=== PATIENT | male | born 1960 | race Caucasian/White ===

== ENCOUNTER 2018-02-11 21:50 | Emergency (ER) | payer MEDICARE ==
[2018-02-11] MEDS ORDERED: XYLOCAINE 2% Uro-Jet ONE (22:03)
--- NOTE | 2018-02-11 22:08 | ERPHSYRPT ---
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 This is given him lower abdominal pain. He has a history of urinary strictures with urinary retention. This condition will cause urinary retention from time to time. His past medical history is significant for urinary strictures. Timing/Duration: today, hour(s) (9), gradual onset, worse Quality: fullness, pressure, sharpness Abdominal Pain Onset Location: suprapubic Pain Radiation: no radiation Severity of Pain-Max: moderate Severity of Pain-Current: moderate Modifying Factors: Improves With: nothing Associated Symptoms: denies symptoms Previous symptoms: same symptoms as today Allergies/Adverse Reactions: No Known Drug Allergies Allergy (Verified 02/11/18 22:20) Home Medications: Finasteride 5 mg [Proscar 5 MG] 5 mg PO DAILY 11/30/15 [History] Ketoconazole Cream [Nizoral CREAM] 0 gm TOP DAILY 11/30/15 [History] Baclofen [Lioresal Intrathecal] 2,000 mcg IT UD 12/01/15 [History] Hx Influenza Vaccination/Date Given: Yes - Review of Systems Constitutional: No Fever, No Chills Eyes: No Symptoms Ears, Nose, & Throat: No Symptoms Respiratory: No Cough, No Dyspnea Cardiac: No Chest Pain, No Edema, No Syncope Abdominal/Gastrointestinal: Abdominal Pain Genitourinary Symptoms: Urinary Retention Musculoskeletal: No Back Pain, No Neck Pain Skin: No Rash Neurological: No Dizziness, No Focal Weakness, No Sensory Changes Psychological: No Symptoms Endocrine: No Symptoms Hematologic/Lymphatic: No Symptoms Immunological/Allergic: No Symptoms All Other Systems: Reviewed and Negative - Past Medical History Pertinent Past Medical History: Yes Neurological History: Other ENT History: No Pertinent History Cardiac History: Hypertension Respiratory History: No Pertinent History Endocrine Medical History: No Pertinent History Musculoskeletal History: No Pertinent History GI Medical History: No Pertinent History History: No Pertinent History Psycho-Social History: No Pertinent History Male Reproductive Disorders: Prostate Problems Other Medical History: Unable to obtain accurate med hx through pt or caregiver. CP with related spasticity is most significant med hx. - Past Surgical History Past Surgical History: Yes Neuro Surgical History: No Pertinent History Cardiac: No Pertinent History Respiratory: No Pertinent History Gastrointestinal: No Pertinent History Genitourinary: No Pertinent History Musculoskeletal: Orthopedic Surgery Male Surgical History: No Pertinent History Other Surgical History: Back, Neck, and ankle surgery - Social History Smoking Status: Never smoker Exposure to second hand smoke: No Drug Use: none - Nursing Vital Signs Nursing Vital Signs: Initial Vital Signs Temperature 97.8 F 02/11/18 22:10 Pulse Rate 61 02/11/18 22:10 Respiratory Rate 18 02/11/18 22:10 Blood Pressure 138/84 02/11/18 22:10 O2 Sat by Pulse Oximetry 96 02/11/18 22:10 Pain Scale Pain Intensity 4 - Physical Exam General Appearance: mild distress Eye Exam: PERRL/EOMI, eyes nml inspection Ears, Nose, Throat Exam: normal ENT inspection, pharynx normal, moist mucous membranes Neck Exam: normal inspection, non-tender, supple, full range of motion Respiratory Exam: normal breath sounds, lungs clear, No respiratory distress Cardiovascular Exam: regular rate/rhythm, normal heart sounds Gastrointestinal/Abdomen Exam: tenderness (suprapubic) Rectal Exam: not done Back Exam: normal inspection, normal range of motion, No CVA tenderness, No vertebral tenderness Extremity Exam: normal inspection, normal range of motion, pelvis stable Neurologic Exam: alert, oriented x 3, cooperative, normal mood/affect, nml cerebellar function, sensation nml, No motor deficits Skin Exam: normal color, warm, dry SpO2 Interpretation: normal Oxygen Delivery: Room Air Ordered Tests: Active Orders 24 hr Category Date Time Status Catheter-[place] Bustos STAT Care 02/11/18 22:08 Active UA W/RFX UR CULTURE Stat Lab 02/11/18 22:20 Completed Medication Summary Discontinued Medications Generic Name Dose Route Start Last Admin Trade Name Freq PRN Reason Stop Dose Admin Lidocaine HCl Confirm 02/11/18 22:03 Xylocaine 2% Uro-Jet Administered 02/11/18 22:04 Dose 200 mg .ROUTE .STK-MED ONE Lab/Rad Data: Laboratory Results 02/11/18 Range/Units 22:20 Ur Collection Type CLEAN CATCH Urine Color LT.YELLOW (YELLOW) Urine Appearance CLEAR (CLEAR) Urine pH 6.5 (5-6) Ur Specific [place] 1.005 (1.005-1.025) Urine Protein NEGATIVE (Negative) Urine Ketones NEGATIVE (NEGATIVE) Urine Blood NEGATIVE (0-5) [place]/ul Urine Nitrite NEGATIVE (NEGATIVE) Urine Bilirubin NEGATIVE (NEGATIVE) Urine Urobilinogen NORMAL (0-1) mg/dL Ur Leukocyte Esterase NEGATIVE (NEGATIVE) Urine Culture Reflexed NO (NO) Urine Glucose NEGATIVE (NEGATIVE) mg/dL Specimen Received 02/11/18 2200 - Progress Progress: improved Counseled pt/family regarding: diagnosis, need for follow-up - Departure Time of Disposition: 23:28 Departure Disposition: Home Clinical Impression: Urinary retention Condition: Stable Critical Care Time: No Referrals: DEXTER DOSS MD [Primary Care Provider] - Additional Instructions: You have urinary retention. We placed a Bustos catheter for you to keep in place until seeing either your primary care doctor or your urologist in the next 2-4 days.
[2018-02-11 23:16] LABS: Appearance CLEAR (CLEAR)
[2018-02-11 23:17] LABS: Bilirubin NEGATIVE (NEGATIVE); Blood NEGATIVE Ery/ul (0-5); Glucose NEGATIVE (NEGATIVE); Ketones NEGATIVE (NEGATIVE); Leukocyte Esterase NEGATIVE (NEGATIVE); Nitrite NEGATIVE (NEGATIVE); Ph 6.5 (5-6); Protein,Urine Dip NEGATIVE (Negative); Specific Gravity 1.005 (1.005-1.025); Urobilinogen NORMAL mg/dL (0-1)
[2018-02-12 00:22] VITALS: BP 123/77; PULSE 62; O2SAT 97
== END 2018-02-11 23:54 | disposition home or self-care (01) ==
LOC: ED 21:50
DX: R33.9 Retention of urine, unspecified (principal); Z79.899 Other long term (current) drug therapy; G80.9 Cerebral palsy, unspecified
CPT/HCPCS: 51702; 81002; 99284

== ENCOUNTER 2018-02-16 09:00 | Emergency (ER) | payer MEDICARE ==
--- NOTE | 2018-02-16 09:53 | ERPHSYRPT ---
- History of Present Illness Time Seen by Provider: 02/16/18 09:15 Source: patient Exam Limitations: clinical condition Patient Subjective Stated Complaint: Pt neice/caregiver states "He pulled his melendrez catheter partly out and he is having bloody urine comeing out around the cath." Triage Nursing Assessment: Pt alert and oriented X 3, skin pwd Pt ambulates with pain. Pt speech is slow, pt caregiver is historian. Physician History: PATIENT WITH HISTORY OF HYPERTENSION, EVALUATED FOR URINARY RETENTION IN EMERGENCY OF[facility] 02/11/2018, HAD MELENDREZ CATHETER INSERTION. PARTIALLY PULLED OUT MELENDREZ CATHETER LAST NIGHT. DENIES ABDOMINAL OR URETHRAL PAIN, HEMATURIA. Timing/Duration: yesterday Activites at Onset: none Pain Radiation: none Severity of Pain-Max: none Severity of Pain-Current: none Associated Symptoms: denies symptoms Prior abdominal problems: none Allergies/Adverse Reactions: No Known Drug Allergies Allergy (Verified 02/11/18 22:20) Home Medications: Finasteride 5 mg [Proscar 5 MG] 5 mg PO DAILY 11/30/15 [History] Ketoconazole Cream [Nizoral CREAM] 0 gm TOP DAILY 11/30/15 [History] Baclofen [Lioresal Intrathecal] 2,000 mcg IT UD 12/01/15 [History] Hx Tetanus, Diphtheria Vaccination/Date Given: Yes Hx Influenza Vaccination/Date Given: Yes Hx Pneumococcal Vaccination/Date Given: Yes Immunizations Up to Date: Yes - Past Medical History Pertinent Past Medical History: Yes Neurological History: Other ENT History: No Pertinent History Cardiac History: Hypertension Respiratory History: No Pertinent History Endocrine Medical History: No Pertinent History Musculoskeletal History: No Pertinent History GI Medical History: No Pertinent History History: No Pertinent History Psycho-Social History: No Pertinent History Male Reproductive Disorders: Prostate Problems Other Medical History: Unable to obtain accurate med hx through pt or caregiver. CP with related spasticity is most significant med hx. - Past Surgical History Past Surgical History: Yes Neuro Surgical History: No Pertinent History Cardiac: No Pertinent History Respiratory: No Pertinent History Gastrointestinal: No Pertinent History Genitourinary: No Pertinent History Musculoskeletal: Orthopedic Surgery Male Surgical History: No Pertinent History Other Surgical History: Back, Neck, and ankle surgery - Social History Smoking Status: Never smoker Exposure to second hand smoke: Yes Drug Use: none Patient Lives Alone: No - Review of Systems Constitutional: No Fever, No Chills Eyes: No Symptoms Ears, Nose, & Throat: No Symptoms Respiratory: No Symptoms, No Cough, No Dyspnea Cardiac: No Chest Pain, No Edema, No Syncope Abdominal/Gastrointestinal: No Symptoms, No Abdominal Pain, No Nausea, No Vomiting, No Diarrhea Genitourinary Symptoms: No Symptoms, No Dysuria Musculoskeletal: No Symptoms, No Back Pain, No Neck Pain Skin: No Rash Neurological: No Dizziness, No Focal Weakness, No Sensory Changes Psychological: No Symptoms Endocrine: No Symptoms All Other Systems: Reviewed and Negative - Nursing Vital Signs Nursing Vital Signs: Initial Vital Signs Temperature 97.4 F 02/16/18 09:01 Pulse Rate 68 02/16/18 09:01 Respiratory Rate 18 02/16/18 09:01 Blood Pressure 119/71 02/16/18 09:01 O2 Sat by Pulse Oximetry 96 02/16/18 09:01 Pain Scale Pain Intensity 0 - Physical Exam General Appearance: no apparent distress, alert Eye Exam: PERRL/EOMI Ears, Nose, Throat Exam: pharynx normal, moist mucous membranes Neck Exam: normal inspection, supple Respiratory Exam: normal breath sounds, lungs clear Cardiovascular Exam: regular rate/rhythm, No edema Gastrointestinal/Abdomen Exam: soft, normal bowel sounds, other (NONTENDER, ), No tenderness Male Genital Exam: epididymal tenderness (MELENDREZ PARTIALLY PULLED OUT, URINE DRAINING THROUGH MELENDREZ CATHETER) Back Exam: normal inspection, No CVA tenderness Extremity Exam: normal inspection, normal range of motion, No pedal edema Neurologic Exam: alert, oriented x 3, cooperative, sensation nml, No motor deficits Skin Exam: normal color, warm, dry, No rash SpO2 Interpretation: normal SpO2: 96 Oxygen Delivery: Room Air Ordered Tests: Active Orders 24 hr Category Date Time Status UA W/RFX UR CULTURE Stat Lab 02/16/18 09:35 Ordered - Progress Progress Note: 02/16/18 09:55 DEFLATED MELENDREZ CATHETER BULB, INSERTION OF MELENDREZ, INFLATED BULB, WITH GOOD URINE OUT PUT Counseled pt/family regarding: lab results, diagnosis, need for follow-up - Departure Time of Disposition: 10:20 Departure Disposition: Home Clinical Impression: MELENDREZ CATHETER REPOSITION, URINARY TRACT INFECTION Condition: Stable Critical Care Time: No Referrals: DEXTER DOSS MD [Primary Care Provider] - Additional Instructions: CONTINUE ALL CURRENT MEDICATIONS, RETURN TO EMERGENCY NEEDED. ANTIBIOTIC BACTRIM DS TWICE DAILY FOR 10 DAYS. CONSULT YOUR PRIMARY CARE PROVIDER FOR FOLLOWUP. CONTINUE ANTIBIOTIC BACTRIM DS TWICE DAILY DIRECTED.
[2018-02-16 10:09] LABS: Appearance HAZY (CLEAR); Bilirubin NEGATIVE (NEGATIVE); Blood 250 Ery/ul (0-5); Glucose NEGATIVE (NEGATIVE); Ketones NEGATIVE (NEGATIVE); Leukocyte Esterase 1+ (NEGATIVE); Nitrite NEGATIVE (NEGATIVE); Protein,Urine Dip TRACE (Negative); Specific Gravity 1.015 (1.005-1.025); Urobilinogen NORMAL mg/dL (0-1)
[2018-02-16 10:16] LABS: Bacteria MODERATE /HPF (NEGATIVE); Epithelial Cells FEW /HPF (FEW); Mucus SLIGHT /HPF (NEGATIVE); RBC >100 /HPF (0-2); WBC 25-50 /HPF (0-5)
[2018-02-16 10:48] VITALS: BP 122/78; PULSE 60; O2SAT 95
== END 2018-02-16 10:56 | disposition home or self-care (01) ==
LOC: ED 09:00
DX: T83.028A Displacement of other urinary catheter, initial encounter (principal); N39.0 Urinary tract infection, site not specified; Z79.899 Other long term (current) drug therapy; G80.9 Cerebral palsy, unspecified
CPT/HCPCS: 81000; 87077; 87086; 87186; 99284

== ENCOUNTER 2018-05-27 12:20 | Emergency (ER) | payer MEDICARE ==
--- NOTE | 2018-05-27 13:13 | ERPHSYRPT ---
- History of Present Illness Time Seen by Provider: 05/27/18 13:06 Source: patient, other Exam Limitations: other (CP) Patient Subjective Stated Complaint: Pt caregiver states "He has fallen 3 times today, usually when he gets up. I took his blood pressure and it was low." Triage Nursing Assessment: Pt alert and oriented X 3, skin pwd. Pt smiling and looking around. Pt able to speak in clear full sentences, for his normal, pt in no apparent respiratory distress. Physician History: The patient is a 57-year-old male with a history of cerebral palsy living in a detention arrives with his caregiver who states that he has fallen several times while trying to stand today. He states he is dizzy and has a headache. He denies shortness of breath or chest pain. He denies cough or fever. His past medical history is significant for cerebral palsy, hypertension, and enlarged prostate. Timing/Duration: today Severity: moderate Associated Symptoms: headaches Allergies/Adverse Reactions: No Known Drug Allergies Allergy (Verified 02/11/18 22:20) Home Medications: Finasteride 5 mg [Proscar 5 MG] 5 mg PO DAILY 11/30/15 [History] Baclofen [Lioresal Intrathecal] 2,000 mcg IT UD 12/01/15 [History] Metoprolol Succinate [Toprol Xl] 25 mg PO DAILY 05/27/18 [History] Hx Tetanus, Diphtheria Vaccination/Date Given: Yes Hx Influenza Vaccination/Date Given: No Hx Pneumococcal Vaccination/Date Given: No Immunizations Up to Date: Yes - Review of Systems Constitutional: No Fever, No Chills Eyes: No Symptoms Ears, Nose, & Throat: No Symptoms Respiratory: No Cough, No Dyspnea Cardiac: No Chest Pain, No Edema, No Syncope Abdominal/Gastrointestinal: No Abdominal Pain, No Nausea, No Vomiting, No Diarrhea Genitourinary Symptoms: No Dysuria Musculoskeletal: Fall Skin: No Rash Neurological: Headache Psychological: No Symptoms Endocrine: No Symptoms Hematologic/Lymphatic: No Symptoms Immunological/Allergic: No Symptoms All Other Systems: Reviewed and Negative - Past Medical History Pertinent Past Medical History: Yes Neurological History: Other ENT History: No Pertinent History Cardiac History: Hypertension Respiratory History: Asthma Endocrine Medical History: Other Musculoskeletal History: Other GI Medical History: No Pertinent History History: No Pertinent History Psycho-Social History: No Pertinent History Male Reproductive Disorders: Prostate Problems Other Medical History: getting botox now and wearing resting hand splint at night. - Past Surgical History Past Surgical History: Yes Neuro Surgical History: No Pertinent History Cardiac: No Pertinent History Respiratory: No Pertinent History Gastrointestinal: No Pertinent History Genitourinary: No Pertinent History Musculoskeletal: Orthopedic Surgery Male Surgical History: No Pertinent History Other Surgical History: Back, Neck, and ankle surgery - Social History Smoking Status: Never smoker Exposure to second hand smoke: No Drug Use: none Patient Lives Alone: No - Nursing Vital Signs Nursing Vital Signs: Initial Vital Signs Temperature 97.8 F 05/27/18 12:24 Pulse Rate 56 L 05/27/18 12:24 Respiratory Rate 18 05/27/18 12:24 Blood Pressure 128/87 05/27/18 12:24 O2 Sat by Pulse Oximetry 97 05/27/18 12:24 Pain Scale Pain Intensity 0 - Physical Exam General Appearance: no apparent distress, alert Eye Exam: PERRL/EOMI, eyes nml inspection Ears, Nose, Throat Exam: TMs normal, pharynx normal, moist mucous membranes, other (cerumen impaction in left ear.) Neck Exam: normal inspection, non-tender, supple, full range of motion Respiratory Exam: normal breath sounds, lungs clear, No respiratory distress Cardiovascular Exam: regular rate/rhythm, normal heart sounds, normal peripheral pulses Gastrointestinal/Abdomen Exam: soft, normal bowel sounds, No tenderness, No mass Rectal Exam: not done Back Exam: normal inspection, normal range of motion, No CVA tenderness, No vertebral tenderness Extremity Exam: normal inspection, normal range of motion, pelvis stable Neurologic Exam: alert, oriented x 3, cooperative, normal mood/affect, nml cerebellar function, nml station & gait, sensation nml, No motor deficits Skin Exam: normal color, warm, dry, No rash Lymphatic Exam: No adenopathy SpO2 Interpretation: normal SpO2: 97 Oxygen Delivery: Room Air - Radiology Exams Chest X-ray Interpretation: Reviewed by me, Teleradiologist Report (per Dr Perales), Negative - CT Exams Head CT Interpretation: Tele-radiologist Report (per Dr Perales), No/Intracranial Hemorrhag, Old Stroke Ordered Tests: Active Orders 24 hr Category Date Time Status Wine Sales Representative STAT Care 05/27/18 13:21 Active Clean Catch Urine Specimen STAT Care 05/27/18 13:20 Active IV Insertion STAT Care 05/27/18 13:20 Active Orthostatic Vital Signs STAT Care 05/27/18 14:00 Active Pulse Oximetry (ED) STAT Care 05/27/18 13:20 Active CHEST 1 VIEW (PORTABLE) Stat Exams 05/27/18 13:21 Completed HEAD WITHOUT CONTRAST [CT] Stat Exams 05/27/18 13:20 Completed CBC W DIFF Stat Lab 05/27/18 13:47 Completed CMP Stat Lab 05/27/18 13:47 Completed Lactic Acid Urgent Lab 05/27/18 13:50 Completed TROPONIN Q3H Lab 05/27/18 13:47 Completed TROPONIN Q3H Lab 05/27/18 16:30 Ordered TROPONIN Q3H Lab 05/27/18 19:30 Ordered TROPONIN Q3H Lab 05/27/18 22:30 Ordered TROPONIN Q3H Lab 05/28/18 01:30 Ordered UA W/RFX UR CULTURE Stat Lab 05/27/18 15:10 Completed Medication Summary Discontinued Medications Generic Name Dose Route Start Last Admin Trade Name Freq PRN Reason Stop Dose Admin Sodium Chloride 1,000 mls @ 999 mls/hr 05/27/18 13:20 05/27/18 14:05 Sodium Chloride 0.9% 1000 Ml IV 05/27/18 14:20 999 mls/hr .Q1H1M STA Administration Sodium Chloride Confirm 05/27/18 14:05 Sodium Chloride 0.9% 1000 Ml Administered 05/27/18 14:06 Dose 1,000 mls @ ud .ROUTE .STK-MED ONE Lab/Rad Data: Laboratory Result Diagrams 05/27/18 13:47 05/27/18 13:47 Laboratory Results 05/27/18 05/27/18 05/27/18 Range/Units 15:10 13:50 13:47 WBC (4.0-10.5) K/mm3 RBC (4.1-5.6) M/mm3 Hgb (12.5-18.0) gm/dl Hct (42-50) % MCV (78-100) fl MCH (26-32) pg MCHC (32-36) g/dl RDW (11.5-14.0) % Plt Count (150-450) K/mm3 MPV (6-9.5) fl Gran % (36.0-66.0) % Eos # (Auto) (0-0.5) Absolute Lymphs (auto) (1.0-4.6) Absolute Monos (auto) (0.0-1.3) Lymphocytes % (24.0-44.0) % Monocytes % (0.0-12.0) % Eosinophils % (0.00-5.0) % Basophils % (0.0-0.4) % Absolute Granulocytes (1.4-6.9) Basophils # (0-0.4) Sodium (137-145) mmol/L Potassium (3.5-5.1) mmol/L Chloride (98-107) mmol/L Carbon Dioxide (22-30) mmol/L Anion Gap (5-15) MEQ/L BUN (9-20) mg/dL Creatinine (0.66-1.25) mg/dL Estimated GFR ML/MIN Glucose (74-106) mg/dL Lactic Acid 0.8 (0.4-2.0) Calcium (8.4-10.2) mg/dL Total Bilirubin (0.2-1.3) mg/dL AST (17-59) U/L ALT (0-50) U/L Alkaline Phosphatase (38-126) U/L Troponin I < 0.012 (0.000-0.034) ng/mL Serum Total Protein (6.3-8.2) g/dL Albumin (3.5-5.0) g/dL Ur Collection Type CLEAN CATCH Urine Color YELLOW (YELLOW) Urine Appearance CLEAR (CLEAR) Urine pH 8.0 (5-6) Ur Specific [place] 1.005 (1.005-1.025) Urine Protein NEGATIVE (Negative) Urine Ketones NEGATIVE (NEGATIVE) Urine Blood NEGATIVE (0-5) [place]/ul Urine Nitrite NEGATIVE (NEGATIVE) Urine Bilirubin NEGATIVE (NEGATIVE) Urine Urobilinogen NORMAL (0-1) mg/dL Ur Leukocyte Esterase NEGATIVE (NEGATIVE) Urine Culture Reflexed NO (NO) Urine Glucose NEGATIVE (NEGATIVE) mg/dL Specimen Received 05/27/18 1510 05/27/18 05/27/18 Range/Units 13:47 13:47 WBC 6.4 (4.0-10.5) K/mm3 RBC 5.46 (4.1-5.6) M/mm3 Hgb 16.4 (12.5-18.0) gm/dl Hct 49.7 (42-50) % MCV 91.0 (78-100) fl MCH 30.0 (26-32) pg MCHC 33.0 (32-36) g/dl RDW 13.2 (11.5-14.0) % Plt Count 181 (150-450) K/mm3 MPV 10.8 H (6-9.5) fl Gran % 68.7 H (36.0-66.0) % Eos # (Auto) 0.11 (0-0.5) Absolute Lymphs (auto) 1.37 (1.0-4.6) Absolute Monos (auto) 0.50 (0.0-1.3) Lymphocytes % 21.5 L (24.0-44.0) % Monocytes % 7.8 (0.0-12.0) % Eosinophils % 1.7 (0.00-5.0) % Basophils % 0.3 (0.0-0.4) % Absolute Granulocytes 4.38 (1.4-6.9) Basophils # 0.02 (0-0.4) Sodium 141 (137-145) mmol/L Potassium 4.7 (3.5-5.1) mmol/L Chloride 102 (98-107) mmol/L Carbon Dioxide 30 (22-30) mmol/L Anion Gap 13.7 (5-15) MEQ/L BUN 15 (9-20) mg/dL Creatinine 0.81 (0.66-1.25) mg/dL Estimated GFR > 60.0 ML/MIN Glucose 98 (74-106) mg/dL Lactic Acid (0.4-2.0) Calcium 9.0 (8.4-10.2) mg/dL Total Bilirubin 0.60 (0.2-1.3) mg/dL AST 32 (17-59) U/L ALT 48 (0-50) U/L Alkaline Phosphatase 84 (38-126) U/L Troponin I (0.000-0.034) ng/mL Serum Total Protein 7.8 (6.3-8.2) g/dL Albumin 4.1 (3.5-5.0) g/dL Ur Collection Type Urine Color (YELLOW) Urine Appearance (CLEAR) Urine pH (5-6) Ur Specific [place] (1.005-1.025) Urine Protein (Negative) Urine Ketones (NEGATIVE) Urine Blood (0-5) [place]/ul Urine Nitrite (NEGATIVE) Urine Bilirubin (NEGATIVE) Urine Urobilinogen (0-1) mg/dL Ur Leukocyte Esterase (NEGATIVE) Urine Culture Reflexed (NO) Urine Glucose (NEGATIVE) mg/dL Specimen Received - Progress Progress: unchanged Counseled pt/family regarding: lab results, diagnosis, rad results - Departure Time of Disposition: 16:05 Departure Disposition: Home Clinical Impression: Dizziness, Impacted cerumen of left ear Condition: Stable Critical Care Time: No Referrals: DEXTER DOSS MD [NON-STAFF PHY W/O PRIVILEGES] -
[2018-05-27] MEDS ORDERED: Sodium Chloride 0.9% 1000 ML 1,000 ML IV STA (13:20)
--- NOTE | 2018-05-27 13:56 | XRAY ---
Indication: Dizziness. Falls. Comparison: November 14, 2012. Portable chest less inflated today. Heart is not enlarged for AP portable technique and now obscures the left lung base. Stable hilar calcified nodes. Remaining lungs clear. Bony thorax intact again with mild degenerative changes, old left 6th rib fracture, and levorotoscoliosis. Impression: Nonacute underinflated chest with chronic features.
[2018-05-27] MEDS ORDERED: Sodium Chloride 0.9% 1000 ML 1,000 ML ONE (14:05)
[2018-05-27 14:06] LABS: BASOPHIL % 0.3 % (0.0-0.4); Basophil (Absolute #) 0.02 (0-0.4); Eosinophil % 1.7 % (0.00-5.0); Eosinophil (Absolute #) 0.11 (0-0.5); Granulocyte Absolute (ANC) 4.38 (1.4-6.9); Granulocytes % 68.7 % (36.0-66.0); Hematocrit 49.7 % (42-50); Hemoglobin 16.4 gm/dl (12.5-18.0); Lymphocyte (Absolute #) 1.37 (1.0-4.6); Lymphocytes % 21.5 % (24.0-44.0); Mean Platelet Volume 10.8 fl (6-9.5); Monocytes % 7.8 % (0.0-12.0); Platelet Count 181 K/mm3 (150-450); Red Blood Count 5.46 M/mm3 (4.1-5.6); Red Cell Distribution Width 13.2 % (11.5-14.0); White Blood Count 6.4 K/mm3 (4.0-10.5)
[2018-05-27 14:26] LABS: ALBUMIN 4.1 g/dL (3.5-5.0); ALKALINE PHOSPHATASE 84 U/L (38-126); ANION GAP 13.7 MEQ/L (5-15); BLOOD UREA NITROGEN 15 mg/dL (9-20); CHLORIDE 102 mmol/L (98-107); Carbon Dioxide 30 mmol/L (22-30); Creatinine 1 0.81 mg/dL (0.66-1.25); Glucose 98 mg/dL (74-106); Potassium 4.7 mmol/L (3.5-5.1); SGOT/AST 32 U/L (17-59); SGPT/ALT 48 U/L (0-50); SODIUM 141 mmol/L (137-145); Total Protein 7.8 g/dL (6.3-8.2)
--- NOTE | 2018-05-27 15:01 | XRAY ---
Indication: Dizziness. History of cerebral palsy. Multiple contiguous axial images obtained through the head without contrast. Comparison: January 22, 2015. Stable small right insula remote infarct. Again no acute intracranial hemorrhage, abnormal extra-axial fluid collection, or mass effect. Fourth ventricle is midline without hydrocephalus. Roberts-white matter differentiation preserved. Osseous structures intact. There is continued complete opacification of the right frontal sinus and mild mucoperiosteal thickening of both maxillary sinuses. Mastoid air cells are clear. 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 No new/acute intracranial abnormalities. Again paranasal sinus disease. CT DI 60.93
[2018-05-27 15:31] LABS: Appearance CLEAR (CLEAR)
[2018-05-27 15:32] LABS: Bilirubin NEGATIVE (NEGATIVE); Blood NEGATIVE Ery/ul (0-5); Glucose NEGATIVE (NEGATIVE); Ketones NEGATIVE (NEGATIVE); Leukocyte Esterase NEGATIVE (NEGATIVE); Nitrite NEGATIVE (NEGATIVE); Protein,Urine Dip NEGATIVE (Negative); Specific Gravity 1.005 (1.005-1.025); Urobilinogen NORMAL mg/dL (0-1)
[2018-05-27 16:06] VITALS: BP 123/79; PULSE 56; O2SAT 97
== END 2018-05-27 16:30 | disposition home or self-care (01) ==
LOC: ED 12:20
DX: R42 Dizziness and giddiness (principal); R51 Headache; H61.22 Impacted cerumen, left ear; G80.9 Cerebral palsy, unspecified; Z79.899 Other long term (current) drug therapy
CPT/HCPCS: 36000; 36415; 69210; 70450; 71045; 80053; 81002; 83605; 84484; 85025; 93041; 96360; 99284

== ENCOUNTER 2018-07-18 07:22 | Emergency (ER) | payer MEDICARE ==
--- NOTE | 2018-07-18 07:38 | ERPHSYRPT ---
- History of Present Illness Time Seen by Provider: 07/18/18 07:30 Source: patient, other (child day care provider phone report) Exam Limitations: other (cerebral palsy) Physician History: The patient is a 57-year-old male with a history of cerebral palsy and lives in a skilled nursing is brought in by ambulance from the skilled nursing where it was stated that he had blue lips this morning and a low blood pressure. They say he also complained of a headache and dizziness. This is been going on for a few days. He gets better by afternoon. He was sent to [facility] yesterday and had an extensive workup and nothing was found. He was then sent home. When I interview the patient, he states that he feels fine. His past medical history is significant for cerebral palsy, hypertension, urinary strictures, and he wears a CPAP at night. Timing/Duration: day(s) (several days), gradual onset Severity: mild Modifying Factors: Improves With: nothing Associated Symptoms: headaches, No nausea, No vomiting, No abdominal pain, No shortness of breath, No diaphoresis, No cough, No chest pain, No syncope Allergies/Adverse Reactions: No Known Drug Allergies Allergy (Verified 07/18/18 07:37) Home Medications: Finasteride 5 mg [Proscar 5 MG] 5 mg PO DAILY 11/30/15 [History] Baclofen [Lioresal Intrathecal] 2,000 mcg IT UD 12/01/15 [History] Metoprolol Succinate [Toprol Xl] 25 mg PO DAILY 05/27/18 [History] Bethanechol Chloride 5 mg TID 07/18/18 [History] Escitalopram Oxalate 10 mg [Lexapro 10 MG] 10 mg DAILY 07/18/18 [History] Polyethylene Glycol 3350 [Miralax] 17 gm DAILY 07/18/18 [History] Talc/Calamine [Anti Monkey Butt Powder] 170 gm DAILY 07/18/18 [History] Triamcinolone Acetonide [Kenalog in Orabase] 5 gm BID 07/18/18 [History] Hx Tetanus, Diphtheria Vaccination/Date Given: Yes Hx Influenza Vaccination/Date Given: No Hx Pneumococcal Vaccination/Date Given: No - Review of Systems Constitutional: No Fever, No Chills Eyes: No Symptoms Ears, Nose, & Throat: No Symptoms Respiratory: No Cough, No Dyspnea Cardiac: No Chest Pain, No Edema, No Syncope Abdominal/Gastrointestinal: No Abdominal Pain, No Nausea, No Vomiting, No Diarrhea Genitourinary Symptoms: No Dysuria Musculoskeletal: No Back Pain, No Neck Pain Skin: No Rash Neurological: Dizziness, Headache Psychological: No Symptoms Endocrine: No Symptoms Hematologic/Lymphatic: No Symptoms Immunological/Allergic: No Symptoms All Other Systems: Reviewed and Negative - Past Medical History Pertinent Past Medical History: Yes Neurological History: Other ENT History: No Pertinent History Cardiac History: Hypertension Respiratory History: Asthma Endocrine Medical History: Other Musculoskeletal History: Other GI Medical History: No Pertinent History History: No Pertinent History Psycho-Social History: No Pertinent History Male Reproductive Disorders: Prostate Problems Other Medical History: getting botox now and wearing resting hand splint at night. - Past Surgical History Past Surgical History: Yes Neuro Surgical History: No Pertinent History Cardiac: No Pertinent History Respiratory: No Pertinent History Gastrointestinal: No Pertinent History Genitourinary: No Pertinent History Musculoskeletal: Orthopedic Surgery Male Surgical History: No Pertinent History Other Surgical History: Back, Neck, and ankle surgery - Social History Smoking Status: Never smoker Exposure to second hand smoke: No Drug Use: none Patient Lives Alone: No - Nursing Vital Signs Nursing Vital Signs: Initial Vital Signs Temperature 98.3 F 07/18/18 07:24 Pulse Rate 68 07/18/18 07:24 Respiratory Rate 18 07/18/18 07:24 Blood Pressure 120/79 07/18/18 07:24 O2 Sat by Pulse Oximetry 94 L 07/18/18 07:24 Pain Scale Pain Intensity 0 - Physical Exam General Appearance: no apparent distress, alert Eye Exam: PERRL/EOMI, eyes nml inspection Ears, Nose, Throat Exam: normal ENT inspection, TMs normal, pharynx normal, moist mucous membranes Neck Exam: normal inspection, non-tender, supple, full range of motion Respiratory Exam: normal breath sounds, lungs clear, No respiratory distress Cardiovascular Exam: regular rate/rhythm, normal heart sounds, normal peripheral pulses Gastrointestinal/Abdomen Exam: soft, normal bowel sounds, other (baclofen pump under skin on left abd.), No tenderness Rectal Exam: not done Back Exam: normal inspection, normal range of motion, No CVA tenderness, No vertebral tenderness Extremity Exam: normal inspection, normal range of motion, pelvis stable Neurologic Exam: alert, oriented x 3, cooperative, normal mood/affect, nml cerebellar function, nml station & gait, sensation nml, No motor deficits Skin Exam: normal color, warm, dry, No rash Lymphatic Exam: No adenopathy SpO2 Interpretation: normal SpO2: 94 Oxygen Delivery: Room Air - Radiology Exams Chest X-ray Interpretation: Reviewed by me, Teleradiologist Report (per Dr Perales), Negative - CT Exams Chest CT Interpretation: Negative, Tele-radiologist Report (per Dr Perales), Pneumonia, Other (subtle patchy left lung groundglass airspace disease without consolidation) Ordered Tests: Active Orders 24 hr Category Date Time Status Clean Catch Urine Specimen STAT Care 07/18/18 07:43 Active IV Insertion STAT Care 07/18/18 08:41 Active CHEST 1 VIEW (PORTABLE) Stat Exams 07/18/18 08:41 Completed CHEST WITH CONTRAST [CT] Stat Exams 07/18/18 10:27 Completed CBC W DIFF Stat Lab 07/18/18 07:55 Completed CMP Stat Lab 07/18/18 07:55 Completed D-DIMER QUANTITATION Stat Lab 07/18/18 07:55 Completed Lactic Acid Stat Lab 07/18/18 07:43 Completed NT PRO BNP Stat Lab 07/18/18 07:50 Completed TROPONIN Q3H Lab 07/18/18 07:55 Completed UA W/RFX UR CULTURE Stat Lab 07/18/18 09:06 Completed Pulse Oximetry .overnight RT 07/18/18 08:46 Completed Lab/Rad Data: Laboratory Result Diagrams 07/18/18 07:55 07/18/18 07:55 Laboratory Results 07/18/18 07/18/18 07/18/18 Range/Units 09:06 07:55 07:55 WBC (4.0-10.5) K/mm3 RBC (4.1-5.6) M/mm3 Hgb (12.5-18.0) gm/dl Hct (42-50) % MCV (78-100) fl MCH (26-32) pg MCHC (32-36) g/dl RDW (11.5-14.0) % Plt Count (150-450) K/mm3 MPV (6-9.5) fl Gran % (36.0-66.0) % Eos # (Auto) (0-0.5) Absolute Lymphs (auto) (1.0-4.6) Absolute Monos (auto) (0.0-1.3) Lymphocytes % (24.0-44.0) % Monocytes % (0.0-12.0) % Eosinophils % (0.00-5.0) % Basophils % (0.0-0.4) % Absolute Granulocytes (1.4-6.9) Basophils # (0-0.4) D-Dimer 783 H* (215-500) ng/mL Sodium (137-145) mmol/L Potassium (3.5-5.1) mmol/L Chloride (98-107) mmol/L Carbon Dioxide (22-30) mmol/L Anion Gap (5-15) MEQ/L BUN (9-20) mg/dL Creatinine (0.66-1.25) mg/dL Estimated GFR ML/MIN Glucose (74-106) mg/dL Lactic Acid (0.4-2.0) Calcium (8.4-10.2) mg/dL Total Bilirubin (0.2-1.3) mg/dL AST (17-59) U/L ALT (0-50) U/L Alkaline Phosphatase (38-126) U/L Troponin I < 0.012 (0.000-0.034) ng/mL NT-Pro-B Natriuret Pep (0-900) pg/mL Serum Total Protein (6.3-8.2) g/dL Albumin (3.5-5.0) g/dL Urine Color YELLOW (YELLOW) Urine Appearance CLEAR (CLEAR) Urine pH 6.0 (5-6) Ur Specific Randolph 1.012 (1.005-1.025) Urine Protein NEGATIVE (Negative) Urine Ketones NEGATIVE (NEGATIVE) Urine Blood NEGATIVE (0-5) Milan/ul Urine Nitrite NEGATIVE (NEGATIVE) Urine Bilirubin NEGATIVE (NEGATIVE) Urine Urobilinogen NEGATIVE (0-1) mg/dL Ur Leukocyte Esterase NEGATIVE (NEGATIVE) Urine WBC (Auto) 0-2 (0-5) /HPF Urine RBC (Auto) NONE (0-2) /HPF U Epithel Cells (Auto) RARE (FEW) /HPF Urine Mucus (Auto) SLIGHT (NEGATIVE) /HPF Urine Culture Reflexed NO (NO) Urine Glucose NEGATIVE (NEGATIVE) mg/dL 07/18/18 07/18/18 07/18/18 Range/Units 07:55 07:55 07:50 WBC 6.9 (4.0-10.5) K/mm3 RBC 5.12 (4.1-5.6) M/mm3 Hgb 15.2 (12.5-18.0) gm/dl Hct 47.0 (42-50) % MCV 91.8 (78-100) fl MCH 29.7 (26-32) pg MCHC 32.3 (32-36) g/dl RDW 13.4 (11.5-14.0) % Plt Count 173 (150-450) K/mm3 MPV 10.9 H (6-9.5) fl Gran % 60.9 (36.0-66.0) % Eos # (Auto) 0.24 (0-0.5) Absolute Lymphs (auto) 1.62 (1.0-4.6) Absolute Monos (auto) 0.80 (0.0-1.3) Lymphocytes % 23.6 L (24.0-44.0) % Monocytes % 11.7 (0.0-12.0) % Eosinophils % 3.5 (0.00-5.0) % Basophils % 0.3 (0.0-0.4) % Absolute Granulocytes 4.18 (1.4-6.9) Basophils # 0.02 (0-0.4) D-Dimer (215-500) ng/mL Sodium 140 (137-145) mmol/L Potassium 4.1 (3.5-5.1) mmol/L Chloride 103 (98-107) mmol/L Carbon Dioxide 29 (22-30) mmol/L Anion Gap 11.6 (5-15) MEQ/L BUN 15 (9-20) mg/dL Creatinine 0.80 (0.66-1.25) mg/dL Estimated GFR > 60.0 ML/MIN Glucose 96 (74-106) mg/dL Lactic Acid (0.4-2.0) Calcium 9.1 (8.4-10.2) mg/dL Total Bilirubin 0.50 (0.2-1.3) mg/dL AST 29 (17-59) U/L ALT 27 (0-50) U/L Alkaline Phosphatase 83 (38-126) U/L Troponin I (0.000-0.034) ng/mL NT-Pro-B Natriuret Pep 67.1 (0-900) pg/mL Serum Total Protein 7.7 (6.3-8.2) g/dL Albumin 3.9 (3.5-5.0) g/dL Urine Color (YELLOW) Urine Appearance (CLEAR) Urine pH (5-6) Ur Specific Randolph (1.005-1.025) Urine Protein (Negative) Urine Ketones (NEGATIVE) Urine Blood (0-5) Milan/ul Urine Nitrite (NEGATIVE) Urine Bilirubin (NEGATIVE) Urine Urobilinogen (0-1) mg/dL Ur Leukocyte Esterase (NEGATIVE) Urine WBC (Auto) (0-5) /HPF Urine RBC (Auto) (0-2) /HPF U Epithel Cells (Auto) (FEW) /HPF Urine Mucus (Auto) (NEGATIVE) /HPF Urine Culture Reflexed (NO) Urine Glucose (NEGATIVE) mg/dL 07/18/18 Range/Units 07:43 WBC (4.0-10.5) K/mm3 RBC (4.1-5.6) M/mm3 Hgb (12.5-18.0) gm/dl Hct (42-50) % MCV (78-100) fl MCH (26-32) pg MCHC (32-36) g/dl RDW (11.5-14.0) % Plt Count (150-450) K/mm3 MPV (6-9.5) fl Gran % (36.0-66.0) % Eos # (Auto) (0-0.5) Absolute Lymphs (auto) (1.0-4.6) Absolute Monos (auto) (0.0-1.3) Lymphocytes % (24.0-44.0) % Monocytes % (0.0-12.0) % Eosinophils % (0.00-5.0) % Basophils % (0.0-0.4) % Absolute Granulocytes (1.4-6.9) Basophils # (0-0.4) D-Dimer (215-500) ng/mL Sodium (137-145) mmol/L Potassium (3.5-5.1) mmol/L Chloride (98-107) mmol/L Carbon Dioxide (22-30) mmol/L Anion Gap (5-15) MEQ/L BUN (9-20) mg/dL Creatinine (0.66-1.25) mg/dL Estimated GFR ML/MIN Glucose (74-106) mg/dL Lactic Acid 0.7 (0.4-2.0) Calcium (8.4-10.2) mg/dL Total Bilirubin (0.2-1.3) mg/dL AST (17-59) U/L ALT (0-50) U/L Alkaline Phosphatase (38-126) U/L Troponin I (0.000-0.034) ng/mL NT-Pro-B Natriuret Pep (0-900) pg/mL Serum Total Protein (6.3-8.2) g/dL Albumin (3.5-5.0) g/dL Urine Color (YELLOW) Urine Appearance (CLEAR) Urine pH (5-6) Ur Specific Randolph (1.005-1.025) Urine Protein (Negative) Urine Ketones (NEGATIVE) Urine Blood (0-5) Milan/ul Urine Nitrite (NEGATIVE) Urine Bilirubin (NEGATIVE) Urine Urobilinogen (0-1) mg/dL Ur Leukocyte Esterase (NEGATIVE) Urine WBC (Auto) (0-5) /HPF Urine RBC (Auto) (0-2) /HPF U Epithel Cells (Auto) (FEW) /HPF Urine Mucus (Auto) (NEGATIVE) /HPF Urine Culture Reflexed (NO) Urine Glucose (NEGATIVE) mg/dL - Progress Progress Note: 07/18/18 08:38 I reviewed the doctors note and the laboratory and CT findings that were obtained from [facility] yesterday. The WBC is normal at 6.8. Electrolytes were all normal. Head CT showed no acute intracranial pathology however there was moderate chronic sinusitis. A UA was not done because the ER physician assess the patient's abdomen and found no pain is present. Discussed with : James Counseled pt/family regarding: lab results, diagnosis, need for follow-up (to see pt on Sunday) - Departure Time of Disposition: 11:43 Departure Disposition: Home Clinical Impression: Chronic sinusitis Condition: Stable Critical Care Time: No Referrals: ROSE RAMIREZ [Primary Care Provider] - Additional Instructions: You had some brief moments where your oxygen saturation dipped slightly low. You will have a pulse oximetry study overnight. Tomorrow return to the hospital to respiratory therapy for the results. Your laboratory results were unremarkable, except for an elevated d-dimer. We did a chest CT and did not find any blood clot. Your urinalysis was normal. The head CT that was done at [facility] yesterday showed chronic sinusitis. Take Augmentin 875 one tablet twice a day for 10 days. I spoke with Dr. Ramirez. Follow-up with Dr. Ramirez on Sunday at 9:45. Prescriptions: Amoxicillin/Potassium Clav [Augmentin 875-125 Tablet] 875 mg PO BID #20 tablet
[2018-07-18 07:57] LABS: BASOPHIL % 0.3 % (0.0-0.4); Basophil (Absolute #) 0.02 (0-0.4); Eosinophil % 3.5 % (0.00-5.0); Eosinophil (Absolute #) 0.24 (0-0.5); Granulocyte Absolute (ANC) 4.18 (1.4-6.9); Granulocytes % 60.9 % (36.0-66.0); Hemoglobin 15.2 gm/dl (12.5-18.0); Lymphocyte (Absolute #) 1.62 (1.0-4.6); Lymphocytes % 23.6 % (24.0-44.0); Mean Cell Volume 91.8 fl (78-100); Mean Corpuscular Hemoglobin 29.7 pg (26-32); Mean Corpuscular Hgb Concent. 32.3 g/dl (32-36); Mean Platelet Volume 10.9 fl (6-9.5); Monocytes % 11.7 % (0.0-12.0); Platelet Count 173 K/mm3 (150-450); Red Blood Count 5.12 M/mm3 (4.1-5.6); Red Cell Distribution Width 13.4 % (11.5-14.0); White Blood Count 6.9 K/mm3 (4.0-10.5)
[2018-07-18 08:25] LABS: ALBUMIN 3.9 g/dL (3.5-5.0); ALKALINE PHOSPHATASE 83 U/L (38-126); ANION GAP 11.6 MEQ/L (5-15); BLOOD UREA NITROGEN 15 mg/dL (9-20); CHLORIDE 103 mmol/L (98-107); Calcium 9.1 mg/dL (8.4-10.2); Carbon Dioxide 29 mmol/L (22-30); Glucose 96 mg/dL (74-106); Potassium 4.1 mmol/L (3.5-5.1); SGOT/AST 29 U/L (17-59); SGPT/ALT 27 U/L (0-50); SODIUM 140 mmol/L (137-145); Total Protein 7.7 g/dL (6.3-8.2)
--- NOTE | 2018-07-18 09:05 | XRAY ---
Indication: Weakness, nausea, dizziness, and low oxygenation. Comparison: May 27, 2018. Portable chest is clear with stable calcified granulomas. Heart is not enlarged. Bony thorax intact again with mild degenerative changes and mild levoscoliosis. Impression: Nonacute chest with chronic features.
[2018-07-18 09:34] LABS: Appearance CLEAR (CLEAR); Bilirubin NEGATIVE (NEGATIVE); Blood NEGATIVE Ery/ul (0-5); Glucose NEGATIVE (NEGATIVE); Ketones NEGATIVE (NEGATIVE); Leukocyte Esterase NEGATIVE (NEGATIVE); Nitrite NEGATIVE (NEGATIVE); Protein,Urine Dip NEGATIVE (Negative); Specific Gravity 1.012 (1.005-1.025); Urobilinogen NEGATIVE mg/dL (0-1)
--- NOTE | 2018-07-18 11:38 | XRAY ---
Indication: Dizziness, low blood pressure, and elevated d-dimer. Multiple contiguous axial images obtained through the chest using 100 cc Isovue 370 contrast and PE protocol. Comparison: None There is satisfactory opacification of the pulmonary arteries to include the lobar and segmental branches. No filling defect or pulmonary embolus. Heart is not enlarged. Aorta is normal in course and caliber. Left perihilar calcified nodes. No pathologic mediastinal/hilar lymphadenopathy. Small hiatal hernia. Lungs demonstrate mild bilateral dependent atelectasis and left lower lobe calcified granuloma. Left mid to lower lung demonstrates subtle patchy groundglass airspace opacities. No consolidation or effusion. Bony thorax intact with minimal degenerative changes throughout the spine. Concave deformity seen of the superior endplate of T5 either Schmorl node versus remote fracture. Limited upper abdomen is unremarkable. Impression: 1. Negative pulmonary embolus. 2. Subtle patchy left lung groundglass airspace disease without consolidation or effusion. 3. Small hiatal hernia and evidence for old granulomatous disease. 4. T5 endplate concave deformity either Schmorl node versus remote fracture. CT DI 28.14
[2018-07-18 12:04] VITALS: BP 125/85; PULSE 66; O2SAT 97
== END 2018-07-18 12:03 | disposition home or self-care (01) ==
LOC: ED 07:22
DX: J32.9 Chronic sinusitis, unspecified (principal); Z79.899 Other long term (current) drug therapy
CPT/HCPCS: 36000; 36415; 71045; 71260; 80053; 81001; 83605; 83880; 84484; 85025; 85379; 94760; 94762; 99284; P9612

== ENCOUNTER 2018-07-20 00:41 | Emergency (ER) | payer MEDICARE ==
--- NOTE | 2018-07-20 01:41 | ERPHSYRPT ---
- History of Present Illness Time Seen by Provider: 07/20/18 01:10 Source: patient, other (health care provider) Exam Limitations: no limitations Patient Subjective Stated Complaint: pt is alert and oriented. pt comes in via ambulance. pt mentally handicapped and is here with his emergency care attendant. pt emergency care attendant states that pt has been dizzy and complaining of a headache for the past couple of mornings, pt development writer states that his blood pressure does drop during the night. tonight he has not had any complaints of dizziness. pt comes in tonight because his O2 sat had dropped to 90% while he was using his CPAP ( CPAP not in line with o2). pt breathing easily at this time. does not appear to be in any distress. Triage Nursing Assessment: see above Physician History: 57 y/o mentally challenged white male on cpap( not in line with o2). he was brought into ED by EMS because room air O2 sat dropped to 90%. additionally, pt has had occasionally dizziness at home and has woken up with headaches the last 2 mornings. there are no new medications or management. Timing/Duration: today Severity: mild Modifying Factors: Improves With: rest (improves) Associated Symptoms: other (dizziness, headache) Allergies/Adverse Reactions: No Known Drug Allergies Allergy (Verified 07/18/18 07:37) Home Medications: Finasteride 5 mg [Proscar 5 MG] 5 mg PO DAILY 11/30/15 [History] Baclofen [Lioresal Intrathecal] 2,000 mcg IT UD 12/01/15 [History] Metoprolol Succinate [Toprol Xl] 25 mg PO DAILY 05/27/18 [History] Bethanechol Chloride 5 mg TID 07/18/18 [History] Escitalopram Oxalate 10 mg [Lexapro 10 MG] 10 mg DAILY 07/18/18 [History] Polyethylene Glycol 3350 [Miralax] 17 gm DAILY 07/18/18 [History] Talc/Calamine [Anti Monkey Butt Powder] 170 gm DAILY 07/18/18 [History] Triamcinolone Acetonide [Kenalog in Orabase] 5 gm TOP BID 07/18/18 [History] Hx Tetanus, Diphtheria Vaccination/Date Given: Yes Hx Influenza Vaccination/Date Given: No Hx Pneumococcal Vaccination/Date Given: No Immunizations Up to Date: Yes - Review of Systems Constitutional: No Symptoms Eyes: No Symptoms Ears, Nose, & Throat: No Symptoms Respiratory: No Symptoms, No Cough, No Dyspnea, No Stridor, No Wheezing Cardiac: No Symptoms, No Chest Pain, No Palpitations, No Syncope Abdominal/Gastrointestinal: No Symptoms, No Abdominal Pain, No Nausea, No Vomiting Genitourinary Symptoms: No Symptoms, No Dysuria, No Frequency, No Hematuria Musculoskeletal: No Symptoms Skin: No Symptoms Neurological: Dizziness, Headache Psychological: No Symptoms Endocrine: No Symptoms Hematologic/Lymphatic: No Symptoms Immunological/Allergic: No Symptoms All Other Systems: Reviewed and Negative - Past Medical History Pertinent Past Medical History: Yes Neurological History: Other ENT History: No Pertinent History Cardiac History: Hypertension Respiratory History: Asthma Endocrine Medical History: Other Musculoskeletal History: Other GI Medical History: No Pertinent History History: No Pertinent History Psycho-Social History: No Pertinent History Male Reproductive Disorders: Prostate Problems Other Medical History: wearing resting hand splint at night. - Past Surgical History Past Surgical History: Yes Neuro Surgical History: No Pertinent History Cardiac: No Pertinent History Respiratory: No Pertinent History Gastrointestinal: No Pertinent History Genitourinary: No Pertinent History Musculoskeletal: Orthopedic Surgery Male Surgical History: No Pertinent History Other Surgical History: Back, Neck, and ankle surgery - Social History Smoking Status: Never smoker Exposure to second hand smoke: No Drug Use: none Patient Lives Alone: No - Nursing Vital Signs Nursing Vital Signs: Initial Vital Signs Temperature 98.3 F 07/20/18 00:41 Pulse Rate 72 07/20/18 00:41 Respiratory Rate 20 07/20/18 00:41 Blood Pressure 133/89 07/20/18 00:41 O2 Sat by Pulse Oximetry 94 L 07/20/18 00:41 Pain Scale Pain Intensity 0 - Physical Exam General Appearance: no apparent distress, alert, anxiety Eye Exam: PERRL/EOMI, eyes nml inspection Ears, Nose, Throat Exam: normal ENT inspection, moist mucous membranes Neck Exam: normal inspection, non-tender, supple, full range of motion Respiratory Exam: normal breath sounds, lungs clear, airway intact, No chest tenderness, No respiratory distress, No accessory muscle use, No rhonchi, No wheezing, No stridor Cardiovascular Exam: regular rate/rhythm, normal heart sounds, normal peripheral pulses Gastrointestinal/Abdomen Exam: soft, normal bowel sounds, No tenderness, No distention, No mass, No guarding, No rebound Rectal Exam: not done Back Exam: normal inspection, normal range of motion, No CVA tenderness, No vertebral tenderness Extremity Exam: normal inspection, normal range of motion, pelvis stable Neurologic Exam: alert, oriented x 3, cooperative, embedded processor II-XII nml as tested Skin Exam: normal color, warm, dry Lymphatic Exam: No adenopathy SpO2 Interpretation: borderline oxygenation SpO2: 94 Oxygen Delivery: Room Air - Course Nursing assessment & vital signs reviewed: Yes EKG Interpreted by Me: RATE (76), Sinus Rhythm, NORMAL AXIS, NORMAL QRS, Right Bundle Branch Block (no change from ekg dated 12/11/11; no acute ischemia) Ordered Tests: Active Orders 24 hr Category Date Time Status EKG-ER Only STAT Care 07/20/18 01:42 Active IV Insertion STAT Care 07/20/18 01:42 Active Pulse Oximetry (ED) STAT Care 07/20/18 01:42 Active CHEST 1 VIEW (PORTABLE) Stat Exams 07/20/18 01:43 Taken ABG [ARTERIAL BLOOD GASES] Stat Lab 07/20/18 02:16 Completed CBC W DIFF Stat Lab 07/20/18 01:55 Completed CMP Stat Lab 07/20/18 01:55 Completed NT PRO BNP Stat Lab 07/20/18 01:55 Completed TROPONIN Q3H Lab 07/20/18 01:55 Completed TROPONIN Q3H Lab 07/20/18 04:45 Ordered TROPONIN Q3H Lab 07/20/18 07:45 Ordered TROPONIN Q3H Lab 07/20/18 10:45 Ordered TROPONIN Q3H Lab 07/20/18 13:45 Ordered Lab/Rad Data: Laboratory Result Diagrams 07/20/18 01:55 07/20/18 01:55 Laboratory Results 07/20/18 07/20/18 07/20/18 Range/Units 02:16 01:55 01:55 WBC (4.0-10.5) K/mm3 RBC (4.1-5.6) M/mm3 Hgb (12.5-18.0) gm/dl Hct (42-50) % MCV (78-100) fl MCH (26-32) pg MCHC (32-36) g/dl RDW (11.5-14.0) % Plt Count (150-450) K/mm3 MPV (6-9.5) fl Gran % (36.0-66.0) % Eos # (Auto) (0-0.5) Absolute Lymphs (auto) (1.0-4.6) Absolute Monos (auto) (0.0-1.3) Lymphocytes % (24.0-44.0) % Monocytes % (0.0-12.0) % Eosinophils % (0.00-5.0) % Basophils % (0.0-0.4) % Absolute Granulocytes (1.4-6.9) Basophils # (0-0.4) Puncture Site RIGHT BRACHIAL pCO2 42 (35-45) mmHg pO2 58 L (75-100) mmHg Base Excess 2.3 H (-2.0-2.0) O2 Saturation 91.3 L (94-100) g/dF ABG pH 7.42 (7.35-7.45) ABG HCO3 27.2 (22-28) ABG O2 Sat (Measured) 94.8 L (95-100) % Randall Test NOT APPLICABLE A-a Gradient 39 a/A Ratio 0.60 Hemoglobin 15.7 Carboxyhemoglobin 3.1 (0.0-6.9) % THgb Methemoglobin 0.6 L (1.4-1.5) % Temperature 37.0 C POC O2 Flow Rate 21 % Sodium 139 (137-145) mmol/L Potassium 3.6 3.8 (3.5-5.1) mmol/L Chloride 102 (98-107) mmol/L Carbon Dioxide 27 (22-30) mmol/L Anion Gap 14.4 (5-15) MEQ/L BUN 15 (9-20) mg/dL Creatinine 0.72 (0.66-1.25) mg/dL Estimated GFR > 60.0 ML/MIN Glucose 98 (74-106) mg/dL Calcium 9.4 (8.4-10.2) mg/dL Total Bilirubin 0.40 (0.2-1.3) mg/dL AST 24 (17-59) U/L ALT 26 (0-50) U/L Alkaline Phosphatase 84 (38-126) U/L Troponin I < 0.012 (0.000-0.034) ng/mL NT-Pro-B Natriuret Pep 47.6 (0-900) pg/mL Serum Total Protein 8.0 (6.3-8.2) g/dL Albumin 4.2 (3.5-5.0) g/dL 07/20/18 Range/Units 01:55 WBC 6.8 (4.0-10.5) K/mm3 RBC 5.45 (4.1-5.6) M/mm3 Hgb 16.2 (12.5-18.0) gm/dl Hct 49.3 (42-50) % MCV 90.5 (78-100) fl MCH 29.7 (26-32) pg MCHC 32.9 (32-36) g/dl RDW 13.4 (11.5-14.0) % Plt Count 198 (150-450) K/mm3 MPV 10.9 H (6-9.5) fl Gran % 52.3 (36.0-66.0) % Eos # (Auto) 0.39 (0-0.5) Absolute Lymphs (auto) 2.11 (1.0-4.6) Absolute Monos (auto) 0.73 (0.0-1.3) Lymphocytes % 30.9 (24.0-44.0) % Monocytes % 10.7 (0.0-12.0) % Eosinophils % 5.7 H (0.00-5.0) % Basophils % 0.4 (0.0-0.4) % Absolute Granulocytes 3.57 (1.4-6.9) Basophils # 0.03 (0-0.4) Puncture Site pCO2 (35-45) mmHg pO2 (75-100) mmHg Base Excess (-2.0-2.0) O2 Saturation (94-100) g/dF ABG pH (7.35-7.45) ABG HCO3 (22-28) ABG O2 Sat (Measured) (95-100) % Randall Test A-a Gradient a/A Ratio Hemoglobin Carboxyhemoglobin (0.0-6.9) % THgb Methemoglobin (1.4-1.5) % Temperature C POC O2 Flow Rate % Sodium (137-145) mmol/L Potassium (3.5-5.1) mmol/L Chloride (98-107) mmol/L Carbon Dioxide (22-30) mmol/L Anion Gap (5-15) MEQ/L BUN (9-20) mg/dL Creatinine (0.66-1.25) mg/dL Estimated GFR ML/MIN Glucose (74-106) mg/dL Calcium (8.4-10.2) mg/dL Total Bilirubin (0.2-1.3) mg/dL AST (17-59) U/L ALT (0-50) U/L Alkaline Phosphatase (38-126) U/L Troponin I (0.000-0.034) ng/mL NT-Pro-B Natriuret Pep (0-900) pg/mL Serum Total Protein (6.3-8.2) g/dL Albumin (3.5-5.0) g/dL - Progress Progress: improved, re-examined Progress Note: 07/20/18 02:00 RT evaluated patient. pts cpap was interrogated. pt has had cpap for 2 months. his AHI was 11.7(should be <5). this is high. his pressure needs to be increased. pts health care provider will take cpap machine into [facility] today to have pressure adjusted. pt has another sleep apnea study scheduled for next week. Counseled pt/family regarding: lab results, diagnosis, need for follow-up, rad results - Departure Time of Disposition: 02:55 Departure Disposition: Home Clinical Impression: Dizziness, Hypoxia, Sleep apnea in adult Condition: Stable Critical Care Time: No Referrals: ROSE GOLD [Primary Care Provider] - Additional Instructions: take cpap machine to [facility] today to have pressure adjusted per instructions of pan helper. follow up with pan helper for further management.
[2018-07-20 02:04] VITALS: O2SAT 94
[2018-07-20 02:04] LABS: BASOPHIL % 0.4 % (0.0-0.4); Basophil (Absolute #) 0.03 (0-0.4); Eosinophil % 5.7 % (0.00-5.0); Eosinophil (Absolute #) 0.39 (0-0.5); Granulocyte Absolute (ANC) 3.57 (1.4-6.9); Granulocytes % 52.3 % (36.0-66.0); Hematocrit 49.3 % (42-50); Hemoglobin 16.2 gm/dl (12.5-18.0); Lymphocyte (Absolute #) 2.11 (1.0-4.6); Lymphocytes % 30.9 % (24.0-44.0); Mean Cell Volume 90.5 fl (78-100); Mean Corpuscular Hemoglobin 29.7 pg (26-32); Mean Corpuscular Hgb Concent. 32.9 g/dl (32-36); Mean Platelet Volume 10.9 fl (6-9.5); Monocyte (Absolute #) 0.73 (0.0-1.3); Monocytes % 10.7 % (0.0-12.0); Platelet Count 198 K/mm3 (150-450); Red Blood Count 5.45 M/mm3 (4.1-5.6); Red Cell Distribution Width 13.4 % (11.5-14.0); White Blood Count 6.8 K/mm3 (4.0-10.5)
[2018-07-20 02:25] LABS: ALBUMIN 4.2 g/dL (3.5-5.0); ALKALINE PHOSPHATASE 84 U/L (38-126); ANION GAP 14.4 MEQ/L (5-15); BLOOD UREA NITROGEN 15 mg/dL (9-20); CHLORIDE 102 mmol/L (98-107); Calcium 9.4 mg/dL (8.4-10.2); Carbon Dioxide 27 mmol/L (22-30); Creatinine 1 0.72 mg/dL (0.66-1.25); Glucose 98 mg/dL (74-106); NT PRO BNP 47.6 pg/mL (0-900); Potassium 3.8 mmol/L (3.5-5.1); SGOT/AST 24 U/L (17-59); SGPT/ALT 26 U/L (0-50); SODIUM 139 mmol/L (137-145)
[2018-07-20 02:31] LABS: A-aADO2 39; ABG HEMOGLOBIN 15.7; ABG POTASSIUM 3.6 (3.5-5.1); ABG SITE RIGHT BRACHIAL; ARTERIAL BLD GAS O2 SATURATION 94.8 % (95-100); ARTERIAL BLOOD GAS BASE EXCESS 2.3 (-2.0-2.0); ARTERIAL BLOOD GAS FIO2 21 %; ARTERIAL BLOOD GAS PCO2 42 mmHg (35-45); ARTERIAL BLOOD GAS PO2 58 mmHg (75-100); ARTERIAL BLOOD GAS pH 7.42 (7.35-7.45); CARBOXYHEMOGLOBIN 3.1 % THgb (0.0-6.9); HCO3- 27.2 (22-28); HGB O2 SAT 91.3 g/dF (94-100); Methhemoglobin 0.6 % (1.4-1.5)
[2018-07-20 03:05] VITALS: BP 108/71; PULSE 76
--- NOTE | 2018-07-20 08:42 | XRAY ---
Indication: Decreased oxygenation. Comparison: July 18, 2018. Portable chest less inflated again with left base calcified granuloma. No focal infiltrate, consolidation, or large effusion. Heart is not enlarged for AP portable technique. No new/acute findings. Impression: Stable nonacute underinflated chest.
== END 2018-07-20 03:52 | disposition home or self-care (01) ==
LOC: ED 00:41
DX: R42 Dizziness and giddiness (principal); R09.02 Hypoxemia; R51 Headache; G47.30 Sleep apnea, unspecified; Z79.899 Other long term (current) drug therapy
CPT/HCPCS: 36000; 36415; 36600; 71045; 80053; 82375; 82803; 83880; 84484; 85025; 93005; 99284

== ENCOUNTER 2018-09-04 08:09 | Emergency (ER) | payer MEDICARE ==
--- NOTE | 2018-09-04 08:30 | ERPHSYRPT ---
- History of Present Illness Time Seen by Provider: 09/04/18 08:20 Source: patient Exam Limitations: other (patient mentally challenged) Patient Subjective Stated Complaint: pt here for pain to right knee since this morning, unable to bear weight on leg, no injury,rates pain Triage Nursing Assessment: pt alert, skin w/d/p. 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 He is unable to walk with a walker. Past medical history mentally challenged, high blood pressure, asthma, prostate problems Past surgical history includes back surgery neck surgery ankle surgery Method of Injury: unknown Occurred: this morning Quality: constant Severity of Pain-Max: moderate Severity of Pain-Current: mild Lower Extremities Pain: knee: right Modifying Factors: Improves With: nothing Associated Symptoms: unable to bear weight Allergies/Adverse Reactions: No Known Drug Allergies Allergy (Verified 09/04/18 08:22) Home Medications: Finasteride 5 mg [Proscar 5 MG] 5 mg PO DAILY 11/30/15 [History] Baclofen [Lioresal Intrathecal] 2,000 mcg IT UD 12/01/15 [History] Metoprolol Succinate [Toprol Xl] 25 mg PO DAILY 05/27/18 [History] Bethanechol Chloride 5 mg TID 07/18/18 [History] Escitalopram Oxalate 10 mg [Lexapro 10 MG] 10 mg DAILY 07/18/18 [History] Polyethylene Glycol 3350 [Miralax] 17 gm DAILY 07/18/18 [History] Talc/Calamine [Anti Monkey Butt Powder] 170 gm DAILY 07/18/18 [History] Triamcinolone Acetonide [Kenalog in Orabase] 5 gm TOP BID 07/18/18 [History] Hx Tetanus, Diphtheria Vaccination/Date Given: Yes Hx Influenza Vaccination/Date Given: Yes Hx Pneumococcal Vaccination/Date Given: Yes Immunizations Up to Date: Yes - Review of Systems Constitutional: No Fever, No Chills Eyes: No Symptoms Ears, Nose, & Throat: No Symptoms Respiratory: No Cough, No Dyspnea Cardiac: No Chest Pain, No Edema, No Syncope Abdominal/Gastrointestinal: No Abdominal Pain, No Nausea, No Vomiting, No Diarrhea Genitourinary Symptoms: No Dysuria Musculoskeletal: Joint Pain (right knee pain) Skin: No Rash Neurological: No Dizziness, No Focal Weakness, No Sensory Changes Psychological: No Symptoms Endocrine: No Symptoms All Other Systems: Reviewed and Negative - Past Medical History Pertinent Past Medical History: Yes Neurological History: Other ENT History: No Pertinent History Cardiac History: Hypertension Respiratory History: Asthma Endocrine Medical History: Other Musculoskeletal History: Other GI Medical History: No Pertinent History History: No Pertinent History Psycho-Social History: No Pertinent History Male Reproductive Disorders: Prostate Problems Other Medical History: wearing resting hand splint at night. - Past Surgical History Past Surgical History: Yes Neuro Surgical History: No Pertinent History Cardiac: No Pertinent History Respiratory: No Pertinent History Gastrointestinal: No Pertinent History Genitourinary: No Pertinent History Musculoskeletal: Orthopedic Surgery Male Surgical History: No Pertinent History Other Surgical History: Back, Neck, and ankle surgery - Social History Smoking Status: Never smoker Exposure to second hand smoke: No Drug Use: none Patient Lives Alone: No (has 24 hour care) - Nursing Vital Signs Nursing Vital Signs: Initial Vital Signs Temperature 97 F 09/04/18 08:13 Pulse Rate 66 09/04/18 08:13 Respiratory Rate 16 09/04/18 08:13 Blood Pressure 115/77 09/04/18 08:13 O2 Sat by Pulse Oximetry 96 09/04/18 08:13 Pain Scale Pain Intensity 7 - Physical Exam General Appearance: mild distress, alert Eyes, Ears, Nose, Throat Exam: moist mucous membranes Neck Exam: non-tender, supple Cardiovascular/Respiratory Exam: chest non-tender, normal breath sounds, regular rate/rhythm, no respiratory distress Gastrointestinal/Abdominal Exam: non-tender Back Exam: normal inspection, No vertebral tenderness Hips Exam: bilateral: non-tender, normal inspection, normal range of motion Legs Exam: bilateral leg: non-tender, normal inspection, normal range of motion , no evidence of injury Knees Exam: right knee: other (right knee valgus deformty, no tenderness with palpation or movement right knee), left knee: non-tender, normal range of motion , bilateral knee: no evidence of injury, deformity (valgus deformity bilateral knees) Ankle Exam: bilateral ankle: non-tender, normal inspection, normal range of motion, no evidence of injury Foot Exam: bilateral foot: non-tender, normal inspection, normal range of motion , no evidence of injury DTR - Lower Extremities Exam: ankle (R): 2+, ankle (L): 2+ Neuro/Tendon Exam: normal sensation, normal motor functions Mental Status Exam: alert, oriented x 3, cooperative Skin Exam: normal color, warm, dry SpO2 Interpretation: normal (96%) SpO2: 96 Oxygen Delivery: Room Air - Course Nursing assessment & vital signs reviewed: Yes - Radiology Exams Right Knee X-ray Interpretation: Discussed w/ radiologist (mild/moderate tricompartmental degenerative changes. greatest patelofemoral compartment. posterior heterotropic ossifications. No other bony, articular, or soft tissue abnormalities.) Ordered Tests: Active Orders 24 hr Category Date Time Status Immobilizer STAT Care 09/04/18 09:08 Active KNEE (3 VIEWS) Stat Exams 09/04/18 08:23 Completed Medication Summary Discontinued Medications Generic Name Dose Route Start Last Admin Trade Name Freq PRN Reason Stop Dose Admin Ketorolac Tromethamine 60 mg 09/04/18 08:39 09/04/18 08:48 Toradol 30 Mg Injection IM 09/04/18 08:40 60 mg STAT ONE Administration Ketorolac Tromethamine Confirm 09/04/18 08:46 Toradol 30 Mg Injection Administered 09/04/18 08:47 Dose 60 mg .ROUTE .[employer]mer [employer] ONE - Progress Progress: improved Progress Note: 09/04/18 08:29 58-year-old white male mentally challenged brought by medics with complaint of unable to ambulate secondary to pain in his right knee since this morning patient unable to walk with a walker secondary to pain in his right knee. Patient denies injury to his knee patient does have valgus deformity bilateral knees I cannot elicit pain with palpation or movement of the right knee. Patient has no pain in his hips . Will go ahead and obtain x-ray of the right knee 09/04/18 08:44 I talked with the person from the patient's care home. He apparently has been having pain in the right knee since August 30. Patient apparently could not walk this morning because of the pain in his right knee. I have ordered Toradol 60 mg IM and an x-ray of the right knee. I do not see any fluid or signs of inflammation in the right knee. Patient does have valgus deformity of both knees. 09/04/18 09:11 x-ray right knee: Degenerative tricompartmental disease worse in the patellofemoral compartment. We'll place knee immobilizer right knee. Patient to take Advil every 6 hoursor Tylenol every 4 hours as needed for pain, use his walker, follow-up with Dr. Ramirez his family physician. - Departure Time of Disposition: 09:13 Departure Disposition: Home Clinical Impression: Right knee pain Qualifiers: Chronicity: acute Qualified Code(s): M25.561 - Pain in right knee Degenerative arthritis of right knee Qualifiers: Osteoarthritis type: unspecified Qualified Code(s): M17.11 - Unilateral primary osteoarthritis, right knee Condition: Fair Critical Care Time: No Referrals: ROSE RAMIREZ [Primary Care Provider] - Instructions: Knee Pain (DC) Additional Instructions: Return home. Use your walker. Cool packs elevate right knee 24-48 hours. Use right knee immobilizer 48-72 hours longer if pain persists. Follow-up with Dr. Ramirez call and schedule a follow-up appointment. Tylenol every 4 hours or Advil every 6 hours as needed for pain. Return for acute distress or for severe symptoms.
[2018-09-04] MEDS ORDERED: TORAdol 30 mg Injection ONE (08:46)
[2018-09-04] MEDS: TORAdol 30 mg Injection IM ONE (08:48)
--- NOTE | 2018-09-04 09:08 | XRAY ---
Indication: Pain. Comparison: None 3 views of the right knee demonstrates mild/moderate tricompartmental degenerative changes, greatest patellofemoral compartment. Posterior heterotopic ossifications. No other bony, articular, or soft tissue abnormalities.
[2018-09-04 10:26] VITALS: BP 124/76; PULSE 82; O2SAT 98
== END 2018-09-04 10:26 | disposition home or self-care (01) ==
LOC: ED 08:09
DX: M25.561 Pain in right knee (principal); M17.11 Unilateral primary osteoarthritis, right knee; Z79.899 Other long term (current) drug therapy
CPT/HCPCS: 73562; 96372; 99284; J1885; L1830

== ENCOUNTER 2019-07-29 06:07 | Day surgery (SDC) | payer MEDICARE ==
[~2019-07-29 06:07] MED LIST: Lactated Ringers 1,000 ML IV SCH
[2019-07-29] MEDS ORDERED: DIPRIVAN 200 MG/20 ML IV ONE ×2 (07:23→07:43)
[2019-07-29 08:54] VITALS: O2SAT 97
[2019-07-29 09:01] VITALS: BP 132/80; PULSE 68
--- NOTE | 2019-07-29 09:50 | OP ---
SURGERY DATE/TIME: 07/29/2019 0730 PREOPERATIVE DIAGNOSES: 1) Abdominal pain. 2) Gastroesophageal reflux. POSTOPERATIVE DIAGNOSES: 1) Mild gastritis. 2) Bañuelos's esophagus. 3) Small polyp in the transverse colon. 4) Mild sigmoid diverticulosis. PROCEDURES: 1) Esophagogastroduodenoscopy with cold forceps biopsy. 2) Colonoscopy with cold forceps biopsy. SURGEON: Dr. Ramirez. ANESTHESIA: Medications were given by the anesthesia department. BRIEF HISTORY: The patient is a 58 year old white male with history of cerebral palsy. He has been having problems with abdominal pain. He has been on two different proton pump inhibitor medications but still continues to complain of pain. He also has chronic constipation. The patient felt the need to have endoscopic evaluation. The guardian was appraised of the risks of the procedure including the risk of perforation, phlebitis, untoward reaction to medication, bleeding and missed lesions. Verbal consent was given and written consent as well. DESCRIPTION OF PROCEDURE: The patient was taken back to the endoscopy suite where he was given anesthesia by the anesthesia department. He had continuous pulse oximetry, ECG monitoring, intermittent blood pressure monitoring and tidal CO2 monitoring during the examination. He was placed in the left lateral decubitus position. A bite block was placed and the flexible Olympus gastroscope was used to intubate the oropharynx. A view of the larynx was obtained and was normal. The scope was easily introduced in the esophagus where there appeared to be an area of Bañuelos's esophagus upon entry into the lower third of the esophagus. The stomach was entered where normal gastric rugal folds were seen and these distended nicely with insufflation of air. The scope was passed along the greater curvature of the stomach to the antrum. The pylorus is encountered and intubated. Duodenum inspected and found to be essentially normal. The scope is withdrawn towards the stomach. A retroflex view was obtained of the lesser curvature, fundus and cardia regions of the stomach and these appeared to be essentially normal. The scope was then redirected towards the gastric antrum and biopsies were obtained to rule out the presence of Helicobacter pylori-type organisms. Biopsies were obtained in the lower end of the esophagus to rule out any dysplasia. The scope was then removed from the patient. Next, a digital rectal examination was performed and revealed normal anal sphincter tone, no masses and normal prostate. The flexible Olympus pediatric colonoscope was used to intubate the rectum. A view of the colon was developed sequentially to the cecum. Upon insertion and withdrawal, there was noted mild sigmoid diverticulosis. There was also noted a small polyp measuring approximately 0.75 cm in size this is biopsied using cold biopsy forceps to rule out any adenomatous change. The scope is removed from the patient who tolerated the procedure well and was sent back to OP recovery in good condition. The prep was noted to be fair.
== END 2019-07-29 09:00 | disposition home or self-care (01) ==
LOC: SDC 06:07
PROVIDERS: ATTEND Family Medicine
DX: K29.50 Unspecified chronic gastritis without bleeding (principal); K21.0 Gastro-esophageal reflux disease with esophagitis; K22.70 Barrett's esophagus without dysplasia; D12.3 Benign neoplasm of transverse colon; K57.30 Diverticulosis of large intestine without perforation or abscess without bleeding; K59.09 Other constipation; G80.9 Cerebral palsy, unspecified
CPT/HCPCS: 88305; J2704

== ENCOUNTER 2020-01-31 20:51 | Emergency (ER) | payer MEDICARE ==
[2020-01-31 20:54] VITALS: O2SAT 95
--- NOTE | 2020-01-31 21:00 | ERPHSYRPT ---
- History of Present Illness Source: patient Exam Limitations: no limitations Physician History: Patient is here for right knee pain for 1 week. No falls or known trauma. Patient lives in a group home. He has cerebral palsy. He typically walks with a walker. However, he has been less mobile secondary to his weeklong knee pain. Location: right knee/right leg Quality: sharp Radiation: down right leg Severity: moderate Duration: 1 week Timing: gradual, no known injuries Modifying factors/associated signs and symptoms: not on blood thinners, unknown pre-hospital medications Allergies/Adverse Reactions: No Known Drug Allergies Allergy (Verified 01/31/20 21:02) Home Medications: Escitalopram Oxalate 10 mg [Lexapro 10 MG] 10 mg PO DAILY 07/18/18 [History] Polyethylene Glycol 3350 [Miralax] 17 gm PO DAILY 07/18/18 [History] Lansoprazole [Prevacid] 30 mg PO DAILY 07/24/19 [History] Sennosides/Docusate Sodium [Senna Laxative Tablet] 2 each PO DAILY 07/24/19 [ History] Hx Tetanus, Diphtheria Vaccination/Date Given: Yes Hx Influenza Vaccination/Date Given: Yes Hx Pneumococcal Vaccination/Date Given: Yes - Review of Systems Constitutional: No Fever, No Chills Eyes: No Symptoms Ears, Nose, & Throat: No Symptoms Respiratory: No Cough, No Dyspnea Cardiac: No Chest Pain, No Edema, No Syncope Abdominal/Gastrointestinal: No Abdominal Pain, No Nausea, No Vomiting, No Diarrhea Genitourinary Symptoms: No Dysuria Musculoskeletal: Joint Pain, Other (right knee and leg pain), No Back Pain, No Neck Pain Skin: No Rash Neurological: No Dizziness, No Focal Weakness, No Sensory Changes Psychological: No Symptoms Endocrine: No Symptoms All Other Systems: Reviewed and Negative - Past Medical History Pertinent Past Medical History: Yes Neurological History: Other ENT History: No Pertinent History Cardiac History: No Pertinent History Respiratory History: Asthma, Sleep Apnea Endocrine Medical History: Other Musculoskeletal History: Other GI Medical History: GERD, Ulcer History: No Pertinent History Psycho-Social History: No Pertinent History Male Reproductive Disorders: No Pertinent History Other Medical History: wearing resting hand splint at night. Dx Cerebral Palsy several years - Past Surgical History Past Surgical History: Yes Neuro Surgical History: No Pertinent History Cardiac: No Pertinent History Respiratory: No Pertinent History Gastrointestinal: No Pertinent History Genitourinary: No Pertinent History Musculoskeletal: Orthopedic Surgery Male Surgical History: No Pertinent History Other Surgical History: Back, Neck, and ankle surgery. Colonoscopy - Social History Smoking Status: Never smoker Exposure to second hand smoke: No Drug Use: none Patient Lives Alone: No (has 24 hour care) - Nursing Vital Signs Nursing Vital Signs: Initial Vital Signs Temperature 97.9 F 01/31/20 20:53 Pulse Rate 92 H 01/31/20 20:53 Respiratory Rate 16 01/31/20 20:53 Blood Pressure 108/76 01/31/20 20:53 O2 Sat by Pulse Oximetry 95 01/31/20 20:53 Pain Scale Pain Intensity 9 - Physical Exam General Appearance: no apparent distress, alert Eye Exam: PERRL/EOMI, eyes nml inspection Ears, Nose, Throat Exam: normal ENT inspection, TMs normal, pharynx normal, moist mucous membranes Neck Exam: normal inspection, non-tender, supple, full range of motion Respiratory Exam: normal breath sounds, lungs clear, No respiratory distress Cardiovascular Exam: regular rate/rhythm, normal heart sounds, normal peripheral pulses Gastrointestinal/Abdomen Exam: soft, normal bowel sounds, No tenderness, No mass Back Exam: normal inspection, normal range of motion, No CVA tenderness, No vertebral tenderness Extremity Exam: normal inspection, normal range of motion, pelvis stable, other Neurologic Exam: alert, oriented x 3, cooperative, normal mood/affect, nml cerebellar function, nml station & gait, sensation nml, No motor deficits Skin Exam: normal color, warm, dry, No rash Lymphatic Exam: No adenopathy SpO2 Interpretation: normal SpO2: 95 Comments: 01/31/20 21:00 Patient has right knee pain, generalized right leg tenderness. It appears more swollen than his left leg. No obvious discoloration. Neurovascular intact. Sensation intact. - Course Nursing assessment & vital signs reviewed: Yes - Radiology Exams Lower Leg X-ray Interpretation: Interpreted by me, Negative, No Fracture Ordered Tests: Active Orders 24 hr Category Date Time Status IV Insertion STAT Care 01/31/20 21:00 Active Isolation, Initiate & Maintain Q4H Care 01/31/20 21:01 Active FEMUR Stat Exams 01/31/20 Ordered KNEE (3 VIEWS) Stat Exams 01/31/20 Ordered LOWER LEG Stat Exams 01/31/20 Ordered Ultrasound Unilateral Extremities [VENOUS UNILAT/ Exams 01/31/20 21:44 Taken LIMITED EXTREMIT] [US] Stat CBC W DIFF Stat Lab 01/31/20 21:12 Completed CMP Stat Lab 01/31/20 21:12 Completed D-DIMER QUANTITATIVE Stat Lab 01/31/20 21:12 Completed Lab/Rad Data: Laboratory Result Diagrams 01/31/20 21:12 01/31/20 21:12 Laboratory Results 01/31/20 01/31/20 01/31/20 Range/Units 21:12 21:12 21:12 WBC 12.6 H (4.0-10.5) K/mm3 RBC 5.15 (4.1-5.6) M/mm3 Hgb 15.6 (12.5-18.0) gm/dl Hct 47.4 (42-50) % MCV 92.0 (78-100) fl MCH 30.3 (26-32) pg MCHC 32.9 (32-36) g/dl RDW 13.5 (11.5-14.0) % Plt Count 197 (150-450) K/mm3 MPV 10.4 (7.5-11.0) fl Gran % 83.0 H (36.0-66.0) % Eos # (Auto) 0.02 (0-0.5) Absolute Lymphs (auto) 1.19 (1.0-4.6) Absolute Monos (auto) 0.91 (0.0-1.3) Lymphocytes % 9.4 L (24.0-44.0) % Monocytes % 7.2 (0.0-12.0) % Eosinophils % 0.2 (0.00-5.0) % Basophils % 0.2 (0.0-0.4) % Absolute Granulocytes 10.46 H (1.4-6.9) Basophils # 0.02 (0-0.4) D-Dimer 622 H* (215-500) ng/mL Sodium 129 L (137-145) mmol/L Potassium 4.2 (3.5-5.1) mmol/L Chloride 92 L (98-107) mmol/L Carbon Dioxide 23 (22-30) mmol/L Anion Gap 18.1 H (5-15) MEQ/L BUN 19 (9-20) mg/dL Creatinine 1.08 (0.66-1.25) mg/dL Estimated GFR > 60.0 ML/MIN Glucose 108 H (74-106) mg/dL Calcium 8.8 (8.4-10.2) mg/dL Total Bilirubin 0.90 (0.2-1.3) mg/dL AST 23 (17-59) U/L ALT 19 (0-50) U/L Alkaline Phosphatase 78 (38-126) U/L Serum Total Protein 8.0 (6.3-8.2) g/dL Albumin 3.9 (3.5-5.0) g/dL - Progress Progress: improved Progress Note: 01/31/20 21:03 Differential diagnosis includes DVT, fracture, infection. -We will obtain a ultrasound, basic labs, dimer, x-ray of the right knee. 01/31/20 22:03 DVT was read as negative by the java tech. The x-ray of the right femur right knee right tib-fib are all negative. No obvious fractures. Patient also had chronic right knee pain in August 2018. X-rays appear similar to that point time. Unclear cause for patient's symptoms tonight. He will need close follow-up with his PCP. Return here for new or changing symptoms. Counseled pt/family regarding: lab results, diagnosis, need for follow-up, rad results - Departure Departure Disposition: Home Clinical Impression: Right leg swelling Condition: Stable Critical Care Time: No Referrals: ROSE GOLD [Primary Care Provider] - Instructions: Knee Sprain (DC) Additional Instructions: See PCP in 24 to 48 hours for follow-up.
[2020-01-31 21:17] LABS: Absolute Neutrophil Ct (ANC) 10.46 (1.4-6.9); BASOPHIL % 0.2 % (0.0-0.4); Basophil (Absolute #) 0.02 (0-0.4); Eosinophil % 0.2 % (0.00-5.0); Eosinophil (Absolute #) 0.02 (0-0.5); Hematocrit 47.4 % (42-50); Hemoglobin 15.6 gm/dl (12.5-18.0); Lymphocyte (Absolute #) 1.19 (1.0-4.6); Lymphocytes % 9.4 % (24.0-44.0); Mean Corpuscular Hemoglobin 30.3 pg (26-32); Mean Corpuscular Hgb Concent. 32.9 g/dl (32-36); Mean Platelet Volume 10.4 fl (7.5-11.0); Monocyte (Absolute #) 0.91 (0.0-1.3); Monocytes % 7.2 % (0.0-12.0); Platelet Count 197 K/mm3 (150-450); Red Blood Count 5.15 M/mm3 (4.1-5.6); Red Cell Distribution Width 13.5 % (11.5-14.0); White Blood Count 12.6 K/mm3 (4.0-10.5)
[2020-01-31 21:28] LABS: ALBUMIN 3.9 g/dL (3.5-5.0); ALKALINE PHOSPHATASE 78 U/L (38-126); ANION GAP 18.1 MEQ/L (5-15); BLOOD UREA NITROGEN 19 mg/dL (9-20); CHLORIDE 92 mmol/L (98-107); Calcium 8.8 mg/dL (8.4-10.2); Carbon Dioxide 23 mmol/L (22-30); Creatinine 1 1.08 mg/dL (0.66-1.25); Glucose 108 mg/dL (74-106); Potassium 4.2 mmol/L (3.5-5.1); SGOT/AST 23 U/L (17-59); SGPT/ALT 19 U/L (0-50); SODIUM 129 mmol/L (137-145)
[2020-01-31 22:22] VITALS: BP 117/81; PULSE 79
--- NOTE | 2020-02-01 08:28 | XRAY ---
Indication: Pain. Comparison: None 2 view right femur demonstrates knee degenerative changes reported separately. No other bony, articular, or soft tissue abnormalities.
--- NOTE | 2020-02-01 08:28 | XRAY ---
Indication: Pain. Comparison: September 04, 2018. 3 view right knee again demonstrates moderate tricompartmental degenerative changes. No new/acute bony, articular, or soft tissue abnormalities.
--- NOTE | 2020-02-01 08:30 | XRAY ---
Indication: Right leg pain. Two-dimensional sonogram and color Doppler imaging of the major venous vessels of the right leg was performed. Comparison: None No thrombus seen in the examined deep venous vessels of the right leg including greater saphenous vein. Veins demonstrate normal compressibility. Venous waveforms are normal with and without augmentation. Impression: Right leg negative for DVT. Comment: Preliminary report was given.
--- NOTE | 2020-02-01 08:33 | XRAY ---
Indication: Pain. Comparison: None 2 view right lower leg demonstrates developmental bowing deformity with medial convexity. Moderate knee and ankle degenerative arthropathy. No other bony, articular, or soft tissue abnormalities.
== END 2020-01-31 22:32 | disposition home or self-care (01) ==
LOC: ED 20:51
DX: M79.89 Other specified soft tissue disorders (principal); G80.9 Cerebral palsy, unspecified; Z79.899 Other long term (current) drug therapy; G47.30 Sleep apnea, unspecified; J45.909 Unspecified asthma, uncomplicated
CPT/HCPCS: 36415; 73552; 73562; 73590; 80053; 85025; 85379; 93971; 99284

== ENCOUNTER 2020-02-18 11:25 | Inpatient (IN) | payer MEDICARE ==
[2020-02-18 12:11] LABS: Hematocrit 47.4 % (42-50); Hemoglobin 15.5 gm/dl (12.5-18.0); Mean Cell Volume 92.2 fl (78-100); Mean Corpuscular Hemoglobin 30.2 pg (26-32); Mean Corpuscular Hgb Concent. 32.7 g/dl (32-36); Mean Platelet Volume 10.4 fl (7.5-11.0); Platelet Count 215 K/mm3 (150-450); Red Blood Count 5.14 M/mm3 (4.1-5.6); Red Cell Distribution Width 13.2 % (11.5-14.0); White Blood Count 6.4 K/mm3 (4.0-10.5)
[2020-02-18] MEDS: Zosyn 3.375 GM Vial 3.375 GM in Sodium Chloride 100ML MINI-BAG PLUS 100 ML IV SCH ×3 (12:30→23:39)
[2020-02-18 13:18] LABS: BLOOD UREA NITROGEN 17 mg/dL (9-20); CHLORIDE 100 mmol/L (98-107); Carbon Dioxide 24 mmol/L (22-30); Creatinine 1 0.98 mg/dL (0.66-1.25); Glucose 76 mg/dL (74-106); Potassium 4.1 mmol/L (3.5-5.1); SODIUM 136 mmol/L (137-145)
[2020-02-18] MEDS ORDERED: TYLENOL EXTRA STRENGTH 500 MG PO PRN (13:35)
[2020-02-18] MEDS ORDERED: IMODIUM 2 MG PO PRN (13:35)
[2020-02-18] MEDS ORDERED: [UNRECOGNIZED DRUG - REMARK] PO PRN (13:35)
[2020-02-18] MEDS ORDERED: DEXTROMETHORPHAN HBR PO PRN (13:35)
[2020-02-18] MEDS ORDERED: BENTYL 20 MG PO PRN (13:35)
[2020-02-18] MEDS ORDERED: Robitussin 100 MG/5 ML PO PRN (13:41)
[2020-02-18] MEDS ORDERED: BENADRYL 25 MG CAPSULE PO PRN (13:43)
[2020-02-18] MEDS: Sodium Chloride 0.9% 1000 ML 1,000 ML IV SCH ×2 (13:56→23:39)
[2020-02-18] MEDS ORDERED: Bactroban OINTMENT TOP SCH (15:00)
[2020-02-18] MEDS: Protonix 40MG Tablet PO SCH (16:57)
[2020-02-18] MEDS ORDERED: Senokot-S Tablet ONE (19:54)
[2020-02-18] MEDS: Senokot-S Tablet PO SCH (20:23)
[2020-02-18] MEDS: Lexapro 10 MG PO SCH (20:23)
[2020-02-19 05:23] LABS: Hematocrit 42.7 % (42-50); Hemoglobin 13.6 gm/dl (12.5-18.0); Mean Cell Volume 93.2 fl (78-100); Mean Corpuscular Hemoglobin 29.7 pg (26-32); Mean Corpuscular Hgb Concent. 31.9 g/dl (32-36); Mean Platelet Volume 10.1 fl (7.5-11.0); Platelet Count 207 K/mm3 (150-450); Red Blood Count 4.58 M/mm3 (4.1-5.6); Red Cell Distribution Width 13.4 % (11.5-14.0); White Blood Count 5.6 K/mm3 (4.0-10.5)
[2020-02-19 05:54] LABS: ANION GAP 8.9 MEQ/L (5-15); BLOOD UREA NITROGEN 16 mg/dL (9-20); CHLORIDE 106 mmol/L (98-107); Calcium 8.3 mg/dL (8.4-10.2); Carbon Dioxide 26 mmol/L (22-30); Glucose 101 mg/dL (74-106); Potassium 4.1 mmol/L (3.5-5.1); SODIUM 137 mmol/L (137-145)
[2020-02-19] MEDS: Zosyn 3.375 GM Vial 3.375 GM in Sodium Chloride 100ML MINI-BAG PLUS 100 ML IV SCH ×4 (05:58→23:53)
[2020-02-19] MEDS: Miralax Powder 17GM PACKET PO SCH (09:14)
[2020-02-19] MEDS: Protonix 40MG Tablet PO SCH (09:15)
[2020-02-19] MEDS ORDERED: NON-FORMULARY ITEM (Lansoprazole [Prevacid] 30 MG) PO SCH (10:00)
[2020-02-19] MEDS: Sodium Chloride 0.9% 1000 ML 1,000 ML IV SCH (11:11)
[2020-02-19] MEDS ORDERED: Lexapro 10 MG PO SCH (20:00)
[2020-02-19] MEDS: Lexapro 10 MG PO SCH (20:37)
[2020-02-19] MEDS: Senokot-S Tablet PO SCH (20:38)
[2020-02-20] MEDS: Sodium Chloride 0.9% 1000 ML 1,000 ML IV SCH ×2 (04:02→16:40)
[2020-02-20] MEDS: Zosyn 3.375 GM Vial 3.375 GM in Sodium Chloride 100ML MINI-BAG PLUS 100 ML IV SCH ×4 (06:35→23:04)
--- NOTE | 2020-02-20 08:46 | PCM.NOTE ---
Date and Time: 02/20/20 0843 Subjective Assessment: patient denies any pain in the leg, no chest pain, no cough or shortness of breath. states he feels ok Objective Exam General Appearance: no apparent distress, other (slurred speech) Neurologic Exam: alert, cooperative Skin Exam: other (superficial ulceration to right medial lower leg, appears clean, surrounding erythema present and slight warmth. no streaking) Wound Assessment: Skin/Wound Assessment Wound/Incision Assessment Start: 02/18/20 12: 34 Text: Status: Active Freq: Q6H Protocol: Document 02/20/20 02:00 ROBIN (Rec: 02/20/20 05:02 ROBIN [id number]) Wound/Incision Assessment Right Lower Other Wound Assessment Shift Assessment Wound Type ULCER/CELLULITIS Wound Stage Non Pressure Wound Drainage Amount Moderate Drainage Description Sanguineous Drainage Odor None/Absent Surrounding Tissue [place] Primary Dressing MEPILEX DRESSING Comment DRESSING FROM PHYSICAL THERAPY IN PLACE Wound Photo Photo Taken Yes Respiratory Exam: normal breath sounds, lungs clear, No respiratory distress Cardiovascular Exam: regular rate/rhythm, normal heart sounds Gastrointestinal/Abdomen Exam: soft, No tenderness, No mass OBJECTIVE DATA Vital Signs: Vital Signs - 24 hr Temp Pulse Resp BP Pulse Ox 02/20/20 07:56 98.5 F 53 L 16 93/50 93 L 02/20/20 04:00 97.9 F 61 18 105/63 93 L 02/20/20 00:00 97.5 F 66 18 133/94 96 02/19/20 20:00 97.8 F 64 20 164/93 95 02/19/20 15:32 97.7 F 69 18 126/60 97 02/19/20 11:56 97.8 F 76 16 136/82 94 L Pain Assessment - Last Documented Pain Intensity 0 Pain Scale Used 0-10 Pain Scale Intake and Output: Intake & Output 02/17/20 02/18/20 02/19/20 02/20/20 11:59 11:59 11:59 11:59 Intake Total 500 4201 Output Total 4250 2500 Balance -3750 1701 Weight 98.9 kg 100.4 kg 101 kg Multi-Disciplinary Progress Notes: Multi-Disciplinary Progress Notes 02/19/20 15:50 Physical Therapy Note by Nan Rutherford MEPILEX DRESSING INTACT W/ MINIMAL DRAINAGE. WILL CHANGE TOMORROW TO ALLOW FOR MINIMAL DISRUPTION OF MOIST WOUND HEALING ENVIRONMENT. PT. CAN CONT. W/ OP PT FOR W/C UPON D/C. NAN RUTHERFORD, PT Initialized on 02/19/20 15:50 - END OF NOTE 02/19/20 11:57 Case Management Note by Vinita Rojas PATIENT HAS HELP AT HOME. THEY WILL NEED CONTACTED AT TIME OF DC. THEIR PHONE NUMBER IS [phone]. THEY WILL NEED NOTIFIED AT TIME OF DC. THEIR PHONE NUMBER IS [phone]. THEY WILL NEED FAXED THE DC MED LIST, INSTRUCTIONS AND DC SUMMARY(IF AVAILABLE) TO [phone] Initialized on 02/19/20 11:57 - END OF NOTE Assessment/Plan (1) Cellulitis of lower extremity Current Visit: Yes Status: Acute Assessment & Plan: on zosyn, afebrile and labs are stable currently (2) Wound of lower extremity Current Visit: Yes Status: Acute Assessment & Plan: wound care Code(s): S81.809A - UNSPECIFIED OPEN WOUND, UNSPECIFIED LOWER LEG, INIT ENCNTR (3) Cerebral palsy Current Visit: Yes Status: Acute Code(s): G80.9 - CEREBRAL PALSY, UNSPECIFIED
[2020-02-20] MEDS: Protonix 40MG Tablet PO SCH (09:16)
[2020-02-20] MEDS: Miralax Powder 17GM PACKET PO SCH (09:20)
--- NOTE | 2020-02-20 10:30 | HP ---
HISTORY OF PRESENT ILLNESS: This is a 59 year old patient who was made direct admission from the clinic by Dr. Lund. Dr. Lund reported that he had a wound on his right lower leg that had been treated as an outpatient with Bactrim and was not improving. There was also some swelling of his leg so he desired to make him a direct admission for IV antibiotics and closer monitoring. Today, the patient denies any problems. He finished his tray, denies any pain. The patient's history is limited due to his cerebral palsy and difficulty communicating and taken from his chart. PAST MEDICAL HISTORY: Cerebral palsy. Obstructive sleep apnea. Urinary incontinence. Hypertension. PAST SURGICAL HISTORY: Colonoscopy in 2016. SOCIAL HISTORY: He does not smoke. FAMILY HISTORY: Unknown. REVIEW OF SYSTEMS: As in the history of present illness otherwise unobtainable due to the patient's limited communication. PHYSICAL EXAMINATION: VITAL SIGNS: Temperature current 97.7F, heart rate 69, respiratory rate 18, blood pressure 126/60. Oxygen saturation 97% on room air. GENERAL: The patient is a pleasant man sitting up in his chair in no acute distress. He smiles, asks how I am doing. CVS: He has a regular rate and rhythm. No murmurs, gallops or rubs. CHEST: Clear to auscultation bilaterally. No crackles or wheezes. EXTREMITIES: His right lower leg has a wound that is dressed. There are pictures in the chart showing open ulcer approximately 4 x 3 cm with some black eschar and a smaller wound on his left ankle 1 x 1 cm. ASSESSMENT AND PLAN: CELLULITIS OF HIS RIGHT LEG: He has been started on Zosyn. We have asked PT to consult for help with wound care. We will try to have the patient keep his leg up to decrease swelling, will continue to monitor closely as he failed outpatient therapy.
[2020-02-20] MEDS: Lexapro 10 MG PO SCH (20:07)
[2020-02-20] MEDS: Senokot-S Tablet PO SCH (21:22)
[2020-02-21] MEDS: Sodium Chloride 0.9% 1000 ML 1,000 ML IV SCH ×2 (03:11→15:12)
[2020-02-21] MEDS: Zosyn 3.375 GM Vial 3.375 GM in Sodium Chloride 100ML MINI-BAG PLUS 100 ML IV SCH ×4 (05:24→23:08)
[2020-02-21 06:40] LABS: Absolute Neutrophil Ct (ANC) 4.67 (1.4-6.9); BASOPHIL % 0.4 % (0.0-0.4); Basophil (Absolute #) 0.03 (0-0.4); Eosinophil % 2.7 % (0.00-5.0); Hematocrit 44.8 % (42-50); Hemoglobin 14.4 gm/dl (12.5-18.0); Lymphocyte (Absolute #) 1.88 (1.0-4.6); Lymphocytes % 25.3 % (24.0-44.0); Mean Cell Volume 93.7 fl (78-100); Mean Corpuscular Hemoglobin 30.1 pg (26-32); Mean Corpuscular Hgb Concent. 32.1 g/dl (32-36); Mean Platelet Volume 10.1 fl (7.5-11.0); Monocyte (Absolute #) 0.64 (0.0-1.3); Monocytes % 8.6 % (0.0-12.0); Platelet Count 188 K/mm3 (150-450); Red Blood Count 4.78 M/mm3 (4.1-5.6); Red Cell Distribution Width 13.1 % (11.5-14.0); White Blood Count 7.4 K/mm3 (4.0-10.5)
[2020-02-21 06:53] LABS: ANION GAP 10.6 MEQ/L (5-15); BLOOD UREA NITROGEN 14 mg/dL (9-20); CHLORIDE 105 mmol/L (98-107); Calcium 8.4 mg/dL (8.4-10.2); Carbon Dioxide 25 mmol/L (22-30); Creatinine 1 0.77 mg/dL (0.66-1.25); Glucose 96 mg/dL (74-106); Potassium 3.8 mmol/L (3.5-5.1); SODIUM 137 mmol/L (137-145)
[2020-02-21] MEDS: Protonix 40MG Tablet PO SCH (10:49)
[2020-02-21] MEDS: Miralax Powder 17GM PACKET PO SCH (10:50)
--- NOTE | 2020-02-21 12:50 | PCM.NOTE ---
Date and Time: 02/21/20 1246 Subjective Assessment: Patient reports he has had some loose stools; no other concerns. - Review of Systems Constitutional: No Symptoms Respiratory: No Symptoms Cardiac: No Symptoms Abdominal/Gastrointestinal: Diarrhea Genitourinary Symptoms: No Symptoms Objective Exam General Appearance: no apparent distress Neurologic Exam: alert, cooperative Skin Exam: normal color, warm, other (bandage over right leg wounds (PT note said to stay intact over weekend)) Wound Assessment: Skin/Wound Assessment Wound/Incision Assessment Start: 02/18/20 12: 34 Text: Status: Active Freq: Q6H Protocol: Document 02/21/20 08:00 RDNE (Rec: 02/21/20 08:59 RDNE [id number]) Wound/Incision Assessment Right Lower Other Wound Assessment Shift Assessment Wound Type ULCER/CELLULITIS Wound Stage Non Pressure Wound Drainage Odor None/Absent Surrounding Tissue [place] Primary Dressing MEPILEX DRESSING Comment mepilex in place Wound Photo Photo Taken Yes Respiratory Exam: normal breath sounds, lungs clear, No crackles/rales, No rhonchi, No wheezing Cardiovascular Exam: regular rate/rhythm, normal heart sounds, No murmur, No friction rub, No gallop Gastrointestinal/Abdomen Exam: soft, normal bowel sounds OBJECTIVE DATA Vital Signs: Vital Signs - 24 hr Temp Pulse Resp BP Pulse Ox 02/21/20 12:00 97.7 F 73 16 141/82 97 02/21/20 07:00 97.6 F 65 17 115/58 93 L 02/21/20 04:00 97.6 F 76 20 144/79 96 02/20/20 23:26 97.9 F 54 L 16 113/66 93 L 02/20/20 19:58 98.1 F 71 16 162/87 97 02/20/20 16:00 98 F 58 L 18 117/56 94 L Pain Assessment - Last Documented Pain Intensity 0 Pain Scale Used 0-10 Pain Scale Intake and Output: Intake & Output 02/19/20 02/20/20 02/21/20 02/22/20 06:59 06:59 06:59 06:59 Intake Total 500 4201 4240 Output Total 4250 2500 3950 Balance -3750 1701 290 Weight 100.4 kg 101 kg 100.7 kg Lab Results: Lab Results-Last 24 Hours 02/21/20 02/21/20 Range/Units 05:10 05:10 WBC 7.4 (4.0-10.5) K/mm3 RBC 4.78 (4.1-5.6) M/mm3 Hgb 14.4 (12.5-18.0) gm/dl Hct 44.8 (42-50) % MCV 93.7 (78-100) fl MCH 30.1 (26-32) pg MCHC 32.1 (32-36) g/dl RDW 13.1 (11.5-14.0) % Plt Count 188 (150-450) K/mm3 MPV 10.1 (7.5-11.0) fl Gran % 63.0 (36.0-66.0) % Eos # (Auto) 0.20 (0-0.5) Absolute Lymphs (auto) 1.88 (1.0-4.6) Absolute Monos (auto) 0.64 (0.0-1.3) Lymphocytes % 25.3 (24.0-44.0) % Monocytes % 8.6 (0.0-12.0) % Eosinophils % 2.7 (0.00-5.0) % Basophils % 0.4 (0.0-0.4) % Absolute Granulocytes 4.67 (1.4-6.9) Basophils # 0.03 (0-0.4) Sodium 137 (137-145) mmol/L Potassium 3.8 (3.5-5.1) mmol/L Chloride 105 (98-107) mmol/L Carbon Dioxide 25 (22-30) mmol/L Anion Gap 10.6 (5-15) MEQ/L BUN 14 (9-20) mg/dL Creatinine 0.77 (0.66-1.25) mg/dL Estimated GFR > 60.0 ML/MIN Glucose 96 (74-106) mg/dL Calcium 8.4 (8.4-10.2) mg/dL Multi-Disciplinary Progress Notes: Multi-Disciplinary Progress Notes 02/20/20 16:20 Physical Therapy Note by Nan Rutherford PT. UP IN GERICHAIR UPON PT ARRIVAL TO ROOM. NO ERYTHEMA OR EDEMA NOTED R LL. PT. REPORT NO C/O PN. REMOVED MEPILEX DRSG; NOTED MODERATE SANGUINEOUS DRAINAGE. NO ESCHAR NOTED IN WOUND BED. GRANULATION TISSUE PRESENT. CLEANSED WOUND W/ HIBICLENS/STERILE WATER MIXTURE. DRESSED W/ BARRIER CREAM IN WOUND BED , ALGINATE, AND MEPILEX BORDER 4X4. DRSG SHOULD REMAIN INTACT OVER THE WEEKEND. PT. HAS APPOINTMENT FOR OP PT FOR W/C NEXT WEEK UPON D/C. SEE PIC IN HARD CHART. WILL CONT. TO MONITOR WOUND STATUS DURING STAY. NAN RUTHERFORD, PT Initialized on 02/20/20 16:20 - END OF NOTE Assessment/Plan (1) Cellulitis of lower extremity Current Visit: Yes Status: Acute Assessment & Plan: Continue current treatment. Continue antibiotic as it has improved with this even though wound culture is not growing a particular organism. (2) Cerebral palsy Current Visit: Yes Status: Acute Code(s): G80.9 - CEREBRAL PALSY, UNSPECIFIED (3) Diarrhea Current Visit: Yes Status: Acute Assessment & Plan: Miralax stopped; has loperamide ordered prn. May also be due to antibiotic. Code(s): R19.7 - DIARRHEA, UNSPECIFIED
[2020-02-21] MEDS: Lexapro 10 MG PO SCH (20:11)
[2020-02-21] MEDS: Senokot-S Tablet PO SCH (21:12)
[2020-02-22] MEDS: Sodium Chloride 0.9% 1000 ML 1,000 ML IV SCH (02:40)
[2020-02-22] MEDS: Zosyn 3.375 GM Vial 3.375 GM in Sodium Chloride 100ML MINI-BAG PLUS 100 ML IV SCH (05:03)
[2020-02-22] MEDS: Protonix 40MG Tablet PO SCH (08:54)
[2020-02-22 11:32] VITALS: BP 139/85; PULSE 68; O2SAT 94
--- NOTE | 2020-02-22 11:56 | PCM.DCORD ---
- Discharge Discharge Date: 02/22/20 Disposition: HOME HEALTH SERVICE Condition: Fair Prescriptions: New Cephalexin Mh 500 mg [Keflex 500 mg] 500 mg PO QID #12 capsule Continue Polyethylene Glycol 3350 [Miralax] 17 gm PO DAILY Escitalopram Oxalate 10 mg [Lexapro 10 MG] 10 mg PO DAILY Lansoprazole [Prevacid] 30 mg PO DAILY Sennosides/Docusate Sodium [Senna Laxative Tablet] 2 each PO HS Dextromethorphan HBr [Tussin Cough] 10 mg PO Q4HPRN PRN PRN Reason: Cough Acetaminophen [Tylenol Extra Strength] 500 mg PO Q4HPRN PRN PRN Reason: Pain Diphenhydramine HCl [Allergy Relief] 25 mg PO BIDPRN PRN PRN Reason: Allergies Loperamide HCl 2 mg [Imodium 2 mg] 2 mg PO UD PRN PRN Reason: Diarrhea Dicyclomine HCl 20 mg [Bentyl 20 mg] 20 mg PO QIDPRN PRN PRN Reason: IBS Discontinued Mupirocin [Bactroban OINTMENT] 1 gm TOP TID Additional Instructions: Keep dressing in place on your right leg wound and keep your scheduled appointment this week with physical therapy at [facility]. Follow up with: ROSE GOLD [Primary Care Provider] - 1 Week
--- NOTE | 2020-02-24 17:15 | DS ---
DISCHARGE DIAGNOSIS: 1. RIGHT LEG CELLULITIS. 2. RIGHT LEG WOUND. 3. CEREBRAL PALSY. 4. DIARRHEA. DISCHARGE PHYSICAL EXAM: VITALS: Temperature current 98.0, temperature maximum 98.4, heart rate 68, respiratory rate 18, O2 saturation 94% on room air, BP 139/85. GENERAL: The patient is a pleasant man sitting up in no acute distress. CVS: His heart has a regular rate and rhythm. No murmurs, gallops, or rubs. CHEST: Clear to auscultation bilaterally. No crackles or wheezes. EXTREMITIES: The nurses have his right leg undressed for dressing change. It has a clean base, approximately 3 X 4 cm. No exudate. Very mild surrounding erythema of the wound. HOSPITAL COURSE: 1. Right leg cellulitis. He was on Zosyn during his hospitalization, received 4 days of this. A wound culture just grew light skin pete. I am planning on discharging him home on 3 more days of Keflex to take PO. 2. Right leg wound. The dressing is being placed today. It is to be kept in place until he sees PT that is already scheduled as an outpatient this week at [facility]. 3. Cerebral palsy. Will continue with his current medications and treatment. 4. Diarrhea. The patient complained of this yesterday, it since resolved he reports. DISCHARGE MEDICATIONS: Please see the discharge order. DISPOSITION: The patient is being discharged with home health care. Follow-up as an outpatient with PT at [facility] as well as his primary care doctor, Dr. Ramirez.
== END 2020-02-22 14:23 | disposition home health service (06) | DRG 603 ==
LOC: OBSVTOIN 11:27 → MED SURG 11:27
PROVIDERS: ADMIT Internal Medicine; ATTEND Internal Medicine
DX: L03.115 Cellulitis of right lower limb (principal); L97.919 Non-pressure chronic ulcer of unspecified part of right lower leg with unspecified severity; G80.9 Cerebral palsy, unspecified; I10 Essential (primary) hypertension; R19.7 Diarrhea, unspecified; Z79.899 Other long term (current) drug therapy
CPT/HCPCS: 36415; 80048; 85025; 85027; 87070; A9270-GY

== ENCOUNTER 2020-04-12 23:09 | Emergency (ER) | payer MEDICARE ==
--- NOTE | 2020-04-12 23:23 | ERPHSYRPT ---
- History of Present Illness Time Seen by Provider: 04/12/20 23:23 Source: patient, family Exam Limitations: no limitations Physician History: This is a 59-year-old white male resident of a [facility] who lost his balance and fell and hit his head. Patient has no complaints. He has no obvious injury. It is the [facility] protocol to have the patient evaluated including a CAT scan of his head. Patient denies dizziness he denies nausea or vomiting. He denies chest pain he denies shortness of breath. He did not lose consciousness. He has no extremity injury or extremity pain. He has no visual changes Occurred: just prior to arrival Reason for Fall: lost balance Injuries/Pain Location: head Loss of Consciousness: no loss of consciousness Severity of Pain-Max: none Severity of Pain-Current: none Modifying Factors: Improves With: nothing Associated Symptoms (Fall): denies symptoms Allergies/Adverse Reactions: No Known Drug Allergies Allergy (Verified 04/12/20 23:25) Home Medications: Escitalopram Oxalate 10 mg [Lexapro 10 MG] 10 mg PO DAILY 07/18/18 [History] Polyethylene Glycol 3350 [Miralax] 17 gm PO DAILY 07/18/18 [History] Lansoprazole [Prevacid] 30 mg PO DAILY 07/24/19 [History] Sennosides/Docusate Sodium [Senna Laxative Tablet] 2 each PO HS 07/24/19 [History] Acetaminophen [Tylenol Extra Strength] 500 mg PO Q4HPRN PRN 02/18/20 [History] Dextromethorphan HBr [Tussin Cough] 10 mg PO Q4HPRN PRN 02/18/20 [History] Dicyclomine HCl 20 mg [Bentyl 20 mg] 20 mg PO QIDPRN PRN 02/18/20 [History] Diphenhydramine HCl [Allergy Relief] 25 mg PO BIDPRN PRN 02/18/20 [History] Loperamide HCl 2 mg [Imodium 2 mg] 2 mg PO UD PRN 02/18/20 [History] Hx Tetanus, Diphtheria Vaccination/Date Given: Yes Hx Influenza Vaccination/Date Given: Yes Hx Pneumococcal Vaccination/Date Given: Yes Travel Risk - International Travel Have you traveled outside of the country in past 3 weeks: No - Coronavirus Screening Are you exhibiting any of the following symptoms?: No Close contact with a COVID-19 positive Pt in past 14-21 Days: No - Review of Systems Constitutional: No Symptoms Eyes: No Symptoms Ears, Nose, & Throat: No Symptoms Respiratory: No Symptoms Cardiac: No Symptoms Abdominal/Gastrointestinal: No Symptoms Genitourinary Symptoms: No Symptoms Musculoskeletal: No Symptoms Skin: No Symptoms Neurological: No Symptoms Psychological: No Symptoms Endocrine: No Symptoms Hematologic/Lymphatic: No Symptoms Immunological/Allergic: No Symptoms All Other Systems: Reviewed and Negative - Past Medical History Pertinent Past Medical History: Yes Neurological History: Other ENT History: No Pertinent History Cardiac History: Hypertension Respiratory History: Sleep Apnea Endocrine Medical History: No Pertinent History Musculoskeletal History: Fractures GI Medical History: GERD, Ulcer History: No Pertinent History Psycho-Social History: No Pertinent History Male Reproductive Disorders: No Pertinent History Other Medical History: 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 HX FX RIGHT LOWER LEG PER PATIENT REPORT WITH OBSERVATION OF OLD SCAR ANTERIOR RIGHT LOWER LEG - Past Surgical History Past Surgical History: Yes Neuro Surgical History: No Pertinent History Cardiac: No Pertinent History Respiratory: No Pertinent History Gastrointestinal: No Pertinent History Genitourinary: No Pertinent History Musculoskeletal: Orthopedic Surgery Male Surgical History: No Pertinent History Other Surgical History: Back, Neck, and ankle surgery. Colonoscopy - Social History Smoking Status: Never smoker Exposure to second hand smoke: Yes Drug Use: none Patient Lives Alone: No (has 24 hour care) - Nursing Vital Signs Nursing Vital Signs: Initial Vital Signs Temperature 97.7 F 04/12/20 23:16 Pulse Rate 54 L 04/12/20 23:16 Respiratory Rate 18 04/12/20 23:16 Blood Pressure 145/83 04/12/20 23:16 O2 Sat by Pulse Oximetry 95 04/12/20 23:16 Pain Scale Pain Intensity 0 - [place] Com[place] Score Best Eye Response (Carlito): (4) open spontaneously Best Verbal Response ([place]): (5) oriented Best Motor Response ([place]): (6) obeys commands [place] Total: 15 - Physical Exam General Appearance: no apparent distress, alert Head Injury: no evidence of injury Eye Exam: PERRL/EOMI, eyes nml inspection ENT Exam: airway nml, nml ext.inspection, No evidence of ENT injury Neck Exam: supple, trachea midline, full range of motion, normal alignment, normal inspection Respiratory/Chest Exam: No chest tenderness Gastrointestinal Exam: No tenderness Rectal Exam: not done Back Exam: normal inspection, normal range of motion, No CVA tenderness, No vertebral tenderness Extremity Exam: normal inspection, normal range of motion, capillary refill <3 sec Neurologic Exam: alert, oriented x 3, 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, 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, normal mood/affect, nml cerebellar function, nml station & gait, sensation nml Skin Exam: normal color, warm, dry SpO2 Interpretation: normal O2 Delivery: Room Air Ordered Tests: Active Orders 24 hr Category Date Time Status HEAD WITHOUT CONTRAST [CT] Stat Exams 04/12/20 23:22 Taken - Progress Progress: unchanged Progress Note: 04/13/20 00:29 CAT scan of the head reveals no acute intracranial abnormality Counseled pt/family regarding: diagnosis, need for follow-up, rad results - Departure Departure Disposition: Home Clinical Impression: Injury of head Condition: Stable Critical Care Time: No Referrals: ROBERTO STRICKLAND [Primary Care Provider] - Additional Instructions: May use Tylenol ibuprofen for pain control. Follow-up with primary care physician as needed. Continue your medication as prescribed.
[2020-04-13 00:31] VITALS: BP 117/79; PULSE 55; O2SAT 93
--- NOTE | 2020-04-13 09:00 | XRAY ---
Indication: Posterior head injury following fall. Multiple contiguous axial images obtained through the head without contrast. Comparison: May 27, 2018. 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 No acute intracranial hemorrhage, abnormal extra-axial fluid collection, or mass effect. Fourth ventricle is midline without hydrocephalus. Roberts-white matter differentiation preserved. Bony calvarium intact. Continued mild mucosal thickening of the left maxillary and lesser degree right sinuses. Mastoid air cells are clear. Left external auditory canal again demonstrates soft tissue opacity narrowing the canal, possible otitis externa. Impression: 1. 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 No new/acute intracranial abnormalities. 2. Soft tissue opacity narrows the left external auditory canal. Rule out otitis externa. Comment: Preliminary interpretation was made by [facility]. No critical discrepancy.
== END 2020-04-13 00:38 | disposition home or self-care (01) ==
LOC: ED 23:09
DX: S09.90XA Unspecified injury of head, initial encounter (principal); W01.10XA Fall on same level from slipping, tripping and stumbling with subsequent striking against unspecified object, initial encounter; Y93.9 Activity, unspecified; Y92.129 Unspecified place in nursing home as the place of occurrence of the external cause; Y99.8 Other external cause status
CPT/HCPCS: 70450; 99283

== ENCOUNTER 2021-09-10 07:26 | Emergency (ER) | payer MEDICARE ==
[2021-09-10 07:36] VITALS: BP 125/75; PULSE 79; O2SAT 96
[2021-09-10] MEDS ORDERED: Adacel Vial IM ONE ×2 (07:48→08:15)
[2021-09-10] MEDS ORDERED: XYLOCAINE 1% HCL 20 ML MDV ONE (08:47)
[2021-09-10] MEDS ORDERED: XYLOCAINE 1%/Epi 1:100000 MDV 20 ML ONE (09:08)
[2021-09-10] MEDS ORDERED: BACIGUENT PACKET TP ONE (09:17)
--- NOTE | 2021-09-10 09:18 | ERPHSYRPT ---
- History of Present Illness Time Seen by Provider: 09/10/21 07:27 Source: patient, EMS Exam Limitations: clinical condition Patient Subjective Stated Complaint: Head injury Triage Nursing Assessment: Patient brought into ED via EMS and transferred to bed per 3. Patient A+O X3. Patient's skin pink, warm and dry. Patient stated he was ambulating to bathroom without his walker and fell backwards hitting the back of head on a closet corner. Patietn denies pain or discomfort. Patient denies losing consciousness. Laceration noted to back of head Physician History: 61-year-old male with baseline issue difficulty ambulation is brought in the ER by EMS after he was coming back from bathroom, slipped and fell backward hitting his head against the wall and then floor without loss of consciousness. Patient is able to recall the whole sequence of events. Denies any neck pain. C-collar in place. No numbness tingling or focal weakness. There was bleeding initially but stopped with applying dressing. No chest pain palpitations or shortness of breath. No injury anywhere else. Occurred: just prior to arrival Severity: moderate Head Injury Location: occipital, parietal Method of Injury: fell Loss of Consciousness: no loss of consciousness Associated Symptoms: headaches, No weakness Allergies/Adverse Reactions: No Known Drug Allergies Allergy (Verified 04/12/20 23:25) Home Medications: Escitalopram Oxalate 10 mg [Lexapro 10 MG] 10 mg PO DAILY 07/18/18 [History] Polyethylene Glycol 3350 [Miralax] 17 gm PO DAILY 07/18/18 [History] Lansoprazole [Prevacid] 30 mg PO DAILY 07/24/19 [History] Sennosides/Docusate Sodium [Senna Laxative Tablet] 2 each PO HS 07/24/19 [History] Acetaminophen [Tylenol Extra Strength] 500 mg PO Q4HPRN PRN 02/18/20 [History] Dextromethorphan HBr [Tussin Cough] 10 mg PO Q4HPRN PRN 02/18/20 [History] Dicyclomine HCl 20 mg [Bentyl 20 mg] 20 mg PO QIDPRN PRN 02/18/20 [History] Loperamide HCl 2 mg [Imodium 2 mg] 2 mg PO UD PRN 02/18/20 [History] diphenhydrAMINE HCL [Allergy Relief] 25 mg PO BIDPRN PRN 02/18/20 [History] Hx Tetanus, Diphtheria Vaccination/Date Given: Yes Hx Influenza Vaccination/Date Given: Yes Hx Pneumococcal Vaccination/Date Given: Yes Immunizations Up to Date: Yes Travel Risk - International Travel Have you traveled outside of the country in past 3 weeks: No - Coronavirus Screening Are you exhibiting any of the following symptoms?: No Close contact with a COVID-19 positive Pt in past 14-21 Days: No - Vaccine Status Have you recieved a Covid-19 vaccination: No Clinical Documentation Developer: Unknown - Vaccination Dates Dates if Unknown: unknown - Review of Systems Constitutional: No Symptoms Eyes: No Symptoms Ears, Nose, & Throat: No Symptoms Respiratory: No Symptoms Cardiac: No Symptoms Abdominal/Gastrointestinal: No Symptoms Genitourinary Symptoms: No Symptoms Musculoskeletal: No Symptoms Neurological: Headache Endocrine: No Symptoms Hematologic/Lymphatic: No Symptoms Immunological/Allergic: No Symptoms - Past Medical History Pertinent Past Medical History: Yes Neurological History: Other ENT History: No Pertinent History Cardiac History: Hypertension Respiratory History: Sleep Apnea Endocrine Medical History: No Pertinent History Musculoskeletal History: Fractures GI Medical History: GERD, Ulcer History: No Pertinent History Psycho-Social History: No Pertinent History Male Reproductive Disorders: No Pertinent History Other Medical History: 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 HX FX RIGHT LOWER LEG PER PATIENT REPORT WITH OBSERVATION OF OLD SCAR ANTERIOR RIGHT LOWER LEG - Past Surgical History Past Surgical History: Yes Neuro Surgical History: No Pertinent History Cardiac: No Pertinent History Respiratory: No Pertinent History Gastrointestinal: No Pertinent History Genitourinary: No Pertinent History Musculoskeletal: Orthopedic Surgery Male Surgical History: No Pertinent History Other Surgical History: Back, Neck, and ankle surgery. Colonoscopy - Social History Smoking Status: Never smoker Exposure to second hand smoke: Yes Drug Use: none Patient Lives Alone: No (has 24 hour care) - Nursing Vital Signs Nursing Vital Signs: Initial Vital Signs Temperature 98.0 F 09/10/21 07:28 Pulse Rate 79 09/10/21 07:28 Respiratory Rate 18 09/10/21 07:28 Blood Pressure 125/75 09/10/21 07:28 O2 Sat by Pulse Oximetry 96 09/10/21 07:28 Pain Scale Pain Intensity 0 - [place] Coma Score Best Eye Response (Carlito): (4) open spontaneously Best Verbal Response ([place]): (5) oriented Best Motor Response (Carlito): (6) obeys commands [place] Total: 15 - Physical Exam General Appearance: no apparent distress, alert Head Injury: lacerations (Left occipitoparietal area 5.5 cm linear with minimal oozing. 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 Exam: normal hearing, normal speech, PERRL Coordination/Gait Exam: normal finger to nose Motor/Sensory Exam: no motor deficit, no sensory deficit, no pronator drift, negative Babinski's sign Skin Exam: normal color SpO2 Interpretation: normal SpO2: 96 O2 Delivery: Room Air Procedures - Laceration/Wound Repair Left Parietal Time of Procedure: 09:00 Wound Location: head Wound Length (cm): 5.5 Wound's Depth, Shape: into muscle, linear Wound Explored: clean Irrigated: Yes Hibiclens Prep: Yes Anesthesia: 1% lidocaine w/ Epi Volume Anesthetic (ccs): 7 Wound Repaired With: Valorie Number of Sutures: 9 Ordered Tests: Active Orders 24 hr Category Date Time Status CERVICAL SPINE WO CONTRAST [CT] Stat Exams 09/10/21 07:48 Completed HEAD WITHOUT CONTRAST [CT] Stat Exams 09/10/21 07:48 Completed Medication Summary Discontinued Medications Generic Name Dose Route Start Last Admin Trade Name Freq PRN Reason Stop Dose Admin Bacitracin Zinc 0.9 gm 09/10/21 09:17 09/10/21 09:26 Bacitracin Packet 0.9 Gm Pckt TP 09/10/21 09:18 0.9 gm STAT ONE Administration Diphtheria/Tetanus/Acell Pertussis 0.5 ml 09/10/21 07:48 09/10/21 08:21 Tdap --Diph,Pertuss(Acell),Tet Vac/Pf 0.5 Ml Vial IM 09/10/21 07:49 0.5 ml .ONCE ONE Administration Diphtheria/Tetanus/Acell Pertussis Confirm 09/10/21 08:15 Tdap --Diph,Pertuss(Acell),Tet Vac/Pf 0.5 Ml Vial Administered 09/10/21 08:16 Dose 0.5 ml IM .STK-MED ONE Lidocaine HCl Confirm 09/10/21 08:47 Lidocaine Hcl 1% 20 Ml Mdv 20 Ml Ml Administered 09/10/21 08:48 Dose 1 ml .ROUTE .STK-MED ONE Lidocaine/Epinephrine Confirm 09/10/21 09:08 Lidocaine Hcl/Epinephrine 1% 20 Ml Administered 09/10/21 09:09 Dose 1 ml .ROUTE .STK-MED ONE Lidocaine/Epinephrine 5 ml 09/10/21 09:23 09/10/21 09:25 Lidocaine Hcl/Epinephrine 1% 20 Ml IJ 09/10/21 09:24 5 ml STAT ONE Administration - Progress Progress: improved Progress Note: 09/10/21 09:16 CT head and cervical spine are negative. Tetanus is updated. C-collar is removed and patient is able to move his neck in all direction. Wound is thoroughly cleaned and stapled. Outpatient follow-up. No injury anywhere else, do not think needs any other work-up and is stable for discharge as it was a clear mechanical fall. As per caregiver patient is at his baseline. Counseled pt/family regarding: diagnosis, need for follow-up, rad results - Departure Departure Disposition: Home Clinical Impression: Scalp laceration, Fall Condition: Stable Critical Care Time: No Referrals: ROBERTO STRICKLAND MD [Primary Care Provider] - Follow Up with PCP/3 days Instructions: Concussion, Adult (DC), Closed Head Injury (DC) Additional Instructions: Use Tylenol as needed. Close observation for 24 to 48 hours with frequent neuro checks. Use walkers for ambulation all the time. Follow head injury instructions and return to ER for worsening level of consciousness, intractable vomiting, not acting at his baseline etc. Valorie removal in 10 to 12 days.
[2021-09-10] MEDS ORDERED: XYLOCAINE 1%/Epi 1:100000 MDV 20 ML IJ ONE (09:23)
--- NOTE | 2021-09-10 10:24 | XRAY ---
Indication: Posterior head injury following fall. Multiple contiguous axial images obtained through the cervical spine. Sagittal and coronal reformatted images obtained. Comparison: March. Axial images negative for acute fracture, suspicious bony lesions, or spinal canal stenosis. Again C3/C4 laminectomy and mild C3-C4 degenerative endplate spurring with bilateral cold spurring. Stable mild atlantoaxial degenerative changes and mild multilevel bilateral degenerative facet arthropathy. Sagittal and coronal reformatted images again demonstrates lordotic straightening with C3-C4 disc space loss. No acute compression fracture, subluxation, or jumped facet. Normal appearing craniocervical junction. Visualized noncontrasted soft tissues again demonstrates benign tonsil calcifications. Lung apices are clear. Impression: 1. Again lordotic straightening, multilevel degenerative changes, and C3/C4 laminectomy. 2. Negative acute fracture/subluxation. Comment: Preliminary interpretation made by [facility]. No critical discrepancy.
--- NOTE | 2021-09-10 10:24 | XRAY ---
Indication: Posterior head injury following fall. Multiple contiguous axial images obtained through the head without contrast. Comparison: April 12, 2020. New small focus left occipital scalp swelling/laceration. 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 No acute intracranial hemorrhage, abnormal extra-axial fluid collection, or mass effect. Fourth ventricle is midline without hydrocephalus. Roberts-white matter differentiation preserved. Bony calvarium intact. Again mild mucosal thickening of both maxillary sinuses with bilateral antrectomy. Mastoid air cells are clear. Impression: 1. Left occipital scalp swelling/laceration. No underlying fracture or acute intracranial abnormalities. 2. 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 Comment: Preliminary interpretation made by [facility]. No critical discrepancy.
== END 2021-09-10 09:42 | disposition home or self-care (01) ==
LOC: ED 07:26
DX: S01.01XA Laceration without foreign body of scalp, initial encounter (principal); W01.198A Fall on same level from slipping, tripping and stumbling with subsequent striking against other object, initial encounter; Z91.81 History of falling; Y92.002 Bathroom of unspecified non-institutional (private) residence as the place of occurrence of the external cause; I10 Essential (primary) hypertension; G80.0 Spastic quadriplegic cerebral palsy
CPT/HCPCS: 12002; 70450; 72125; 90471; 90715; 96372; 99284; A9270-GY

== ENCOUNTER 2022-03-06 05:53 | Emergency (ER) | payer MEDICARE ==
[2022-03-06] MEDS ORDERED: Sodium Chloride 0.9% 1000 ML 1,000 ML IV STA (06:23)
[2022-03-06] MEDS ORDERED: MORPHINE SULFATE 4 MG INJ ONE (06:25)
[2022-03-06] MEDS ORDERED: Sodium Chloride 0.9% 1000 ML 1,000 ML ONE (06:25)
[2022-03-06] MEDS ORDERED: Zofran 4 MG/2 ML VIAL ONE ×2 (06:25→07:21)
[2022-03-06] MEDS ORDERED: Zofran 4 MG/2 ML VIAL IV ONE ×2 (06:33→07:19)
[2022-03-06 06:34] LABS: Hematocrit 48.5 % (42-50); Hemoglobin 15.5 g/dL (12.5-18.0); Mean Cell Volume 92.6 fL (78-100); Mean Corpuscular Hemoglobin 29.6 pg (26-32); Mean Platelet Volume 10.4 fL (7.5-11.0); Platelet Count 268 x10^3/uL (150-450); Red Blood Count 5.24 x10^6/uL (4.1-5.6); Red Cell Distribution Width 13.1 % (11.5-14.0); White Blood Count 9.2 x10^3/uL (4.0-10.5)
[2022-03-06 06:37] LABS: Appearance CLEAR (CLEAR); Bilirubin SMALL (NEGATIVE); Dipstick done @ ? MAIN LAB; Glucose NEGATIVE (NEGATIVE); Ketones TRACE (NEGATIVE); Nitrite NEGATIVE (NEGATIVE); Ph 5.5 (5-6); Protein,Urine Dip 30 (Negative); RBC NEGATIVE Ery/ul (0-5); Specific Gravity >=1.030 (1.005-1.025); Urobilinogen 1 mg/dL (0-1)
[2022-03-06 06:39] LABS: Bacteria FEW /HPF (NEGATIVE); Mucus MANY /HPF (NEGATIVE)
[2022-03-06 06:41] LABS: Urine Cultured Indicated? NO
[2022-03-06 06:48] LABS: ALBUMIN 3.9 g/dL (3.5-5.0); ALKALINE PHOSPHATASE 92 U/L (38-126); ANION GAP 15.3 MEQ/L (5-15); BLOOD UREA NITROGEN 24 mg/dL (9-20); CHLORIDE 104 mmol/L (98-107); Calcium 9.3 mg/dL (8.4-10.2); Carbon Dioxide 27 mmol/L (22-30); Creatinine 1 0.93 mg/dL (0.66-1.25); EST GLOMERULAR FILTRATION RATE > 60.0 ML/MIN; Glucose 142 mg/dL (74-106); LIPASE 38 U/L (23-300); Potassium 3.9 mmol/L (3.5-5.1); SGOT/AST 31 U/L (17-59); SGPT/ALT 30 U/L (0-50); SODIUM 143 mmol/L (137-145); Total Protein 8.4 g/dL (6.3-8.2)
--- NOTE | 2022-03-06 06:56 | ERPHSYRPT ---
- History of Present Illness Historian: patient, family Exam Limitations: clinical condition Patient Subjective Stated Complaint: C/O right sided flank pain. States that he had gallbladder surgery last week at [facility]. Unsure of surgeon's name. Urine is dark and patient states he is having some dysuria. Triage Nursing Assessment: Patient brought into ED by ambulance. He is alert but speech is unclear at times and it can take some time for patient to answer with current medical condition. Patient has a sunburn to face and torso/abdomen. Right side of abdomen protrudes. A few small healing incisions noted to abdomen as well and patient indicates these are from his surgery last week. Timing/Duration: week(s) (8), gradual onset, worse Activities at Onset: rest Quality: sharpness Abdominal Pain Onset Location: RUQ, flank Pain Radiation: back Severity of Pain-Max: moderate Severity of Pain-Current: moderate Modifying Factors: Improves With: nothing Associated Symptoms: denies symptoms Previous symptoms: no prior history Hx Tetanus, Diphtheria Vaccination/Date Given: Yes Hx Influenza Vaccination/Date Given: Yes Hx Pneumococcal Vaccination/Date Given: Yes Immunizations Up to Date: Yes <FRANCES BARR - Last Filed: 03/06/22 06:51> <NICOL CATALAN - Last Filed: 03/06/22 08:08> - History of Present Illness Time Seen by Provider: 03/06/22 06:40 Physician History: 61-year-old male with history of cerebral palsy, laparoscopic cholecystectomy 02/22/2022 at [facility] presented in the ER with right flank/right upper quadrant pain moderate to severe with radiation to the back and is getting worse since yesterday. He also reports decreased urine output and some dysuria. No nausea or vomiting reported. Patient has sunburn as he was sitting outside for a little while yesterday on his chest abdomen. No fever or chills reported. Not a good historian and history is limited. (FRANCES BARR) Allergies/Adverse Reactions: triamcinolone Allergy (Unknown, Verified 03/06/22 05:58) Home Medications: Escitalopram Oxalate [Lexapro 10 MG] 10 mg PO DAILY 10/28/21 [History] Polyethylene Glycol 3350 [Miralax] 1.5 scoop PO DAILY 10/28/21 [History] Acetaminophen [Tylenol Extra Strength] 500 mg PO PRN 03/06/22 [History] Baclofen 231.8 mcg DAILY 03/06/22 [History] Guaifen/Dextromethorphan/PE [Tussin Cf Cough-Cold Liquid] 10 ml PO PRN 03/06/22 [History] Hydrocortisone 1% Cream [Cortisone 1% Cream] PRN 03/06/22 [History] Ketoconazole Cream [Nizoral CREAM] BID PRN 03/06/22 [History] Loperamide HCl 2 mg [Imodium 2 mg] 4 mg PO PRN 03/06/22 [History] Povidone-Iodine [First Aid Antiseptic] PRN 03/06/22 [History] Tamsulosin HCl 0.4 mg [Flomax 0.4 MG] 0.4 mg PO DAILY 03/06/22 [History] Triamcinolone Acetonide 5 gm TOP BID 03/06/22 [History] Zinc Oxide/Cod Liver Oil [Desitin 40% Paste] 03/06/22 [History] diphenhydrAMINE HCL [Allergy Relief] 25 mg PO BID PRN 03/06/22 [History] Travel Risk - International Travel Have you traveled outside of the country in past 3 weeks: No - Coronavirus Screening Are you exhibiting any of the following symptoms?: No Close contact with a COVID-19 positive Pt in past 14-21 Days: No - Vaccine Status Have you recieved a Covid-19 vaccination: Yes 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 - Vaccination Dates Dates if Unknown: unknown <FRANCES BARR - Last Filed: 03/06/22 06:51> - Review of Systems All Other Systems: Unable due to condition <FRANCES BARR - Last Filed: 03/06/22 06:51> - Past Medical History Pertinent Past Medical History: Yes Neurological History: Other ENT History: No Pertinent History Cardiac History: Hypertension Respiratory History: Sleep Apnea Endocrine Medical History: No Pertinent History Musculoskeletal History: Fractures GI Medical History: GERD, Gallbladder Disease, Ulcer History: No Pertinent History Psycho-Social History: No Pertinent History Male Reproductive Disorders: No Pertinent History Other Medical History: 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 HX FX RIGHT LOWER LEG PER PATIENT REPORT WITH OBSERVATION OF OLD SCAR ANTERIOR RIGHT LOWER LEG, - Past Surgical History Past Surgical History: Yes Neuro Surgical History: No Pertinent History Cardiac: No Pertinent History Respiratory: No Pertinent History Gastrointestinal: Cholecystectomy Genitourinary: No Pertinent History Musculoskeletal: Orthopedic Surgery Male Surgical History: No Pertinent History Other Surgical History: Back, Neck, and ankle surgery. Colonoscopy, Baclofen pump in left abdomen area per sub acute care nurse at bedside. 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) <FRANCES BARR - Last Filed: 03/06/22 06:51> - Physical Exam General Appearance: no apparent distress, alert Eye Exam: eyes nml inspection Ears, Nose, Throat Exam: normal ENT inspection Neck Exam: normal inspection, non-tender, supple, full range of motion Respiratory Exam: normal breath sounds, lungs clear Cardiovascular Exam: regular rate/rhythm, normal heart sounds Gastrointestinal/Abdomen Exam: soft, normal bowel sounds, tenderness Back Exam: normal inspection, normal range of motion Extremity Exam: normal inspection, normal range of motion Neurologic Exam: alert, cooperative Skin Exam: normal color SpO2 Interpretation: normal SpO2: 94 O2 Delivery: Room Air <FRANCES BARR - Last Filed: 03/06/22 06:51> - Nursing Vital Signs Nursing Vital Signs: Initial Vital Signs Temperature 98.3 F 03/06/22 06:00 Pulse Rate 82 03/06/22 06:00 Respiratory Rate 17 03/06/22 06:00 Blood Pressure 128/87 03/06/22 06:00 O2 Sat by Pulse Oximetry 94 L 03/06/22 06:00 Pain Scale Pain Intensity 4 Ordered Tests: Active Orders 24 hr Category Date Time Status ABDOMEN AND PELVIS W/0 CONTRAS [CT] Stat Exams 03/06/22 06:23 Taken CBC Stat Lab 03/06/22 06:09 Completed CMP Stat Lab 03/06/22 06:09 Completed LIPASE Stat Lab 03/06/22 06:09 Completed Lactic Acid Stat Lab 03/06/22 06:35 Completed UA W/RFX CULTURE Stat Lab 03/06/22 06:26 Completed Medication Summary Generic Name Dose Route Start Last Admin Trade Name Freq PRN Reason Stop Dose Admin Sodium Chloride 500 mls @ 500 mls/hr 03/06/22 07:54 06/20/22 07:58 Sodium Chloride 0.9% 500 Ml IV 03/06/22 08:53 500 mls/hr .Q1H ONE Administration Discontinued Medications Generic Name Dose Route Start Last Admin Trade Name Vince PRN Reason Stop Dose Admin Sodium Chloride Confirm 03/06/22 06:25 Sodium Chloride 0.9% 1000 Ml Administered 03/06/22 06:26 Dose 1,000 mls @ ud .ROUTE .STK-MED ONE Sodium Chloride 1,000 mls @ 999 mls/hr 03/06/22 06:23 03/06/22 08:01 Sodium Chloride 0.9% 1000 Ml IV 03/06/22 07:23 Infused .Q1H1M STA Infusion Sodium Chloride Confirm 03/06/22 07:57 Sodium Chloride 0.9% 500 Ml Administered 03/06/22 07:58 Dose 500 mls @ ud IV .STK-MED ONE Metronidazole 500 mg 03/06/22 07:52 03/06/22 07:58 Metronidazole 500 Mg Tablet PO 03/06/22 07:53 500 mg STAT ONE Administration Metronidazole Confirm 03/06/22 07:57 Metronidazole 500 Mg Tablet Administered 03/06/22 07:58 Dose 500 mg .ROUTE .STK-MED ONE Morphine Sulfate Confirm 03/06/22 06:25 Morphine Sulfate 4 Mg/Ml Injection Administered 03/06/22 06:26 Dose 4 mg .ROUTE .STK-MED ONE Morphine Sulfate 4 mg 03/06/22 06:58 03/06/22 06:59 Morphine Sulfate 4 Mg/Ml Injection IV 03/06/22 06:59 4 mg STAT ONE Administration Morphine Sulfate 2 mg 03/06/22 07:19 03/06/22 07:22 Morphine Sulfate 2 Mg/Ml Inj IV 03/06/22 07:20 2 mg STAT ONE Administration Morphine Sulfate Confirm 03/06/22 07:21 Morphine Sulfate 2 Mg/Ml Inj Administered 03/06/22 07:22 Dose 2 mg .ROUTE .STK-MED ONE Ondansetron HCl Confirm 03/06/22 06:25 Ondansetron Hcl 4 Mg/2 Ml Vial Administered 03/06/22 06:26 Dose 4 mg .ROUTE .STK-MED ONE Ondansetron HCl 4 mg 03/06/22 06:33 03/06/22 06:34 Ondansetron Hcl 4 Mg/2 Ml Vial IV 03/06/22 06:34 4 mg STAT ONE Administration Ondansetron HCl 4 mg 03/06/22 07:19 03/06/22 07:21 Ondansetron Hcl 4 Mg/2 Ml Vial IV 03/06/22 07:20 4 mg STAT ONE Administration Ondansetron HCl Confirm 03/06/22 07:21 Ondansetron Hcl 4 Mg/2 Ml Vial Administered 03/06/22 07:22 Dose 4 mg .ROUTE .[facility]-MED ONE Lab/Rad Data: Laboratory Result Diagrams 03/06/22 06:09 03/06/22 06:09 Laboratory Results 03/06/22 03/06/22 03/06/22 Range/Units 06:35 06:26 06:09 WBC (4.0-10.5) x10^3/uL RBC (4.1-5.6) x10^6/uL Hgb (12.5-18.0) g/dL Hct (42-50) % MCV (78-100) fL MCH (26-32) pg MCHC (32-36) g/dL RDW (11.5-14.0) % Plt Count (150-450) x10^3/uL MPV (7.5-11.0) fL Sodium 143 (137-145) mmol/L Potassium 3.9 (3.5-5.1) mmol/L Chloride 104 (98-107) mmol/L Carbon Dioxide 27 (22-30) mmol/L Anion Gap 15.3 H (5-15) MEQ/L BUN 24 H (9-20) mg/dL Creatinine 0.93 (0.66-1.25) mg/dL Estimated GFR > 60.0 ML/MIN Glucose 142 H (74-106) mg/dL Lactic Acid 1.5 (0.4-2.0) Calcium 9.3 (8.4-10.2) mg/dL Total Bilirubin 0.50 (0.2-1.3) mg/dL AST 31 (17-59) U/L ALT 30 (0-50) U/L Alkaline Phosphatase 92 (38-126) U/L Serum Total Protein 8.4 H (6.3-8.2) g/dL Albumin 3.9 (3.5-5.0) g/dL Lipase 38 (23-300) U/L Urinalys Dipstick Clnc MAIN LAB Urine Color DARK YELLOW (YELLOW) Urine Appearance CLEAR (CLEAR) Urine pH 5.5 (5-6) Ur Specific [place] >=1.030 (1.005-1.025) POC Urine Protein Conf 30 (Negative) Urine Ketones TRACE (NEGATIVE) Urine Nitrite NEGATIVE (NEGATIVE) Urine Bilirubin SMALL (NEGATIVE) Urine Urobilinogen 1 (0-1) mg/dL Urine Leukocytes NEGATIVE (NEGATIVE) Urine WBC (Auto) 3-5 (0-5) /HPF Urine RBC (Auto) 3-5 (0-2) /HPF U Epithel Cells (Auto) NONE (FEW) /HPF Urine Bacteria (Auto) FEW (NEGATIVE) /HPF Urine RBC NEGATIVE (0-5) [place]/ul Urine Mucus (Auto) MANY (NEGATIVE) /HPF Ur Culture Indicated? NO Urine Glucose NEGATIVE (NEGATIVE) mg/dL 03/06/22 Range/Units 06:09 WBC 9.2 (4.0-10.5) x10^3/uL RBC 5.24 (4.1-5.6) x10^6/uL Hgb 15.5 (12.5-18.0) g/dL Hct 48.5 (42-50) % MCV 92.6 (78-100) fL MCH 29.6 (26-32) pg MCHC 32.0 (32-36) g/dL RDW 13.1 (11.5-14.0) % Plt Count 268 (150-450) x10^3/uL MPV 10.4 (7.5-11.0) fL Sodium (137-145) mmol/L Potassium (3.5-5.1) mmol/L Chloride (98-107) mmol/L Carbon Dioxide (22-30) mmol/L Anion Gap (5-15) MEQ/L BUN (9-20) mg/dL Creatinine (0.66-1.25) mg/dL Estimated GFR ML/MIN Glucose (74-106) mg/dL Lactic Acid (0.4-2.0) Calcium (8.4-10.2) mg/dL Total Bilirubin (0.2-1.3) mg/dL AST (17-59) U/L ALT (0-50) U/L Alkaline Phosphatase (38-126) U/L Serum Total Protein (6.3-8.2) g/dL Albumin (3.5-5.0) g/dL Lipase (23-300) U/L Urinalys Dipstick Clnc Urine Color (YELLOW) Urine Appearance (CLEAR) Urine pH (5-6) Ur Specific [place] (1.005-1.025) POC Urine Protein Conf (Negative) Urine Ketones (NEGATIVE) Urine Nitrite (NEGATIVE) Urine Bilirubin (NEGATIVE) Urine Urobilinogen (0-1) mg/dL Urine Leukocytes (NEGATIVE) Urine WBC (Auto) (0-5) /HPF Urine RBC (Auto) (0-2) /HPF U Epithel Cells (Auto) (FEW) /HPF Urine Bacteria (Auto) (NEGATIVE) /HPF Urine RBC (0-5) [place]/ul Urine Mucus (Auto) (NEGATIVE) /HPF Ur Culture Indicated? Urine Glucose (NEGATIVE) mg/dL - Progress Progress: improved, pain not gone completely, re-examined Counseled pt/family regarding: lab results, diagnosis <FRANCES BARR - Last Filed: 03/06/22 06:51> <NICOL CATALAN - Last Filed: 03/06/22 08:08> - Progress Progress Note: 03/06/22 06:58 Work-up is pending, care is transferred to Dr. Catalan at shift change for final disposition. (FRANCES BARR) 03/06/22 07:51 CAT scan of the abdomen and pelvis shows no obvious bowel obstruction. There is evidence of enteritis. The appendix is normal. No evidence of any post operative cholecystectomy site issues. (NICOL CATALAN) <FRANCES BARR - Last Filed: 03/06/22 06:51> - Departure Critical Care Time: No <NICOL CATALAN - Last Filed: 03/06/22 08:08> - Departure Clinical Impression: Enteritis, Mild dehydration Condition: Stable Referrals: ROBERTO STRICKLAND MD [Primary Care Provider] - Follow up/PCP as directed Additional Instructions: Drink plenty of clear liquids. Avoid exposure to heat and sun for the next several days. Take your antibiotics as prescribed. Keep all appointments with surgeon and primary care physician. Prescriptions: Ondansetron ODT 4 MG [Zofran Odt 4 mg] 4 mg PO Q6H PRN PRN #10 tablet PRN Reason: Vomiting Metronidazole 500 mg [Flagyl 500 MG] 500 mg PO TID #21 tablet
[2022-03-06] MEDS ORDERED: MORPHINE SULFATE 4 MG INJ IV ONE (06:58)
[2022-03-06] MEDS ORDERED: MORPHINE SULFATE 2 MG INJ IV ONE (07:19)
[2022-03-06] MEDS ORDERED: MORPHINE SULFATE 2 MG INJ ONE (07:21)
[2022-03-06] MEDS ORDERED: Flagyl 500 MG PO ONE (07:52)
[2022-03-06] MEDS ORDERED: Sodium Chloride 0.9% 500 ML 500 ML IV ONE ×2 (07:54→07:57)
[2022-03-06] MEDS ORDERED: Flagyl 500 MG ONE (07:57)
[2022-03-06 08:27] VITALS: BP 110/59; PULSE 78; O2SAT 94
--- NOTE | 2022-03-06 08:46 | XRAY ---
Indication: Right flank pain. Cerebral palsy. Multiple contiguous axial images obtained through the abdomen and pelvis without contrast. Comparison: None Study is mildly degraded by respiration artifact throughout. Left abdomen pain pump again produces beam artifact. Lung bases demonstrate mild dependent atelectasis. No focal infiltrate or effusion. Heart remains borderline enlarged. Again small hiatal hernia now fluid distended presumed from gastroesophageal reflux. Stomach is moderately distended with food/fluid. Noncontrasted stomach and bowel loops nonobstructed. Small bowel loops are now mildly fluid distended up to 3.5 cm with fluid leveling, ileus versus enteritis. Appendix not visualized. Stable minimal sigmoid diverticulosis without diverticulitis. Grossly stable large right renal cysts. There has been interval cholecystectomy. No free fluid/air. Remaining liver, pancreas, spleen, adrenal glands, left kidney, ureters, bladder, and aorta are unremarkable for noncontrast exam. Osseous structures intact again with mild osteopenia, minimal scoliosis, mild multilevel degenerative spondylosis, bilateral L5 spondylolysis with grade 1 listhesis, and degenerative changes both hips. Impression: 1. Respiration and beam artifact. 2. Mild fluid distended small bowel loops with fluid leveling, ileus versus enteritis. 3. Again small hiatal hernia now fluid distended favoring GERD. 4. Grossly stable sigmoid diverticulosis, right renal cysts, borderline cardiomegaly, and chronic bony findings. The Comment: Preliminary interpretation made by [facility]. No critical discrepancy.
== END 2022-03-06 08:38 | disposition home or self-care (01) ==
LOC: ED 05:53
DX: K52.9 Noninfective gastroenteritis and colitis, unspecified (principal); E86.0 Dehydration; R10.11 Right upper quadrant pain; R30.0 Dysuria; L55.9 Sunburn, unspecified; I10 Essential (primary) hypertension; G80.0 Spastic quadriplegic cerebral palsy; Z79.899 Other long term (current) drug therapy
CPT/HCPCS: 36415; 74176; 80053; 81015; 83605; 83690; 85027; 96360; 96374; 96375; 96376; 99284; J2270; J2405; A9270-GY

== ENCOUNTER 2023-03-11 08:24 | Emergency (ER) | payer MEDICARE ==
[2023-03-11] MEDS ORDERED: XYLOCAINE 1% HCL 20 ML MDV IJ ONE (08:25)
--- NOTE | 2023-03-11 08:31 | ERPHSYRPT ---
- History of Present Illness Time Seen by Provider: 03/11/23 08:30 Source: patient, EMS, old records, other (Care provider) Exam Limitations: clinical condition Physician History: This is a 62-year-old white male patient lives in respite care and is a patient of Dr. Strickland and presents with decreased urine output and foul-smelling urine as well as change in behavior. He is more weak than typical. Symptoms started yesterday. When this occurs in this patient, typically he has a urinary tract infection. 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 Patient also has a history of hypertension, peptic ulcer disease, gastroesophageal reflux disease and sleep apnea. He denies shortness of breath and he denies chest pain. He has no significant abdominal pain. Timing/Duration: yesterday Activites at Onset: none Onset Location: other (No complaints of pain) Pain Radiation: none Severity of Pain-Max: none Severity of Pain-Current: none Associated Symptoms: other (Change in behavior) Prior abdominal problems: none Sexual intercourse history: non-contributory Allergies/Adverse Reactions: triamcinolone Allergy (Unknown, Verified 03/06/22 05:58) Home Medications: Escitalopram Oxalate [Lexapro 10 MG] 10 mg PO DAILY 10/28/21 [History] Polyethylene Glycol 3350 [Miralax] 1.5 scoop PO DAILY 10/28/21 [History] Acetaminophen [Tylenol Extra Strength] 500 mg PO PRN 03/06/22 [History] Baclofen 231.8 mcg PO DAILY 03/06/22 [History] Guaifen/Dextromethorphan/PE [Tussin Cf Cough-Cold Liquid] 10 ml PO DAILY 03/06/22 [History] Hydrocortisone 1% Cream [Cortisone 1% Cream] PRN 03/06/22 [History] Ketoconazole Cream [Nizoral CREAM] BID PRN 03/06/22 [History] Loperamide HCl 2 mg [Imodium 2 mg] 4 mg PO DAILY 03/06/22 [History] Povidone-Iodine [First Aid Antiseptic] PRN 03/06/22 [History] Tamsulosin HCl 0.4 mg [Flomax 0.4 MG] 0.4 mg PO DAILY 03/06/22 [History] Zinc Oxide/Cod Liver Oil [Desitin 40% Paste] 03/06/22 [History] diphenhydrAMINE HCL [Allergy Relief] 25 mg PO BID PRN 03/06/22 [History] Hx Tetanus, Diphtheria Vaccination/Date Given: Yes Hx Influenza Vaccination/Date Given: Yes Hx Pneumococcal Vaccination/Date Given: Yes Travel Risk - International Travel Have you traveled outside of the country in past 3 weeks: No - Coronavirus Screening Are you exhibiting any of the following symptoms?: No Close contact with a COVID-19 positive Pt in past 14-21 Days: No - Vaccine Status Have you recieved a Covid-19 vaccination: Yes Hunter: Unknown - Vaccination Dates Dates if Unknown: unknown - Past Medical History Pertinent Past Medical History: Yes Neurological History: Other ENT History: No Pertinent History Cardiac History: Hypertension Respiratory History: Sleep Apnea Endocrine Medical History: No Pertinent History Musculoskeletal History: Fractures GI Medical History: GERD, Gallbladder Disease, Ulcer History: No Pertinent History Psycho-Social History: No Pertinent History Male Reproductive Disorders: No Pertinent History Other Medical History: PATIENT DX'D WITH SPASTIC QUADRIPLEGIA AT , SPEECH DYSARTHIRA, HX FX RIGHT LOWER LEG, GERD, CHOLECYSTECTOMY, NACK AND NEXK SURGERY (? D/T STENOSIS - PATIENT UNSURE). HAS BACLOFEN PUMP LEFT LOWER ABDOMINAL REGION. - Past Surgical History Past Surgical History: Yes Neuro Surgical History: No Pertinent History Cardiac: No Pertinent History Respiratory: No Pertinent History Gastrointestinal: Cholecystectomy Genitourinary: No Pertinent History Musculoskeletal: Orthopedic Surgery Male Surgical History: No Pertinent History Other Surgical History: Back, Neck, and ankle surgery. Colonoscopy, Baclofen pump in left abdomen area per care administrative tech at bedside. 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) - Review of Systems Constitutional: Weakness, Other (Change in behavior) Eyes: No Symptoms Ears, Nose, & Throat: No Symptoms Respiratory: No Symptoms Cardiac: No Symptoms Abdominal/Gastrointestinal: No Symptoms Genitourinary Symptoms: Other (Decreased urine output) Musculoskeletal: No Symptoms Skin: No Symptoms Neurological: No Symptoms Psychological: No Symptoms Endocrine: No Symptoms Hematologic/Lymphatic: No Symptoms Immunological/Allergic: No Symptoms All Other Systems: Reviewed and Negative - Nursing Vital Signs Nursing Vital Signs: Initial Vital Signs Temperature 98.2 F 03/11/23 08:25 Pulse Rate 89 03/11/23 08:25 Respiratory Rate 20 03/11/23 08:25 Blood Pressure 122/78 03/11/23 08:25 O2 Sat by Pulse Oximetry 94 L 03/11/23 08:25 Pain Scale Pain Intensity 0 - Physical Exam General Appearance: no apparent distress, alert Eye Exam: PERRL/EOMI, eyes nml inspection Ears, Nose, Throat Exam: normal ENT inspection, moist mucous membranes Neck Exam: normal inspection, non-tender, supple, full range of motion Respiratory Exam: normal breath sounds, lungs clear, airway intact, No chest t enderness, No respiratory distress Cardiovascular Exam: regular rate/rhythm, normal heart sounds, normal peripheral pulses Gastrointestinal/Abdomen Exam: soft, normal bowel sounds, No tenderness Rectal Exam: not done Back Exam: normal inspection, normal range of motion, No CVA tenderness, No vertebral tenderness Extremity Exam: pelvis stable, other (Patient has spastic quadriplegia. It is chronic.) Neurologic Exam: other (Patient has cerebral palsy with chronic dysarthria) Skin Exam: normal color, warm, dry Lymphatic Exam: No adenopathy SpO2 Interpretation: normal, borderline oxygenation O2 Delivery: Room Air - Course Nursing assessment & vital signs reviewed: Yes Ordered Tests: Active Orders 24 hr Category Date Time Status IV Insertion STAT Care 03/11/23 08:37 Active BLOOD CULTURE Stat Lab 03/11/23 08:50 Received CBC W DIFF Stat Lab 03/11/23 08:30 Completed CMP Stat Lab 03/11/23 08:30 Completed CULTURE,URINE Stat Lab 03/11/23 10:58 Received HIV PANEL - SOURCE PATIENT Stat Lab 03/11/23 09:35 Completed Lactic Acid Stat Lab 03/11/23 08:40 Completed UA W/RFX UR CULTURE Stat Lab 03/11/23 10:58 Completed Medication Summary Discontinued Medications Generic Name Dose Route Start Last Admin Trade Name Freq PRN Reason Stop Dose Admin Ceftriaxone Sodium 1,000 mg 03/11/23 12:24 03/11/23 12:33 Ceftriaxone Sodium 1000 Mg Inj Vial IM 03/11/23 12:25 1,000 mg STAT ONE Administration Ceftriaxone Sodium Confirm 03/11/23 12:32 Ceftriaxone Sodium 1000 Mg Inj Vial Administered 03/11/23 12:33 Dose 1,000 mg .ROUTE .STK-MED ONE Sodium Chloride 1,000 mls @ 999 mls/hr 03/11/23 08:37 03/11/23 09:59 Sodium Chloride 0.9% 1000 Ml IV 03/11/23 09:37 Infused .Q1H1M STA Infusion Sodium Chloride Confirm 03/11/23 08:55 Sodium Chloride 0.9% 1000 Ml Administered 03/11/23 08:56 Dose 1,000 mls @ ud .ROUTE .STK-MED ONE Trimethoprim/Sulfamethoxazole 1 tab 03/11/23 12:24 03/11/23 12:33 Smz/Tmp Ds Tablet 1 Tablet PO 03/11/23 12:25 1 tab STAT ONE Administration Trimethoprim/Sulfamethoxazole Confirm 03/11/23 12:31 Smz/Tmp Ds Tablet 1 Tablet Administered 03/11/23 12:32 Dose 1 tab PO .STK-MED ONE Lab/Rad Data: Laboratory Result Diagrams 03/11/23 08:30 03/11/23 08:30 Laboratory Results 03/11/23 03/11/23 03/11/23 Range/Units 10:58 08:40 08:30 WBC (4.0-10.5) x10^3/uL RBC (4.1-5.6) x10^6/uL Hgb (12.5-18.0) g/dL Hct (42-50) % MCV (78-100) fL MCH (26-32) pg MCHC (32-36) g/dL RDW (11.5-14.0) % Plt Count (150-450) x10^3/uL MPV (7.5-11.0) fL Gran % (36.0-66.0) % Immature Gran % (Auto) (0.00-0.4) % Nucleat RBC Rel Count (0.00-0.1) % Eos # (Auto) (0-0.5) x10^3/uL Immature Gran # (Auto) (0.00-0.03) x10^3u/L Absolute Lymphs (auto) (1.0-4.6) x10^3/uL Absolute Monos (auto) (0.0-1.3) x10^3/uL Absolute Nucleated RBC (0.00-0.01) x10^3u/L Lymphocytes % (24.0-44.0) % Monocytes % (0.0-12.0) % Eosinophils % (0.00-5.0) % Basophils % (0.0-0.4) % Absolute Granulocytes (1.4-6.9) x10^3/uL Basophils # (0-0.4) x10^3/uL Sodium 139 (137-145) mmol/L Potassium 4.1 (3.5-5.1) mmol/L Chloride 101 (98-107) mmol/L Carbon Dioxide 29 (22-30) mmol/L Anion Gap 12.9 (5-15) MEQ/L BUN 15 (9-20) mg/dL Creatinine 0.99 (0.66-1.25) mg/dL Estimated GFR > 60.0 ML/MIN Glucose 121 H (74-106) mg/dL Lactic Acid 0.9 (0.4-2.0) Calcium 8.7 (8.4-10.2) mg/dL Total Bilirubin 1.00 (0.2-1.3) mg/dL AST 23 (17-59) U/L ALT 23 (0-50) U/L Alkaline Phosphatase 92 (38-126) U/L Serum Total Protein 8.8 H (6.3-8.2) g/dL Albumin 4.0 (3.5-5.0) g/dL Urine Color Yellow (Yellow) Urine Appearance Cloudy A (Clear) Urine pH 5.5 (4.6-8.0) Ur Specific [place] 1.020 (1.005-1.030) Urine Protein 300 A (Negative) Urine Glucose (UA) Negative (Negative) mg/dL Urine Ketones Negative (Negative) Urine Blood Large A (Negative) Urine Nitrite Positive A (Negative) Urine Bilirubin Negative (Negative) Urine Urobilinogen 1.0 A (0.2) mg/dL Ur Leukocyte Esterase Moderate A (Negative) U Hyaline Cast (Auto) NONE SEEN (0-2) /LPF Urine Microscopic RBC 6-10 A (0-5) /HPF Urine Microscopic WBC >100 A (0-5) /HPF Ur Epithelial Cells None Seen (None Seen) /HPF Urine Bacteria Many A (None Seen) /HPF Urine Culture Reflexed YES (NO) 03/11/23 Range/Units 08:30 WBC 15.5 H (4.0-10.5) x10^3/uL RBC 5.08 (4.1-5.6) x10^6/uL Hgb 15.0 (12.5-18.0) g/dL Hct 47.0 (42-50) % MCV 92.5 (78-100) fL MCH 29.5 (26-32) pg MCHC 31.9 L (32-36) g/dL RDW 13.1 (11.5-14.0) % Plt Count 196 (150-450) x10^3/uL MPV 10.2 (7.5-11.0) fL Gran % 82.7 H (36.0-66.0) % Immature Gran % (Auto) 0.3 (0.00-0.4) % Nucleat RBC Rel Count 0.0 (0.00-0.1) % Eos # (Auto) 0.02 (0-0.5) x10^3/uL Immature Gran # (Auto) 0.05 H (0.00-0.03) x10^3u/L Absolute Lymphs (auto) 1.34 (1.0-4.6) x10^3/uL Absolute Monos (auto) 1.22 (0.0-1.3) x10^3/uL Absolute Nucleated RBC 0.00 (0.00-0.01) x10^3u/L Lymphocytes % 8.7 L (24.0-44.0) % Monocytes % 7.9 (0.0-12.0) % Eosinophils % 0.1 (0.00-5.0) % Basophils % 0.3 (0.0-0.4) % Absolute Granulocytes 12.77 H (1.4-6.9) x10^3/uL Basophils # 0.05 (0-0.4) x10^3/uL Sodium (137-145) mmol/L Potassium (3.5-5.1) mmol/L Chloride (98-107) mmol/L Carbon Dioxide (22-30) mmol/L Anion Gap (5-15) MEQ/L BUN (9-20) mg/dL Creatinine (0.66-1.25) mg/dL Estimated GFR ML/MIN Glucose (74-106) mg/dL Lactic Acid (0.4-2.0) Calcium (8.4-10.2) mg/dL Total Bilirubin (0.2-1.3) mg/dL AST (17-59) U/L ALT (0-50) U/L Alkaline Phosphatase (38-126) U/L Serum Total Protein (6.3-8.2) g/dL Albumin (3.5-5.0) g/dL Urine Color (Yellow) Urine Appearance (Clear) Urine pH (4.6-8.0) Ur Specific [place] (1.005-1.030) Urine Protein (Negative) Urine Glucose (UA) (Negative) mg/dL Urine Ketones (Negative) Urine Blood (Negative) Urine Nitrite (Negative) Urine Bilirubin (Negative) Urine Urobilinogen (0.2) mg/dL Ur Leukocyte Esterase (Negative) U Hyaline Cast (Auto) (0-2) /LPF Urine Microscopic RBC (0-5) /HPF Urine Microscopic WBC (0-5) /HPF Ur Epithelial Cells (None Seen) /HPF Urine Bacteria (None Seen) /HPF Urine Culture Reflexed (NO) - Progress Progress: improved, re-examined Progress Note: 03/11/23 12:40 This patient's medical issue is 1 of moderate complexity. Level of complexity in the work-up performed is based on review of the patient's past medical history, review of the patient's medication list, review of the patient's drug allergy list, history of present illness and physical findings on examination. This patient's work-up includes placement of intravenous line, infusion of normal saline solution, obtaining a CBC, CMP, urinalysis study. Results of the work-up were reviewed by me. The patient has a significant urinary tract infection. We we will give him Rocephin 1 g intravenously as well as Bactrim DS oral antibiotic which will be remotely sent to his pharmacy. Patient is to follow-up with his primary care provider for further evaluation management. 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 Take the antibiotics and your other medication as prescribed. Follow-up with your primary care provider tomorrow, 03/12/2023, for further evaluation management. Prescriptions: Smz/Tmp Ds Tablet [Bactrim Ds Tablet] 1 udtab PO BID #14 tablet
[2023-03-11] MEDS ORDERED: Sodium Chloride 0.9% 1000 ML 1,000 ML IV STA (08:37)
[2023-03-11] MEDS ORDERED: Sodium Chloride 0.9% 1000 ML 1,000 ML ONE (08:55)
[2023-03-11 09:10] LABS: Absolute Neutrophil Ct (ANC) 12.77 x10^3/uL (1.4-6.9); BASOPHIL % 0.3 % (0.0-0.4); Basophil (Absolute #) 0.05 x10^3/uL (0-0.4); Eosinophil % 0.1 % (0.00-5.0); Eosinophil (Absolute #) 0.02 x10^3/uL (0-0.5); IMMATURE GRAN # 0.05 x10^3u/L (0.00-0.03); IMMATURE GRAN % 0.3 % (0.00-0.4); Lymphocyte (Absolute #) 1.34 x10^3/uL (1.0-4.6); Lymphocytes % 8.7 % (24.0-44.0); Mean Cell Volume 92.5 fL (78-100); Mean Corpuscular Hemoglobin 29.5 pg (26-32); Mean Corpuscular Hgb Concent. 31.9 g/dL (32-36); Mean Platelet Volume 10.2 fL (7.5-11.0); Monocyte (Absolute #) 1.22 x10^3/uL (0.0-1.3); Monocytes % 7.9 % (0.0-12.0); Neutrophil % 82.7 % (36.0-66.0); Platelet Count 196 x10^3/uL (150-450); Red Blood Count 5.08 x10^6/uL (4.1-5.6); Red Cell Distribution Width 13.1 % (11.5-14.0); White Blood Count 15.5 x10^3/uL (4.0-10.5)
[2023-03-11 09:23] LABS: ALKALINE PHOSPHATASE 92 U/L (38-126); ANION GAP 12.9 MEQ/L (5-15); BLOOD UREA NITROGEN 15 mg/dL (9-20); CHLORIDE 101 mmol/L (98-107); Calcium 8.7 mg/dL (8.4-10.2); Carbon Dioxide 29 mmol/L (22-30); Creatinine 1 0.99 mg/dL (0.66-1.25); EST GLOMERULAR FILTRATION RATE > 60.0 ML/MIN; Glucose 121 mg/dL (74-106); Potassium 4.1 mmol/L (3.5-5.1); SGOT/AST 23 U/L (17-59); SGPT/ALT 23 U/L (0-50); SODIUM 139 mmol/L (137-145); Total Protein 8.8 g/dL (6.3-8.2)
[2023-03-11 11:08] LABS: Appearance Cloudy (Clear); Bacteria Many /HPF (None Seen); Bilirubin Negative (Negative); Blood Large (Negative); Epithelial Cells None Seen /HPF (None Seen); Glucose, Urine Negative (Negative); Hyaline Casts NONE SEEN /LPF (0-2); Ketones Negative (Negative); Leukocyte Esterase Moderate (Negative); Nitrite Positive (Negative); Ph 5.5 (4.6-8.0); Protein,Urine Dip 300 (Negative); WBC >100 /HPF (0-5)
[2023-03-11 11:49] LABS: ADD URINE CULTURE? YES (NO)
[2023-03-11] MEDS ORDERED: BACTRIM DS TABLET PO ONE ×2 (12:24→12:31)
[2023-03-11] MEDS ORDERED: Rocephin 1000 MG INJ IM ONE (12:24)
[2023-03-11] MEDS ORDERED: Rocephin 1000 MG INJ ONE (12:32)
[2023-03-11 12:56] VITALS: O2SAT 97
[2023-03-11 13:14] VITALS: BP 155/81; PULSE 75
== END 2023-03-11 13:14 | disposition home or self-care (01) ==
LOC: ED 08:24
DX: N39.0 Urinary tract infection, site not specified (principal); R53.1 Weakness; R39.89 Other symptoms and signs involving the genitourinary system; G80.0 Spastic quadriplegic cerebral palsy; R47.1 Dysarthria and anarthria; I10 Essential (primary) hypertension; Z79.899 Other long term (current) drug therapy; Z11.4 Encounter for screening for human immunodeficiency virus [HIV]; Z11.59 Encounter for screening for other viral diseases
CPT/HCPCS: 36415; 80053; 81001; 83605; 85025; 86689; 86803; 87040; 87077; 87086; 87186; 87340; 87389; 96360; 96372; 99284; J0696; A9270-GY; G0472

== ENCOUNTER 2023-08-15 12:37 | Emergency (ER) | payer MEDICARE ==
--- NOTE | 2023-08-15 12:43 | ERPHSYRPT ---
- History of Present Illness Time Seen by Provider: 08/15/23 12:42 Source: patient, EMS, old records Exam Limitations: clinical condition Physician History: This is a 63-year-old white male patient who presents to the emergency department by ambulance because of new onset of confusion/mild altered mental status. Patient's blood sugar was approximately 163. Patient's systolic blood pressure upon arrival to the emergency department is 100. Patient lives in her spite care and was brought to the emergency department because of this new onset confusion. Typically, patient has a significant urinary tract infection when this occurs. Patient had similar symptoms in February 2023. Patient has a history of cerebral palsy, spastic quadriplegia since , and chronic dysarthria. Patient has a history of hypertension, peptic ulcer disease, gastroesophageal reflux disease and sleep apnea. Patient denies chest pain. Patient denies headache. Patient denies abdominal pain. Patient is awake and alert. Patient denies shortness of breath. However his room air oxygenation saturation levels was 88 to 90% on room air and patient was placed on 2 L oxygen nasal cannula and his oxygen saturation level went up to 96 to 97%. He appears in no distress. Timing/Duration: today Severity: mild Character of Deficits: none Deficits: no difficulties Baseline/Normal Cognition: alert oriented x 3 Current Cognition: alert oriented x 3 Baseline Gait: unable to walk (Patient has spastic quadriplegia since ) Associated Symptoms: confusion Allergies/Adverse Reactions: triamcinolone Allergy (Unknown, Verified 08/15/23 12:58) Home Medications: Escitalopram Oxalate [Lexapro 10 MG] 10 mg PO DAILY 10/28/21 [History] Baclofen 231.8 mcg PO DAILY 03/06/22 [History] Tamsulosin HCl 0.4 mg [Flomax 0.4 MG] 0.4 mg PO DAILY 03/06/22 [History] Dicyclomine HCl 10 mg PO QID 08/15/23 [History] Famotidine 40 mg PO DAILY 08/15/23 [History] Lansoprazole 30 mg PO DAILY 08/15/23 [History] Loratadine 10 mg [Claritin 10 mg] 10 mg PO DAILY 08/15/23 [History] Hx Tetanus, Diphtheria Vaccination/Date Given: Yes Hx Influenza Vaccination/Date Given: Yes Hx Pneumococcal Vaccination/Date Given: Yes Travel Risk - International Travel Have you traveled outside of the country in past 3 weeks: No - Coronavirus Screening Are you exhibiting any of the following symptoms?: No Close contact with a COVID-19 positive Pt in past 14-21 Days: No - Vaccine Status Have you recieved a Covid-19 vaccination: Yes [employer] 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: Unknown - Vaccination Dates Dates if Unknown: unknown - Review of Systems Constitutional: No Symptoms Eyes: No Symptoms Ears, Nose, & Throat: No Symptoms Respiratory: No Symptoms Cardiac: No Symptoms Abdominal/Gastrointestinal: No Symptoms Genitourinary Symptoms: No Symptoms Musculoskeletal: No Symptoms Skin: No Symptoms Neurological: Other (Infusion) Psychological: No Symptoms Endocrine: No Symptoms Hematologic/Lymphatic: No Symptoms Immunological/Allergic: No Symptoms All Other Systems: Reviewed and Negative - Past Medical History Pertinent Past Medical History: Yes Neurological History: Other ENT History: No Pertinent History Cardiac History: Hypertension Respiratory History: Sleep Apnea Endocrine Medical History: No Pertinent History Musculoskeletal History: Fractures GI Medical History: GERD, Gallbladder Disease, Ulcer History: No Pertinent History Psycho-Social History: No Pertinent History Male Reproductive Disorders: No Pertinent History Other Medical History: PATIENT DX'D WITH SPASTIC QUADRIPLEGIA AT , SPEECH DYSARTHIRA, HX FX RIGHT LOWER LEG, GERD, CHOLECYSTECTOMY, NACK AND NEXK SURGERY (? D/T STENOSIS - PATIENT UNSURE). HAS BACLOFEN PUMP LEFT LOWER ABDOMINAL REGION. - Past Surgical History Past Surgical History: Yes Neuro Surgical History: No Pertinent History Cardiac: No Pertinent History Respiratory: No Pertinent History Gastrointestinal: Cholecystectomy Genitourinary: No Pertinent History Musculoskeletal: Orthopedic Surgery Male Surgical History: No Pertinent History Other Surgical History: Back, Neck, and ankle surgery. Colonoscopy, Baclofen pump in left abdomen area per child care attendant at bedside. 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) - Nursing Vital Signs Nursing Vital Signs: Initial Vital Signs Temperature 97.7 F 08/15/23 12:39 Pulse Rate 96 H 08/15/23 12:39 Blood Pressure 100/71 08/15/23 12:39 O2 Sat by Pulse Oximetry 89 L 08/15/23 12:39 Pain Scale Pain Intensity 0 - Carlito Coma Scale Best Eye Response (Carlito): (4) open spontaneously Best Verbal Response (Carlito): (5) oriented Best Motor Response ([place]): (6) obeys commands Carlito Total: 15 - Physical Exam General Appearance: no apparent distress, alert, obese Eye Exam: bilateral eye: normal inspection, PERRL, EOMI, abnormal EOM Ears, Nose, Throat Exam: normal ENT inspection, moist mucous membranes Neck Exam: normal inspection, non-tender, supple, full range of motion Respiratory: normal breath sounds, lungs clear, airway intact, No chest tenderness, No respiratory distress Cardiovascular: regular rate/rhythm, normal heart sounds, normal peripheral pulses Gastrointestinal: soft, normal bowel sounds, No tenderness Rectal Exam: not done Back Exam: normal inspection, normal range of motion, No CVA tenderness, No vertebral tenderness Extremity Exam: pelvis stable Mental Status: alert, oriented x 3, 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 Exam: normal hearing, PERRL, tongue midline Skin Exam: normal color, warm, dry SpO2 Interpretation: normal O2 Delivery: Room Air - Course Nursing assessment & vital signs reviewed: Yes EKG Interpreted by Me: RATE (90), Sinus Rhythm, Left Dixon Deviation, NORMAL INTERVALS, NORMAL ST-T, Other (No acute ischemic changes on today's twelve-lead EKG.) Ordered Tests: Active Orders 24 hr Category Date Time Status Emts STAT Care 08/15/23 12:51 Active Catheter-Dubberly Bustos STAT Care 08/15/23 12:50 Active EKG-ER Only STAT Care 08/15/23 12:50 Active IV Insertion STAT Care 08/15/23 12:50 Active Pulse Oximetry (ED) STAT Care 08/15/23 12:50 Active HEAD WITHOUT CONTRAST [CT] Stat Exams 08/15/23 12:50 Completed BLOOD CULTURE Stat Lab 08/15/23 13:20 Received CBC W DIFF Stat Lab 08/15/23 12:45 Completed CMP Stat Lab 08/15/23 12:45 Completed CULTURE,URINE Stat Lab 08/15/23 12:54 Ordered MONO SCREEN Stat Lab 08/15/23 13:15 Completed UA W/RFX UR CULTURE Stat Lab 08/15/23 12:56 Completed Medication Summary Discontinued Medications Generic Name Dose Route Start Last Admin Trade Name Freq PRN Reason Stop Dose Admin Sodium Chloride 1,000 mls @ 999 mls/hr 08/15/23 12:50 08/15/23 14:01 Sodium Chloride 0.9% 1000 Ml IV 08/15/23 13:50 Infused .Q1H1M STA Infusion Sodium Chloride Confirm 08/15/23 12:58 Sodium Chloride 0.9% 1000 Ml Administered 08/15/23 12:59 Dose 1,000 mls @ .[facility] Lab/Rad Data: Laboratory Result Diagrams 08/15/23 12:45 08/15/23 12:45 Laboratory Results 08/15/23 08/15/23 08/15/23 Range/Units 13:15 13:15 13:15 WBC (4.0-10.5) x10^3/uL RBC (4.1-5.6) x10^6/uL Hgb (12.5-18.0) g/dL Hct (42-50) % MCV (78-100) fL MCH (26-32) pg MCHC (32-36) g/dL RDW (11.5-14.0) % Plt Count (150-450) x10^3/uL MPV (7.5-11.0) fL Gran % (36.0-66.0) % Immature Gran % (Auto) (0.00-0.4) % Nucleat RBC Rel Count (0.00-0.1) % Eos # (Auto) (0-0.5) x10^3/uL Immature Gran # (Auto) (0.00-0.03) x10^3u/L Absolute Lymphs (auto) (1.0-4.6) x10^3/uL Absolute Monos (auto) (0.0-1.3) x10^3/uL Absolute Nucleated RBC (0.00-0.01) x10^3u/L Lymphocytes % (24.0-44.0) % Monocytes % (0.0-12.0) % Eosinophils % (0.00-5.0) % Basophils % (0.0-0.4) % Absolute Granulocytes (1.4-6.9) x10^3/uL Basophils # (0-0.4) x10^3/uL Sodium (137-145) mmol/L Potassium (3.5-5.1) mmol/L Chloride (98-107) mmol/L Carbon Dioxide (22-30) mmol/L Anion Gap (5-15) MEQ/L BUN (9-20) mg/dL Creatinine (0.66-1.25) mg/dL Estimated GFR ML/MIN Glucose (74-106) mg/dL Calcium (8.4-10.2) mg/dL Total Bilirubin (0.2-1.3) mg/dL AST (17-59) U/L ALT (0-50) U/L Alkaline Phosphatase (38-126) U/L Ammonia < 9 L (9-30) umol/L Serum Total Protein (6.3-8.2) g/dL Albumin (3.5-5.0) g/dL Urine Color (Yellow) Urine Appearance (Clear) Urine pH (4.6-8.0) Ur Specific Wallace (1.005-1.030) Urine Protein (Negative) Urine Glucose (UA) (Negative) mg/dL Urine Ketones (Negative) Urine Blood (Negative) Urine Nitrite (Negative) Urine Bilirubin (Negative) Urine Urobilinogen (0.2) mg/dL Ur Leukocyte Esterase (Negative) U Hyaline Cast (Auto) (0-2) /LPF Urine Microscopic RBC (0-5) /HPF Urine Microscopic WBC (0-5) /HPF Ur Epithelial Cells (None Seen) /HPF Urine Bacteria (None Seen) /HPF Urine Culture Reflexed (NO) Monoscreen NEGATIVE (NEGATIVE) Influenza Type A Ag NEGATIVE (NEGATIVE) Influenza Type B Ag NEGATIVE (NEGATIVE) RSV (PCR) NEGATIVE (NEGATIVE) SARS-CoV-2 (PCR) POSITIVE A (NEGATIVE) 08/15/23 08/15/23 08/15/23 Range/Units 12:56 12:45 12:45 WBC 8.4 (4.0-10.5) x10^3/uL RBC 5.13 (4.1-5.6) x10^6/uL Hgb 14.9 (12.5-18.0) g/dL Hct 47.7 (42-50) % MCV 93.0 (78-100) fL MCH 29.0 (26-32) pg MCHC 31.2 L (32-36) g/dL RDW 13.2 (11.5-14.0) % Plt Count 170 (150-450) x10^3/uL MPV 10.8 (7.5-11.0) fL Gran % 78.0 H (36.0-66.0) % Immature Gran % (Auto) 0.2 (0.00-0.4) % Nucleat RBC Rel Count 0.0 (0.00-0.1) % Eos # (Auto) 0.06 (0-0.5) x10^3/uL Immature Gran # (Auto) 0.02 (0.00-0.03) x10^3u/L Absolute Lymphs (auto) 0.84 L (1.0-4.6) x10^3/uL Absolute Monos (auto) 0.88 (0.0-1.3) x10^3/uL Absolute Nucleated RBC 0.00 (0.00-0.01) x10^3u/L Lymphocytes % 10.0 L (24.0-44.0) % Monocytes % 10.5 (0.0-12.0) % Eosinophils % 0.7 (0.00-5.0) % Basophils % 0.6 (0.0-0.4) % Absolute Granulocytes 6.54 (1.4-6.9) x10^3/uL Basophils # 0.05 (0-0.4) x10^3/uL Sodium 136 L (137-145) mmol/L Potassium 3.9 (3.5-5.1) mmol/L Chloride 103 (98-107) mmol/L Carbon Dioxide 23 (22-30) mmol/L Anion Gap 14.2 (5-15) MEQ/L BUN 14 (9-20) mg/dL Creatinine 0.89 (0.66-1.25) mg/dL Estimated GFR 96.3 ML/MIN Glucose 114 H (74-106) mg/dL Calcium 8.8 (8.4-10.2) mg/dL Total Bilirubin 0.60 (0.2-1.3) mg/dL AST 22 (17-59) U/L ALT 21 (0-50) U/L Alkaline Phosphatase 86 (38-126) U/L Ammonia (9-30) umol/L Serum Total Protein 7.6 (6.3-8.2) g/dL Albumin 3.6 (3.5-5.0) g/dL Urine Color Yellow (Yellow) Urine Appearance Clear (Clear) Urine pH 6.0 (4.6-8.0) Ur Specific Wallace 1.020 (1.005-1.030) Urine Protein Negative (Negative) Urine Glucose (UA) Negative (Negative) mg/dL Urine Ketones Negative (Negative) Urine Blood NHT (Negative) Urine Nitrite Negative (Negative) Urine Bilirubin Negative (Negative) Urine Urobilinogen 1.0 A (0.2) mg/dL Ur Leukocyte Esterase Negative (Negative) U Hyaline Cast (Auto) 3-5 A (0-2) /LPF Urine Microscopic RBC 3-5 (0-5) /HPF Urine Microscopic WBC 0-2 (0-5) /HPF Ur Epithelial Cells None Seen (None Seen) /HPF Urine Bacteria None Seen (None Seen) /HPF Urine Culture Reflexed ORDERED SEPARATELY (NO) Monoscreen (NEGATIVE) Influenza Type A Ag (NEGATIVE) Influenza Type B Ag (NEGATIVE) RSV (PCR) (NEGATIVE) SARS-CoV-2 (PCR) (NEGATIVE) - Progress Progress Note: 08/15/23 12:58 This patient's medical issue is of at least moderate complexity. Level complex in the workup performed is based on review of the patient's past medical history, review the patient's medication list, review the patient's drug allergy list, history present illness and physical findings on examination. The workup in this patient includes placement of intravenous line, twelve-lead EKG, placement of Bustos catheter and sending urine specimen for urinalysis, CBC, CMP, CT scan of the head, ammonia level 08/15/23 15:08 I reviewed and interpreted the patient's laboratory data. Patient is COVID- positive. The remainder of the laboratory results show no acute or emergent findings. The CT scan of the head without contrast was interpreted by the radiologist and I reviewed the impression. There is no acute intracranial abnormality. There are no recent or acute infarcts. There is a lacunar infarct of the right temporal lobe. 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 Continue the same outpatient treatment.
[2023-08-15] MEDS ORDERED: Sodium Chloride 0.9% 1000 ML 1,000 ML IV STA (12:50)
[2023-08-15 12:54] VITALS: TEMP 97.7
[2023-08-15] MEDS ORDERED: Sodium Chloride 0.9% 1000 ML 1,000 ML ONE (12:58)
[2023-08-15 13:32] LABS: Absolute Neutrophil Ct (ANC) 6.54 x10^3/uL (1.4-6.9); BASOPHIL % 0.6 % (0.0-0.4); Basophil (Absolute #) 0.05 x10^3/uL (0-0.4); Eosinophil % 0.7 % (0.00-5.0); Eosinophil (Absolute #) 0.06 x10^3/uL (0-0.5); Hematocrit 47.7 % (42-50); Hemoglobin 14.9 g/dL (12.5-18.0); IMMATURE GRAN # 0.02 x10^3u/L (0.00-0.03); IMMATURE GRAN % 0.2 % (0.00-0.4); Lymphocyte (Absolute #) 0.84 x10^3/uL (1.0-4.6); Mean Corpuscular Hgb Concent. 31.2 g/dL (32-36); Mean Platelet Volume 10.8 fL (7.5-11.0); Monocyte (Absolute #) 0.88 x10^3/uL (0.0-1.3); Monocytes % 10.5 % (0.0-12.0); Platelet Count 170 x10^3/uL (150-450); Red Blood Count 5.13 x10^6/uL (4.1-5.6); Red Cell Distribution Width 13.2 % (11.5-14.0); White Blood Count 8.4 x10^3/uL (4.0-10.5)
[2023-08-15 13:44] LABS: Appearance Clear (Clear); Bacteria None Seen /HPF (None Seen); Bilirubin Negative (Negative); Blood NHT (Negative); Epithelial Cells None Seen /HPF (None Seen); Glucose, Urine Negative (Negative); Ketones Negative (Negative); Leukocyte Esterase Negative (Negative); Nitrite Negative (Negative); Protein,Urine Dip Negative (Negative); WBC 0-2 /HPF (0-5)
[2023-08-15 13:49] LABS: ADD URINE CULTURE? ORDERED SEPARATELY (NO)
[2023-08-15 13:52] LABS: ALBUMIN 3.6 g/dL (3.5-5.0); ANION GAP 14.2 MEQ/L (5-15); BILIRUBIN,TOTAL 0.6 mg/dL (0.2-1.3); Calcium 8.8 mg/dL (8.4-10.2); Creatinine 1 0.89 mg/dL (0.66-1.25); EST GLOMERULAR FILTRATION RATE 96.3 ML/MIN; Potassium 3.9 mmol/L (3.5-5.1); Total Protein 7.6 g/dL (6.3-8.2)
[2023-08-15 14:14] LABS: INFLUENZA A NEGATIVE (NEGATIVE); INFLUENZA B NEGATIVE (NEGATIVE); RESPIRATORY SYNCTIAL VIRUS NEGATIVE (NEGATIVE)
[2023-08-15 14:42] LABS: SARS-CoV-2 Xpert Express POSITIVE (NEGATIVE)
--- NOTE | 2023-08-15 15:01 | XRAY ---
CLINICAL HISTORY:Altered mental status COMPARISON:None. TECHNIQUE:Axial non-contrast CT scan of the brain was performed from the skull base to the high parietal region. Coronal and sagittal reconstructions were also obtained. FINDINGS: There is unilateral right cerebral atrophic changes as evidenced by volume loss, prominent cisternal and sulcal spaces and widening of the insular cortex. Lacunar infarct seen in the right temporal lobe. No recent/acute infarct. Roberts-white matter differentiation is maintained. No midline shifts or deformity. No intracerebral or extra axial hematoma. Normal size and configuration of the cerebral ventricles. Normal CT appearance of the posterior fossa structures namely the cerebellar hemispheres, brainstem, and cerebellar peduncles. The IACs are unremarkable. The cerebello-pontine angles are clear. The pituitary gland, the pineal gland, and the optic chiasm are unremarkable. The osseous structures in the skull base are unremarkable. No definite calvarium fractures. Scanned paranasal sinuses show mucosal thickening in bilateral maxillary, ethmoidal and right frontal and sphenoidal sinuses. Nasal septum is deviated to the right side. Defect in the medial wall of both maxillary sinuses due to prior surgical intervention. Prior right turbinectomy noted posteriorly. Findings are consistent with chronic sinusitis. IMPRESSION: 1. No acute intracranial abnormality. 2. Lacunar infarct seen in the right temporal lobe. 3. Unilateral right cerebral atrophic changes as evidenced by volume loss, prominent cisternal and sulcal spaces and widening of the insular cortex. Electronically Signed by: Ronaldo Loving MD. (08/15/2023 14:57:26 EST)
[2023-08-15 15:28] VITALS: BP 109/60; PULSE 80; RESP 16; O2SAT 96
== END 2023-08-15 15:41 | disposition home or self-care (01) ==
LOC: ED 12:37
DX: U07.1 COVID-19 (principal); R41.0 Disorientation, unspecified; G80.0 Spastic quadriplegic cerebral palsy; I10 Essential (primary) hypertension; Z79.899 Other long term (current) drug therapy; Z20.828 Contact with and (suspected) exposure to other viral communicable diseases
CPT/HCPCS: 0241U; 36000; 36415; 51702; 70450; 80053; 81001; 82140; 85025; 86308; 87040; 87086; 93005; 93041; 94760; 96360; 99284

== ENCOUNTER 2023-09-24 16:33 | Emergency (ER) | payer MEDICARE ==
[2023-09-24 16:47] VITALS: BP 116/86; PULSE 73; RESP 20; TEMP 98.2; O2SAT 94
--- NOTE | 2023-09-24 16:53 | ERPHSYRPT ---
- History of Present Illness Time Seen by Provider: 09/24/23 16:50 Source: other (Caregiver) Exam Limitations: clinical condition Patient Subjective Stated Complaint: Pt acute care registered nurse states "He has what I would call a yeast infection in his groin, under his arms and in his skin folds. He is on diflucan, has been for 3 days and when I called the nurse about it today she is worried he has gangrene." Triage Nursing Assessment: PT presented alert and oriented X 3, skin pwd. Pt is wheelchair bound. PT speaking in clear full sentences. Physician History: Patient is a 63-year-old special-needs gentleman who has a skin rash in his left axilla but no his left breast and in his groin area. Caregiver has been using Diflucan for 3 days without benefit that was prescribed by Dr. Ramirez. Timing/Duration: day(s) (3) Quality: burning, itchy, painful Severity: moderate Location: torso, extremities, genitalia Possible Causes: no cause identified Allergies/Adverse Reactions: triamcinolone Allergy (Unknown, Verified 08/15/23 12:58) Home Medications: Escitalopram Oxalate [Lexapro 10 MG] 10 mg PO DAILY 10/28/21 [History] Baclofen 231.8 mcg PO DAILY 03/06/22 [History] Tamsulosin HCl 0.4 mg [Flomax 0.4 MG] 0.4 mg PO DAILY 03/06/22 [History] Dicyclomine HCl 10 mg PO QID 08/15/23 [History] Famotidine 40 mg PO DAILY 08/15/23 [History] Lansoprazole 30 mg PO DAILY 08/15/23 [History] Loratadine 10 mg [Claritin 10 mg] 10 mg PO DAILY 08/15/23 [History] Hx Tetanus, Diphtheria Vaccination/Date Given: Yes Hx Influenza Vaccination/Date Given: Yes Hx Pneumococcal Vaccination/Date Given: Yes Immunizations Up to Date: Yes Travel Risk - International Travel Have you traveled outside of the country in past 3 weeks: No - Coronavirus Screening Are you exhibiting any of the following symptoms?: No Close contact with a COVID-19 positive Pt in past 14-21 Days: No - Vaccine Status Have you recieved a Covid-19 vaccination: Yes 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 - Vaccination Dates Dates if Unknown: unknown - Review of Systems Constitutional: No Fever, No Chills Eyes: No Symptoms Ears, Nose, & Throat: No Symptoms Respiratory: No Cough, No Dyspnea Cardiac: No Chest Pain, No Edema, No Syncope Abdominal/Gastrointestinal: No Abdominal Pain, No Nausea, No Vomiting, No Diarrhea Genitourinary Symptoms: No Dysuria Musculoskeletal: No Back Pain, No Neck Pain Skin: Other (Monilial rash intertrigo), No Rash Neurological: No Dizziness, No Focal Weakness, No Sensory Changes Psychological: No Symptoms Endocrine: No Symptoms Hematologic/Lymphatic: No Symptoms Immunological/Allergic: No Symptoms All Other Systems: Reviewed and Negative - Past Medical History Pertinent Past Medical History: Yes Neurological History: Other ENT History: No Pertinent History Cardiac History: Hypertension Respiratory History: Sleep Apnea Endocrine Medical History: No Pertinent History Musculoskeletal History: Fractures GI Medical History: GERD, Gallbladder Disease, Ulcer History: No Pertinent History Psycho-Social History: No Pertinent History Male Reproductive Disorders: No Pertinent History Other Medical History: PATIENT DX'D WITH SPASTIC QUADRIPLEGIA AT , SPEECH DYSARTHIRA, HX FX RIGHT LOWER LEG, GERD, CHOLECYSTECTOMY, NACK AND NEXK SURGERY (? D/T STENOSIS - PATIENT UNSURE). HAS BACLOFEN PUMP LEFT LOWER ABDOMINAL REGION. - Past Surgical History Past Surgical History: Yes Neuro Surgical History: No Pertinent History Cardiac: No Pertinent History Respiratory: No Pertinent History Gastrointestinal: Cholecystectomy Genitourinary: No Pertinent History Musculoskeletal: Orthopedic Surgery Male Surgical History: No Pertinent History Other Surgical History: Back, Neck, and ankle surgery. Colonoscopy, Baclofen pump in left abdomen area per post acute care registered nurse at bedside. 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) - Nursing Vital Signs Nursing Vital Signs: Initial Vital Signs Temperature 98.2 F 09/24/23 16:41 Pulse Rate 73 09/24/23 16:41 Respiratory Rate 20 09/24/23 16:41 Blood Pressure 116/86 09/24/23 16:41 O2 Sat by Pulse Oximetry 94 L 09/24/23 16:41 Pain Scale Pain Intensity 5 - Physical Exam General Appearance: no apparent distress, alert Eye Exam: PERRL/EOMI, eyes nml inspection Ears, Nose, Throat Exam: normal ENT inspection, pharynx normal, moist mucous membranes Neck Exam: normal inspection, non-tender, supple, full range of motion Respiratory Exam: normal breath sounds, lungs clear, No respiratory distress Cardiovascular Exam: regular rate/rhythm, normal heart sounds Gastrointestinal/Abdomen Exam: soft, mass, No tenderness Back Exam: normal inspection, normal range of motion, No CVA tenderness, No vertebral tenderness Extremity Exam: normal inspection, normal range of motion Neurologic Exam: alert, oriented x 3, cooperative, normal mood/affect, sensation nml, No motor deficits Skin Exam: normal color, warm, dry, rash (Rashes present the left axilla beneath the left breast in the inguinal area) SpO2: 94 - Course Nursing assessment & vital signs reviewed: Yes - Progress Progress: unchanged Medical Desision Making - Risk of complications Minimal Risk: Minimal risk of morbidity - Departure Departure Disposition: Home Clinical Impression: Yeast dermatitis Condition: Stable Critical Care Time: No Referrals: ROSE RAMIREZ [Primary Care Provider] - Follow up/PCP as directed Instructions: Intertrigo (DC) Prescriptions: Terbinafine HCl [Antifungal] 30 gm TP BID 30 Days #1 tu terbinafine HCL [Terbinafine HCl] 250 mg PO DAILY 30 Days #30 tablet
== END 2023-09-24 17:02 | disposition home or self-care (01) ==
LOC: ED 16:33
DX: B37.2 Candidiasis of skin and nail (principal); I10 Essential (primary) hypertension; Z79.899 Other long term (current) drug therapy
CPT/HCPCS: 99281

== ENCOUNTER 2023-10-11 22:15 | Emergency (ER) | payer MEDICARE ==
[2023-10-11 22:26] VITALS: TEMP 97.9
[2023-10-11 23:12] LABS: Appearance Cloudy (Clear); Bacteria None Seen /HPF (None Seen); Bilirubin Negative (Negative); Blood Negative (Negative); Epithelial Cells None Seen /HPF (None Seen); Glucose, Urine Negative (Negative); Hyaline Casts NONE SEEN /LPF (0-2); Ketones Negative (Negative); Leukocyte Esterase Negative (Negative); Nitrite Negative (Negative); Ph 7.5 (4.6-8.0); Protein,Urine Dip Negative (Negative); RBC 0-2 /HPF (0-5); Urobilinogen 0.2 mg/dL (0.2); WBC 0-2 /HPF (0-5)
--- NOTE | 2023-10-11 23:12 | ERPHSYRPT ---
- History of Present Illness Source: patient, other (Caregiver) Patient Subjective Stated Complaint: fall on Sunday, slipped out of chair onto floor tonight, c/o back pain Triage Nursing Assessment: Pt brought in by EMS. Pt lives in an assisted living home. Pt had a fall on Sunday and has had some back discomfort/back pain since then. Pt slid out of the chair tonight onto the floor and began c/o back discomfort again. Pt c/o pain being in his mid back area, tender on palpation, and has intermittent sharp pains to that area. No obvious deformities noted, no scrapes noted, pt did not lose consciousness. Pt was born with spastic quadriplegia. A staff from [facility] is in the room with pt. Pt is alert and oriented x2, to his normal. Physician History: 63 years old male with past medical history of cerebral palsy, Spastic paraplegia, assisted living resident. The patient is brought by EMS to the emergency room because he is complaining of back pain. It seemed that last Sunday he had an un witnessed fall and injured his back. Since then he has been having back pain. Today he slid out of his chair and injured his back again. The patient has an un comprehensible speech, his caregiver is giving most of the information. No head trauma or loss of conscious. The patient is denying any neck pain. He is denying any chest pain or shortness of breath. He is denying any pain to his upper or lower extremities. Per caregiver he ambulates with a walker. Allergies/Adverse Reactions: triamcinolone Allergy (Unknown, Verified 10/11/23 22:45) Home Medications: Escitalopram Oxalate [Lexapro 10 MG] 10 mg PO HS 10/28/21 [History] Baclofen 231.8 mcg PO DAILY 03/06/22 [History] Tamsulosin HCl 0.4 mg [Flomax 0.4 MG] 0.4 mg PO DAILY 03/06/22 [History] Dicyclomine HCl 10 mg PO QID 08/15/23 [History] Famotidine 40 mg PO DAILY 08/15/23 [History] Lansoprazole 30 mg PO DAILY 08/15/23 [History] Loratadine 10 mg [Claritin 10 mg] 10 mg PO HS 11/29/23 [History] Tramadol HCl 50 mg [Ultram 50 mg] 1 tab PO TID PRN PRN 10/11/23 [History] Hx Tetanus, Diphtheria Vaccination/Date Given: Yes Hx Influenza Vaccination/Date Given: (unknown) Hx Pneumococcal Vaccination/Date Given: (unknown) Immunizations Up to Date: (unknown) Travel Risk - International Travel Have you traveled outside of the country in past 3 weeks: No - Coronavirus Screening Are you exhibiting any of the following symptoms?: No Close contact with a COVID-19 positive Pt in past 14-21 Days: No - Vaccine Status Have you recieved a Covid-19 vaccination: No (unknown) Recruitment Officer: Unknown - Vaccination Dates Dates if Unknown: unknown - Review of Systems Constitutional: No Fever, No Chills Eyes: No Symptoms Ears, Nose, & Throat: No Symptoms Respiratory: No Cough, No Dyspnea Cardiac: No Chest Pain, No Edema, No Syncope Abdominal/Gastrointestinal: No Abdominal Pain, No Nausea, No Vomiting, No Diarrhea Genitourinary Symptoms: No Dysuria Musculoskeletal: Back Pain, No Neck Pain Skin: No Rash Neurological: Focal Weakness, Gait Changes, Paralysis, Other (The patient has history of cerebral palsy, spastic paraplegia he is usually bedridden, ambulates with a walker), No Dizziness, No Sensory Changes Psychological: No Symptoms Endocrine: No Symptoms All Other Systems: Reviewed and Negative - Past Medical History Pertinent Past Medical History: Yes Neurological History: Other ENT History: No Pertinent History Cardiac History: Hypertension Respiratory History: Sleep Apnea Endocrine Medical History: No Pertinent History Musculoskeletal History: Fractures GI Medical History: GERD, Gallbladder Disease, Ulcer History: No Pertinent History Psycho-Social History: No Pertinent History Male Reproductive Disorders: No Pertinent History Other Medical History: PATIENT DX'D WITH SPASTIC QUADRIPLEGIA AT , SPEECH DYSARTHIRA, HX FX RIGHT LOWER LEG, GERD, CHOLECYSTECTOMY, BACK AND NECK SURGERY (? D/T STENOSIS - PATIENT UNSURE). HAS BACLOFEN PUMP LEFT LOWER ABDOMINAL REGION. - Past Surgical History Past Surgical History: Yes Neuro Surgical History: No Pertinent History Cardiac: No Pertinent History Respiratory: No Pertinent History Gastrointestinal: Cholecystectomy Genitourinary: No Pertinent History Musculoskeletal: Orthopedic Surgery Male Surgical History: No Pertinent History Other Surgical History: Back, Neck, and ankle surgery. Colonoscopy, Baclofen pump in left abdomen area per health care consultant at bedside. - Social History Smoking Status: Never smoker Exposure to second hand smoke: No Drug Use: none Patient Lives Alone: No - Nursing Vital Signs Nursing Vital Signs: Initial Vital Signs Temperature 97.9 F 10/11/23 22:24 Pulse Rate 88 10/11/23 22:24 Respiratory Rate 20 10/11/23 22:24 Blood Pressure 149/106 10/11/23 22:24 O2 Sat by Pulse Oximetry 95 10/11/23 22:24 Pain Scale Pain Intensity 5 - Physical Exam General Appearance: no apparent distress Eye Exam: PERRL/EOMI, eyes nml inspection Neck Exam: normal inspection, non-tender, supple, full range of motion, No meningismus, No midline tenderness Respiratory Exam: normal breath sounds, lungs clear, No respiratory distress Cardiovascular Exam: regular rate/rhythm, normal heart sounds Gastrointestinal Exam: soft, No tenderness, No mass Back Exam: normal inspection, vertebral tenderness, muscle spasm Extremity Exam: pelvis stable, paralysis, limited range of motion, other (Bilateral feet drop, Spasticity, rigidity to both upper lower extremities.), No calf tenderness, No pedal edema Neurologic Exam: alert, oriented x 3, cooperative, nascar racer II-XII nml as tested, normal mood/affect, nml station & gait, sensation nml, No motor deficits Skin Exam: normal color, warm, dry, No rash SpO2: 95 - Course Nursing assessment & vital signs reviewed: Yes Ordered Tests: Active Orders 24 hr Category Date Time Status LUMBAR SPINE W/O [CT] Stat Exams 10/11/23 23:44 Completed THORACIC SPINE W/O CONTRAST [CT] Stat Exams 10/11/23 23:44 Completed UA W/RFX UR CULTURE Stat Lab 10/11/23 22:58 Completed Medication Summary Discontinued Medications Generic Name Dose Route Start Last Admin Trade Name Freq PRN Reason Stop Dose Admin Hydrocodone Bitart/Acetaminophen 1 tab 10/12/23 00:57 10/12/23 01:06 Hydrocodone /Apap 7.5/325 Mg 1 Each Tablet PO 10/12/23 00:58 1 tab STAT ONE Administration Lab/Rad Data: Laboratory Results 10/11/23 Range/Units 22:58 Urine Color Yellow (Yellow) Urine Appearance Cloudy A (Clear) Urine pH 7.5 (4.6-8.0) Ur Specific [place] 1.020 (1.005-1.030) Urine Protein Negative (Negative) Urine Glucose (UA) Negative (Negative) mg/dL Urine Ketones Negative (Negative) Urine Blood Negative (Negative) Urine Nitrite Negative (Negative) Urine Bilirubin Negative (Negative) Urine Urobilinogen 0.2 (0.2) mg/dL Ur Leukocyte Esterase Negative (Negative) U Hyaline Cast (Auto) NONE SEEN (0-2) /LPF Urine Microscopic RBC 0-2 (0-5) /HPF Urine Microscopic WBC 0-2 (0-5) /HPF Ur Epithelial Cells None Seen (None Seen) /HPF Urine Bacteria None Seen (None Seen) /HPF Urine Culture Reflexed NO (NO) - Progress Progress: unchanged, improved Progress Note: 10/11/23 23:11 63 years old male with past medical history of cerebral palsy, Spastic paraplegia, assisted living resident. The patient is brought by EMS to the emergency room because he is complaining of back pain. It seemed that last Sunday he had an un witnessed fall and injured his back. Since then he has been having back pain. Today he slid out of his chair and injured his back again. The patient has an un comprehensible speech, his caregiver is giving most of the information. No head trauma or loss of conscious. The patient is denying any neck pain. He is denying any chest pain or shortness of breath. He is denying any pain to his upper or lower extremities. Per caregiver he ambulates with a walker. Emergency room course and medical decision making: The patient had some upper lumbar paralumbar tenderness. Will order a CT scan of the thoracic and lumbar spine. When he urinated his urine was cloudy, we will check a urine analysis. 10/12/23 01:[address] scan of the lumbar/thoracic spine revealed multiple findings of indeterminate age. L1 anterolisthesis over S1. Fracture of L5-S1 pars interarticularis of undetermined age. Anterior bridging of T11 and L1 vertebrae and superior endplates. Age-indeterminate superior endplate collapse of T5, T6, T8, T11 and L1 vertebral body. Anterior wedging of nearly 40% reduction in height of T5 vertebral body. With mild reduction in height at other levels. The patient's brother at bedside, he did tell me that his brother has multiple falls specially when he ambulates with his walker. At present the patient is riding his pain at 5 out of 10. He will be given Bryan 7.5 mg oral dose and will evaluate from there. The patient's brother need to discuss the above findings with the patient's primary care, he probably needs to follow-up with a spine orthopedic, and be prescribed some stronger pain medications for his back pain. 10/12/23 01:55 The patient is feeling better stating that his pain is almost completely resolved after the Bryan tablets. He will be discharged back to the assisted living. The patient needs to be referred to follow-up with the spine orthopedic and/or pain specialist. He will be prescribed Bryan's 5 mg 325 mg Tylenol 1 to 2 tablets every 6 hours as needed for severe pain. Fall precautions specially with the fact that he has multiple vertebral fractures of undetermined age. Continue present medications. Constipation precautions with the fact that he is on narcotics - Departure Departure Disposition: Extended Care Facility Clinical Impression: Back pain due to injury, Fall, Vertebral fracture, closed Condition: Stable Critical Care Time: No Referrals: ROSE GOLD [Primary Care Provider] - Follow up/PCP as directed Additional Instructions: Bryan 5 mg / 325 mg. 1 to 2 tablets every 6 hours as needed for severe pain. Colace 100 mg twice a day as needed for constipation. Follow-up with primary care physician, the patient needs a referral to follow-up with the spine orthopedic and/or pain specialist. Prescriptions: Hydrocodone/APAP 5/325 [Bryan 5/325 mg] 1 each PO Q6H PRN PRN #12 tablet MDD 6 PRN Reason: Pain
[2023-10-11 23:15] LABS: ADD URINE CULTURE? NO (NO)
--- NOTE | 2023-10-12 00:32 | XRAY ---
CLINICAL HISTORY: Fall, Back Pain TECHNIQUE: Multiple axial images of CT thoracic spine without IV contrast were performed. Coronal and sagittal reformats were also obtained and submitted for interpretation, COMPARISON: None. FINDINGS: Age-indeterminate superior endplate collapse of T5, T6, T8, T11 and L1 vertebral body is noted with Schmorl's node at few levels. Anterior wedging with nearly 40% reduction in height of T5 vertebral body noted with mild reduction in height at other levels. These appear to be osteoporotic compression collapse, however possibility of superimposed trauma cannot be excluded. Levo- scoliosis of the thoracic spine with exaggeration of kyphotic curvature noted. Multilevel anterior osteophytes, Schmorl's node, both thoracic disc bulges and facetal arthropathy were noted. Intact intervertebral disc spaces. No paravertebral soft tissue swelling is seen. Visualized part of the chest shows calcified left hilar nodes with mild atelectatic changes and basal regions. Post cholecystectomy status. IMPRESSION: 1. Age-indeterminate superior endplate collapse of T5, T6, T8, T11 and L1 vertebral body is noted with Schmorl's node at few levels. Anterior wedging with nearly 40% reduction in height of T5 vertebral body noted with mild reduction in height at other levels. These appear to be osteoporotic compression collapse, however possibility of superimposed trauma cannot be excluded. MR is recommended for better evaluation if clinically warranted 2. Levo- scoliosis of the thoracic spine with exaggeration of kyphotic curvature 3. 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 Electronically Signed by: Ronaldo Loving MD. (10/12/2023 00:27:50 EST)
--- NOTE | 2023-10-12 00:40 | XRAY ---
CLINICAL HISTORY: Fall, Back Pain TECHNIQUE: Contiguous axial CT images of lumbar spines were acquired without administration of intravenous contrast. Coronal and sagittal reconstructions were also obtained and submitted for interpretation. COMPARISON: None. FINDINGS: Grade 1 anterolisthesis of L5 over S1. Fracture L5-S1 pars interarticularis. Narrowing of L5-S1 disc space with vacuum phenomena. A spinal cord stimulator is seen. Anterior wedging of T11 and L1 vertebrae with superior end plates schmorel's nodes. Lumbar spondylosis with marginal osteophytes and osteoarthritis of facet joints. Posterior disc osteophyte complex at multiple levels with spinal canal and neural foraminal stenosis. IMPRESSION: 1. Grade 1 anterolisthesis of L5 over S1 and fracture of L5-S1 pars interarticularis of indeterminate age, please correlate clinically. 2. Anterior wedging of T11 and L1 vertebrae with superior end plates schmorel's nodes. 3. Lumbar spondylosis and posterior disc osteophyte complex at multiple levels with spinal canal and neural foraminal stenosis, would recommend MRI lumbar spines for further evaluation. [facility] was called at [phone] at 11:25 PM [employer]INE [employer], 10/11/2023 and Fabian Robbins was informed about important medical findings. Electronically Signed by: Ronaldo Loving MD. (10/12/2023 00:35:59 EST)
[2023-10-12] MEDS ORDERED: NORCO 7.5/325 MG TAB PO ONE (00:57)
[2023-10-12 01:13] VITALS: O2SAT 95
[2023-10-12 02:35] VITALS: BP 139/83; PULSE 75; RESP 18
== END 2023-10-12 02:35 | disposition home or self-care (01) ==
LOC: ED 22:15
DX: M54.9 Dorsalgia, unspecified (principal); S32.009A Unspecified fracture of unspecified lumbar vertebra, initial encounter for closed fracture; W19.XXXA Unspecified fall, initial encounter; Z91.81 History of falling; Y92.099 Unspecified place in other non-institutional residence as the place of occurrence of the external cause; G80.0 Spastic quadriplegic cerebral palsy; I10 Essential (primary) hypertension; Z79.891 Long term (current) use of opiate analgesic; Z79.899 Other long term (current) drug therapy
CPT/HCPCS: 72128; 72131; 81001; 99283; A9270-GY

== ENCOUNTER 2023-10-13 08:37 | Emergency (ER) | payer MEDICARE ==
[2023-10-13 08:48] VITALS: TEMP 97.2
[2023-10-13] MEDS ORDERED: Sodium Chloride 0.9% 1000 ML 1,000 ML IV STA ×2 (08:59→10:53)
--- NOTE | 2023-10-13 09:03 | ERPHSYRPT ---
- History of Present Illness Time Seen by Provider: 10/13/23 09:00 Historian: patient, EMS Exam Limitations: no limitations Patient Subjective Stated Complaint: PT states "I have been throwing up.". EMS states "He has been vomiting for the past two days. He has a back fracture which is new and he is now in [place] as well." Triage Nursing Assessment: Pt presented alert and oriented X 3, skin pwd. Pt able to speak in his normal articulation. PT abdomen distended and extremely tender where his abdominal pump is. Physician History: Patient is 63-year-old male with significant past medical history of spastic quadriplegia for which patient has been on baclofen pump. Patient started having abdominal pain and distention 2 days ago which got worse today and he started having a severe vomiting he could not keep anything down so patient was brought into the emergency room. Patient denies any fever chills shortness of breath any blood in the urine or stool. Timing/Duration: day(s) (Two days) Activities at Onset: none Quality: fullness Abdominal Pain Onset Location: generalized abdomen Pain Radiation: no radiation Severity of Pain-Max: moderate Severity of Pain-Current: moderate Modifying Factors: Improves With: nothing Associated Symptoms: loss of appetite, nausea, vomiting, No fever/chills, No testicular pain Previous symptoms: same symptoms as today Allergies/Adverse Reactions: triamcinolone Allergy (Unknown, Verified 10/11/23 22:45) Home Medications: Escitalopram Oxalate [Lexapro 10 MG] 10 mg PO HS 10/28/21 [History] Baclofen 231.8 mcg PO DAILY 03/06/22 [History] Tamsulosin HCl 0.4 mg [Flomax 0.4 MG] 0.4 mg PO DAILY 03/06/22 [History] Dicyclomine HCl 10 mg PO QID 08/15/23 [History] Famotidine 40 mg PO DAILY 08/15/23 [History] Lansoprazole 30 mg PO DAILY 08/15/23 [History] Loratadine 10 mg [Claritin 10 mg] 10 mg PO HS 08/15/23 [History] Tramadol HCl 50 mg [Ultram 50 mg] 1 tab PO TID PRN PRN 10/11/23 [History] Hx Tetanus, Diphtheria Vaccination/Date Given: Yes Hx Influenza Vaccination/Date Given: (unknown) Hx Pneumococcal Vaccination/Date Given: (unknown) Travel Risk - International Travel Have you traveled outside of the country in past 3 weeks: No - Coronavirus Screening Are you exhibiting any of the following symptoms?: No Close contact with a COVID-19 positive Pt in past 14-21 Days: No - Vaccine Status Have you recieved a Covid-19 vaccination: No (unknown) Bottled Beverage Inspector: Unknown - Vaccination Dates Dates if Unknown: unknown - Review of Systems Constitutional: No Fever, No Chills Eyes: No Symptoms Ears, Nose, & Throat: No Symptoms Respiratory: No Cough, No Dyspnea Cardiac: No Chest Pain, No Edema, No Syncope Abdominal/Gastrointestinal: Abdominal Pain, Nausea, Vomiting, No Diarrhea Genitourinary Symptoms: No Dysuria Musculoskeletal: No Back Pain, No Neck Pain Skin: No Rash Neurological: No Dizziness, No Focal Weakness, No Sensory Changes Psychological: No Symptoms Endocrine: No Symptoms All Other Systems: Reviewed and Negative - Past Medical History Pertinent Past Medical History: Yes Neurological History: Other ENT History: No Pertinent History Cardiac History: Hypertension Respiratory History: Sleep Apnea Endocrine Medical History: No Pertinent History Musculoskeletal History: Fractures GI Medical History: GERD, Gallbladder Disease, Ulcer History: No Pertinent History Psycho-Social History: No Pertinent History Male Reproductive Disorders: No Pertinent History Other Medical History: PATIENT DX'D WITH SPASTIC QUADRIPLEGIA AT , SPEECH DYSARTHIRA, HX FX RIGHT LOWER LEG, GERD, CHOLECYSTECTOMY, BACK AND NECK SURGERY (? D/T STENOSIS - PATIENT UNSURE). HAS BACLOFEN PUMP LEFT LOWER ABDOMINAL REGION. - Past Surgical History Past Surgical History: Yes Neuro Surgical History: No Pertinent History Cardiac: No Pertinent History Respiratory: No Pertinent History Gastrointestinal: Cholecystectomy Genitourinary: No Pertinent History Musculoskeletal: Orthopedic Surgery Male Surgical History: No Pertinent History Other Surgical History: Back, Neck, and ankle surgery. Colonoscopy, Baclofen pump in left abdomen area per healthcare translator at bedside. - Social History Smoking Status: Never smoker Exposure to second hand smoke: No Drug Use: none Patient Lives Alone: No - Nursing Vital Signs Nursing Vital Signs: Initial Vital Signs Temperature 97.2 F 10/13/23 08:41 Pulse Rate 89 10/13/23 08:41 Respiratory Rate 20 10/13/23 08:41 Blood Pressure 156/94 10/13/23 08:41 O2 Sat by Pulse Oximetry 94 L 10/13/23 08:41 Pain Scale Pain Intensity 5 - Physical Exam General Appearance: no apparent distress, alert Eye Exam: PERRL/EOMI, eyes nml inspection Ears, Nose, Throat Exam: normal ENT inspection, pharynx normal, moist mucous membranes Neck Exam: normal inspection, non-tender, supple, full range of motion Respiratory Exam: normal breath sounds, lungs clear, No respiratory distress Cardiovascular Exam: regular rate/rhythm, normal heart sounds Gastrointestinal/Abdomen Exam: tenderness, distention, guarding, other (hypoactive bowel sounds), No mass Back Exam: normal inspection, normal range of motion, No CVA tenderness, No vertebral tenderness Extremity Exam: normal inspection, normal range of motion, pelvis stable Neurologic Exam: alert, oriented x 3, cooperative, normal mood/affect, nml cerebellar function, sensation nml, No motor deficits Skin Exam: normal color, warm, dry SpO2: 94 Procedures - Additional Procedures Additional Procedures: gastric tube replacement Ordered Tests: Active Orders 24 hr Category Date Time Status Nursing Agency Manager STAT Care 10/13/23 09:18 Active Gastric Tube Insertion STAT Care 10/13/23 10:52 Active IV Insertion STAT Care 10/13/23 09:18 Active ABDOMEN AND PELVIS W/0 CONTRAS [CT] Stat Exams 10/13/23 08:59 Completed AMYLASE Stat Lab 10/13/23 09:20 Completed CBC W DIFF Stat Lab 10/13/23 09:20 Completed CBC W DIFF Stat Lab 10/13/23 11:00 Completed CMP Stat Lab 10/13/23 09:20 Completed LIPASE Stat Lab 10/13/23 09:20 Completed TROPONIN Stat Lab 10/13/23 09:20 Completed UA W/RFX UR CULTURE Stat Lab 10/13/23 08:59 Ordered Medication Summary Generic Name Dose Route Start Last Admin Trade Name Freq PRN Reason Stop Dose Admin Sodium Chloride 1,000 mls @ 999 mls/hr 10/13/23 10:53 10/13/23 11:16 Sodium Chloride 0.9% 1000 Ml IV 10/13/23 11:53 999 mls/hr .Q1H1M STA Administration Discontinued Medications Generic Name Dose Route Start Last Admin Trade Name Freq PRN Reason Stop Dose Admin Sodium Chloride 1,000 mls @ 999 mls/hr 10/13/23 08:59 10/13/23 10:22 Sodium Chloride 0.9% 1000 Ml IV 10/13/23 09:59 Infused .Q1H1M STA Infusion Sodium Chloride Confirm 10/13/23 09:07 Sodium Chloride 0.9% 1000 Ml Administered 10/13/23 09:08 Dose 1,000 mls @ ud .ROUTE .[facility] Sodium Chloride Confirm 10/13/23 11:15 Sodium Chloride 0.9% 1000 Ml Administered 10/13/23 11:16 Dose 1,000 mls @ ud .ROUTE .[facility] Lab/Rad Data: Laboratory Result Diagrams 10/13/23 11:00 10/13/23 09:20 Laboratory Results 10/13/23 10/13/23 10/13/23 Range/Units 11:00 09:20 09:20 WBC 11.5 H 10.3 (4.0-10.5) x10^3/uL RBC 5.38 5.40 (4.1-5.6) x10^6/uL Hgb 15.6 15.7 (12.5-18.0) g/dL Hct 49.2 49.0 (42-50) % MCV 91.4 90.7 (78-100) fL MCH 29.0 29.1 (26-32) pg MCHC 31.7 L 32.0 (32-36) g/dL RDW 12.9 13.0 (11.5-14.0) % Plt Count 177 186 (150-450) x10^3/uL MPV 10.1 10.4 (7.5-11.0) fL Gran % 83.7 H 79.5 H (36.0-66.0) % Immature Gran % (Auto) 0.3 0.4 (0.00-0.4) % Nucleat RBC Rel Count 0.0 0.0 (0.00-0.1) % Eos # (Auto) 0.04 0.12 (0-0.5) x10^3/uL Immature Gran # (Auto) 0.03 0.04 H (0.00-0.03) x10^3u/L Absolute Lymphs (auto) 1.09 1.16 (1.0-4.6) x10^3/uL Absolute Monos (auto) 0.69 0.75 (0.0-1.3) x10^3/uL Absolute Nucleated RBC 0.00 0.00 (0.00-0.01) x10^3u/L Lymphocytes % 9.4 L 11.3 L (24.0-44.0) % Monocytes % 6.0 7.3 (0.0-12.0) % Eosinophils % 0.3 1.2 (0.00-5.0) % Basophils % 0.3 0.3 (0.0-0.4) % Absolute Granulocytes 9.66 H 8.17 H (1.4-6.9) x10^3/uL Basophils # 0.03 0.03 (0-0.4) x10^3/uL Sodium 139 (137-145) mmol/L Potassium 3.9 (3.5-5.1) mmol/L Chloride 102 (98-107) mmol/L Carbon Dioxide 29 (22-30) mmol/L Anion Gap 11.6 (5-15) MEQ/L BUN 21 H (9-20) mg/dL Creatinine 0.74 (0.66-1.25) mg/dL Estimated GFR 101.8 ML/MIN Glucose 119 H (74-106) mg/dL Calcium 9.1 (8.4-10.2) mg/dL Total Bilirubin 0.60 (0.2-1.3) mg/dL AST 36 (17-59) U/L ALT 44 (0-50) U/L Alkaline Phosphatase 103 (38-126) U/L Troponin I < 0.012 (0.000-0.034) ng/mL Serum Total Protein 8.7 H (6.3-8.2) g/dL Albumin 4.2 (3.5-5.0) g/dL Amylase 77 (30-110) U/L Lipase 34 (23-300) U/L 0003 CT/ABDOMEN AND PELVIS W/0 CONTRAS CLINICAL HISTORY: abdominal distension TECHNIQUE: An axial CT scan of the abdomen and pelvis was performed without IV contrast. Coronal and sagittal reconstructive images were also obtained. COMPARISON: None. FINDINGS: Small bowel loops are dilated with a maximum diameter measuring up to 3.7 cm showing air-fluid levels. No definite transition point was identified. There is a large 9.9 x 8.6 x 11.0cm exophytic fluid attenuated cyst with thin septae and focal wall calcification seen in the upper and mid pole of the right kidney. Anterosuperiorly it is closely abutting the liver with intact fat planes. Bilateral perinephric fat stranding seen as likely nonspecific. No calculi or hydronephrosis. Colonic diverticulosis without definite diverticulitis. The liver is normal in size. No focal or diffuse parenchymal abnormality. The portal vein, intrahepatic biliary radicals and the bile ducts are normal. The spleen, pancreas and adrenal glands are unremarkable. Status post cholecystectomy. There is no evidence of significant enlargement of the mesenteric or retroperitoneal lymph nodes. Hiatal hernia seen Small fat-containing umbilical hernia seen. Left inguinal hernia seen. The urinary bladder is unremarkable. A few prominent bilateral inguinal lymph nodes are seen. A tube is seen extending into the spinal canal with the attached machine in the anterior abdominal wall is seen. Grade 1 anterolisthesis of L5 over S1 with fractured L5-S1 pars interarticularis. Narrowing of L5-S1 disc space with vacuum phenomena. Anterior wedging of T11 and L1 vertebrae with superior end plates schmorl's nodes. Lumbar spondylosis with marginal osteophytes and osteoarthritis of facet joints. IMPRESSION: 1. Small bowel loops are dilated with maximum diameter measuring up to 3.7 cm showing air-fluid levels. No definite transition point identified with limitations of non-contrast examination. Possibility of ileus also needs consideration. 2. Large 9.9 x 8.6 x 11.0cm exophytic right renal fluid attenuated cyst with thin septae and wall calcification seen. Contrast study is advised For its further characterization. - Progress Progress: unchanged Progress Note: 10/13/23 10:49 . Patient has 2 large bouts of vomiting which was dark in color with some blood-tinged. Patient also has a renal mass. There is no urology service available in [facility]. We are trying to get patients at [facility]. Information is given at transfer center 10/13/23 11:36 Patient is transferred to [facility] ER Counseled pt/family regarding: lab results, diagnosis, need for follow-up, rad results Medical Desision Making - Discussion of managment Care discussed with:: specialist (Dr Alexandra (urologist)) Reviewed:: Test results, Need for additional workup Will see patient: in ED - Departure Departure Disposition: Transfer ([facility]) Clinical Impression: Renal mass, right, Paralytic ileus of small intestine, Complete small bowel obstruction Cerebral palsy Qualifiers: Cerebral palsy type: spastic diplegic Qualified Code(s): G80.1 - Spastic diplegic cerebral palsy Condition: Fair Critical Care Time: Yes Critical Care Time(excluding separately billable procedures): Critical 30-74 mins Referrals: ROSE GOLD [Primary Care Provider] - Follow up/PCP as directed
[2023-10-13] MEDS ORDERED: Sodium Chloride 0.9% 1000 ML 1,000 ML ONE ×3 (09:07→12:09)
[2023-10-13 09:35] LABS: Absolute Neutrophil Ct (ANC) 8.17 x10^3/uL (1.4-6.9); BASOPHIL % 0.3 % (0.0-0.4); Basophil (Absolute #) 0.03 x10^3/uL (0-0.4); Eosinophil % 1.2 % (0.00-5.0); Eosinophil (Absolute #) 0.12 x10^3/uL (0-0.5); Hemoglobin 15.7 g/dL (12.5-18.0); IMMATURE GRAN # 0.04 x10^3u/L (0.00-0.03); IMMATURE GRAN % 0.4 % (0.00-0.4); Lymphocyte (Absolute #) 1.16 x10^3/uL (1.0-4.6); Lymphocytes % 11.3 % (24.0-44.0); Mean Cell Volume 90.7 fL (78-100); Mean Corpuscular Hemoglobin 29.1 pg (26-32); Mean Platelet Volume 10.4 fL (7.5-11.0); Monocyte (Absolute #) 0.75 x10^3/uL (0.0-1.3); Monocytes % 7.3 % (0.0-12.0); Neutrophil % 79.5 % (36.0-66.0); Platelet Count 186 x10^3/uL (150-450); White Blood Count 10.3 x10^3/uL (4.0-10.5)
[2023-10-13 09:55] LABS: ALBUMIN 4.2 g/dL (3.5-5.0); ALKALINE PHOSPHATASE 103 U/L (38-126); AMYLASE 77 U/L (30-110); ANION GAP 11.6 MEQ/L (5-15); BLOOD UREA NITROGEN 21 mg/dL (9-20); CHLORIDE 102 mmol/L (98-107); Calcium 9.1 mg/dL (8.4-10.2); Carbon Dioxide 29 mmol/L (22-30); Creatinine 1 0.74 mg/dL (0.66-1.25); EST GLOMERULAR FILTRATION RATE 101.8 ML/MIN; Glucose 119 mg/dL (74-106); LIPASE 34 U/L (23-300); Potassium 3.9 mmol/L (3.5-5.1); SGOT/AST 36 U/L (17-59); SGPT/ALT 44 U/L (0-50); SODIUM 139 mmol/L (137-145); TROPONIN < 0.012 ng/mL (0.000-0.034); Total Protein 8.7 g/dL (6.3-8.2)
--- NOTE | 2023-10-13 10:20 | XRAY ---
CLINICAL HISTORY: abdominal distension TECHNIQUE: An axial CT scan of the abdomen and pelvis was performed without IV contrast. Coronal and sagittal reconstructive images were also obtained. COMPARISON: None. FINDINGS: Small bowel loops are dilated with a maximum diameter measuring up to 3.7 cm showing air-fluid levels. No definite transition point was identified. There is a large 9.9 x 8.6 x 11.0cm exophytic fluid attenuated cyst with thin septae and focal wall calcification seen in the upper and mid pole of the right kidney. Anterosuperiorly it is closely abutting the liver with intact fat planes. Bilateral perinephric fat stranding seen as likely nonspecific. No calculi or hydronephrosis. Colonic diverticulosis without definite diverticulitis. The liver is normal in size. No focal or diffuse parenchymal abnormality. The portal vein, intrahepatic biliary radicals and the bile ducts are normal. The spleen, pancreas and adrenal glands are unremarkable. Status post cholecystectomy. There is no evidence of significant enlargement of the mesenteric or retroperitoneal lymph nodes. Hiatal hernia seen Small fat-containing umbilical hernia seen. Left inguinal hernia seen. The urinary bladder is unremarkable. A few prominent bilateral inguinal lymph nodes are seen. A tube is seen extending into the spinal canal with the attached machine in the anterior abdominal wall is seen. Grade 1 anterolisthesis of L5 over S1 with fractured L5-S1 pars interarticularis. Narrowing of L5-S1 disc space with vacuum phenomena. Anterior wedging of T11 and L1 vertebrae with superior end plates schmorl's nodes. Lumbar spondylosis with marginal osteophytes and osteoarthritis of facet joints. IMPRESSION: 1. Small bowel loops are dilated with maximum diameter measuring up to 3.7 cm showing air-fluid levels. No definite transition point identified with limitations of non-contrast examination. Possibility of ileus also needs consideration. 2. Large 9.9 x 8.6 x 11.0cm exophytic right renal fluid attenuated cyst with thin septae and wall calcification seen. Contrast study is advised For its further characterization. Electronically Signed by: Ronaldo Loving MD. (10/13/2023 10:16:21 EST)
[2023-10-13 11:07] LABS: Absolute Neutrophil Ct (ANC) 9.66 x10^3/uL (1.4-6.9); BASOPHIL % 0.3 % (0.0-0.4); Basophil (Absolute #) 0.03 x10^3/uL (0-0.4); Eosinophil % 0.3 % (0.00-5.0); Eosinophil (Absolute #) 0.04 x10^3/uL (0-0.5); Hematocrit 49.2 % (42-50); Hemoglobin 15.6 g/dL (12.5-18.0); IMMATURE GRAN # 0.03 x10^3u/L (0.00-0.03); IMMATURE GRAN % 0.3 % (0.00-0.4); Lymphocyte (Absolute #) 1.09 x10^3/uL (1.0-4.6); Lymphocytes % 9.4 % (24.0-44.0); Mean Cell Volume 91.4 fL (78-100); Mean Corpuscular Hgb Concent. 31.7 g/dL (32-36); Mean Platelet Volume 10.1 fL (7.5-11.0); Monocyte (Absolute #) 0.69 x10^3/uL (0.0-1.3); Neutrophil % 83.7 % (36.0-66.0); Platelet Count 177 x10^3/uL (150-450); Red Blood Count 5.38 x10^6/uL (4.1-5.6); Red Cell Distribution Width 12.9 % (11.5-14.0); White Blood Count 11.5 x10^3/uL (4.0-10.5)
[2023-10-13 12:10] VITALS: BP 146/87; PULSE 88; RESP 22; O2SAT 95
[2023-10-13 12:12] LABS: ABO TYPING O; Antibody Screen NEGATIVE (NEGATIVE); RH TYPING POSITIVE
[2023-10-13] MEDS ORDERED: Sodium Chloride 0.9% 1000 ML 1,000 ML IV SCH (12:15)
[2023-10-13 12:36] LABS: CROSS MATCH (PRBC) COMPATIBLE (COMPATIBLE)
== END 2023-10-13 12:16 | disposition short-term general hospital (02) ==
LOC: ED 08:37
DX: K56.601 Complete intestinal obstruction, unspecified as to cause (principal); K56.0 Paralytic ileus; N28.89 Other specified disorders of kidney and ureter; G80.1 Spastic diplegic cerebral palsy; R11.2 Nausea with vomiting, unspecified; R10.9 Unspecified abdominal pain; I10 Essential (primary) hypertension; Z79.891 Long term (current) use of opiate analgesic; Z79.899 Other long term (current) drug therapy
CPT/HCPCS: 36000; 36415; 74176; 80053; 82150; 83690; 84484; 85025; 86850; 86900; 86901; 86922; 93041; 96360; 99285; 99291

== ENCOUNTER 2023-10-18 11:44 | Emergency (ER) | payer MEDICARE ==
--- NOTE | 2023-10-18 11:48 | ERPHSYRPT ---
- History of Present Illness Time Seen by Provider: 10/18/23 11:48 Historian: patient Exam Limitations: no limitations Physician History: This is a 63-year-old white male patient of Dr. Ramirez who has had constipation for 3 days. Patient was seen here on 10/13/2023 and was transferred to [facility] emergency room secondary to a right renal mass and a diagnosis of paralytic ileus. Patient was discharged to home few days ago and was supposed to pickling drum operator what it appears to be a prescription for Colace to help with his ileus/constipation. However the medications, per patient's primary caregiver, was never called in. Patient has a history of sleep apnea, gastroesophageal reflux disease, ulcer disease and spastic quadriplegia. Patient is in no distress. He has not been vomiting and he has no abdominal pain. Timing/Duration: day(s) (3) Activities at Onset: none Quality: other (No complaints of abdominal pain) Severity of Pain-Max: none Severity of Pain-Current: none Modifying Factors: Improves With: nothing Associated Symptoms: other (The patient) Previous symptoms: recently seen, recent hospitalization Allergies/Adverse Reactions: triamcinolone Allergy (Unknown, Verified 10/18/23 12:05) Home Medications: Tamsulosin HCl 0.4 mg [Flomax 0.4 MG] 0.4 mg PO DAILY 03/06/22 [History] Loratadine 10 mg [Claritin 10 mg] 10 mg PO HS 08/15/23 [History] Hx Tetanus, Diphtheria Vaccination/Date Given: Yes Hx Influenza Vaccination/Date Given: (unknown) Hx Pneumococcal Vaccination/Date Given: (unknown) Travel Risk - International Travel Have you traveled outside of the country in past 3 weeks: No - Coronavirus Screening Are you exhibiting any of the following symptoms?: No Close contact with a COVID-19 positive Pt in past 14-21 Days: No - Vaccine Status Have you recieved a Covid-19 vaccination: No (unknown) Travel Assistant: Unknown - Vaccination Dates Dates if Unknown: unknown - Review of Systems Constitutional: No Symptoms Eyes: No Symptoms Ears, Nose, & Throat: No Symptoms Respiratory: No Symptoms Cardiac: No Symptoms Abdominal/Gastrointestinal: Constipation, No Abdominal Pain, No Nausea, No Vomiting, No Diarrhea Genitourinary Symptoms: No Symptoms Musculoskeletal: No Symptoms Skin: No Symptoms Neurological: No Symptoms Psychological: No Symptoms Endocrine: No Symptoms Hematologic/Lymphatic: No Symptoms Immunological/Allergic: No Symptoms All Other Systems: Reviewed and Negative - Past Medical History Pertinent Past Medical History: Yes Neurological History: Other ENT History: No Pertinent History Cardiac History: Hypertension Respiratory History: Sleep Apnea Endocrine Medical History: No Pertinent History Musculoskeletal History: Fractures GI Medical History: GERD, Gallbladder Disease, Ulcer History: No Pertinent History Psycho-Social History: No Pertinent History Male Reproductive Disorders: No Pertinent History Other Medical History: PATIENT DX'D WITH SPASTIC QUADRIPLEGIA AT , SPEECH DYSARTHIRA, HX FX RIGHT LOWER LEG, GERD, CHOLECYSTECTOMY, BACK AND NECK SURGERY (? D/T STENOSIS - PATIENT UNSURE). HAS BACLOFEN PUMP LEFT LOWER ABDOMINAL REGION. - Past Surgical History Past Surgical History: Yes Neuro Surgical History: No Pertinent History Cardiac: No Pertinent History Respiratory: No Pertinent History Gastrointestinal: Cholecystectomy Genitourinary: No Pertinent History Musculoskeletal: Orthopedic Surgery Male Surgical History: No Pertinent History Other Surgical History: Back, Neck, and ankle surgery. Colonoscopy, Baclofen pump in left abdomen area per patient care representative at bedside. - Social History Smoking Status: Never smoker Exposure to second hand smoke: No Drug Use: none Patient Lives Alone: No - Nursing Vital Signs Nursing Vital Signs: Initial Vital Signs Temperature 96.6 F 10/18/23 12:05 Pulse Rate 77 10/18/23 12:05 Respiratory Rate 22 10/18/23 12:05 Blood Pressure 135/87 10/18/23 12:05 O2 Sat by Pulse Oximetry 92 L 10/18/23 12:05 Pain Scale Pain Intensity 0 - Physical Exam General Appearance: no apparent distress, alert Eye Exam: PERRL/EOMI, eyes nml inspection Ears, Nose, Throat Exam: normal ENT inspection, moist mucous membranes Neck Exam: normal inspection, non-tender, supple, full range of motion Respiratory Exam: normal breath sounds, lungs clear, airway intact, No chest tenderness Cardiovascular Exam: regular rate/rhythm, normal heart sounds, normal peripheral pulses Gastrointestinal/Abdomen Exam: soft, normal bowel sounds, No tenderness, No guarding Rectal Exam: not done Back Exam: normal inspection, normal range of motion, No CVA tenderness, No vertebral tenderness Extremity Exam: normal inspection, normal range of motion, pelvis stable Neurologic Exam: alert, oriented x 3, cooperative, arc cutter plasma arc II-XII nml as tested, normal mood/affect Skin Exam: normal color, warm, dry Lymphatic Exam: No adenopathy SpO2 Interpretation: normal O2 Delivery: Room Air - Course Nursing assessment & vital signs reviewed: Yes Ordered Tests: Active Orders 24 hr Category Date Time Status Enema STAT Care 10/18/23 12:56 Ordered KUB Stat Exams 10/18/23 12:24 Taken - Progress Progress Note: 10/18/23 12:39 Patient's medical issue is 1 of low complexity. The level of complexity and the workup performed is based on review of the patient's past medical history, review of the patient's medication list, review of patient drug allergy list, history present illness and physical findings on examination. The workup in this patient includes KUB. Will be evaluating this for the presence of excessive stool, air-fluid levels, free air under the diaphragm. Patient is in no distress. He is smiling. His abdomen has normal bowel sounds and does not appear to be distended. If there is stool present then we will provide the patient a take-home fleets enema and send a prescription to his pharmacy for MiraLAX. 10/18/23 12:57 I interpreted the KUB results. There is stool and air in the rectum. There is a moderate amount of stool diffusely. There are no obvious air-fluid levels or free air on this study. Counseled pt/family regarding: diagnosis, need for follow-up, rad results Medical Desision Making - Independent Historian Additional History obtained from: Test Development Engineer - Diagnostic Testing Diagnostic test were ordered, analyzed, and reviewed by me: Yes Radiological Interpretation: Interpreted by me - Risk of complications The pt has a mod risk of morbidity or mortality based on: Need for prescription drug management - Departure Departure Disposition: Home Clinical Impression: Constipation Condition: Stable Critical Care Time: No Referrals: ROSE RAMIREZ [Primary Care Provider] - Follow up/PCP as directed Additional Instructions: Drink plenty of clear liquids. Take your medication as prescribed. Call your primary care provider today, 10/18/2023, to make arrangements for further evaluation management including bowel hygiene arrangements Prescriptions: Docusate Sodium [Colace] 100 mg PO BID #20 cap Polyethylene Glycol 3350 17 gm [Miralax Powder 17GM PACKET] 17 gm PO DAILY #5 packet
[2023-10-18 12:13] VITALS: PULSE 77; RESP 22; TEMP 96.6; O2SAT 92
--- NOTE | 2023-10-18 13:02 | XRAY ---
Indication: Constipation. Comparison: CT abdomen/pelvis October 13, 2023. KUB nonacute and nonobstructed with little fecal debris predominantly in transverse colon. Again cholecystomy clips. Solid organs unremarkable. Osseous structures intact again with osteopenia and lower lumbar degenerative changes.
[2023-10-18 13:07] VITALS: BP 132/82
== END 2023-10-18 13:34 | disposition home or self-care (01) ==
LOC: ED 11:44
DX: K59.00 Constipation, unspecified (principal); I10 Essential (primary) hypertension; G80.0 Spastic quadriplegic cerebral palsy; Z79.899 Other long term (current) drug therapy
CPT/HCPCS: 74018; 99283

== ENCOUNTER 2023-12-01 18:29 | Emergency (ER) | payer MEDICARE ==
[2023-12-01 18:40] VITALS: RESP 16; TEMP 97.2
[2023-12-01 18:54] LABS: Appearance Clear (Clear); Bacteria None Seen /HPF (None Seen); Bilirubin Negative (Negative); Blood Negative (Negative); Epithelial Cells None Seen /HPF (None Seen); Glucose, Urine Negative (Negative); Hyaline Casts NONE SEEN /LPF (0-2); Ketones Negative (Negative); Leukocyte Esterase Negative (Negative); Nitrite Negative (Negative); Protein,Urine Dip Negative (Negative); RBC 0-2 /HPF (0-5); Urobilinogen 0.2 mg/dL (0.2)
[2023-12-01 18:58] LABS: ADD URINE CULTURE? ORDERED SEPARATELY (NO)
--- NOTE | 2023-12-01 18:58 | ERPHSYRPT ---
- History of Present Illness Time Seen by Provider: 12/01/23 18:45 Source: other (Caregiver) Exam Limitations: clinical condition, other (Mental handicap) Patient Subjective Stated Complaint: pt here for urinary retention today. aid states he has void less than 300 today, no fever, has been drinking water, no cos. has hx of UTI Triage Nursing Assessment: pt alert, arrived per wc, hard to understand at times, resp easy, skin w/d/p. abd soft, nontender Timing/Duration: today Activites at Onset: rest Onset Location: unknown Pain Radiation: none Severity of Pain-Max: none Severity of Pain-Current: none Modifying Factors: Improves With: nothing Associated Symptoms: denies symptoms Prior abdominal problems: none Allergies/Adverse Reactions: triamcinolone Allergy (Unknown, Verified 12/01/23 18:34) Home Medications: Tamsulosin HCl 0.4 mg [Flomax 0.4 MG] 0.4 mg PO DAILY 03/06/22 [History] Loratadine 10 mg [Claritin 10 mg] 10 mg PO HS 08/15/23 [History] Hx Tetanus, Diphtheria Vaccination/Date Given: Yes Hx Influenza Vaccination/Date Given: (unknown) Hx Pneumococcal Vaccination/Date Given: (unknown) Immunizations Up to Date: Yes Travel Risk - International Travel Have you traveled outside of the country in past 3 weeks: No - Coronavirus Screening Are you exhibiting any of the following symptoms?: No Close contact with a COVID-19 positive Pt in past 14-21 Days: No - Vaccine Status Have you recieved a Covid-19 vaccination: No (unknown) Vp Client Services: Unknown - Vaccination Dates Dates if Unknown: unknown - Past Medical History Pertinent Past Medical History: Yes Neurological History: Other (Mental handicap) ENT History: No Pertinent History Cardiac History: Hypertension Respiratory History: Sleep Apnea Endocrine Medical History: No Pertinent History Musculoskeletal History: Fractures GI Medical History: GERD, Gallbladder Disease, Ulcer History: No Pertinent History Psycho-Social History: No Pertinent History Male Reproductive Disorders: No Pertinent History Other Medical History: PATIENT DX'D WITH SPASTIC QUADRIPLEGIA AT , SPEECH DYSARTHIRA, HX FX RIGHT LOWER LEG, GERD, CHOLECYSTECTOMY, BACK AND NECK SURGERY (? D/T STENOSIS - PATIENT UNSURE). HAS BACLOFEN PUMP LEFT LOWER ABDOMINAL REGION. - Past Surgical History Past Surgical History: Yes Neuro Surgical History: No Pertinent History Cardiac: No Pertinent History Respiratory: No Pertinent History Gastrointestinal: Cholecystectomy Genitourinary: No Pertinent History Musculoskeletal: Orthopedic Surgery Male Surgical History: No Pertinent History Other Surgical History: Back, Neck, and ankle surgery. Colonoscopy, Baclofen pump in left abdomen area per rn patient care at bedside. - Social History Smoking Status: Never smoker Exposure to second hand smoke: No Drug Use: none Patient Lives Alone: No - Review of Systems Eyes: No Symptoms Ears, Nose, & Throat: No Symptoms Respiratory: No Symptoms Cardiac: No Symptoms Abdominal/Gastrointestinal: No Symptoms Genitourinary Symptoms: No Symptoms Musculoskeletal: No Symptoms Skin: No Symptoms Neurological: No Symptoms Psychological: No Symptoms Endocrine: No Symptoms Hematologic/Lymphatic: No Symptoms - Nursing Vital Signs Nursing Vital Signs: Initial Vital Signs Temperature 97.2 F 12/01/23 18:39 Pulse Rate 74 12/01/23 18:39 Respiratory Rate 16 12/01/23 18:39 Blood Pressure 133/87 12/01/23 18:39 O2 Sat by Pulse Oximetry 97 12/01/23 18:39 Pain Scale Pain Intensity 0 - Physical Exam General Appearance: no apparent distress Eye Exam: PERRL/EOMI Ears, Nose, Throat Exam: moist mucous membranes Respiratory Exam: normal breath sounds Cardiovascular Exam: regular rate/rhythm Gastrointestinal/Abdomen Exam: soft, other (There is a baclofen pump on the left upper quadrant) SpO2: 97 Ordered Tests: Active Orders 24 hr Category Date Time Status CULTURE,URINE Stat Lab 12/01/23 18:42 Received UA W/RFX UR CULTURE Stat Lab 12/01/23 18:42 Completed Lab/Rad Data: Laboratory Results 12/01/23 Range/Units 18:42 Urine Color Yellow (Yellow) Urine Appearance Clear (Clear) Urine pH 7.0 (4.6-8.0) Ur Specific [place] 1.020 (1.005-1.030) Urine Protein Negative (Negative) Urine Glucose (UA) Negative (Negative) mg/dL Urine Ketones Negative (Negative) Urine Blood Negative (Negative) Urine Nitrite Negative (Negative) Urine Bilirubin Negative (Negative) Urine Urobilinogen 0.2 (0.2) mg/dL Ur Leukocyte Esterase Negative (Negative) U Hyaline Cast (Auto) NONE SEEN (0-2) /LPF Urine Microscopic RBC 0-2 (0-5) /HPF Urine Microscopic WBC 3-5 (0-5) /HPF Ur Epithelial Cells None Seen (None Seen) /HPF Urine Bacteria None Seen (None Seen) /HPF Urine Culture Reflexed ORDERED SEPARATELY (NO) - Progress Progress Note: Patient was monitored here in the department and has produced another 100 cc in his Bustos catheter he has no symptoms at this time. His caregivers feel comfortable taking him home and will return if his symptoms were to get worse. They will continue to monitor his oral intake and urine output 12/01/23 19:16 Medical Desision Making - Discussion of managment Reviewed:: Need for additional workup Agreed on:: need for follow-up - Departure Clinical Impression: Dehydration, Urinary retention Condition: Stable Critical Care Time: No Referrals: ROSE GOLD [Primary Care Provider] - Follow up/PCP as directed
[2023-12-01 19:17] VITALS: BP 137/82; PULSE 60
[2023-12-01 19:19] VITALS: O2SAT 97
== END 2023-12-01 19:21 | disposition home or self-care (01) ==
LOC: ED 18:29
DX: E86.0 Dehydration (principal); R33.9 Retention of urine, unspecified; I10 Essential (primary) hypertension; G80.0 Spastic quadriplegic cerebral palsy; Z79.899 Other long term (current) drug therapy
CPT/HCPCS: 51702; 81001; 87086; 99283

== ENCOUNTER 2023-12-12 09:57 | Emergency (ER) | payer MEDICARE ==
--- NOTE | 2023-12-12 10:03 | ERPHSYRPT ---
- History of Present Illness Time Seen by Provider: 12/12/23 10:03 Source: patient, other Exam Limitations: no limitations Physician History: This is a 63-year-old white male patient of Dr. 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 He presents to the emergency department for medical screening exam. Patient was in his chair and slid out of it. He did not actually fall. He did not hit his head. He has no complaints of pain whatsoever. He lives in a long-term and per their protocol he is to be evaluated. Ordinarily, when this happens, the patient is able to help himself up. However, he was too weak to help himself up at that time. When this has occurred in the past he usually has a urinary tract infection. Patient was brought in by the paramedics who stated that the patient was able to get up and move on his own to a cot. Occurred: just prior to arrival Reason for Fall: unknown Injuries/Pain Location: no injury Loss of Consciousness: no loss of consciousness Quality: other (No pain) Severity of Pain-Max: none Severity of Pain-Current: none Associated Symptoms (Fall): denies symptoms Allergies/Adverse Reactions: triamcinolone Allergy (Unknown, Verified 12/01/23 18:34) Home Medications: Tamsulosin HCl 0.4 mg [Flomax 0.4 MG] 0.4 mg PO DAILY 03/06/22 [History] Loratadine 10 mg [Claritin 10 mg] 10 mg PO HS 08/15/23 [History] Hx Tetanus, Diphtheria Vaccination/Date Given: Yes Hx Influenza Vaccination/Date Given: (unknown) Hx Pneumococcal Vaccination/Date Given: (unknown) Travel Risk - International Travel Have you traveled outside of the country in past 3 weeks: No - Emerging Infectious Disease Are you exhibiting symptoms associated with any current EIDs: No - Review of Systems Constitutional: No Symptoms Eyes: No Symptoms Ears, Nose, & Throat: No Symptoms Respiratory: No Symptoms Cardiac: No Symptoms Abdominal/Gastrointestinal: No Symptoms Genitourinary Symptoms: No Symptoms Musculoskeletal: No Symptoms Skin: No Symptoms Neurological: No Symptoms Psychological: No Symptoms Endocrine: No Symptoms Hematologic/Lymphatic: No Symptoms Immunological/Allergic: No Symptoms All Other Systems: Reviewed and Negative - Past Medical History Pertinent Past Medical History: Yes Neurological History: Other (Mental handicap) ENT History: No Pertinent History Cardiac History: Hypertension Respiratory History: Sleep Apnea Endocrine Medical History: No Pertinent History Musculoskeletal History: Fractures GI Medical History: GERD, Gallbladder Disease, Ulcer History: No Pertinent History Psycho-Social History: No Pertinent History Male Reproductive Disorders: No Pertinent History Other Medical History: PATIENT DX'D WITH SPASTIC QUADRIPLEGIA AT , SPEECH DYSARTHIRA, HX FX RIGHT LOWER LEG, GERD, CHOLECYSTECTOMY, BACK AND NECK SURGERY (? D/T STENOSIS - PATIENT UNSURE). HAS BACLOFEN PUMP LEFT LOWER ABDOMINAL REGION. - Past Surgical History Past Surgical History: Yes Neuro Surgical History: No Pertinent History Cardiac: No Pertinent History Respiratory: No Pertinent History Gastrointestinal: Cholecystectomy Genitourinary: No Pertinent History Musculoskeletal: Orthopedic Surgery Male Surgical History: No Pertinent History Other Surgical History: Back, Neck, and ankle surgery. Colonoscopy, Baclofen pump in left abdomen area per care specialist at bedside. - Social History Smoking Status: Never smoker Exposure to second hand smoke: No Drug Use: none Patient Lives Alone: No - Nursing Vital Signs Nursing Vital Signs: Initial Vital Signs Temperature 97.2 F 12/12/23 09:58 Pulse Rate 71 12/12/23 09:58 Respiratory Rate 20 12/12/23 09:58 Blood Pressure 126/79 12/12/23 09:58 O2 Sat by Pulse Oximetry 94 L 12/12/23 09:58 Pain Scale Pain Intensity 0 - Carlito Coma Score Best Eye Response (Carlito): (4) open spontaneously Best Verbal Response (Carlito): (5) oriented Best Motor Response (Carlito): (6) obeys commands Carlito Total: 15 - Physical Exam General Appearance: no apparent distress, alert, anxiety Head Injury: no evidence of injury Eye Exam: PERRL/EOMI, eyes nml inspection ENT Exam: airway nml, nml ext.inspection, No evidence of ENT injury Neck Exam: supple, trachea midline, full range of motion, normal alignment, normal inspection Respiratory/Chest Exam: chest tenderness, respiratory distress, No normal breath sounds, No ecchymosis, No crepitus Cardiovascular Exam: normal heart sounds, regular rate/rhythm Gastrointestinal Exam: soft, normal bowel sounds, No tenderness Rectal Exam: not done Back Exam: normal inspection, normal range of motion, No CVA tenderness, No vertebral tenderness Extremity Exam: normal inspection, normal range of motion, pelvis stable Neurologic Exam: alert, oriented x 3, cooperative, big data developer II-XII nml as tested, normal mood/affect, nml cerebellar function, nml station & gait, sensation nml Skin Exam: normal color, warm, dry SpO2 Interpretation: normal O2 Delivery: Room Air - Course Nursing assessment & vital signs reviewed: Yes Ordered Tests: Active Orders 24 hr Category Date Time Status UA W/RFX UR CULTURE Stat Lab 12/12/23 10:38 Completed Medication Summary Discontinued Medications Generic Name Dose Route Start Last Admin Trade Name Freq PRN Reason Stop Dose Admin Metoprolol Tartrate 5 mg 12/12/23 10:46 12/12/23 10:51 Metoprolol Tartrate 5 Mg/5 Ml Vial IV 12/12/23 10:47 Not Given STAT ONE Lab/Rad Data: Laboratory Results 12/12/23 Range/Units 10:38 Urine Color Yellow (Yellow) Urine Appearance Clear (Clear) Urine pH 6.0 (4.6-8.0) Ur Specific [place] 1.020 (1.005-1.030) Urine Protein Negative (Negative) Urine Glucose (UA) Negative (Negative) mg/dL Urine Ketones Negative (Negative) Urine Blood Negative (Negative) Urine Nitrite Negative (Negative) Urine Bilirubin Negative (Negative) Urine Urobilinogen 0.2 (0.2) mg/dL Ur Leukocyte Esterase Negative (Negative) U Hyaline Cast (Auto) NONE SEEN (0-2) /LPF Urine Microscopic RBC 0-2 (0-5) /HPF Urine Microscopic WBC 3-5 (0-5) /HPF Ur Epithelial Cells None Seen (None Seen) /HPF Urine Bacteria None Seen (None Seen) /HPF Urine Culture Reflexed NO (NO) - Progress Progress: re-examined Progress Note: 12/12/23 10:52 This patient's medical issue is 1 of low complexity. Level complexity in the workup performed is based on review of the patient's past medical history, review the patient's medication list, review of patient drug allergy list, history present illness and physical findings on examination. This patient's workup includes a urinalysis. The urinalysis was interpreted by me. There is no evidence of any acute or emergent medical issue based on his urinalysis. Counseled pt/family regarding: lab results, diagnosis, need for follow-up Medical Desision Making - Independent Historian Additional History obtained from: Flat Sorter Processor - Diagnostic Testing Diagnostic test were ordered, analyzed, and reviewed by me: Yes - Risk of complications Minimal Risk: Minimal risk of morbidity - Departure Departure Disposition: Home Clinical Impression: Encounter for medical screening examination, Fall with no significant injury Condition: Stable Critical Care Time: No Referrals: ROSE RAMIREZ [Primary Care Provider] - Follow up/PCP as directed Additional Instructions: Continue your diet, medications and other outpatient therapy. Follow-up with your primary care physician as needed
[2023-12-12 10:05] VITALS: TEMP 97.2; O2SAT 94
[2023-12-12 10:50] LABS: ADD URINE CULTURE? NO (NO); Appearance Clear (Clear); Bacteria None Seen /HPF (None Seen); Bilirubin Negative (Negative); Blood Negative (Negative); Epithelial Cells None Seen /HPF (None Seen); Glucose, Urine Negative (Negative); Hyaline Casts NONE SEEN /LPF (0-2); Ketones Negative (Negative); Leukocyte Esterase Negative (Negative); Nitrite Negative (Negative); Protein,Urine Dip Negative (Negative); RBC 0-2 /HPF (0-5); Urobilinogen 0.2 mg/dL (0.2)
[2023-12-12] MEDS: LOPRESSOR INJECTION IV ONE (10:51)
[2023-12-12 11:04] VITALS: BP 105/69; PULSE 58; RESP 13
== END 2023-12-12 11:09 | disposition home or self-care (01) ==
LOC: ED 09:57
DX: Z04.3 Encounter for examination and observation following other accident (principal); Z79.899 Other long term (current) drug therapy
CPT/HCPCS: 81001; 99283; P9612

== ENCOUNTER 2023-12-26 11:00 | Emergency (ER) | payer MEDICARE ==
[2023-12-26 11:22] VITALS: BP 136/75; RESP 18; TEMP 97.7; O2SAT 96
--- NOTE | 2023-12-26 11:30 | ERPHSYRPT ---
- History of Present Illness Time Seen by Provider: 12/26/23 11:25 Source: patient, old records, other (Dowel Pin Worker from care home.) Exam Limitations: other (Patient has significant speech dysarthria and therefore additional, independent history is obtained from the patient's deputy assessor at the residential) Patient Subjective Stated Complaint: C/O left ankle and left shoulder pain following a fall last night trying to get into bed. States his legs gave out on him. Triage Nursing Assessment: Patient arrived in electric W/C. He is alert and oriented. Sunburn noted to top of head and BLE upon arrival. Some swelling present to left ankle. Patient indicates pain to ankle is isolated to the outer portion of the ankle. No bruising or abrasions noted to ankle or shoulder. Physician History: This is a 63-year-old white male patient of Dr. Ramirez has a history of cerebral palsy, spastic quadriplegia, speech dysarthria, mildly mentally handicapped, gastroesophageal reflux disease, hypertension and prostate issues and who is wheelchair-bound. Patient sits upright in his wheelchair and essentially is wheelchair-bound. Patient fell out of his chair while sitting on it last evening. He complained of left shoulder pain and outer left ankle pain this morning and therefore per the residential protocol, he was brought in for evaluation. He did not hit his head and has no complaints of a headache or neck pain. Occurred: yesterday Injuries/Pain Location: upper extremity (Left shoulder), lower extremity (Outer left ankle) Loss of Consciousness: no loss of consciousness Quality: aching Severity of Pain-Max: mild Severity of Pain-Current: mild Modifying Factors: Improves With: nothing Associated Symptoms (Fall): extremity injury (Outer left shoulder and outer left ankle) Allergies/Adverse Reactions: triamcinolone Allergy (Unknown, Verified 12/26/23 11:10) Home Medications: Tamsulosin HCl 0.4 mg [Flomax 0.4 MG] 0.4 mg PO DAILY 03/06/22 [History] Loratadine 10 mg [Claritin 10 mg] 10 mg PO HS 08/15/23 [History] Alendronate Sodium 70 mg [Fosamax 70 MG] 1 tab PO WEEKLY 12/26/23 [History] Calcium Carbonate/Vitamin D3 [Calcium 600-Vit D3 400 Tablet] 1 tab PO BID 12/26/23 [History] Dicyclomine HCl 1 cap PO QID 12/26/23 [History] Docusate Sodium [Colace] 1 cap PO BID 12/26/23 [History] Escitalopram Oxalate [Lexapro] 1 tab PO HS 12/26/23 [History] Famotidine 20 mg [Pepcid 20 MG] 40 mg PO DAILY 12/26/23 [History] Hx Tetanus, Diphtheria Vaccination/Date Given: Yes Hx Influenza Vaccination/Date Given: (unknown) Hx Pneumococcal Vaccination/Date Given: (unknown) Immunizations Up to Date: Yes Travel Risk - International Travel Have you traveled outside of the country in past 3 weeks: No - Emerging Infectious Disease Are you exhibiting symptoms associated with any current EIDs: No - Review of Systems Constitutional: No Symptoms Eyes: No Symptoms Ears, Nose, & Throat: No Symptoms Respiratory: No Symptoms Cardiac: No Symptoms Abdominal/Gastrointestinal: No Symptoms Genitourinary Symptoms: No Symptoms Musculoskeletal: Fall, Injury (Left shoulder and left ankle) Skin: No Symptoms Neurological: No Symptoms Psychological: No Symptoms Endocrine: No Symptoms Hematologic/Lymphatic: No Symptoms Immunological/Allergic: No Symptoms All Other Systems: Reviewed and Negative - Past Medical History Pertinent Past Medical History: Yes Neurological History: Other ENT History: No Pertinent History Cardiac History: Hypertension Respiratory History: Sleep Apnea Endocrine Medical History: No Pertinent History Musculoskeletal History: Fractures GI Medical History: GERD, Gallbladder Disease, Ulcer History: No Pertinent History Psycho-Social History: No Pertinent History Male Reproductive Disorders: No Pertinent History Other Medical History: PATIENT DX'D WITH SPASTIC QUADRIPLEGIA AT , SPEECH DYSARTHIRA, HX FX RIGHT LOWER LEG,. HAS BACLOFEN PUMP LEFT LOWER ABDOMINAL REGION. - Past Surgical History Past Surgical History: Yes Neuro Surgical History: No Pertinent History Cardiac: No Pertinent History Respiratory: No Pertinent History Gastrointestinal: Cholecystectomy Genitourinary: No Pertinent History Musculoskeletal: Orthopedic Surgery Male Surgical History: No Pertinent History Other Surgical History: Back, Neck, and ankle surgery. Colonoscopy, Baclofen pump in left abdomen area per transitions rn care coordinator at bedside. - Social History Smoking Status: Never smoker Exposure to second hand smoke: No Drug Use: none Patient Lives Alone: No - Nursing Vital Signs Nursing Vital Signs: Initial Vital Signs Temperature 97.7 F 12/26/23 11:05 Pulse Rate 92 H 12/26/23 11:05 Respiratory Rate 18 12/26/23 11:05 Blood Pressure 136/75 12/26/23 11:05 O2 Sat by Pulse Oximetry 96 12/26/23 11:05 Pain Scale Pain Intensity 5 - Carlito Coma Score Best Eye Response (Carlito): (4) open spontaneously Best Verbal Response ([place]ur): (5) oriented Best Motor Response ([place]ur): (6) obeys commands Carlito Total: 15 - Physical Exam General Appearance: no apparent distress, alert Head Injury: no evidence of injury Eye Exam: PERRL/EOMI, eyes nml inspection ENT Exam: airway nml, nml ext.inspection Neck Exam: supple, trachea midline, full range of motion, normal alignment, normal inspection Respiratory/Chest Exam: normal breath sounds, No chest tenderness, No respiratory distress, No ecchymosis, No crepitus Cardiovascular Exam: normal heart sounds, regular rate/rhythm Gastrointestinal Exam: No tenderness Rectal Exam: not done Back Exam: normal inspection, other (Patient has spastic quadriplegia and cerebral palsy) Extremity Exam: other (Patient has spastic quadriplegia and cerebral palsy) Neurologic Exam: alert, oriented x 3, cooperative, other (Patient has spastic quadriplegia and cerebral palsy) Skin Exam: normal color, warm, dry SpO2 Interpretation: normal SpO2: 96 O2 Delivery: Room Air - Course Nursing assessment & vital signs reviewed: Yes Ordered Tests: Active Orders 24 hr Category Date Time Status ANKLE (3 VIEWS) Stat Exams 12/26/23 11:33 Completed SHOULDER Stat Exams 12/26/23 11:33 Completed - Progress Progress: unchanged Progress Note: 12/26/23 11:41 My medical decision making and the patient's level of complexity is based on review of the patient's past medical history, review of the patient's medication list, review of the patient's drug allergy list, history of present illness and physical findings on examination. The workup in this patient includes x-ray of the patient's left shoulder and x-ray of the patient's left ankle. The differential diagnosis in this patient is contusion of left shoulder, contusion of left ankle, dislocated left shoulder, dislocated left ankle, closed fractures of the left ankle and left shoulder. 12/26/23 12:34 The patient's left shoulder x-ray was interpreted by the radiologist and I reviewed the impression. Impression states mild AC degenerative changes without acute fracture or dislocation. The patient's left ankle x-ray was interpreted by the radiologist and I reviewed the impression. There is mild soft tissue swelling without evidence of acute fracture or dislocation. Counseled pt/family regarding: diagnosis, need for follow-up Medical Desision Making - Independent Historian Additional History obtained from: Dowel Pin Worker - Diagnostic Testing Diagnostic test were ordered, analyzed, and reviewed by me: Yes Radiological Interpretation: Reviewed by me, Teleradiologist Report - Risk of complications Low Risk: Low risk of morbidity from additional dx testing or treatment - Departure Departure Disposition: Home Clinical Impression: Fall with no significant injury Condition: Stable Critical Care Time: No Referrals: ROSE RAMIREZ [Primary Care Provider] - Follow up/PCP as directed Additional Instructions: Ice pack to tender areas 3 times a day for the next 48 hours. May use Tylenol and ibuprofen to tender areas as discussed if there are no contraindications. Follow-up with outpatient primary care provider if symptoms persist beyond 72 hours.
[2023-12-26 12:03] VITALS: PULSE 88
--- NOTE | 2023-12-26 12:18 | XRAY ---
Indication: Pain following fall. Comparison: None 3 view left ankle demonstrates osteopenia, tiny posterior heel spur, and mild soft tissue swelling. No other bony, articular, or soft tissue abnormalities.
--- NOTE | 2023-12-26 12:21 | XRAY ---
Indication: Pain following fall. Comparison: None 3 view left shoulder demonstrates osteopenia, mild AC degenerative changes, old posterior 6 rib fracture, and small left hilar calcified node. No other bony, articular, or soft tissue abnormalities.
== END 2023-12-26 12:45 | disposition home or self-care (01) ==
LOC: ED 11:00
DX: Z04.3 Encounter for examination and observation following other accident (principal); M25.512 Pain in left shoulder; M25.572 Pain in left ankle and joints of left foot; G80.0 Spastic quadriplegic cerebral palsy; I10 Essential (primary) hypertension; Z99.3 Dependence on wheelchair; Z79.899 Other long term (current) drug therapy
CPT/HCPCS: 73030; 73610; 99282

== ENCOUNTER 2023-12-28 08:38 | Emergency (ER) | payer MEDICARE ==
[2023-12-28 08:50] VITALS: TEMP 97.1
--- NOTE | 2023-12-28 09:02 | ERPHSYRPT ---
- History of Present Illness Time Seen by Provider: 12/28/23 08:47 Source: patient Exam Limitations: no limitations Patient Subjective Stated Complaint: Pt fell yesterday and hit the top of his head and it is his home health policy to come and get checked out if they hit t heir head Triage Nursing Assessment: Pt brought to the ER by EMS, hypertensive, denies pain, abrasion to top of head, pulses normal, skin n/w/d, denies LOC, denies N&V, pt unsure what he hit, doesn't appear to be in any distress Physician History: Reportedly pt fell last night and hit his head without loss of consciousness; denies chest pain, shortness of air, abdominal pain, nausea, vomiting, tingling/numbness. Pt states he has had cerebral palsy since and cannot move his legs much. Allergies/Adverse Reactions: triamcinolone Allergy (Unknown, Verified 12/28/23 08:51) Home Medications: Tamsulosin HCl 0.4 mg [Flomax 0.4 MG] 0.4 mg PO DAILY 03/06/22 [History] Loratadine 10 mg [Claritin 10 mg] 10 mg PO HS 08/15/23 [History] Alendronate Sodium 70 mg [Fosamax 70 MG] 1 tab PO WEEKLY 12/26/23 [History] Calcium Carbonate/Vitamin D3 [Calcium 600-Vit D3 400 Tablet] 1 tab PO BID 12/26/23 [History] Dicyclomine HCl 1 cap PO QID 12/26/23 [History] Docusate Sodium [Colace] 1 cap PO BID 12/26/23 [History] Escitalopram Oxalate [Lexapro] 1 tab PO HS 12/26/23 [History] Famotidine 20 mg [Pepcid 20 MG] 40 mg PO DAILY 12/26/23 [History] Hx Tetanus, Diphtheria Vaccination/Date Given: Yes Hx Influenza Vaccination/Date Given: (unknown) Hx Pneumococcal Vaccination/Date Given: (unknown) Travel Risk - International Travel Have you traveled outside of the country in past 3 weeks: No - Emerging Infectious Disease Are you exhibiting symptoms associated with any current EIDs: No - Review of Systems Constitutional: No Fever Ears, Nose, & Throat: No Ear Pain, No Throat Pain Respiratory: No Dyspnea Cardiac: No Chest Pain Abdominal/Gastrointestinal: No Abdominal Pain, No Nausea, No Vomiting Musculoskeletal: No Back Pain, No Neck Pain Neurological: No Headache - Past Medical History Pertinent Past Medical History: Yes Neurological History: Other ENT History: No Pertinent History Cardiac History: Hypertension Respiratory History: Sleep Apnea Endocrine Medical History: No Pertinent History Musculoskeletal History: Fractures GI Medical History: GERD, Gallbladder Disease, Ulcer History: No Pertinent History Psycho-Social History: No Pertinent History Male Reproductive Disorders: No Pertinent History Other Medical History: PATIENT DX'D WITH SPASTIC QUADRIPLEGIA AT , SPEECH DYSARTHIRA, HX FX RIGHT LOWER LEG,. HAS BACLOFEN PUMP LEFT LOWER ABDOMINAL REGION. - Past Surgical History Past Surgical History: Yes Neuro Surgical History: No Pertinent History Cardiac: No Pertinent History Respiratory: No Pertinent History Gastrointestinal: Cholecystectomy Genitourinary: No Pertinent History Musculoskeletal: Orthopedic Surgery Male Surgical History: No Pertinent History Other Surgical History: Back, Neck, and ankle surgery. Colonoscopy, Baclofen pump in left abdomen area per skin care technician at bedside. - Social History Smoking Status: Never smoker Exposure to second hand smoke: No Drug Use: none Patient Lives Alone: No - Nursing Vital Signs Nursing Vital Signs: Initial Vital Signs Temperature 97.1 F 12/28/23 08:42 Pulse Rate 59 L 12/28/23 08:42 Blood Pressure 141/81 12/28/23 08:42 O2 Sat by Pulse Oximetry 98 12/28/23 08:42 Pain Scale Pain Intensity 0 - Physical Exam General Appearance: alert Head Injury: swelling (minimal edema, warmth and erythema surrounding scabbed abrasions on vertex with a superficial abrasion on upper forehead.) Eye Exam: eyes nml inspection ENT Exam: airway nml, other (dry m.m.), No clear fluid (ears), No clear fluid (nose) Neck Exam: trachea midline, No tenderness Respiratory/Chest Exam: normal breath sounds Cardiovascular Exam: normal heart sounds Gastrointestinal Exam: normal bowel sounds Back Exam: No vertebral tenderness Extremity Exam: other (only minimal movement of lower extremities(ongoing - CP)) Neurologic Exam: alert, cooperative Skin Exam: No cyanosis SpO2 Interpretation: normal SpO2: 98 O2 Delivery: Room Air - Course Nursing assessment & vital signs reviewed: Yes - CT Exams Head CT Interpretation: Tele-radiologist Report (No significant acute abnormality seen. Frontal small subgaleal hematoma.) Cervical Spine CT Interpretation: Tele-radiologist Report (No significant acute abnormality seen. See rest of report.) Ordered Tests: Active Orders 24 hr Category Date Time Status IV Insertion STAT Care 12/28/23 09:52 Active CERVICAL SPINE WO CONTRAST [CT] Stat Exams 12/28/23 09:07 Completed HEAD WITHOUT CONTRAST [CT] Stat Exams 12/28/23 09:07 Completed BMP Stat Lab 12/28/23 09:18 Completed CBC W DIFF Stat Lab 12/28/23 09:18 Completed MAGNESIUM Stat Lab 12/28/23 09:18 Completed UA W/RFX UR CULTURE Stat Lab 12/28/23 09:08 Ordered Medication Summary Discontinued Medications Generic Name Dose Route Start Last Admin Trade Name Freq PRN Reason Stop Dose Admin Sodium Chloride 1,000 mls @ 999 mls/hr 12/28/23 09:52 12/28/23 10:05 Sodium Chloride 0.9% 1000 Ml IV 12/28/23 10:52 999 mls/hr .Q1H1M STA Administration Clindamycin HCl/Dextrose 900 mg in 50 mls @ 100 mls/hr 12/28/23 09:52 12/28/23 10:05 Clindamycin-D5w 900 Mg/50 Ml IV 12/28/23 10:21 100 mls/hr STAT STA 100 mls/hr Administration Sodium Chloride Confirm 12/28/23 10:00 Sodium Chloride 0.9% 1000 Ml Administered 12/28/23 10:01 Dose 1,000 mls @ ud .ROUTE .STK-MED ONE Clindamycin HCl/Dextrose Confirm 12/28/23 10:00 Clindamycin-D5w 900 Mg/50 Ml Administered 12/28/23 10:01 Dose 900 mg in 50 mls @ ud IV .STK-MED ONE Lab/Rad Data: Laboratory Result Diagrams 12/28/23 09:18 12/28/23 09:18 Laboratory Results 12/28/23 12/28/23 12/28/23 Range/Units 09:18 09:18 09:18 WBC 6.7 (4.0-10.5) x10^3/uL RBC 4.82 (4.1-5.6) x10^6/uL Hgb 13.8 (12.5-18.0) g/dL Hct 44.7 (42-50) % MCV 92.7 (78-100) fL MCH 28.6 (26-32) pg MCHC 30.9 L (32-36) g/dL RDW 13.1 (11.5-14.0) % Plt Count 177 (150-450) x10^3/uL MPV 10.4 (7.5-11.0) fL Gran % 58.8 (36.0-66.0) % Immature Gran % (Auto) 0.2 (0.00-0.4) % Nucleat RBC Rel Count 0.0 (0.00-0.1) % Eos # (Auto) 0.32 (0-0.5) x10^3/uL Immature Gran # (Auto) 0.01 (0.00-0.03) x10^3u/L Absolute Lymphs (auto) 1.77 (1.0-4.6) x10^3/uL Absolute Monos (auto) 0.60 (0.0-1.3) x10^3/uL Absolute Nucleated RBC 0.00 (0.00-0.01) x10^3u/L Lymphocytes % 26.6 (24.0-44.0) % Monocytes % 9.0 (0.0-12.0) % Eosinophils % 4.8 (0.00-5.0) % Basophils % 0.6 (0.0-0.4) % Absolute Granulocytes 3.91 (1.4-6.9) x10^3/uL Basophils # 0.04 (0-0.4) x10^3/uL Sodium 141 (135-145) mmol/L Potassium 4.5 (3.5-5.1) mmol/L Chloride 109 H (98-107) mmol/L Carbon Dioxide 29 (22-30) mmol/L Anion Gap 7.7 (5-15) MEQ/L BUN 22 H (9-20) mg/dL Creatinine 1.01 (0.66-1.25) mg/dL Estimated GFR 83.6 ML/MIN Glucose 95 (74-106) mg/dL Calcium 8.8 (8.4-10.2) mg/dL Magnesium 1.9 (1.6-2.3) mg/dL - Progress Progress: improved Counseled pt/family regarding: lab results, diagnosis, need for follow-up, rad results Medical Desision Making - Diagnostic Testing Diagnostic test were ordered, analyzed, and reviewed by me: Yes Radiological Interpretation: Teleradiologist Report - Departure Departure Disposition: Home Clinical Impression: Mild dehydration, Head contusion, Cellulitis of scalp, Fall Condition: Stable Critical Care Time: No Referrals: ROSE GOLD [Primary Care Provider] - Follow up/PCP as directed Instructions: Preventing falls in adults, Contusion (DC), Cellulitis (Skin Infection), Adult (DC), Dehydration, Adult (DC) Additional Instructions: Follow up with private doctor tomorrow. Prescriptions: clindamycin HCL [Clindamycin HCl] 300 mg PO Q6H #40 cap
[2023-12-28 09:21] LABS: Absolute Neutrophil Ct (ANC) 3.91 x10^3/uL (1.4-6.9); BASOPHIL % 0.6 % (0.0-0.4); Basophil (Absolute #) 0.04 x10^3/uL (0-0.4); Eosinophil % 4.8 % (0.00-5.0); Eosinophil (Absolute #) 0.32 x10^3/uL (0-0.5); Hematocrit 44.7 % (42-50); Hemoglobin 13.8 g/dL (12.5-18.0); IMMATURE GRAN # 0.01 x10^3u/L (0.00-0.03); IMMATURE GRAN % 0.2 % (0.00-0.4); Lymphocyte (Absolute #) 1.77 x10^3/uL (1.0-4.6); Lymphocytes % 26.6 % (24.0-44.0); Mean Cell Volume 92.7 fL (78-100); Mean Corpuscular Hemoglobin 28.6 pg (26-32); Mean Corpuscular Hgb Concent. 30.9 g/dL (32-36); Mean Platelet Volume 10.4 fL (7.5-11.0); Neutrophil % 58.8 % (36.0-66.0); Platelet Count 177 x10^3/uL (150-450); Red Blood Count 4.82 x10^6/uL (4.1-5.6); Red Cell Distribution Width 13.1 % (11.5-14.0); White Blood Count 6.7 x10^3/uL (4.0-10.5)
[2023-12-28 09:33] LABS: ANION GAP 7.7 MEQ/L (5-15); Calcium 8.8 mg/dL (8.4-10.2); Creatinine 1 1.01 mg/dL (0.66-1.25); EST GLOMERULAR FILTRATION RATE 83.6 ML/MIN; Potassium 4.5 mmol/L (3.5-5.1)
[2023-12-28 09:41] VITALS: BP 127/77
[2023-12-28] MEDS ORDERED: CLINDAMYCIN-D5W 900 MG/50 ML*** 900 MG/50 ML BAG IV ONE (10:00)
[2023-12-28] MEDS ORDERED: Sodium Chloride 0.9% 1000 ML 1,000 ML ONE (10:00)
[2023-12-28] MEDS: Sodium Chloride 0.9% 1000 ML 1,000 ML IV STA (10:05)
[2023-12-28] MEDS: CLINDAMYCIN-D5W 900 MG/50 ML*** 900 MG/50 ML BAG IV STA (10:05)
--- NOTE | 2023-12-28 10:46 | XRAY ---
CLINICAL HISTORY: fall COMPARISON: Prior CT head dated 08/15/2023 TECHNIQUE: Axial non-contrast CT scan of the brain was performed from the skull base to the high parietal region. One of the following dose reduction techniques were utilized for this exam: Automated exposure control, adjustment of the mA and/or kV according to patient size, use of iterative reconstruction FINDINGS: Frontal small subgaleal hematoma is seen. The cerebral parenchyma exhibits normal attenuation. No focal lesion. Ivy-white differentiation is well preserved. The ventricular system and subarachnoid CSF spaces are unremarkable. No midline shift was seen. The brainstem and cerebellum are normal in morphology and attenuation. No skull fracture was seen. Mild left maxillary sinus mucosal thickening is seen with nasal septum deviation. IMPRESSION: No significant acute abnormality seen. Frontal small subgaleal hematoma Electronically Signed by: Ronaldo Loving MD. (12/28/2023 10:42:27 EDT)
--- NOTE | 2023-12-28 10:58 | XRAY ---
CLINICAL HISTORY: fall COMPARISON: None. TECHNIQUE: Thin axial CT of the cervical spine was performed with sagittal and coronal reconstructions without contrast. One of the following dose reduction techniques were utilized for this exam: Automated exposure control, adjustment of the mA and/or kV according to patient size, use of iterative reconstruction FINDINGS: No fracture noted Severe cervical spondylosis is seen with multilevel marginal osteophytes and multilevel disc space narrowings. Straightening of the cervical lordosis C3-C4 and C4-C5 grade I retrolisthesis. Postsurgical changes are noted with evidence of C3 and C4 spinal laminectomies. The vertebral bodies are normal in height. No lytic or sclerotic bone lesion. The craniovertebral measures are unremarkable. C2-C3 down to C6-C7 discs show posterior disc/osteophtye complexes, indenting the spinal canal and compromising the neural foramina bilaterally. IMPRESSION: No significant acute abnormality seen. Severe cervical spondylosis and mulitlevel disc/osteophyte complexes. Straightening of the cervical lordosis dentoing neck muscle spasm. Electronically Signed by: Ronaldo Loving MD. (12/28/2023 10:53:18 EDT)
[2023-12-28 12:00] VITALS: PULSE 96; RESP 18; O2SAT 97
== END 2023-12-28 12:10 | disposition home or self-care (01) ==
LOC: ED 08:38
DX: Z04.3 Encounter for examination and observation following other accident (principal); S00.93XA Contusion of unspecified part of head, initial encounter; W19.XXXA Unspecified fall, initial encounter; E86.0 Dehydration; L03.811 Cellulitis of head [any part, except face]; I10 Essential (primary) hypertension; Z79.899 Other long term (current) drug therapy
CPT/HCPCS: 36000; 36415; 70450; 72125; 80048; 83735; 85025; 96365; 99284

== ENCOUNTER 2024-02-10 11:47 | Emergency (ER) | payer MEDICARE ==
[2024-02-10 11:58] VITALS: TEMP 97.5
--- NOTE | 2024-02-10 12:09 | ERPHSYRPT ---
- History of Present Illness Time Seen by Provider: 02/10/24 12:04 Source: patient, family Exam Limitations: no limitations Patient Subjective Stated Complaint: PT HERE FOR CONSTIPATION, NO BM FOR ABOUT 10 DAYS NOW, PT DENEIS ANY CO'S Triage Nursing Assessment: PT ALERT, ARRIVED PER EMS, SKIN W/D/P. ABD ALRGE AND DISTENDED, HAS PUMP TO IMPLANTED TO LEFT SIDE OF ABD Physician History: Patient is with in home care and presents with 9 day hx of constipation so his caregivers are concerned as he is reported to have this problem before. He reports no abd pain, No CP, No SObreath. No N or V. No fever. He is otherwise comfortable and with no complaints. tolerating diet well . He has had prior findings of renal mass and previous/ ileus bowel obstruction. EMS and family is here as an independent source of Hx. Discussed risks/benefits of testing / Tx with pt and family including KUB, dulcolax suppository, CBC, CMP, UA, Lipase adn Lactate and they wish to proceed so these are ordered. Results discussed with pt and family. CHest clear. Ht reg without M. Abd soft nontender without mass. pt has baclofen pump left SQ abd for spasm of muscle control. No new neuro and mental status stable per hx provided by EMS and from caregiver notes. Timing/Duration: day(s), gradual onset Severity: moderate Associated Symptoms: denies symptoms Allergies/Adverse Reactions: triamcinolone Allergy (Unknown, Verified 02/10/24 12:00) Home Medications: Tamsulosin HCl 0.4 mg [Flomax 0.4 MG] 0.4 mg PO DAILY 03/06/22 [History] Loratadine 10 mg [Claritin 10 mg] 10 mg PO HS 08/15/23 [History] Alendronate Sodium 70 mg [Fosamax 70 MG] 1 tab PO WEEKLY 12/26/23 [H istory] Calcium Carbonate/Vitamin D3 [Calcium 600-Vit D3 400 Tablet] 1 tab PO BID 12/26/23 [History] Dicyclomine HCl 1 cap PO QID 12/26/23 [History] Docusate Sodium [Colace] 1 cap PO BID 12/26/23 [History] Escitalopram Oxalate [Lexapro] 1 tab PO HS 12/26/23 [History] Famotidine 20 mg [Pepcid 20 MG] 40 mg PO DAILY 12/26/23 [History] Hx Tetanus, Diphtheria Vaccination/Date Given: Yes Hx Influenza Vaccination/Date Given: (unknown) Hx Pneumococcal Vaccination/Date Given: (unknown) Immunizations Up to Date: Yes Travel Risk - International Travel Have you traveled outside of the country in past 3 weeks: No - Emerging Infectious Disease Are you exhibiting symptoms associated with any current EIDs: No - Review of Systems Constitutional: No Fever, No Chills Eyes: No Symptoms Ears, Nose, & Throat: No Symptoms Respiratory: No Cough, No Dyspnea Cardiac: No Chest Pain, No Edema, No Syncope Abdominal/Gastrointestinal: Constipation, No Abdominal Pain, No Nausea, No Vomiting, No Diarrhea Genitourinary Symptoms: No Dysuria Musculoskeletal: No Back Pain, No Neck Pain Skin: No Rash Neurological: No Dizziness, No Focal Weakness, No Sensory Changes Psychological: No Symptoms Endocrine: No Symptoms Hematologic/Lymphatic: No Symptoms Immunological/Allergic: No Symptoms All Other Systems: Reviewed and Negative - Past Medical History Pertinent Past Medical History: Yes Neurological History: Other ENT History: No Pertinent History Cardiac History: Hypertension Respiratory History: Sleep Apnea Endocrine Medical History: No Pertinent History Musculoskeletal History: Fractures GI Medical History: GERD, Gallbladder Disease, Ulcer History: No Pertinent History Psycho-Social History: No Pertinent History Male Reproductive Disorders: No Pertinent History Other Medical History: PATIENT DX'D WITH SPASTIC QUADRIPLEGIA AT , SPEECH DYSARTHIRA, HX FX RIGHT LOWER LEG,. HAS BACLOFEN PUMP LEFT LOWER ABDOMINAL REGION. - Past Surgical History Past Surgical History: Yes Neuro Surgical History: No Pertinent History Cardiac: No Pertinent History Respiratory: No Pertinent History Gastrointestinal: Cholecystectomy Genitourinary: No Pertinent History Musculoskeletal: Orthopedic Surgery Male Surgical History: No Pertinent History Other Surgical History: Back, Neck, and ankle surgery. Colonoscopy, Baclofen pump in left abdomen area per home health care provider at bedside. - Social History Smoking Status: Never smoker Exposure to second hand smoke: No Drug Use: none Patient Lives Alone: No - Nursing Vital Signs Nursing Vital Signs: Initial Vital Signs Temperature 97.5 F 02/10/24 11:57 Pulse Rate 68 02/10/24 11:57 Respiratory Rate 16 02/10/24 11:57 Blood Pressure 131/82 02/10/24 11:57 O2 Sat by Pulse Oximetry 94 L 02/10/24 11:57 Pain Scale Pain Intensity 0 - Physical Exam General Appearance: no apparent distress, alert Eye Exam: PERRL/EOMI, eyes nml inspection Ears, Nose, Throat Exam: normal ENT inspection, TMs normal, pharynx normal, moist mucous membranes Neck Exam: normal inspection, non-tender, supple, full range of motion Respiratory Exam: normal breath sounds, lungs clear, No respiratory distress Cardiovascular Exam: regular rate/rhythm, normal heart sounds, normal peripheral pulses Gastrointestinal/Abdomen Exam: soft, normal bowel sounds, No tenderness, No mass Rectal Exam: deferred Back Exam: normal inspection, normal range of motion, No CVA tenderness, No vertebral tenderness Extremity Exam: normal inspection, normal range of motion, pelvis stable Neurologic Exam: alert, oriented x 3, cooperative, normal mood/affect, nml cerebellar function, nml station & gait, sensation nml, No motor deficits Skin Exam: normal color, warm, dry, No rash Lymphatic Exam: No adenopathy SpO2 Interpretation: normal SpO2: 95 O2 Delivery: Room Air - Course Nursing assessment & vital signs reviewed: Yes Ordered Tests: Active Orders 24 hr Category Date Time Status KUB Stat Exams 02/10/24 12:55 Taken CBC W DIFF Stat Lab 02/10/24 13:10 Completed CMP Stat Lab 02/10/24 13:10 Completed LIPASE Stat Lab 02/10/24 13:10 Completed Lactic Acid Stat Lab 02/10/24 12:55 Completed UA W/RFX UR CULTURE Stat Lab 02/10/24 12:55 Ordered Medication Summary Discontinued Medications Generic Name Dose Route Start Last Admin Trade Name Vince PRN Reason Stop Dose Admin Bisacodyl 10 mg 02/10/24 12:57 02/10/24 13:24 Bisacodyl 10 Mg Supp.Rect RI 02/10/24 12:58 10 mg STAT ONE Administration Lab/Rad Data: Laboratory Result Diagrams 02/10/24 13:10 02/10/24 13:10 Laboratory Results 02/10/24 02/10/24 02/10/24 Range/Units 13:10 13:10 12:55 WBC 8.0 (4.0-10.5) x10^3/uL RBC 5.07 (4.1-5.6) x10^6/uL Hgb 14.7 (12.5-18.0) g/dL Hct 45.7 (42-50) % MCV 90.1 (78-100) fL MCH 29.0 (26-32) pg MCHC 32.2 (32-36) g/dL RDW 13.6 (11.5-14.0) % Plt Count 156 (150-450) x10^3/uL MPV 10.5 (7.5-11.0) fL Gran % 72.9 H (36.0-66.0) % Immature Gran % (Auto) 0.3 (0.00-0.4) % Nucleat RBC Rel Count 0.0 (0.00-0.1) % Eos # (Auto) 0.14 (0-0.5) x10^3/uL Immature Gran # (Auto) 0.02 (0.00-0.03) x10^3u/L Absolute Lymphs (auto) 1.42 (1.0-4.6) x10^3/uL Absolute Monos (auto) 0.54 (0.0-1.3) x10^3/uL Absolute Nucleated RBC 0.00 (0.00-0.01) x10^3u/L Lymphocytes % 17.8 L (24.0-44.0) % Monocytes % 6.8 (0.0-12.0) % Eosinophils % 1.8 (0.00-5.0) % Basophils % 0.4 (0.0-0.4) % Absolute Granulocytes 5.81 (1.4-6.9) x10^3/uL Basophils # 0.03 (0-0.4) x10^3/uL Sodium 139 (135-145) mmol/L Potassium 3.9 (3.5-5.1) mmol/L Chloride 106 (98-107) mmol/L Carbon Dioxide 24 (22-30) mmol/L Anion Gap 12.6 (5-15) MEQ/L BUN 16 (9-20) mg/dL Creatinine 0.65 L (0.66-1.25) mg/dL Estimated GFR 105.9 ML/MIN Glucose 105 (74-106) mg/dL Lactic Acid 0.8 (0.4-2.0) Calcium 9.1 (8.4-10.2) mg/dL Total Bilirubin 0.50 (0.2-1.3) mg/dL AST 21 (17-59) U/L ALT 28 (0-50) U/L Alkaline Phosphatase 91 (38-126) U/L Serum Total Protein 8.0 (6.3-8.2) g/dL Albumin 3.8 (3.5-5.0) g/dL Lipase 57 (23-300) U/L - Progress Progress: improved, re-examined Progress Note: 02/10/24 14:55 pt had good result from suppos with complete relief of symptoms, and relates that he ran out of these at home and then got constipation- so we will provide more . Abd still nontender without mass distension or peritoneal signs. He and caregiver are advised that there still could be undetected pathology with this limited w/u and that f/u with PMD is advised for more eval and a monitored bowel regimen . They prefer outpt f/u rather than further w/u in ER or hosp at this time and have the capacity together to make this choice. they are advised that final rad read of xray will be next week and plan to see Dr. nielson. They have no urinary symptoms today and decline this testing for today. 02/10/24 14:59 02/10/24 15:00 02/10/24 15:01 Counseled pt/family regarding: lab results, diagnosis, need for follow-up, rad results Medical Desision Making - Independent Historian Additional History obtained from: Family, EMS - Discussion of managment Reviewed:: Test results, Need for additional workup Agreed on:: Treatment plan, need for follow-up - Diagnostic Testing Diagnostic test were ordered, analyzed, and reviewed by me: Yes Radiological Interpretation: Interpreted by me, Reviewed by me - Risk of complications The pt has a mod risk of morbidity or mortality based on: Need for prescription drug management - Departure Departure Disposition: Home Clinical Impression: Constipation Condition: Good Critical Care Time: No Referrals: ROSE GOLD [Primary Care Provider] - Follow up/PCP as directed Instructions: Constipation, Adult (DC) Additional Instructions: although there was good relief with the laxative, there still could be undetected conditions contributing so the follow-up with your this week is important. meanwhile we will give a script for more suppositories. Also take 1 tablespoon of milk of magnesia daily. Return meantime if vomiting, stomach pain, behavior change, fever or any other concerns. Final x-ray report will be next week. Prescriptions: Bisacodyl 10 mg [Dulcolax 10 MG SUPP] 10 mg RI DAILY #10 supp.rect
[2024-02-10 13:15] LABS: Absolute Neutrophil Ct (ANC) 5.81 x10^3/uL (1.4-6.9); BASOPHIL % 0.4 % (0.0-0.4); Basophil (Absolute #) 0.03 x10^3/uL (0-0.4); Eosinophil % 1.8 % (0.00-5.0); Eosinophil (Absolute #) 0.14 x10^3/uL (0-0.5); Hematocrit 45.7 % (42-50); Hemoglobin 14.7 g/dL (12.5-18.0); IMMATURE GRAN # 0.02 x10^3u/L (0.00-0.03); IMMATURE GRAN % 0.3 % (0.00-0.4); Lymphocyte (Absolute #) 1.42 x10^3/uL (1.0-4.6); Lymphocytes % 17.8 % (24.0-44.0); Mean Cell Volume 90.1 fL (78-100); Mean Corpuscular Hgb Concent. 32.2 g/dL (32-36); Mean Platelet Volume 10.5 fL (7.5-11.0); Monocyte (Absolute #) 0.54 x10^3/uL (0.0-1.3); Monocytes % 6.8 % (0.0-12.0); Neutrophil % 72.9 % (36.0-66.0); Platelet Count 156 x10^3/uL (150-450); Red Blood Count 5.07 x10^6/uL (4.1-5.6); Red Cell Distribution Width 13.6 % (11.5-14.0)
[2024-02-10] MEDS: Dulcolax 10 MG SUPP PR ONE (13:24)
[2024-02-10 13:28] LABS: ALBUMIN 3.8 g/dL (3.5-5.0); ANION GAP 12.6 MEQ/L (5-15); BILIRUBIN,TOTAL 0.5 mg/dL (0.2-1.3); Calcium 9.1 mg/dL (8.4-10.2); Creatinine 1 0.65 mg/dL (0.66-1.25); EST GLOMERULAR FILTRATION RATE 105.9 ML/MIN; Potassium 3.9 mmol/L (3.5-5.1)
[2024-02-10 15:01] VITALS: O2SAT 95
[2024-02-10 15:23] VITALS: BP 154/74; PULSE 65; RESP 22
--- NOTE | 2024-02-10 20:25 | XRAY ---
Indication: Constipation. Comparison: October 18, 2023 KUB again nonacute and nonobstructed with now mild diffuse colonic fecal debris and new rectal fecal impaction. Solid organs unremarkable. Osseous structures intact again with osteopenia, lower lumbar degenerative changes, and left epidural stimulator device/lead.
== END 2024-02-10 15:22 | disposition home or self-care (01) ==
LOC: ED 11:47
DX: K59.00 Constipation, unspecified (principal); I10 Essential (primary) hypertension; G80.0 Spastic quadriplegic cerebral palsy; Z79.899 Other long term (current) drug therapy
CPT/HCPCS: 36415; 74018; 80053; 83605; 83690; 85025; 99283; A9270-GY

== ENCOUNTER 2024-03-10 10:39 | Observation (INO) | payer MEDICARE ==
--- NOTE | 2024-03-10 11:54 | XRAY ---
Indication: Pain following blunt trauma. Comparison: None 3 view left knee demonstrates nondisplaced corner fracture proximal tibia medial aspect with intra-articular extension and small hemarthrosis. Elsewhere osteopenia and tiny patella spurring.
--- NOTE | 2024-03-10 12:09 | ERPHSYRPT ---
- History of Present Illness Source: patient, other (Niece) Exam Limitations: other ( patient with cerebral palsy) Patient Subjective Stated Complaint: "hit left knee on bed last night" Triage Nursing Assessment: C/o hitting left knee on bed last night when going to bed. H/o cerebral palsy. C/o pain behind left knee. Denies other inuries. Answers questions approriately.No obvious deformities seen. Physician History: 63-year-old male with cerebral palsy from a local alf presents with left knee pain after hitting his knee on the bed last night. Patient ambulates with a walker. He states that his pain is a 5 out of 10. Other injuries are denied at this time. Method of Injury: direct blow Occurred: other ( Last night) Quality: constant Severity of Pain-Max: moderate Severity of Pain-Current: moderate Lower Extremities Pain: knee: left Modifying Factors: Improves With: movement Associated Symptoms: unable to bear weight Allergies/Adverse Reactions: triamcinolone Allergy (Unknown, Verified 02/10/24 12:00) Home Medications: Tamsulosin HCl 0.4 mg [Flomax 0.4 MG] 0.4 mg PO DAILY 03/06/22 [History] Loratadine 10 mg [Claritin 10 mg] 10 mg PO HS 08/15/23 [History] Alendronate Sodium 70 mg [Fosamax 70 MG] 1 tab PO WEEKLY 12/26/23 [History] Calcium Carbonate/Vitamin D3 [Calcium 600-Vit D3 400 Tablet] 1 tab PO BID 12/26/23 [History] Dicyclomine HCl 1 cap PO QID 12/26/23 [History] Escitalopram Oxalate [Lexapro] 1 tab PO HS 12/26/23 [History] Famotidine 20 mg [Pepcid 20 MG] 40 mg PO DAILY 12/26/23 [History] Lansoprazole 30 mg PO DAILY 03/10/24 [History] Hx Tetanus, Diphtheria Vaccination/Date Given: Yes Hx Influenza Vaccination/Date Given: (unknown) Hx Pneumococcal Vaccination/Date Given: (unknown) Immunizations Up to Date: Yes Travel Risk - International Travel Have you traveled outside of the country in past 3 weeks: No - Emerging Infectious Disease Are you exhibiting symptoms associated with any current EIDs: No - Review of Systems Constitutional: No Symptoms Eyes: No Symptoms Ears, Nose, & Throat: No Symptoms Respiratory: No Symptoms Cardiac: No Symptoms Abdominal/Gastrointestinal: No Symptoms Genitourinary Symptoms: No Symptoms Skin: No Symptoms Neurological: No Symptoms Psychological: No Symptoms Endocrine: No Symptoms Hematologic/Lymphatic: No Symptoms Immunological/Allergic: No Symptoms - Past Medical History Pertinent Past Medical History: Yes Neurological History: Other ENT History: No Pertinent History Cardiac History: No Pertinent History Respiratory History: Other Endocrine Medical History: No Pertinent History Musculoskeletal History: Osteoarthritis GI Medical History: GERD, Gallbladder Disease, Ulcer History: No Pertinent History Psycho-Social History: No Pertinent History Male Reproductive Disorders: No Pertinent History Other Medical History: OSTEOARTHRITS. CP. cerebral palsy - Past Surgical History Past Surgical History: Yes Neuro Surgical History: No Pertinent History Cardiac: No Pertinent History Respiratory: No Pertinent History Gastrointestinal: Cholecystectomy Genitourinary: No Pertinent History Musculoskeletal: Orthopedic Surgery Male Surgical History: No Pertinent History Other Surgical History: Back, Neck, and ankle surgery. Colonoscopy, Baclofen pump in left abdomen area per senior care specialist at bedside. - Social History Smoking Status: Never smoker Exposure to second hand smoke: No Drug Use: none Patient Lives Alone: No - Social Determinants of Health Will the patient participate in the screening: Yes Do you worry about a steady place to live?: No Do you have any problems with any of the following?: No known problems In the past 12 months,have you had to go without utilities?: No Transportation Issues: No Has anyone in your support network made you feel unsafe?: No Have you or anyone in your house had to go without enough: No - Nursing Vital Signs Nursing Vital Signs: Initial Vital Signs Temperature 99.0 F 03/10/24 11:02 Pulse Rate 113 H 03/10/24 11:02 Respiratory Rate 18 03/10/24 11:02 Blood Pressure 112/66 03/10/24 11:02 O2 Sat by Pulse Oximetry 93 L 03/10/24 11:02 Pain Scale Pain Intensity 3 mildly tachycardic - Physical Exam General Appearance: no apparent distress Eyes, Ears, Nose, Throat Exam: normal ENT inspection ( no otorrhea or rhinorrhea noted) Neck Exam: normal inspection ( C-spine nontender palpate) Cardiovascular/Respiratory Exam: normal breath sounds, tachycardia ( mildly tacky), No murmur Gastrointestinal/Abdominal Exam: non-tender, soft Back Exam: normal inspection, normal range of motion, No vertebral tenderness Hips Exam: bilateral: non-tender, normal inspection, normal range of motion, no evidence of injury Legs Exam: bilateral leg: non-tender, normal inspection, normal range of motion, no evidence of injury Knees Exam: right knee: non-tender, normal inspection, no evidence of injury, left knee: other ( left knee with moderate edema and diffuse tenderness palpation) Ankle Exam: bilateral ankle: non-tender, normal inspection, normal range of motion, no evidence of injury Foot Exam: bilateral foot: non-tender, normal inspection, normal range of motion Neuro/Tendon Exam: normal sensation, normal motor functions, responds to pain Mental Status Exam: alert, cooperative Skin Exam: normal color, warm, dry SpO2 Interpretation: borderline oxygenation SpO2: 93 O2 Delivery: Room Air - Course Nursing assessment & vital signs reviewed: Yes - Radiology Exams Knee X-ray Interpretation: Reviewed by me ( medial, proximal left tibia fracture) Ordered Tests: Active Orders 24 hr Category Date Time Status KNEE (3 VIEWS) Stat Exams 03/10/24 11:07 Completed - Progress Progress Note: 03/10/24 13:48 Nursing note and vital signs reviewed. No food or housing insecurity noted. Additional history per niece who also works at his alf. Dr. Bond, Orthopedics, consulted on patient in the ER and wants left lower extremity splinted above and below the knee with extension to the midfoot and wants the patient observed overnight's so that he can be fitted for prosthesis tomorrow. , Hospitalist graciously agreed to observe the patient overnight. Splint left lower extremity with Ortho-Glass per nursing/neurovascular intact post application. Patient is a full code. Patient refused pain meds throughout his ER stay. IV access with CBC/CMP ordered before patient sent to the floor. 03/10/24 13:56 03/10/24 13:58 Discussed with : Other Will see patient in: hospital (observation) Counseled pt/family regarding: diagnosis, rad results Medical Desision Making - Independent Historian Additional History obtained from: Relative/friend, Route Sales Delivery Driver - Discussion of managment Care discussed with:: specialist Reviewed:: Need for additional workup Agreed on:: place in obs Will see patient: in hospital - Social Determinants of Health Pt's dx & treatment plan are significantly limited by SDOH: Unemployed - Diagnostic Testing Radiological Interpretation: Reviewed by me - Risk of complications The pt has a mod risk of morbidity or mortality based on: Diagnosis or treatment limited by SDOH - Departure Departure Disposition: Observation Clinical Impression: Left superior, medial tibia fracture Condition: Stable Critical Care Time: No Referrals: ROSE GOLD [Primary Care Provider] - Follow up/PCP as directed
[2024-03-10 14:06] LABS: Absolute Neutrophil Ct (ANC) 9.03 x10^3/uL (1.78-5.38); BASOPHIL % 0.4 % (0.2-1.2); Basophil (Absolute #) 0.04 x10^3/uL (0.01-0.08); Eosinophil % 0.4 % (0.8-7.0); Eosinophil (Absolute #) 0.04 x10^3/uL (0.04-0.54); Hematocrit 47.4 % (40.1-51.0); Hemoglobin 15.1 g/dL (13.7-17.5); IMMATURE GRAN # 0.03 x10^3u/L (0.001-0.031); IMMATURE GRAN % 0.3 % (0.001-0.429); Lymphocyte (Absolute #) 1.16 x10^3/uL (1.32-3.57); Lymphocytes % 10.5 % (21.8-53.1); Mean Cell Volume 89.6 fL (79.0-92.2); Mean Corpuscular Hemoglobin 28.5 pg (25.7-32.2); Mean Corpuscular Hgb Concent. 31.9 g/dL (32.3-36.5); Mean Platelet Volume 9.9 fL (9.4-12.4); Monocyte (Absolute #) 0.71 x10^3/uL (0.30-0.82); Monocytes % 6.4 % (5.3-12.2); Platelet Count 209 x10^3/uL (163-337); Red Blood Count 5.29 x10^6/uL (4.63-6.08); Red Cell Distribution Width 13.2 % (11.6-14.4)
[2024-03-10 14:51] LABS: ANION GAP 12.1 MEQ/L (5-15); BILIRUBIN,TOTAL 0.6 mg/dL (0.2-1.3); Calcium 9.5 mg/dL (8.4-10.2); Creatinine 1 0.78 mg/dL (0.66-1.25); EST GLOMERULAR FILTRATION RATE 100.2 ML/MIN; Total Protein 8.2 g/dL (6.3-8.2)
[2024-03-10] MEDS ORDERED: ULTRAM 50 MG PO PRN (15:44)
--- NOTE | 2024-03-10 16:04 | PCM.HP ---
<CEDRIC WESTFALL - Last Filed: 03/10/24 15:53> History of Present Illness - Chief Complaint Chief Complaint: Left tibia fractre Date: 03/10/24 History of Present Illness: is a 63 year old male with a pmhx of GERD, cerebral palsy, and OA who presented to ED 03/10/24 with complaints of left knee. Patient reports that last evening he was getting ready for bed and hit his knee on the bed frame. He normally ambulates with a walker. Patient has had constant aching pain to the left knee since the injury. Movement relieves pain. Unable to bear weight on affected side. Patient rates pain 8/10 on numerical pain scale. Of note, patient has Baclofen implanted pump. Denies fever,cough, sob, cp, abdominal pain, ECHAVARRIA, dizziness, N/V/D. In ED, vitals stable. Knee xray showing nondisplaced corner fracture proximal tibia medial aspect with intra-articular extension and small hemarthrosis. Lab findings remarkable for leukocytosis. Ortho consulted, plan for overnight observation and patient to be fitted with brace tomorrow. - Review of Systems Constitutional: No Symptoms Eyes: No Symptoms Ears, Nose, & Throat: No Symptoms Respiratory: No Symptoms Cardiac: No Symptoms Abdominal/Gastrointestinal: No Symptoms Genitourinary Symptoms: No Symptoms Musculoskeletal: Joint Pain (Left knee) Neurological: No Symptoms Psychological: No Symptoms Endocrine: No Symptoms Medications & Allergies Home Medications: Home Medication List Tamsulosin HCl 0.4 mg [Flomax 0.4 MG] 0.4 mg PO DAILY 03/06/22 [History Confirmed 03/10/24] Loratadine 10 mg [Claritin 10 mg] 10 mg PO HS 08/15/23 [History Confirmed 03/10/24] Polyethylene Glycol 3350 17 gm [Miralax Powder 17GM PACKET] 17 gm PO DAILY #5 packet 10/18/23 [Rx Confirmed 03/10/24] Calcium Carbonate/Vitamin D3 [Calcium 600-Vit D3 400 Tablet] 1 tab PO BID 12/26/23 [History Confirmed 03/10/24] Dicyclomine HCl 1 cap PO QID 12/26/23 [History Confirmed 03/10/24] Escitalopram Oxalate [Lexapro] 1 tab PO HS 12/26/23 [History Confirmed 03/10/24] Famotidine 20 mg [Pepcid 20 MG] 40 mg PO DAILY 12/26/23 [History Confirmed 03/10/24] Baclofen 40,000 mcg IT UD 03/10/24 [History Confirmed 03/10/24] Lansoprazole 30 mg PO DAILY 03/10/24 [History Confirmed 03/10/24] Allergies/Adverse Reactions: Allergies Allergy/AdvReac Type Severity Reaction Status Date / Time triamcinolone Allergy Unknown Verified 02/10/24 12:00 - Past Medical History Past Medical History: Yes Neurological History: Other ENT History: No Pertinent History Cardiac History: No Pertinent History Respiratory History: Other Endocrine Medical History: No Pertinent History Musculoskelatal History: Osteoarthritis GI Medical History: GERD, Gallbladder Disease, Ulcer History: No Pertinent History Pyscho-Social History: No Pertinent History Male Reproductive Disorders: No Pertinent History Comment: OSTEOARTHRITS. CP. cerebral palsy - Past Surgical History Past Surgical History: Yes Neuro Surgical History: No Pertinent History Cardiac History: No Pertinent History Respiratory Surgery: No Pertinent History GI Surgical History: Cholecystectomy Genitourinary Surgical Hx: No Pertinent History Musculskeletal Surgical Hx: Orthopedic Surgery Male Surgical History: No Pertinent History Other Surgical History: Back, Neck, and ankle surgery. Colonoscopy, Baclofen pump in left abdomen area per primary care sales representative at bedside. - Social History Smoking Status: Never smoker Exposure to second hand smoke: No Alcohol: None Drug Use: none - Social Determinants of Health Will the patient participate in the screening: Yes Do you worry about a steady place to live?: No Do you have any problems with any of the following?: No known problems In the past 12 months,have you had to go without utilities?: No Have you or anyone in your house had to go without enough: No Transportation Issues: No Has anyone in your support network made you feel unsafe?: No Does the patient want assistance with any of the above?: No - Physical Exam Vital Signs: Vital Signs - 24 hr Temp Pulse Resp BP Pulse Ox 03/10/24 14:32 96.9 F 88 18 122/78 94 L 03/10/24 14:05 20 03/10/24 13:59 93 L 03/10/24 13:26 104 H 20 115/76 95 03/10/24 11:02 99.0 F 113 H 18 112/66 93 L General Appearance: no apparent distress Neurologic Exam: alert, oriented x 3, cooperative Eye Exam: PERRL/EOMI Ears, Nose, Throat Exam: normal ENT inspection Neck Exam: normal inspection Respiratory Exam: normal breath sounds, lungs clear Cardiovascular Exam: regular rate/rhythm, normal heart sounds Gastrointestinal/Abdomen Exam: soft, normal bowel sounds Rectal Exam: deferred Back Exam: normal inspection Extremity Exam: limited range of motion (LLE) Skin Exam: normal color Results - Labs Lab/Micro Results: Lab Results-Last 24 Hours 03/10/24 03/10/24 Range/Units 13:50 13:50 WBC 11.0 H (4.23-9.07) x10^3/uL RBC 5.29 (4.63-6.08) x10^6/uL Hgb 15.1 (13.7-17.5) g/dL Hct 47.4 (40.1-51.0) % MCV 89.6 (79.0-92.2) fL MCH 28.5 (25.7-32.2) pg MCHC 31.9 L (32.3-36.5) g/dL RDW 13.2 (11.6-14.4) % Plt Count 209 (163-337) x10^3/uL MPV 9.9 (9.4-12.4) fL Gran % 82.0 H (34.0-67.9) % Immature Gran % (Auto) 0.3 (0.001-0.429) % Nucleat RBC Rel Count 0.0 (0.00-0.2) % Eos # (Auto) 0.04 (0.04-0.54) x10^3/uL Immature Gran # (Auto) 0.03 (0.001-0.031) x10^3u/L Absolute Lymphs (auto) 1.16 L (1.32-3.57) x10^3/uL Absolute Monos (auto) 0.71 (0.30-0.82) x10^3/uL Absolute Nucleated RBC 0.00 (0.00-0.012) x10^3u/L Lymphocytes % 10.5 L (21.8-53.1) % Monocytes % 6.4 (5.3-12.2) % Eosinophils % 0.4 L (0.8-7.0) % Basophils % 0.4 (0.2-1.2) % Absolute Granulocytes 9.03 H (1.78-5.38) x10^3/uL Basophils # 0.04 (0.01-0.08) x10^3/uL Sodium 140 (135-145) mmol/L Potassium 4.0 (3.5-5.1) mmol/L Chloride 104 (98-107) mmol/L Carbon Dioxide 28 (22-30) mmol/L Anion Gap 12.1 (5-15) MEQ/L BUN 13 (9-20) mg/dL Creatinine 0.78 (0.66-1.25) mg/dL Estimated GFR 100.2 ML/MIN Glucose 107 H (74-106) mg/dL Calcium 9.5 (8.4-10.2) mg/dL Total Bilirubin 0.60 (0.2-1.3) mg/dL AST 25 (17-59) U/L ALT 24 (0-50) U/L Alkaline Phosphatase 87 (38-126) U/L Serum Total Protein 8.2 (6.3-8.2) g/dL Albumin 4.0 (3.5-5.0) g/dL - Radiology Impressions Radiology Exams & Impressions: Radiology Procedures Category Date Time Status KNEE (3 VIEWS) Stat Exams 03/10/24 11:07 Completed Assessment/Plan (1) Nondisplaced fracture of tibia Current Visit: Yes Status: Acute Assessment & Plan: -XRay reviewed showing showing nondisplaced corner fracture proximal tibia medial aspect with intra-articular extension and small hemarthrosis -Pt with pain pump (Baclofen) will continue -Ortho following to fit pt with brace tomorrow Code(s): S82.209A - UNSP FRACTURE OF SHAFT OF UNSP TIBIA, INIT FOR CLOS FX (2) Left knee pain Current Visit: Yes Status: Acute Assessment & Plan: -secondary to left tibia fracture, see above plan Code(s): M25.562 - PAIN IN LEFT KNEE (3) GERD (gastroesophageal reflux disease) Current Visit: Yes Status: Acute Assessment & Plan: -continue home meds Code(s): K21.9 - GASTRO-ESOPHAGEAL REFLUX DISEASE WITHOUT ESOPHAGITIS (4) Cerebral palsy Current Visit: No Status: Acute Qualifiers: Cerebral palsy type: spastic diplegic Qualified Code(s): G80.1 - Spastic diplegic cerebral palsy Assessment & Plan: -noted, continue home meds Code(s): G80.9 - CEREBRAL PALSY, UNSPECIFIED (5) Leukocytosis Current Visit: Yes Status: Acute Assessment & Plan: -most likely reactive, continue to monitor Code(s): D72.829 - ELEVATED WHITE BLOOD CELL COUNT, UNSPECIFIED Telemedicine Encounter - Telemedicine Encounter Telemedicine Encounter: The entirety of this encounter was performed via Telemedicine" <MARIZA GALEAS - Last Filed: 03/10/24 22:27> History of Present Illness - Chief Complaint History of Present Illness: is a 63 year old male. - Physical Exam Vital Signs: Vital Signs - 24 hr Temp Pulse Resp BP Pulse Ox 03/10/24 19:52 97.5 F 99 H 16 103/63 90 L 03/10/24 16:00 96.9 F 88 18 122/78 94 L 03/10/24 14:32 96.9 F 88 18 122/78 94 L 03/10/24 14:05 20 03/10/24 13:59 93 L 03/10/24 13:26 104 H 20 115/76 95 03/10/24 11:02 99.0 F 113 H 18 112/66 93 L Results - Labs Lab/Micro Results: Lab Results-Last 24 Hours 03/10/24 03/10/24 Range/Units 13:50 13:50 WBC 11.0 H (4.23-9.07) x10^3/uL RBC 5.29 (4.63-6.08) x10^6/uL Hgb 15.1 (13.7-17.5) g/dL Hct 47.4 (40.1-51.0) % MCV 89.6 (79.0-92.2) fL MCH 28.5 (25.7-32.2) pg MCHC 31.9 L (32.3-36.5) g/dL RDW 13.2 (11.6-14.4) % Plt Count 209 (163-337) x10^3/uL MPV 9.9 (9.4-12.4) fL Gran % 82.0 H (34.0-67.9) % Immature Gran % (Auto) 0.3 (0.001-0.429) % Nucleat RBC Rel Count 0.0 (0.00-0.2) % Eos # (Auto) 0.04 (0.04-0.54) x10^3/uL Immature Gran # (Auto) 0.03 (0.001-0.031) x10^3u/L Absolute Lymphs (auto) 1.16 L (1.32-3.57) x10^3/uL Absolute Monos (auto) 0.71 (0.30-0.82) x10^3/uL Absolute Nucleated RBC 0.00 (0.00-0.012) x10^3u/L Lymphocytes % 10.5 L (21.8-53.1) % Monocytes % 6.4 (5.3-12.2) % Eosinophils % 0.4 L (0.8-7.0) % Basophils % 0.4 (0.2-1.2) % Absolute Granulocytes 9.03 H (1.78-5.38) x10^3/uL Basophils # 0.04 (0.01-0.08) x10^3/uL Sodium 140 (135-145) mmol/L Potassium 4.0 (3.5-5.1) mmol/L Chloride 104 (98-107) mmol/L Carbon Dioxide 28 (22-30) mmol/L Anion Gap 12.1 (5-15) MEQ/L BUN 13 (9-20) mg/dL Creatinine 0.78 (0.66-1.25) mg/dL Estimated GFR 100.2 ML/MIN Glucose 107 H (74-106) mg/dL Calcium 9.5 (8.4-10.2) mg/dL Total Bilirubin 0.60 (0.2-1.3) mg/dL AST 25 (17-59) U/L ALT 24 (0-50) U/L Alkaline Phosphatase 87 (38-126) U/L Serum Total Protein 8.2 (6.3-8.2) g/dL Albumin 4.0 (3.5-5.0) g/dL - Radiology Impressions Radiology Exams & Impressions: Radiology Procedures Category Date Time Status KNEE (3 VIEWS) Stat Exams 03/10/24 11:07 Completed Telemedicine Encounter - Telemedicine Encounter Telemedicine Encounter: The entirety of this encounter was performed via Telemedicine" MASOOD Encounter - MASOOD Encounter Attestation MASOOD Encounter Attestation: "PETTY Petty andhavediscussed pertinent aspects of their care with Cedric Ortiz agree with the history, physical exam (any modifications based on my personal exam will be noted below), assessment, and plan as outlined in original note. Please see immediately below for my summary of findings and additional assessment and plan along with any meaningful corrections/explanations to the Subjective/Objective portions of the MASOOD note will be noted." My portion of the encounter took place via telemedicine. -Left knee proximal tibial fracture, to be treated non operatively per ortho. Plan for discharge tomorrow once brace available.
[2024-03-10] MEDS ORDERED: PATIENT OWN MEDICATION IJ SCH (16:30)
[2024-03-10] MEDS ORDERED: DICYCLOMINE HCL 10 MG PO SCH (17:00)
[2024-03-10] MEDS: BENTYL 20 MG PO SCH (17:18)
[2024-03-10] MEDS: TYLENOL 325 MG PO PRN (19:55)
[2024-03-10] MEDS: NORCO 5/325 MG PO PRN (21:11)
[2024-03-10] MEDS ORDERED: NORCO 5/325 MG ONE (21:11)
[2024-03-10] MEDS: Lexapro PO SCH (21:12)
[2024-03-10] MEDS: CLARITIN 10 MG PO SCH (21:12)
[2024-03-10] MEDS: Calcium 500MG W/Vit D Tablet PO SCH (21:12)
[2024-03-10] MEDS ORDERED: NON-FORMULARY ITEM (Calcium Carbonate/Vitamin D3 [Calcium 600-Vit D3 400 Tablet] 1 EACH Ta PO SCH (22:00)
[2024-03-11] MEDS: NORCO 5/325 MG PO PRN (01:11)
[2024-03-11 04:49] LABS: Hematocrit 40.4 % (40.1-51.0); Hemoglobin 12.8 g/dL (13.7-17.5); Mean Cell Volume 90.8 fL (79.0-92.2); Mean Corpuscular Hemoglobin 28.8 pg (25.7-32.2); Mean Corpuscular Hgb Concent. 31.7 g/dL (32.3-36.5); Mean Platelet Volume 10.2 fL (9.4-12.4); Platelet Count 179 x10^3/uL (163-337); Red Blood Count 4.45 x10^6/uL (4.63-6.08); Red Cell Distribution Width 13.2 % (11.6-14.4); White Blood Count 7.3 x10^3/uL (4.23-9.07)
--- NOTE | 2024-03-11 05:13 | PCM.DS ---
Discharge Summary Date of Admission: 03/10/24 14:13 Date of Discharge: 03/11/24 Admitting Physician: MARIZA GALEAS MD Primary Care Provider: ROSE GOLD Allergies Allergies triamcinolone Allergy (Unknown, Verified 02/10/24 12:00) Hospital Summary - Hospital Course Hospital Course: is a 63 year old male with a pmhx of GERD, cerebral palsy, and OA who presented to ED 03/10/24 with complaints of left knee. Patient reports that last evening he was getting ready for bed and hit his knee on the bed frame. He normally ambulates with a walker. Patient has had constant aching pain to the left knee since the injury. Movement relieves pain. Unable to bear weight on affected side. Patient rates pain 8/10 on numerical pain scale. Of note, patient has Baclofen implanted pump. Denies fever,cough, sob, cp, abdominal pain, ECHAVARRIA, dizziness, N/V/D. In ED, vitals stable. Knee xray showing nondisplaced corner fracture proximal tibia medial aspect with intra-articular extension and small hemarthrosis. Lab findings remarkable for leukocytosis. Ortho consulted, non-operative plan for overnight observation and patient to be fitted with brace tomorrow. Discharge Note New Diagnosis:Non displaced fracture of the tibia New Medications:none Follow Up: ortho Latest Assessment & Plan (1) Nondisplaced fracture of tibia Current Visit: Yes Status: Acute Assessment & Plan: -XRay reviewed showing showing nondisplaced corner fracture proximal tibia medial aspect with intra-articular extension and small hemarthrosis -Pt with pain pump (Baclofen) will continue -Ortho following to fit pt with brace tomorrow Code(s): S82.209A - UNSP FRACTURE OF SHAFT OF UNSP TIBIA, INIT FOR CLOS FX (2) Left knee pain Current Visit: Yes Status: Acute Assessment & Plan: -secondary to left tibia fracture, see above plan Code(s): M25.562 - PAIN IN LEFT KNEE (3) GERD (gastroesophageal reflux disease) Current Visit: Yes Status: Acute Assessment & Plan: -continue home meds Code(s): K21.9 - GASTRO-ESOPHAGEAL REFLUX DISEASE WITHOUT ESOPHAGITIS (4) Cerebral palsy Current Visit: No Status: Acute Qualifiers: Cerebral palsy type: spastic diplegic Qualified Code(s): G80.1 - Spastic diplegic cerebral palsy Assessment & Plan: -noted, continue home meds Code(s): G80.9 - CEREBRAL PALSY, UNSPECIFIED (5) Leukocytosis Current Visit: Yes Status: Acute Assessment & Plan: -most likely reactive, continue to monitor 03/11: -resolved Code(s): D72.829 - ELEVATED WHITE BLOOD CELL COUNT, UNSPECIFIED I spent 35 minutes [id number] with the patient on the day of discharge p erforming discharge exam, discussing hospital stay and discharge instructions with patient and caregivers, preparation of discharge records, prescriptions & referral forms and addressing any questions/concerns the patient had as documented above. - Vitals & Intake/Output Vital Signs: Vital Signs Temperature 96.3 F 03/11/24 00:00 Pulse Rate 83 03/11/24 00:00 Respiratory Rate 16 03/11/24 00:00 Blood Pressure 122/76 03/11/24 00:00 O2 Sat by Pulse Oximetry 94 L 03/11/24 00:00 Intake & Output: Intake & Output 03/08/24 03/09/24 03/10/24 03/11/24 11:59 11:59 11:59 11:59 Intake Total 360 Output Total 350 Balance 10 Weight 113.398 kg 107.3 kg - Lab Result Diagrams: 03/11/24 04:32 03/11/24 04:32 Lab Results-Last 24 Hrs: Lab Results-Last 24 Hours 03/10/24 03/10/24 Range/Units 13:50 13:50 WBC 11.0 H (4.23-9.07) x10^3/uL RBC 5.29 (4.63-6.08) x10^6/uL Hgb 15.1 (13.7-17.5) g/dL Hct 47.4 (40.1-51.0) % MCV 89.6 (79.0-92.2) fL MCH 28.5 (25.7-32.2) pg MCHC 31.9 L (32.3-36.5) g/dL RDW 13.2 (11.6-14.4) % Plt Count 209 (163-337) x10^3/uL MPV 9.9 (9.4-12.4) fL Gran % 82.0 H (34.0-67.9) % Immature Gran % (Auto) 0.3 (0.001-0.429) % Nucleat RBC Rel Count 0.0 (0.00-0.2) % Eos # (Auto) 0.04 (0.04-0.54) x10^3/uL Immature Gran # (Auto) 0.03 (0.001-0.031) x10^3u/L Absolute Lymphs (auto) 1.16 L (1.32-3.57) x10^3/uL Absolute Monos (auto) 0.71 (0.30-0.82) x10^3/uL Absolute Nucleated RBC 0.00 (0.00-0.012) x10^3u/L Lymphocytes % 10.5 L (21.8-53.1) % Monocytes % 6.4 (5.3-12.2) % Eosinophils % 0.4 L (0.8-7.0) % Basophils % 0.4 (0.2-1.2) % Absolute Granulocytes 9.03 H (1.78-5.38) x10^3/uL Basophils # 0.04 (0.01-0.08) x10^3/uL Sodium 140 (135-145) mmol/L Potassium 4.0 (3.5-5.1) mmol/L Chloride 104 (98-107) mmol/L Carbon Dioxide 28 (22-30) mmol/L Anion Gap 12.1 (5-15) MEQ/L BUN 13 (9-20) mg/dL Creatinine 0.78 (0.66-1.25) mg/dL Estimated GFR 100.2 ML/MIN Glucose 107 H (74-106) mg/dL Calcium 9.5 (8.4-10.2) mg/dL Total Bilirubin 0.60 (0.2-1.3) mg/dL AST 25 (17-59) U/L ALT 24 (0-50) U/L Alkaline Phosphatase 87 (38-126) U/L Serum Total Protein 8.2 (6.3-8.2) g/dL Albumin 4.0 (3.5-5.0) g/dL - Radiology Exams Ordered Rad Exams-Entire Visit: Radiology Procedures Category Date Time Status KNEE (3 VIEWS) Stat Exams 03/10/24 11:07 Completed Final Diagnosis/Problem List - Final Discharge Diagnosis/Problem (1) Nondisplaced fracture of tibia Current Visit: Yes Status: Acute Code(s): S82.209A - UNSP FRACTURE OF SHAFT OF UNSP TIBIA, INIT FOR CLOS FX (2) Left knee pain Current Visit: Yes Status: Acute Code(s): M25.562 - PAIN IN LEFT KNEE (3) GERD (gastroesophageal reflux disease) Current Visit: Yes Status: Acute Code(s): K21.9 - GASTRO-ESOPHAGEAL REFLUX DISEASE WITHOUT ESOPHAGITIS (4) Cerebral palsy Current Visit: No Status: Acute Code(s): G80.9 - CEREBRAL PALSY, UNSPECIFIED (5) Leukocytosis Current Visit: Yes Status: Acute Code(s): D72.829 - ELEVATED WHITE BLOOD CELL COUNT, UNSPECIFIED - Discharge Disposition: Home, Self-Care Condition: Stable Prescriptions: Continue Tamsulosin HCl 0.4 mg [Flomax 0.4 MG] 0.4 mg PO DAILY Loratadine 10 mg [Claritin 10 mg] 10 mg PO HS Polyethylene Glycol 3350 17 gm [Miralax Powder 17GM PACKET] 17 gm PO DAILY #5 packet Escitalopram Oxalate [Lexapro] 1 tab PO HS Dicyclomine HCl 1 cap PO QID Calcium Carbonate/Vitamin D3 [Calcium 600-Vit D3 400 Tablet] 1 tab PO BID Famotidine 20 mg [Pepcid 20 MG] 40 mg PO DAILY Lansoprazole 30 mg PO DAILY Baclofen 40,000 mcg IT UD Follow up with: ROSE GOLD [Primary Care Provider] -
[2024-03-11 05:23] LABS: ALBUMIN 3.3 g/dL (3.5-5.0); ANION GAP 7.7 MEQ/L (5-15); BILIRUBIN,TOTAL 0.5 mg/dL (0.2-1.3); Calcium 8.5 mg/dL (8.4-10.2); Creatinine 1 0.77 mg/dL (0.66-1.25); EST GLOMERULAR FILTRATION RATE 100.6 ML/MIN; Potassium 3.6 mmol/L (3.5-5.1); Total Protein 6.9 g/dL (6.3-8.2)
[2024-03-11] MEDS ORDERED: NON-FORMULARY ITEM (Lansoprazole [Lansoprazole] 30 MG Capsule.Dr) PO SCH (10:00)
[2024-03-11] MEDS: Protonix 40MG Tablet PO SCH (10:01)
[2024-03-11] MEDS: Pepcid 20 MG PO SCH (10:01)
[2024-03-11] MEDS: Flomax 0.4 MG PO SCH (10:01)
[2024-03-11] MEDS: Miralax Powder 17GM PACKET PO SCH (10:02)
--- NOTE | 2024-03-11 10:12 | CONS ---
REASON FOR CONSULT: Left leg pain. HISTORY: A 63-year-old male with cerebral palsy, was brought to the emergency room today by his niece for evaluation of pain in the left knee after an injury that occurred last night. He lives at home with full-time in-home care, is ambulatory, hit his left knee on his bed last night when getting ready for bed. He had x-rays obtained in the emergency room. He was evaluated in the ED, patient was sitting in a wheelchair, niece was present. PAST MEDICAL HISTORY: Cerebral palsy, osteoarthritis, GERD syndrome, gallbladder disease. PAST SURGICAL HISTORY: Back, neck, ankle surgery; colonoscopy; insertion of baclofen pump in abdomen. HOME MEDICATIONS: Flomax, loratadine, alendronate, calcium carbonate, dicyclomine, Colace, Lexapro, Pepcid. ALLERGIES: Triamcinolone. SOCIAL HISTORY: Nonsmoker. REVIEW OF SYSTEMS: Negative for hematologic, endocrine, psychological, neurological, skin, , abdominal, cardiac other than as described in HPI. LAB DATA AND TESTS: X-rays, left knee, 3 views show medial tibial plateau fracture which appears to be vertical, nondisplaced. PHYSICAL EXAMINATION: VITAL SIGNS: Temperature 99, pulse 113, respirations 18, blood pressure 112/66. GENERAL: Patient is awake, alert, oriented, cooperative. He is sitting in a chair. EXTREMITIES: His lower extremities are exposed. His upper extremities are grossly normal in appearance with mild spasticity and contractures. The right leg has a 30-degree flexion contracture but flexes easily past 90 degrees. The left leg has pain in the upper tibial region, extension is approximately -80 degrees, flexion 90 degrees, mild effusion present. Skin is intact with normal color and temperature. Foot exam reveals intact skin. There is a small scab on the lateral malleolus. Remnants of a pressure sore but superficial, no surrounding erythema or drainage. IMPRESSION: Fracture, left proximal tibia involving the plateau, nondisplaced. PLAN: I discussed with his niece and with the patient treatment options, surgical and nonsurgical. There is no need to proceed with surgical management given that this is a nondisplaced fracture. We simply have to immobilize the fracture and allow 10 weeks before full weightbearing. We will place him in a posterior mold splint currently while waiting for a hinged postop knee brace which can be applied at the desired angle of his leg, which will be approximately 80 degrees flexion. He will need to be admitted for observation since he cannot be discharged home in his current condition. He does have in-home care, but they cannot transfer him without a Hector lift, and arrangements will need to be made for this. We will admit patient and consult Social Work. He will need orthopedic followup in approximately 2 weeks for x-rays to ensure that fracture alignment has not changed.
--- NOTE | 2024-03-11 11:40 | PCM.NOTE ---
Date and Time: 03/11/24 1135 Subjective Assessment: is a 63 year old male with a pmhx of GERD, cerebral palsy, and OA who presented to ED 03/10/24 with complaints of left knee. Patient reports that last evening he was getting ready for bed and hit his knee on the bed frame. He normally ambulates with a walker. Patient has had constant aching pain to the left knee since the injury. Movement relieves pain. Unable to bear weight on affected side. Patient rates pain 8/10 on numerical pain scale. Of note, patient has Baclofen implanted pump. In ED, vitals stable. Knee xray showing nondisplaced corner fracture proximal tibia medial aspect with intra-articular extension and small hemarthrosis. Lab findings remarkable for leukocytosis. 03/11: No overnight events noted. Ortho consulted, patient to be fitted with brace. Needs hector lift set up at home. Per patient, pain is controlled with pain pump. Per Ortho, patient will need to stay IP until brace arrives and Hector set up at home. Denies fever,cough, sob, cp, abdominal pain, ECHAVARRIA, dizziness, N/V/D. - Review of Systems Constitutional: No Symptoms Eyes: No Symptoms Ears, Nose, & Throat: No Symptoms Respiratory: No Cough, No Short Of Breath Cardiac: No Chest Pain, No Edema, No Syncope Abdominal/Gastrointestinal: No Abdominal Pain, No Nausea, No Vomiting, No Diarrhea Genitourinary Symptoms: No Dysuria Musculoskeletal: Fall, Joint Pain, No Back Pain Skin: No Rash Neurological: No Dizziness, No Focal Weakness, No Sensory Changes Psychological: No Symptoms Endocrine: No Symptoms Hematologic/Lymphatic: No Symptoms Immunological/Allergic: No Symptoms Objective Exam General Appearance: no apparent distress Neurologic Exam: alert, oriented x 3, cooperative Skin Exam: normal color Eye Exam: PERRL Ears, Nose, Throat Exam: normal ENT inspection Neck Exam: normal inspection Respiratory Exam: normal breath sounds, lungs clear Cardiovascular Exam: regular rate/rhythm, normal heart sounds Gastrointestinal/Abdomen Exam: soft, normal bowel sounds Extremity Exam: limited range of motion (Left ext due to fracture) Male Genitalia Exam: deferred Rectal Exam: deferred Objective Data Vital Signs: Vital Signs - 24 hr Temp Pulse Resp BP Pulse Ox 03/11/24 07:00 96.8 F 71 19 112/59 99 03/11/24 04:00 97.8 F 79 17 109/57 94 L 03/11/24 00:00 96.3 F 83 16 122/76 94 L 03/10/24 19:52 97.5 F 99 H 16 103/63 90 L 03/10/24 16:00 96.9 F 88 18 122/78 94 L 03/10/24 14:32 96.9 F 88 18 122/78 94 L 03/10/24 14:05 20 03/10/24 13:59 93 L 03/10/24 13:26 104 H 20 115/76 95 Pain Assessment - Last Documented Pain Intensity 2 Pain Scale Used 0-10 Pain Scale Intake and Output: Intake & Output 03/08/24 03/09/24 03/10/24 03/11/24 11:59 11:59 11:59 11:59 Intake Total 820 Output Total 350 Balance 470 Weight 113.398 kg 107.3 kg Lab Results: Lab Results-Last 24 Hours 03/10/24 03/10/24 03/11/24 Range/Units 13:50 13:50 04:32 WBC 11.0 H 7.3 (4.23-9.07) x10^3/uL RBC 5.29 4.45 L (4.63-6.08) x10^6/uL Hgb 15.1 12.8 L (13.7-17.5) g/dL Hct 47.4 40.4 (40.1-51.0) % MCV 89.6 90.8 (79.0-92.2) fL MCH 28.5 28.8 (25.7-32.2) pg MCHC 31.9 L 31.7 L (32.3-36.5) g/dL RDW 13.2 13.2 (11.6-14.4) % Plt Count 209 179 (163-337) x10^3/uL MPV 9.9 10.2 (9.4-12.4) fL Gran % 82.0 H (34.0-67.9) % Immature Gran % (Auto) 0.3 (0.001-0.429) % Nucleat RBC Rel Count 0.0 (0.00-0.2) % Eos # (Auto) 0.04 (0.04-0.54) x10^3/uL Immature Gran # (Auto) 0.03 (0.001-0.031) x10^3u/L Absolute Lymphs (auto) 1.16 L (1.32-3.57) x10^3/uL Absolute Monos (auto) 0.71 (0.30-0.82) x10^3/uL Absolute Nucleated RBC 0.00 (0.00-0.012) x10^3u/L Lymphocytes % 10.5 L (21.8-53.1) % Monocytes % 6.4 (5.3-12.2) % Eosinophils % 0.4 L (0.8-7.0) % Basophils % 0.4 (0.2-1.2) % Absolute Granulocytes 9.03 H (1.78-5.38) x10^3/uL Basophils # 0.04 (0.01-0.08) x10^3/uL Sodium 140 (135-145) mmol/L Potassium 4.0 (3.5-5.1) mmol/L Chloride 104 (98-107) mmol/L Carbon Dioxide 28 (22-30) mmol/L Anion Gap 12.1 (5-15) MEQ/L BUN 13 (9-20) mg/dL Creatinine 0.78 (0.66-1.25) mg/dL Estimated GFR 100.2 ML/MIN Glucose 107 H (74-106) mg/dL Calcium 9.5 (8.4-10.2) mg/dL Total Bilirubin 0.60 (0.2-1.3) mg/dL AST 25 (17-59) U/L ALT 24 (0-50) U/L Alkaline Phosphatase 87 (38-126) U/L Serum Total Protein 8.2 (6.3-8.2) g/dL Albumin 4.0 (3.5-5.0) g/dL 03/11/24 Range/Units 04:32 WBC (4.23-9.07) x10^3/uL RBC (4.63-6.08) x10^6/uL Hgb (13.7-17.5) g/dL Hct (40.1-51.0) % MCV (79.0-92.2) fL MCH (25.7-32.2) pg MCHC (32.3-36.5) g/dL RDW (11.6-14.4) % Plt Count (163-337) x10^3/uL MPV (9.4-12.4) fL Gran % (34.0-67.9) % Immature Gran % (Auto) (0.001-0.429) % Nucleat RBC Rel Count (0.00-0.2) % Eos # (Auto) (0.04-0.54) x10^3/uL Immature Gran # (Auto) (0.001-0.031) x10^3u/L Absolute Lymphs (auto) (1.32-3.57) x10^3/uL Absolute Monos (auto) (0.30-0.82) x10^3/uL Absolute Nucleated RBC (0.00-0.012) x10^3u/L Lymphocytes % (21.8-53.1) % Monocytes % (5.3-12.2) % Eosinophils % (0.8-7.0) % Basophils % (0.2-1.2) % Absolute Granulocytes (1.78-5.38) x10^3/uL Basophils # (0.01-0.08) x10^3/uL Sodium 139 (135-145) mmol/L Potassium 3.6 (3.5-5.1) mmol/L Chloride 106 (98-107) mmol/L Carbon Dioxide 29 (22-30) mmol/L Anion Gap 7.7 (5-15) MEQ/L BUN 14 (9-20) mg/dL Creatinine 0.77 (0.66-1.25) mg/dL Estimated GFR 100.6 ML/MIN Glucose 128 H (74-106) mg/dL Calcium 8.5 (8.4-10.2) mg/dL Total Bilirubin 0.50 (0.2-1.3) mg/dL AST 23 (17-59) U/L ALT 20 (0-50) U/L Alkaline Phosphatase 70 (38-126) U/L Serum Total Protein 6.9 (6.3-8.2) g/dL Albumin 3.3 L (3.5-5.0) g/dL Radiology Exams: Radiology Procedures Category Date Time Status KNEE (3 VIEWS) Stat Exams 03/10/24 11:07 Completed Assessment/Plan (1) Nondisplaced fracture of tibia Current Visit: Yes Status: Acute Assessment & Plan: -XRay reviewed showing showing nondisplaced corner fracture proximal tibia medial aspect with intra-articular extension and small hemarthrosis -Pt with pain pump (Baclofen) will continue -Ortho following to fit pt with brace tomorrow 03/11: -Brace arrival pending -Pain pump appropriately managing pain -CM to look into home hector lift Code(s): S82.209A - UNSP FRACTURE OF SHAFT OF UNSP TIBIA, INIT FOR CLOS FX (2) Left knee pain Current Visit: Yes Status: Acute Assessment & Plan: -secondary to left tibia fracture, see above plan Code(s): M25.562 - PAIN IN LEFT KNEE (3) GERD (gastroesophageal reflux disease) Current Visit: Yes Status: Acute Assessment & Plan: -continue home meds Code(s): K21.9 - GASTRO-ESOPHAGEAL REFLUX DISEASE WITHOUT ESOPHAGITIS (4) Cerebral palsy Current Visit: No Status: Acute Qualifiers: Cerebral palsy type: spastic diplegic Qualified Code(s): G80.1 - Spastic diplegic cerebral palsy Assessment & Plan: -noted, continue home meds Code(s): G80.9 - CEREBRAL PALSY, UNSPECIFIED (5) Leukocytosis Current Visit: Yes Status: Acute Assessment & Plan: -most likely reactive, continue to monitor 03/11: -Resolved Code(s): D72.829 - ELEVATED WHITE BLOOD CELL COUNT, UNSPECIFIED Code(s): S82.209A - UNSP FRACTURE OF SHAFT OF UNSP TIBIA, INIT FOR CLOS FX (2) Left knee pain Current Visit: Yes Status: Acute Code(s): M25.562 - PAIN IN LEFT KNEE (3) GERD (gastroesophageal reflux disease) Current Visit: Yes Status: Acute Code(s): K21.9 - GASTRO-ESOPHAGEAL REFLUX DISEASE WITHOUT ESOPHAGITIS (4) Cerebral palsy Current Visit: No Status: Acute Qualifiers: Cerebral palsy type: spastic diplegic Qualified Code(s): G80.1 - Spastic diplegic cerebral palsy Code(s): G80.9 - CEREBRAL PALSY, UNSPECIFIED (5) Leukocytosis Current Visit: Yes Status: Acute Code(s): D72.829 - ELEVATED WHITE BLOOD CELL COUNT, UNSPECIFIED
--- NOTE | 2024-03-11 13:23 | PCM.NOTE ---
Date and Time: 03/11/24 1318 Subjective Assessment: Follow-up fracture left tibia 03/09 patient comfortable without complaints, sitting up in chair with splint on left leg Objective Exam Comments: 03/11/24 13:24 Patient sitting up in chair, awake, alert, oriented splint applied to left leg, intact, no pressure phenomena noted Objective Data Vital Signs: Vital Signs - 24 hr Temp Pulse Resp BP Pulse Ox 03/11/24 11:51 97 F 67 19 106/64 94 L 03/11/24 07:00 96.8 F 71 19 112/59 99 03/11/24 04:00 97.8 F 79 17 109/57 94 L 03/11/24 00:00 96.3 F 83 16 122/76 94 L 03/10/24 19:52 97.5 F 99 H 16 103/63 90 L 03/10/24 16:00 96.9 F 88 18 122/78 94 L 03/10/24 14:32 96.9 F 88 18 122/78 94 L 03/10/24 14:05 20 03/10/24 13:59 93 L 03/10/24 13:26 104 H 20 115/76 95 Pain Assessment - Last Documented Pain Intensity 2 Pain Scale Used 0-10 Pain Scale Intake and Output: Intake & Output 03/09/24 03/10/24 03/11/24 03/12/24 11:59 11:59 11:59 11:59 Intake Total 820 Output Total 350 Balance 470 Weight 113.398 kg 107.3 kg Lab Results: Lab Results-Last 24 Hours 03/10/24 03/10/24 03/11/24 Range/Units 13:50 13:50 04:32 WBC 11.0 H 7.3 (4.23-9.07) x10^3/uL RBC 5.29 4.45 L (4.63-6.08) x10^6/uL Hgb 15.1 12.8 L (13.7-17.5) g/dL Hct 47.4 40.4 (40.1-51.0) % MCV 89.6 90.8 (79.0-92.2) fL MCH 28.5 28.8 (25.7-32.2) pg MCHC 31.9 L 31.7 L (32.3-36.5) g/dL RDW 13.2 13.2 (11.6-14.4) % Plt Count 209 179 (163-337) x10^3/uL MPV 9.9 10.2 (9.4-12.4) fL Gran % 82.0 H (34.0-67.9) % Immature Gran % (Auto) 0.3 (0.001-0.429) % Nucleat RBC Rel Count 0.0 (0.00-0.2) % Eos # (Auto) 0.04 (0.04-0.54) x10^3/uL Immature Gran # (Auto) 0.03 (0.001-0.031) x10^3u/L Absolute Lymphs (auto) 1.16 L (1.32-3.57) x10^3/uL Absolute Monos (auto) 0.71 (0.30-0.82) x10^3/uL Absolute Nucleated RBC 0.00 (0.00-0.012) x10^3u/L Lymphocytes % 10.5 L (21.8-53.1) % Monocytes % 6.4 (5.3-12.2) % Eosinophils % 0.4 L (0.8-7.0) % Basophils % 0.4 (0.2-1.2) % Absolute Granulocytes 9.03 H (1.78-5.38) x10^3/uL Basophils # 0.04 (0.01-0.08) x10^3/uL Sodium 140 (135-145) mmol/L Potassium 4.0 (3.5-5.1) mmol/L Chloride 104 (98-107) mmol/L Carbon Dioxide 28 (22-30) mmol/L Anion Gap 12.1 (5-15) MEQ/L BUN 13 (9-20) mg/dL Creatinine 0.78 (0.66-1.25) mg/dL Estimated GFR 100.2 ML/MIN Glucose 107 H (74-106) mg/dL Calcium 9.5 (8.4-10.2) mg/dL Total Bilirubin 0.60 (0.2-1.3) mg/dL AST 25 (17-59) U/L ALT 24 (0-50) U/L Alkaline Phosphatase 87 (38-126) U/L Serum Total Protein 8.2 (6.3-8.2) g/dL Albumin 4.0 (3.5-5.0) g/dL 03/11/24 Range/Units 04:32 WBC (4.23-9.07) x10^3/uL RBC (4.63-6.08) x10^6/uL Hgb (13.7-17.5) g/dL Hct (40.1-51.0) % MCV (79.0-92.2) fL MCH (25.7-32.2) pg MCHC (32.3-36.5) g/dL RDW (11.6-14.4) % Plt Count (163-337) x10^3/uL MPV (9.4-12.4) fL Gran % (34.0-67.9) % Immature Gran % (Auto) (0.001-0.429) % Nucleat RBC Rel Count (0.00-0.2) % Eos # (Auto) (0.04-0.54) x10^3/uL Immature Gran # (Auto) (0.001-0.031) x10^3u/L Absolute Lymphs (auto) (1.32-3.57) x10^3/uL Absolute Monos (auto) (0.30-0.82) x10^3/uL Absolute Nucleated RBC (0.00-0.012) x10^3u/L Lymphocytes % (21.8-53.1) % Monocytes % (5.3-12.2) % Eosinophils % (0.8-7.0) % Basophils % (0.2-1.2) % Absolute Granulocytes (1.78-5.38) x10^3/uL Basophils # (0.01-0.08) x10^3/uL Sodium 139 (135-145) mmol/L Potassium 3.6 (3.5-5.1) mmol/L Chloride 106 (98-107) mmol/L Carbon Dioxide 29 (22-30) mmol/L Anion Gap 7.7 (5-15) MEQ/L BUN 14 (9-20) mg/dL Creatinine 0.77 (0.66-1.25) mg/dL Estimated GFR 100.6 ML/MIN Glucose 128 H (74-106) mg/dL Calcium 8.5 (8.4-10.2) mg/dL Total Bilirubin 0.50 (0.2-1.3) mg/dL AST 23 (17-59) U/L ALT 20 (0-50) U/L Alkaline Phosphatase 70 (38-126) U/L Serum Total Protein 6.9 (6.3-8.2) g/dL Albumin 3.3 L (3.5-5.0) g/dL Radiology Exams: Radiology Procedures Category Date Time Status KNEE (3 VIEWS) Stat Exams 03/10/24 11:07 Completed Multi-Disciplinary Progress Notes: Multi-Disciplinary Progress Notes 03/11/24 12:19 Case Management Note by Serena Lynn SPOKE WITH MICHELLE AT [facility], THEY WILL DELIVER MALIK LIFT TODAY, SHE WILL CALL THE FAMILY NOW TO MAKE ARRANGEMENTS. Initialized on 03/11/24 12:19 - END OF NOTE 03/11/24 11:58 Case Management Note by Serena Lynn MALIK LIFT ORDERED VIA [facility] ( PER [facility]EDRIC WESTFALL NP) THROUGH [facility] PER FAMILY REQUEST FOR PROVIDER. THEY WILL CONTACT FAMILY TO ARRANGE DELIVERY. WAITING CARDIOVASCULAR OR NURSE BACK FROM THE REVENUE TAX SPECIALIST AT [facility] JAIRON ASMITA TO FIND OUT ABOUT DELIVERY TIME/DATE. Initialized on 03/11/24 11:58 - END OF NOTE Assessment/Plan (1) Nondisplaced fracture of tibia Current Visit: Yes Status: Acute Qualifiers: Encounter type: subsequent encounter Tibia location: medial condyle Fracture type: closed Laterality: left Fracture healing: with routine healing Qualified Code(s): S82.135D - Nondisplaced fracture of medial condyle of left tibia, subsequent encounter for closed fracture with routine healing Assessment & Plan: Continue nonoperative care. We are awaiting a hinged brace before discharge. He is to be discharged home, continue methods time analyst and home care. Jose Ramon lift will be needed and social work has been consulted. Will also obtain consult from physical therapy and Occupational Therapy. He must maintain nonweightbearing status on left lower extremity Code(s): S82.209A - UNSP FRACTURE OF SHAFT OF UNSP TIBIA, INIT FOR CLOS FX
--- NOTE | 2024-03-12 05:39 | PCM.NOTE ---
Date and Time: 03/12/24 0538 Subjective Assessment: is a 63 year old male with a pmhx of GERD, cerebral palsy, and OA who presented to ED 03/10/24 with complaints of left knee. Patient reports that last evening he was getting ready for bed and hit his knee on the bed frame. He normally ambulates with a walker. Patient has had constant aching pain to the left knee since the injury. Movement relieves pain. Unable to bear weight on affected side. Patient rates pain 8/10 on numerical pain scale. Of note, patient has Baclofen implanted pump. In ED, vitals stable. Knee xray showing nondisplaced corner fracture proximal tibia medial aspect with intra-articular extension and small hemarthrosis. Lab findings remarkable for leukocytosis. 03/11: No overnight events noted. Ortho consulted, patient to be fitted with brace. Needs hector lift set up at home. Per patient, pain is controlled with pain pump. Per Ortho, patient will need to stay IP until brace arrives and Hector set up at home. Denies fever,cough, sob, cp, abdominal pain, ECHAVARRIA, dizziness, N/V/D. 03/12: Met with patient bedside. No overnight events noted. Patient states pain is at 4/10 on numerical pain scale. [place] in addition to baclofen is adequate pain control. Splint on Left leg- plan for continued nonoperative care. Hinged brace pending arrival. Denies fever,cough, sob, cp, abdominal pain, ECHAVARRIA, dizziness, N/V/D. - Review of Systems Constitutional: No Symptoms Eyes: No Symptoms Ears, Nose, & Throat: No Symptoms Respiratory: No Symptoms Cardiac: No Symptoms Abdominal/Gastrointestinal: No Symptoms Genitourinary Symptoms: No Symptoms Musculoskeletal: Joint Pain Skin: No Symptoms Neurological: No Symptoms Psychological: No Symptoms Endocrine: No Symptoms Hematologic/Lymphatic: No Symptoms Immunological/Allergic: No Symptoms Objective Exam General Appearance: no apparent distress Neurologic Exam: alert, oriented x 3, cooperative Skin Exam: normal color Eye Exam: PERRL Ears, Nose, Throat Exam: normal ENT inspection Neck Exam: normal inspection Respiratory Exam: normal breath sounds, lungs clear Cardiovascular Exam: regular rate/rhythm, normal heart sounds Gastrointestinal/Abdomen Exam: soft, normal bowel sounds Extremity Exam: limited range of motion (LLE) Male Genitalia Exam: deferred Rectal Exam: deferred Objective Data Vital Signs: Vital Signs - 24 hr Temp Pulse Resp BP Pulse Ox 03/12/24 04:00 98.1 F 72 20 128/75 95 03/12/24 00:00 96.8 F 62 18 131/72 94 L 03/11/24 19:55 97.6 F 72 16 112/69 94 L 03/11/24 16:00 96.6 F 90 18 130/77 99 03/11/24 11:51 97 F 67 19 106/64 94 L 03/11/24 07:00 96.8 F 71 19 112/59 99 Pain Assessment - Last Documented Pain Intensity 0 Pain Scale Used FLACC Intake and Output: Intake & Output 03/09/24 03/10/24 03/11/24 03/12/24 11:59 11:59 11:59 11:59 Intake Total 820 640 Output Total 350 200 Balance 470 440 Weight 113.398 kg 107.3 kg Lab Results: Lab Results-Last 24 Hours 03/11/24 Range/Units 04:32 Sodium 139 (135-145) mmol/L Potassium 3.6 (3.5-5.1) mmol/L Chloride 106 (98-107) mmol/L Carbon Dioxide 29 (22-30) mmol/L Anion Gap 7.7 (5-15) MEQ/L BUN 14 (9-20) mg/dL Creatinine 0.77 (0.66-1.25) mg/dL Estimated GFR 100.6 ML/MIN Glucose 128 H (74-106) mg/dL Calcium 8.5 (8.4-10.2) mg/dL Total Bilirubin 0.50 (0.2-1.3) mg/dL AST 23 (17-59) U/L ALT 20 (0-50) U/L Alkaline Phosphatase 70 (38-126) U/L Serum Total Protein 6.9 (6.3-8.2) g/dL Albumin 3.3 L (3.5-5.0) g/dL Radiology Exams: Radiology Procedures Category Date Time Status KNEE (3 VIEWS) Stat Exams 03/10/24 11:07 Completed Multi-Disciplinary Progress Notes: Multi-Disciplinary Progress Notes 03/11/24 15:28 Case Management Note by Serena Lynn ATTEMPTED TO CALL BRADLY JONES AT [facility], NO ANSWER. WILL TRY AGAIN LATER. Initialized on 03/11/24 15:28 - END OF NOTE 03/11/24 15:26 Case Management Note by Serena Lynn SPOKE WITH NINIALFA CARTER, SHE REPORTS THAT THEY WOULD BE INTERESTED IN HAVING [facility] FOR PT/OT ON DISCHARGE. REPORTS THAT SHE IS EMPLOYED WITH [employer], AND THEY HAVE A NURSE THAT CHECKS ON HIM ONCE A MONTH. SHE IS UNSURE IF THEY OFFER SKILLED SERVICES OR RESTORATIVE SERVICES BUT IF THEY DO SHE PREFERS TO USE THEM. [phone], BRADLY JONES IS HER BOSS. DISCUSSED THAT THIS KNOWLEDGE ENGINEER WOULD CALL BRADLY TO INQUIRE. Initialized on 03/11/24 15:26 - END OF NOTE 03/11/24 13:55 Physical Therapy Note by Sangeeta(L#[id number]),Nan SPOKE W/ PT'S NIECE AND CAREGIVER THIS PM. SHE REPORTS PT. WAS AMBULATING SHORT DISTANCES IN THR HOME W/ RW AND MIN ASSIST. PT. WAS RECENTLY SEEN IN OP PT TO UPDATE STRETCHING PROGRAM AND IN OT TO OBTAIN POWER W/C. DEFERING SKILLED CARE TO OT AT THIS TIME D/T NWB STATUS L LE. OT CAN ADDRESS ADAPTIVE EQUIPMENT AND HOME RECOMMENDATIONS APPROPRIATE FOR THIS TIME. NIECE DID SAY THAT SHE WOULD BE INTERESTED IN THERAPY IN [facility] SETTING UPON D/C. Initialized on 03/11/24 13:55 - END OF NOTE 03/11/24 12:19 Case Management Note by Serena Lynn SPOKE WITH MICHELLE AT [facility], THEY WILL DELIVER HECTOR LIFT TODAY, SHE WILL CALL THE FAMILY NOW TO MAKE ARRANGEMENTS. Initialized on 03/11/24 12:19 - END OF NOTE 03/11/24 11:58 Case Management Note by Serena Lynn HECTOR LIFT ORDERED VIA [facility] ( PER CEDRIC WESTFALL, [place]) THROUGH [facility] PER FAMILY REQUEST FOR PROVIDER. THEY WILL CONTACT FAMILY TO ARRANGE DELIVERY. WAITING CURRENCY MACHINE OPERATOR BACK FROM THE SCREWHEAD POLISHER AT [facility] JAIRON TIAN TO FIND OUT ABOUT DELIVERY TIME/DATE. Initialized on 03/11/24 11:58 - END OF NOTE Assessment/Plan (1) Nondisplaced fracture of tibia Current Visit: Yes Status: Acute Qualifiers: Encounter type: subsequent encounter Tibia location: medial condyle Fracture type: closed Laterality: left Fracture healing: with routine healing Qualified Code(s): S82.135D - Nondisplaced fracture of medial condyle of left tibia, subsequent encounter for closed fracture with routine healing Assessment & Plan: -XRay reviewed showing showing nondisplaced corner fracture proximal tibia medial aspect with intra-articular extension and small hemarthrosis -Pt with pain pump (Baclofen) will continue -Ortho following to fit pt with brace tomorrow 03/11: -Brace arrival pending -Pain pump appropriately managing pain -CM to look into home hector lift 03/12: -Continued nonoperative management - splint left leg-pending hinged brace -Pain controlled with [place]/Baclofen pump Code(s): S82.209A - UNSP FRACTURE OF SHAFT OF UNSP TIBIA, INIT FOR CLOS FX (2) Left knee pain Current Visit: Yes Status: Acute Assessment & Plan: -secondary to left tibia fracture, see above plan Code(s): M25.562 - PAIN IN LEFT KNEE (3) GERD (gastroesophageal reflux disease) Current Visit: Yes Status: Acute Assessment & Plan: -continue home meds Code(s): K21.9 - GASTRO-ESOPHAGEAL REFLUX DISEASE WITHOUT ESOPHAGITIS (4) Cerebral palsy Current Visit: No Status: Acute Qualifiers: Cerebral palsy type: spastic diplegic Qualified Code(s): G80.1 - Spastic diplegic cerebral palsy Assessment & Plan: -noted, continue home meds Code(s): G80.9 - CEREBRAL PALSY, UNSPECIFIED (5) Leukocytosis Current Visit: Yes Status: Acute Assessment & Plan: -most likely reactive, continue to monitor 03/11: -Resolved Code(s): D72.829 - ELEVATED WHITE BLOOD CELL COUNT, UNSPECIFIED Code(s): S82.209A - UNSP FRACTURE OF SHAFT OF UNSP TIBIA, INIT FOR CLOS FX (2) Left knee pain Current Visit: Yes Status: Acute Code(s): M25.562 - PAIN IN LEFT KNEE (3) GERD (gastroesophageal reflux disease) Current Visit: Yes Status: Acute Code(s): K21.9 - GASTRO-ESOPHAGEAL REFLUX DISEASE WITHOUT ESOPHAGITIS (4) Cerebral palsy Current Visit: No Status: Acute Qualifiers: Cerebral palsy type: spastic diplegic Qualified Code(s): G80.1 - Spastic diplegic cerebral palsy Code(s): G80.9 - CEREBRAL PALSY, UNSPECIFIED (5) Leukocytosis Current Visit: Yes Status: Acute Code(s): D72.829 - ELEVATED WHITE BLOOD CELL COUNT, UNSPECIFIED
[2024-03-12 08:12] LABS: Absolute Neutrophil Ct (ANC) 3.54 x10^3/uL (1.78-5.38); BASOPHIL % 0.6 % (0.2-1.2); Basophil (Absolute #) 0.04 x10^3/uL (0.01-0.08); Eosinophil % 5.6 % (0.8-7.0); Eosinophil (Absolute #) 0.36 x10^3/uL (0.04-0.54); Hematocrit 39.9 % (40.1-51.0); Hemoglobin 12.7 g/dL (13.7-17.5); IMMATURE GRAN # 0.02 x10^3u/L (0.001-0.031); IMMATURE GRAN % 0.3 % (0.001-0.429); Lymphocytes % 29.7 % (21.8-53.1); Mean Cell Volume 90.3 fL (79.0-92.2); Mean Corpuscular Hemoglobin 28.7 pg (25.7-32.2); Mean Corpuscular Hgb Concent. 31.8 g/dL (32.3-36.5); Monocyte (Absolute #) 0.54 x10^3/uL (0.30-0.82); Monocytes % 8.4 % (5.3-12.2); Neutrophil % 55.4 % (34.0-67.9); Platelet Count 163 x10^3/uL (163-337); Red Blood Count 4.42 x10^6/uL (4.63-6.08); Red Cell Distribution Width 13.5 % (11.6-14.4); White Blood Count 6.4 x10^3/uL (4.23-9.07)
[2024-03-12 08:25] LABS: ALBUMIN 3.1 g/dL (3.5-5.0); ANION GAP 8.7 MEQ/L (5-15); BILIRUBIN,TOTAL 0.4 mg/dL (0.2-1.3); Calcium 8.8 mg/dL (8.4-10.2); Creatinine 1 0.75 mg/dL (0.66-1.25); EST GLOMERULAR FILTRATION RATE 101.4 ML/MIN; Potassium 4.1 mmol/L (3.5-5.1); Total Protein 6.6 g/dL (6.3-8.2)
[2024-03-13 04:37] VITALS: O2SAT 96
[2024-03-13 04:40] LABS: BASOPHIL % 0.7 % (0.2-1.2); Basophil (Absolute #) 0.05 x10^3/uL (0.01-0.08); Eosinophil % 4.9 % (0.8-7.0); Eosinophil (Absolute #) 0.34 x10^3/uL (0.04-0.54); Hematocrit 39.5 % (40.1-51.0); Hemoglobin 12.7 g/dL (13.7-17.5); IMMATURE GRAN # 0.02 x10^3u/L (0.001-0.031); IMMATURE GRAN % 0.3 % (0.001-0.429); Lymphocyte (Absolute #) 1.97 x10^3/uL (1.32-3.57); Lymphocytes % 28.3 % (21.8-53.1); Mean Corpuscular Hemoglobin 28.9 pg (25.7-32.2); Mean Corpuscular Hgb Concent. 32.2 g/dL (32.3-36.5); Mean Platelet Volume 9.9 fL (9.4-12.4); Monocyte (Absolute #) 0.58 x10^3/uL (0.30-0.82); Monocytes % 8.3 % (5.3-12.2); Neutrophil % 57.5 % (34.0-67.9); Platelet Count 181 x10^3/uL (163-337); Red Blood Count 4.39 x10^6/uL (4.63-6.08); Red Cell Distribution Width 13.5 % (11.6-14.4)
[2024-03-13 05:06] LABS: ALBUMIN 3.2 g/dL (3.5-5.0); ANION GAP 8.2 MEQ/L (5-15); BILIRUBIN,TOTAL 0.4 mg/dL (0.2-1.3); Calcium 8.7 mg/dL (8.4-10.2); Creatinine 1 0.77 mg/dL (0.66-1.25); EST GLOMERULAR FILTRATION RATE 100.6 ML/MIN; Potassium 4.3 mmol/L (3.5-5.1); Total Protein 6.6 g/dL (6.3-8.2)
--- NOTE | 2024-03-13 05:19 | PCM.NOTE ---
Date and Time: 03/13/24 0517 Subjective Assessment: is a 63 year old male with a pmhx of GERD, cerebral palsy, and OA who presented to ED 03/10/24 with complaints of left knee. Patient reports that last evening he was getting ready for bed and hit his knee on the bed frame. He normally ambulates with a walker. Patient has had constant aching pain to the left knee since the injury. Movement relieves pain. Unable to bear weight on affected side. Patient rates pain 8/10 on numerical pain scale. Of note, patient has Baclofen implanted pump. In ED, vitals stable. Knee xray showing nondisplaced corner fracture proximal tibia medial aspect with intra-articular extension and small hemarthrosis. Lab findings remarkable for leukocytosis. 03/11: No overnight events noted. Ortho consulted, patient to be fitted with brace. Needs hector lift set up at home. Per patient, pain is controlled with pain pump. Per Ortho, patient will need to stay IP until brace arrives and Hector set up at home. Denies fever,cough, sob, cp, abdominal pain, ECHAVARRIA, dizziness, N/V/D. 03/12: Met with patient bedside. No overnight events noted. Patient states pain is at 4/10 on numerical pain scale. [place] in addition to baclofen is adequate pain control. Splint on Left leg- plan for continued nonoperative care. Hinged brace pending arrival. Denies fever,cough, sob, cp, abdominal pain, ECHAVARRIA, dizziness, N/V/D. Objective Data Vital Signs: Vital Signs - 24 hr Temp Pulse Resp BP Pulse Ox 03/13/24 04:00 97.1 F 70 20 114/67 96 03/13/24 00:00 97.5 F 61 18 133/86 98 03/12/24 20:00 97.0 F 65 18 142/97 94 L 03/12/24 16:00 97.3 F 72 18 124/83 90 L 03/12/24 12:00 97.0 F 75 16 115/67 90 L 03/12/24 07:35 96.3 F 66 18 116/66 91 L Pain Assessment - Last Documented Pain Intensity 0 Pain Scale Used 0-10 Pain Scale Intake and Output: Intake & Output 03/10/24 03/11/24 03/12/24 03/13/24 11:59 11:59 11:59 11:59 Intake Total 820 760 960 Output Total 602 634 5632 Balance 470 560 -490 Weight 113.398 kg 107.3 kg Lab Results: Lab Results-Last 24 Hours 03/12/24 03/12/24 03/13/24 Range/Units 08:00 08:00 04:29 WBC 6.4 7.0 (4.23-9.07) x10^3/uL RBC 4.42 L 4.39 L (4.63-6.08) x10^6/uL Hgb 12.7 L 12.7 L (13.7-17.5) g/dL Hct 39.9 L 39.5 L (40.1-51.0) % MCV 90.3 90.0 (79.0-92.2) fL MCH 28.7 28.9 (25.7-32.2) pg MCHC 31.8 L 32.2 L (32.3-36.5) g/dL RDW 13.5 13.5 (11.6-14.4) % Plt Count 163 181 (163-337) x10^3/uL MPV 10.0 9.9 (9.4-12.4) fL Gran % 55.4 57.5 (34.0-67.9) % Immature Gran % (Auto) 0.3 0.3 (0.001-0.429) % Nucleat RBC Rel Count 0.0 0.0 (0.00-0.2) % Eos # (Auto) 0.36 0.34 (0.04-0.54) x10^3/uL Immature Gran # (Auto) 0.02 0.02 (0.001-0.031) x10^3u/L Absolute Lymphs (auto) 1.90 1.97 (1.32-3.57) x10^3/uL Absolute Monos (auto) 0.54 0.58 (0.30-0.82) x10^3/uL Absolute Nucleated RBC 0.00 0.00 (0.00-0.012) x10^3u/L Lymphocytes % 29.7 28.3 (21.8-53.1) % Monocytes % 8.4 8.3 (5.3-12.2) % Eosinophils % 5.6 4.9 (0.8-7.0) % Basophils % 0.6 0.7 (0.2-1.2) % Absolute Granulocytes 3.54 4.00 (1.78-5.38) x10^3/uL Basophils # 0.04 0.05 (0.01-0.08) x10^3/uL Sodium 141 (135-145) mmol/L Potassium 4.1 (3.5-5.1) mmol/L Chloride 105 (98-107) mmol/L Carbon Dioxide 31 H (22-30) mmol/L Anion Gap 8.7 (5-15) MEQ/L BUN 13 (9-20) mg/dL Creatinine 0.75 (0.66-1.25) mg/dL Estimated GFR 101.4 ML/MIN Glucose 97 (74-106) mg/dL Calcium 8.8 (8.4-10.2) mg/dL Total Bilirubin 0.40 (0.2-1.3) mg/dL AST 24 (17-59) U/L ALT 21 (0-50) U/L Alkaline Phosphatase 66 (38-126) U/L Serum Total Protein 6.6 (6.3-8.2) g/dL Albumin 3.1 L (3.5-5.0) g/dL 03/13/24 Range/Units 04:29 WBC (4.23-9.07) x10^3/uL RBC (4.63-6.08) x10^6/uL Hgb (13.7-17.5) g/dL Hct (40.1-51.0) % MCV (79.0-92.2) fL MCH (25.7-32.2) pg MCHC (32.3-36.5) g/dL RDW (11.6-14.4) % Plt Count (163-337) x10^3/uL MPV (9.4-12.4) fL Gran % (34.0-67.9) % Immature Gran % (Auto) (0.001-0.429) % Nucleat RBC Rel Count (0.00-0.2) % Eos # (Auto) (0.04-0.54) x10^3/uL Immature Gran # (Auto) (0.001-0.031) x10^3u/L Absolute Lymphs (auto) (1.32-3.57) x10^3/uL Absolute Monos (auto) (0.30-0.82) x10^3/uL Absolute Nucleated RBC (0.00-0.012) x10^3u/L Lymphocytes % (21.8-53.1) % Monocytes % (5.3-12.2) % Eosinophils % (0.8-7.0) % Basophils % (0.2-1.2) % Absolute Granulocytes (1.78-5.38) x10^3/uL Basophils # (0.01-0.08) x10^3/uL Sodium 137 (135-145) mmol/L Potassium 4.3 (3.5-5.1) mmol/L Chloride 102 (98-107) mmol/L Carbon Dioxide 31 H (22-30) mmol/L Anion Gap 8.2 (5-15) MEQ/L BUN 14 (9-20) mg/dL Creatinine 0.77 (0.66-1.25) mg/dL Estimated GFR 100.6 ML/MIN Glucose 97 (74-106) mg/dL Calcium 8.7 (8.4-10.2) mg/dL Total Bilirubin 0.40 (0.2-1.3) mg/dL AST 28 (17-59) U/L ALT 25 (0-50) U/L Alkaline Phosphatase 62 (38-126) U/L Serum Total Protein 6.6 (6.3-8.2) g/dL Albumin 3.2 L (3.5-5.0) g/dL Multi-Disciplinary Progress Notes: Multi-Disciplinary Progress Notes 03/12/24 11:54 Occupational Therapy Note by Ruben(L#[id number]),Nan PATIENT FOUND IN BED THIS AM UPON OT ARRIVAL. 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 BSC ALSO RECOMMENDED IN ADDITION TO OTHER RECS INCLUDING HECTOR LIFT. STILL WAITING FOR LE BRACE RECOMMENDED FROM ORTHO. Initialized on 03/12/24 11:54 - END OF NOTE 03/12/24 09:41 Case Management Note by Serena Lynn REFERRAL FAXED TO [facility]. SPOKE WITH DERECK AT [facility] TO REPORT. Initialized on 03/12/24 09:41 - END OF NOTE 03/12/24 09:40 Case Management Note by Serena Lynn PER [facility] CARTER THE HECTOR LIFT WAS DELIVERED YESTERDAY AFTERNOON, 03/11/24. Initialized on 03/12/24 09:40 - END OF NOTE 03/12/24 09:29 Case Management Note by Serena Lynn SPOKE WITH AT [facility] AND THEY DO NOT HAVE PT/OT. CALLED [facility] AND SHE REQUE GREG REFERRAL TO [facility], REPORTS THAT THEY HAVE USED THEM IN THE PAST. Initialized on 03/12/24 09:29 - END OF NOTE Assessment/Plan (1) Nondisplaced fracture of tibia Current Visit: Yes Status: Acute Qualifiers: Encounter type: subsequent encounter Tibia location: medial condyle Fracture type: closed Laterality: left Fracture healing: with routine healing Qualified Code(s): S82.135D - Nondisplaced fracture of medial condyle of left tibia, subsequent encounter for closed fracture with routine healing Assessment & Plan: -XRay reviewed showing showing nondisplaced corner fracture proximal tibia medial aspect with intra-articular extension and small hemarthrosis -Pt with pain pump (Baclofen) will continue -Ortho following to fit pt with brace tomorrow 03/11: -Brace arrival pending -Pain pump appropriately managing pain -CM to look into home hector lift 03/12: -Continued nonoperative management - splint left leg-pending hinged brace -Pain controlled with [place]/Baclofen pump Code(s): S82.209A - UNSP FRACTURE OF SHAFT OF UNSP TIBIA, INIT FOR CLOS FX (2) Left knee pain Current Visit: Yes Status: Acute Assessment & Plan: -secondary to left tibia fracture, see above plan Code(s): M25.562 - PAIN IN LEFT KNEE (3) GERD (gastroesophageal reflux disease) Current Visit: Yes Status: Acute Assessment & Plan: -continue home meds Code(s): K21.9 - GASTRO-ESOPHAGEAL REFLUX DISEASE WITHOUT ESOPHAGITIS (4) Cerebral palsy Current Visit: No Status: Acute Qualifiers: Cerebral palsy type: spastic diplegic Qualified Code(s): G80.1 - Spastic diplegic cerebral palsy Assessment & Plan: -noted, continue home meds Code(s): G80.9 - CEREBRAL PALSY, UNSPECIFIED (5) Leukocytosis Current Visit: Yes Status: Acute Assessment & Plan: -most likely reactive, continue to monitor 03/11: -Resolved Code(s): D72.829 - ELEVATED WHITE BLOOD CELL COUNT, UNSPECIFIED Code(s): S82.209A - UNSP FRACTURE OF SHAFT OF UNSP TIBIA, INIT FOR CLOS FX Code(s): S82.209A - UNSP FRACTURE OF SHAFT OF UNSP TIBIA, INIT FOR CLOS FX (2) Left knee pain Current Visit: Yes Status: Acute Code(s): M25.562 - PAIN IN LEFT KNEE (3) GERD (gastroesophageal reflux disease) Current Visit: Yes Status: Acute Code(s): K21.9 - GASTRO-ESOPHAGEAL REFLUX DISEASE WITHOUT ESOPHAGITIS (4) Cerebral palsy Current Visit: No Status: Acute Qualifiers: Cerebral palsy type: spastic diplegic Qualified Code(s): G80.1 - Spastic diplegic cerebral palsy Code(s): G80.9 - CEREBRAL PALSY, UNSPECIFIED (5) Leukocytosis Current Visit: Yes Status: Acute Code(s): D72.829 - ELEVATED WHITE BLOOD CELL COUNT, UNSPECIFIED
--- NOTE | 2024-03-13 10:28 | PCM.DS ---
Discharge Summary Date of Admission: 03/10/24 14:13 Date of Discharge: 03/13/24 Admitting Physician: MARIZA GALEAS MD Primary Care Provider: ROSE GOLD Allergies Allergies triamcinolone Allergy (Unknown, Verified 02/10/24 12:00) Hospital Summary - Hospital Course Hospital Course: is a 63 year old male with a pmhx of GERD, cerebral palsy, and OA admitted 03/10/24 with non-displaced corner fracture of proximal tibia. Of note, patient has Baclofen implanted pump. In ED, vitals stable. Knee xray showing nondisplaced corner fracture proximal tibia medial aspect with intra-articular extension and small hemarthrosis. Ortho consulted and followed while IP and initially placed in posterior mold split while awaiting hinged knee brace which will be approximately 80 degrees flexion. Pain is controlled with Florence/baclofen combo. Brace is to arrive today and keli is set up at home. Patient does have I -09/04 home care. Can discharge when brace arrives. Per ortho recommendations - immobilize the fracture and allow 10 weeks before full weightbearing. He will need orthopedic followup in approximately 2 weeks for x-rays to ensure that fracture alignment has not change. Patient will be on ASA therapy per ortho. Discharge Note New Diagnosis: Tibia fracture New Medications: Florence 5/325 Follow Up: ortho - 2 weeks Latest Assessment & Plan (1) Nondisplaced fracture of tibia Current Visit: Yes Status: Acute Qualifiers: Encounter type: subsequent encounter Tibia location: medial condyle Fracture type: closed Laterality: left Fracture healing: with routine healing Qualified Code(s): S82.135D - Nondisplaced fracture of medial condyle of left tibia, subsequent encounter for closed fracture with routine healing Assessment & Plan: -XRay reviewed showing showing nondisplaced corner fracture proximal tibia medial aspect with intra-articular extension and small hemarthrosis -Pt with pain pump (Baclofen) will continue -Ortho following to fit pt with brace tomorrow 03/11: -Brace arrival pending -Pain pump appropriately managing pain -CM to look into home keli lift 03/12: -Continued nonoperative management - splint left leg-pending hinged brace -Pain controlled with Florence/Baclofen pump Code(s): S82.209A - UNSP FRACTURE OF SHAFT OF UNSP TIBIA, INIT FOR CLOS FX (2) Left knee pain Current Visit: Yes Status: Acute Assessment & Plan: -secondary to left tibia fracture, see above plan Code(s): M25.562 - PAIN IN LEFT KNEE (3) GERD (gastroesophageal reflux disease) Current Visit: Yes Status: Acute Assessment & Plan: -continue home meds Code(s): K21.9 - GASTRO-ESOPHAGEAL REFLUX DISEASE WITHOUT ESOPHAGITIS (4) Cerebral palsy Current Visit: No Status: Acute Qualifiers: Cerebral palsy type: spastic diplegic Qualified Code(s): G80.1 - Spastic diplegic cerebral palsy Assessment & Plan: -noted, continue home meds Code(s): G80.9 - CEREBRAL PALSY, UNSPECIFIED (5) Leukocytosis Current Visit: Yes Status: Acute Assessment & Plan: -most likely reactive, continue to monitor 03/11: -Resolved I spent 35 minutes [id number] with the patient on the day of discharge performing discharge exam, discussing hospital stay and discharge instructions with patient and caregivers, preparation of discharge records, prescriptions & referral forms and addressing any questions/concerns the patient had as documented above. - Vitals & Intake/Output Vital Signs: Vital Signs Temperature 97.3 F 03/13/24 06:38 Pulse Rate 59 L 03/13/24 06:38 Respiratory Rate 18 03/13/24 06:38 Blood Pressure 125/66 03/13/24 06:38 O2 Sat by Pulse Oximetry 96 03/13/24 06:38 Intake & Output: Intake & Output 03/10/24 03/11/24 03/12/24 03/13/24 11:59 11:59 11:59 11:59 Intake Total 820 760 960 Output Total 162 453 7226 Balance 470 560 -1690 Weight 113.398 kg 107.3 kg - Lab Result Diagrams: 03/13/24 04:29 03/13/24 04:29 Lab Results-Last 24 Hrs: Lab Results-Last 24 Hours 03/13/24 03/13/24 Range/Units 04:29 04:29 WBC 7.0 (4.23-9.07) x10^3/uL RBC 4.39 L (4.63-6.08) x10^6/uL Hgb 12.7 L (13.7-17.5) g/dL Hct 39.5 L (40.1-51.0) % MCV 90.0 (79.0-92.2) fL MCH 28.9 (25.7-32.2) pg MCHC 32.2 L (32.3-36.5) g/dL RDW 13.5 (11.6-14.4) % Plt Count 181 (163-337) x10^3/uL MPV 9.9 (9.4-12.4) fL Gran % 57.5 (34.0-67.9) % Immature Gran % (Auto) 0.3 (0.001-0.429) % Nucleat RBC Rel Count 0.0 (0.00-0.2) % Eos # (Auto) 0.34 (0.04-0.54) x10^3/uL Immature Gran # (Auto) 0.02 (0.001-0.031) x10^3u/L Absolute Lymphs (auto) 1.97 (1.32-3.57) x10^3/uL Absolute Monos (auto) 0.58 (0.30-0.82) x10^3/uL Absolute Nucleated RBC 0.00 (0.00-0.012) x10^3u/L Lymphocytes % 28.3 (21.8-53.1) % Monocytes % 8.3 (5.3-12.2) % Eosinophils % 4.9 (0.8-7.0) % Basophils % 0.7 (0.2-1.2) % Absolute Granulocytes 4.00 (1.78-5.38) x10^3/uL Basophils # 0.05 (0.01-0.08) x10^3/uL Sodium 137 (135-145) mmol/L Potassium 4.3 (3.5-5.1) mmol/L Chloride 102 (98-107) mmol/L Carbon Dioxide 31 H (22-30) mmol/L Anion Gap 8.2 (5-15) MEQ/L BUN 14 (9-20) mg/dL Creatinine 0.77 (0.66-1.25) mg/dL Estimated GFR 100.6 ML/MIN Glucose 97 (74-106) mg/dL Calcium 8.7 (8.4-10.2) mg/dL Total Bilirubin 0.40 (0.2-1.3) mg/dL AST 28 (17-59) U/L ALT 25 (0-50) U/L Alkaline Phosphatase 62 (38-126) U/L Serum Total Protein 6.6 (6.3-8.2) g/dL Albumin 3.2 L (3.5-5.0) g/dL - Procedures and Test Procedures and Tests throughout Hospitalization: Therapy Orders & Screens 03/11/24 11:39 OT Eval and Treat ( Order) ONCE Comment: Physician Instructions: Reason For Exam: Diagnosis: Left tibia fractre 03/12/24 11:29 PT Eval & Treat ( Order) ONCE Reason for Eval:: LARGE FLUID FILLED BLISTER ON RIGHT HEEL Diagnosis: Left tibia fractre Discharge Exam General Appearance: no apparent distress Neurologic Exam: alert, oriented x 3, cooperative Eye Exam: PERRL Ears, Nose, Throat Exam: normal ENT inspection Neck Exam: normal inspection Respiratory Exam: normal breath sounds, lungs clear Cardiovascular Exam: regular rate/rhythm, normal heart sounds Gastrointestinal/Abdomen Exam: soft, normal bowel sounds Male Genitalia Exam: deferred Rectal Exam: deferred Back Exam: normal inspection Extremity Exam: limited range of motion Final Diagnosis/Problem List - Final Discharge Diagnosis/Problem (1) Nondisplaced fracture of tibia Current Visit: Yes Status: Acute Code(s): S82.209A - UNSP FRACTURE OF SHAFT OF UNSP TIBIA, INIT FOR CLOS FX (2) Left knee pain Current Visit: Yes Status: Chronic Code(s): M25.562 - PAIN IN LEFT KNEE (3) GERD (gastroesophageal reflux disease) Current Visit: Yes Status: Chronic Code(s): K21.9 - GASTRO-ESOPHAGEAL REFLUX DISEASE WITHOUT ESOPHAGITIS (4) Cerebral palsy Current Visit: No Status: Chronic Code(s): G80.9 - CEREBRAL PALSY, UNSPECI FIED (5) Leukocytosis Current Visit: Yes Status: Resolved Code(s): D72.829 - ELEVATED WHITE BLOOD CELL COUNT, UNSPECIFIED - Discharge Disposition: HOME HEALTH SERVICE Condition: Stable Prescriptions: New Hydrocodone/Acetaminophen [Hydrocodone-Acetamin 5-325 mg] 1 tab PO Q4HPRN PRN 3 Days #18 tablet MDD 6 PRN Reason: Pain Continue Tamsulosin HCl 0.4 mg [Flomax 0.4 MG] 0.4 mg PO DAILY Loratadine 10 mg [Claritin 10 mg] 10 mg PO HS Polyethylene Glycol 3350 17 gm [Miralax Powder 17GM PACKET] 17 gm PO DAILY #5 packet Escitalopram Oxalate [Lexapro] 1 tab PO HS Dicyclomine HCl 1 cap PO QID Calcium Carbonate/Vitamin D3 [Calcium 600-Vit D3 400 Tablet] 1 tab PO BID Famotidine 20 mg [Pepcid 20 MG] 40 mg PO DAILY Lansoprazole 30 mg PO DAILY Baclofen 40,000 mcg IT UD Instructions: Fractures Additional Instructions: [facility] WILL CALL YOU TO ARRANGE YOUR FIRST VISIT. YOU MAY REACH THEM AT [phone]. Follow up with: ROSE GOLD [Primary Care Provider] - 03/18/24 10:00 am
--- NOTE | 2024-03-13 10:40 | PCM.DCORD ---
- Discharge Disposition: HOME HEALTH SERVICE Condition: Stable Prescriptions: New Hydrocodone/Acetaminophen [Hydrocodone-Acetamin 5-325 mg] 1 tab PO Q4HPRN PRN 3 Days #18 tablet MDD 6 PRN Reason: Pain Aspirin EC 81 mg [Ecotrin 81 mg] 81 mg PO DAILY 30 Days #30 tablet Aspirin EC 81 mg [Ecotrin 81 mg] 81 mg PO DAILY tablet Continue Tamsulosin HCl 0.4 mg [Flomax 0.4 MG] 0.4 mg PO DAILY Loratadine 10 mg [Claritin 10 mg] 10 mg PO HS Polyethylene Glycol 3350 17 gm [Miralax Powder 17GM PACKET] 17 gm PO DAILY #5 packet Escitalopram Oxalate [Lexapro] 1 tab PO HS Dicyclomine HCl 1 cap PO QID Calcium Carbonate/Vitamin D3 [Calcium 600-Vit D3 400 Tablet] 1 tab PO BID Famotidine 20 mg [Pepcid 20 MG] 40 mg PO DAILY Lansoprazole 30 mg PO DAILY Baclofen 40,000 mcg IT UD Instructions: Fractures Additional Instructions: [facility] WILL CALL YOU TO ARRANGE YOUR FIRST VISIT. YOU MAY REACH THEM AT [phone]. Follow up with: ROSE GOLD [Primary Care Provider] - 03/18/24 10:00 am
[2024-03-13] MEDS: ECOTRIN 81 MG PO SCH (10:49)
[2024-03-13 14:20] VITALS: BP 141/77; PULSE 68; RESP 16; TEMP 97.7
[2024-03-14] MEDS ORDERED: ECOTRIN 81 MG PO SCH (10:00)
== END 2024-03-13 15:15 | disposition home health service (06) ==
LOC: ED 10:39 → MED SURG 14:13
PROVIDERS: ADMIT Internal Medicine; ATTEND Internal Medicine
DX: S82.202A Unspecified fracture of shaft of left tibia, initial encounter for closed fracture (principal); M25.562 Pain in left knee; K21.9 Gastro-esophageal reflux disease without esophagitis; G80.1 Spastic diplegic cerebral palsy; D72.829 Elevated white blood cell count, unspecified; Z79.899 Other long term (current) drug therapy
CPT/HCPCS: 36000; 36415; 73562; 80053; 85025; 85027; 99203; 99213; 99214; 99285; G0378; A9270-GY

== ENCOUNTER 2024-04-15 13:22 | Emergency (ER) | payer MEDICARE ==
[2024-04-15] MEDS ORDERED: ZOFRAN ODT 4 MG PO ONE (13:46)
--- NOTE | 2024-04-15 13:46 | ERPHSYRPT ---
- History of Present Illness Time Seen by Provider: 04/15/24 13:42 Historian: patient Exam Limitations: no limitations Physician History: Patient is a 63-year-old male presents to the emergency department for evaluation of abdominal pain nausea and vomiting. EMS reports patient has been constipated. Patient reportedly had a bowel movement that appeared coffee- ground. However patient's family member stated that the emesis smelled like stool. Patient complains of generalized abdominal pain. No trauma no fever. No rash. No associated chest pain or shortness of breath. Symptoms have been ongoing for approximately 3 days. He has been taking [id number] laxatives with no significant improvement. Patient voices no other complaints or concerns at this time. Portions of this note were created with voice recognition technology. There may be grammatical, spelling, punctuation or sound alike errors Timing/Duration: today Activities at Onset: none Quality: aching Abdominal Pain Onset Location: generalized abdomen Pain Radiation: no radiation Severity of Pain-Max: moderate Severity of Pain-Current: moderate Associated Symptoms: vomiting Previous symptoms: no prior history Allergies/Adverse Reactions: triamcinolone Allergy (Unknown, Verified 04/15/24 13:38) Home Medications: Tamsulosin HCl 0.4 mg [Flomax 0.4 MG] 0.4 mg PO DAILY 03/06/22 [History] Loratadine 10 mg [Claritin 10 mg] 10 mg PO HS 08/15/23 [History] Calcium Carbonate/Vitamin D3 [Calcium 600-Vit D3 400 Tablet] 1 tab PO BID 12/26/23 [History] Dicyclomine HCl 1 cap PO QID 12/26/23 [History] Escitalopram Oxalate [Lexapro] 1 tab PO HS 12/26/23 [History] Famotidine 20 mg [Pepcid 20 MG] 40 mg PO DAILY 12/26/23 [History] Lansoprazole 30 mg PO DAILY 03/10/24 [History] Acetaminophen 500 mg [Tylenol Extra Strength 500 mg] 1,000 mg PO Q6HPRN PRN 04/15/24 [History] Alendronate Sodium 70 mg [Fosamax 70 MG] 70 mg PO WEEKLY 04/15/24 [History] Bisacodyl 10 mg [Dulcolax 10 MG SUPP] 10 mg RC UD 04/15/24 [History] Clotrimazole Cream 30 gm [Lotrimin Cream 30 gm] 1 applic TOP BID 04/15/24 [History] Docusate Sodium 100 mg PO BID 04/15/24 [History] Mupirocin [Bactroban OINTMENT] 1 applic TOP BID 04/15/24 [History] Senna 8.6 mg [Senokot 8.6 mg] 8.6 mg PO DAILY PRN 04/15/24 [History] levoFLOXacin [Levofloxacin] 500 mg PO DAILY 04/15/24 [History] Hx Tetanus, Diphtheria Vaccination/Date Given: Yes Hx Influenza Vaccination/Date Given: (unknown) Hx Pneumococcal Vaccination/Date Given: (unknown) Travel Risk - Emerging Infectious Disease Are you exhibiting symptoms associated with any current EIDs: No - Review of Systems Constitutional: No Symptoms, No Fever, No Chills Eyes: No Symptoms Ears, Nose, & Throat: No Symptoms Respiratory: No Symptoms, No Cough, No Dyspnea Cardiac: No Symptoms, No Chest Pain, No Edema, No Syncope Abdominal/Gastrointestinal: No Symptoms, No Abdominal Pain, No Nausea, No Vomiting, No Diarrhea Genitourinary Symptoms: No Symptoms, No Dysuria Musculoskeletal: No Symptoms, No Back Pain, No Neck Pain Skin: No Symptoms, No Rash Neurological: No Symptoms, No Dizziness, No Focal Weakness, No Sensory Changes Psychological: No Symptoms Endocrine: No Symptoms Hematologic/Lymphatic: No Symptoms Immunological/Allergic: No Symptoms All Other Systems: Reviewed and Negative - Past Medical History Pertinent Past Medical History: Yes Neurological History: Other ENT History: No Pertinent History Cardiac History: No Pertinent History Respiratory History: Other Endocrine Medical History: No Pertinent History Musculoskeletal History: Osteoarthritis GI Medical History: GERD, Gallbladder Disease, Ulcer History: No Pertinent History Psycho-Social History: No Pertinent History Male Reproductive Disorders: No Pertinent History Other Medical History: OSTEOARTHRITS. CP. cerebral palsy - Past Surgical History Past Surgical History: Yes Neuro Surgical History: No Pertinent History Cardiac: No Pertinent History Respiratory: No Pertinent History Gastrointestinal: Cholecystectomy Genitourinary: No Pertinent History Musculoskeletal: Orthopedic Surgery Male Surgical History: No Pertinent History Other Surgical History: Back, Neck, and ankle surgery. Colonoscopy, Baclofen pump in left abdomen area per long term care administrator at bedside. - Social History Smoking Status: Never smoker Exposure to second hand smoke: No Drug Use: none Patient Lives Alone: No - Social Determinants of Health Will the patient participate in the screening: Yes Do you worry about a steady place to live?: No In the past 12 months,have you had to go without utilities?: No Transportation Issues: No Has anyone in your support network made you feel unsafe?: No Have you or anyone in your house had to go without enough: No - Nursing Vital Signs Nursing Vital Signs: Initial Vital Signs Temperature 96.6 F 04/15/24 13:25 Pulse Rate 74 04/15/24 13:25 Respiratory Rate 16 04/15/24 13:25 Blood Pressure 124/84 04/15/24 13:25 O2 Sat by Pulse Oximetry 97 04/15/24 13:25 Pain Scale Pain Intensity 7 - Physical Exam General Appearance: no apparent distress, alert Eye Exam: PERRL/EOMI, eyes nml inspection Ears, Nose, Throat Exam: normal ENT inspection, pharynx normal, moist mucous membranes Neck Exam: normal inspection, non-tender, supple, full range of motion Respiratory Exam: normal breath sounds, lungs clear, No respiratory distress Cardiovascular Exam: regular rate/rhythm, normal heart sounds Gastrointestinal/Abdomen Exam: soft, No tenderness, No mass Back Exam: normal inspection, normal range of motion, No CVA tenderness, No vertebral tenderness Extremity Exam: normal inspection, normal range of motion, pelvis stable Neurologic Exam: alert, oriented x 3, cooperative, normal mood/affect, sensation nml, No motor deficits Skin Exam: normal color, warm, dry Lymphatic Exam: No adenopathy SpO2 Interpretation: normal SpO2: 96 O2 Delivery: Room Air - Course Nursing assessment & vital signs reviewed: Yes EKG Interpreted by Me: RATE (73), Sinus Rhythm, NORMAL AXIS, NORMAL INTERVALS - CT Exams Abdomen/Pelvis CT Interpretation: Tele-radiologist Report (Ileus versus gastroenteritis possible gastroparesis. GERD otherwise no acute findings) Ordered Tests: Active Orders 24 hr Category Date Time Status EKG-ER Only STAT Care 04/15/24 13:46 Active IV Insertion STAT Care 04/15/24 13:46 Active ABDOMEN AND PELVIS W/0 CONTRAS [CT] Stat Exams 04/15/24 13:46 Completed CBC W DIFF Stat Lab 04/15/24 13:45 Completed CMP Stat Lab 04/15/24 13:45 Completed LIPASE Stat Lab 04/15/24 13:45 Completed TROPONIN Q4H Lab 04/15/24 13:45 Completed TROPONIN Q4H Lab 04/15/24 18:00 Ordered TROPONIN Q4H Lab 04/15/24 22:00 Ordered UA W/RFX UR CULTURE Stat Lab 04/15/24 13:46 Ordered Medication Summary Generic Name Dose Route Start Last Admin Trade Name Freq PRN Reason Stop Dose Admin Sodium Chloride 1,000 mls @ 100 mls/hr 04/15/24 14:00 04/15/24 14:21 Sodium Chloride 0.9% 1000 Ml IV 05/15/24 13:59 100 mls/hr .Q10H BOBO Administration Discontinued Medications Generic Name Dose Route Start Last Admin Trade Name Freq PRN Reason Stop Dose Admin Morphine Sulfate 4 mg 04/15/24 13:46 04/15/24 14:25 Morphine Sulfate 4 Mg/Ml Injection IV 04/15/24 13:47 2 mg STAT ONE Administration Morphine Sulfate Confirm 04/15/24 14:09 Morphine Sulfate 4 Mg/Ml Injection Administered 04/15/24 14:10 Dose 4 mg .ROUTE .STK-MED ONE Ondansetron HCl 4 mg 04/15/24 13:46 Zofran 4 Mg/Udtablet Orally Disintegrating PO 04/15/24 13:47 STAT ONE Ondansetron HCl Confirm 04/15/24 14:08 Ondansetron Hcl 4 Mg/2 Ml Vial Administered 04/15/24 14:09 Dose 4 mg .ROUTE .STK-MED ONE Ondansetron HCl 4 mg 04/15/24 14:16 04/15/24 14:22 Ondansetron Hcl 4 Mg/2 Ml Vial IV 04/15/24 14:17 4 mg STAT ONE Administration Lab/Rad Data: Laboratory Result Diagrams 04/15/24 13:45 04/15/24 13:45 Laboratory Results 04/15/24 04/15/24 04/15/24 Range/Units 13:45 13:45 13:45 WBC 13.8 H (4.23-9.07) x10^3/uL RBC 5.43 (4.63-6.08) x10^6/uL Hgb 15.8 (13.7-17.5) g/dL Hct 49.4 (40.1-51.0) % MCV 91.0 (79.0-92.2) fL MCH 29.1 (25.7-32.2) pg MCHC 32.0 L (32.3-36.5) g/dL RDW 13.6 (11.6-14.4) % Plt Count 220 (163-337) x10^3/uL MPV 10.1 (9.4-12.4) fL Gran % 78.9 H (34.0-67.9) % Immature Gran % (Auto) 0.1 (0.001-0.429) % Nucleat RBC Rel Count 0.0 (0.00-0.2) % Eos # (Auto) 0.12 (0.04-0.54) x10^3/uL Immature Gran # (Auto) 0.02 (0.001-0.031) x10^3u/L Absolute Lymphs (auto) 1.84 (1.32-3.57) x10^3/uL Absolute Monos (auto) 0.88 H (0.30-0.82) x10^3/uL Absolute Nucleated RBC 0.00 (0.00-0.012) x10^3u/L Lymphocytes % 13.3 L (21.8-53.1) % Monocytes % 6.4 (5.3-12.2) % Eosinophils % 0.9 (0.8-7.0) % Basophils % 0.4 (0.2-1.2) % Absolute Granulocytes 10.87 H (1.78-5.38) x10^3/uL Basophils # 0.06 (0.01-0.08) x10^3/uL Sodium 145 (135-145) mmol/L Potassium 4.2 (3.5-5.1) mmol/L Chloride 102 (98-107) mmol/L Carbon Dioxide 31 H (22-30) mmol/L Anion Gap 15.8 H (5-15) MEQ/L BUN 25 H (9-20) mg/dL Creatinine 0.79 (0.66-1.25) mg/dL Estimated GFR 99.8 ML/MIN Glucose 110 H (74-106) mg/dL Calcium 9.7 (8.4-10.2) mg/dL Total Bilirubin 0.50 (0.2-1.3) mg/dL AST 29 (17-59) U/L ALT 38 (0-50) U/L Alkaline Phosphatase 128 H (38-126) U/L Troponin I < 0.012 (0.000-0.033) ng/mL Serum Total Protein 8.5 H (6.3-8.2) g/dL Albumin 4.3 (3.5-5.0) g/dL Lipase 42 (23-300) U/L - Progress Progress: improved Progress Note: 63-year-old male presents to our ED via EMS for evaluation of constipation nausea and vomiting. On exam patient stated he had some generalized abdominal pain. CT abdomen pelvis was negative for obstruction. Findings consistent with GERD possible ileus versus enteritis observed. Patient received IV fluids and nausea medication. Patient reassessed. Symptoms resolved. Patient denied abdominal pain no vomiting. Patient tolerated p.o. Patient states he is ready for discharge. No indication for further workup at this time. Will discharge home. Patient agrees to follow-up with his primary care doctor within 48 hours for reevaluation. Portions of this note were created with voice recognition technology. There may be grammatical, spelling, punctuation or sound alike errors Complexity problem addressed is moderate acute complicated. No critical care time. Complexity of data reviewed and analyzed is moderate. Test ordered test reviewed results analyzed and correlated clinically with history and physical exam. Risk of complication and or risk of morbidity/mortality of patient management is moderate. A prescription for Zofran forwarded to patient's pharmacy. Vital stable. Time spent to discharge patient approximately 15 minutes. Plan of care established for shared decision making. No social determinants of health present impede follow-up. Portions of this note were created with voice recognition technology. There may be grammatical, spelling, punctuation or sound alike errors 04/15/24 16:25 04/15/24 16:26 Counseled pt/family regarding: lab results, diagnosis, rad results - Departure Departure Disposition: Home Clinical Impression: Nausea and vomiting Condition: Stable Critical Care Time: No Referrals: ROSE GOLD [Primary Care Provider] - Follow up/PCP as directed Additional Instructions: Discharge/Care Plan PETTY CARTER was seen on 04/15/24 in the Emergency Room. The patient was counseled regarding Diagnosis,Lab results, Imaging studies, need for follow up and when to return to the Emergency Room. Prescriptions given: Discharge Note I have spoken with the patient and/or caregivers. I have explained the patient's condition, diagnosis and treatment plan based on the information available to me at this time. I have answered the patient's and/or caregiver's questions and addressed any concerns. The patient and/or caregivers have as good understanding of the patient's diagnosis, condition and treatment plan as can be expected at this point. The vital signs have been stable. The patient's condition is stable and appropriate for discharge from the emergency department. The patient will pursue further outpatient evaluation with the primary care phys ician or other designated or consulting physician as outlined in the discharge instructions. The patient and/or caregivers are agreeable to this plan of care and follow-up instructions have been explained in detail. The patient and/or caregivers have received these instruction. The patient/and or caregivers are aware that any significant change in condition or worsening of symptoms should prompt an immediate return to this or the closest emergency department or call 911. Prescriptions: Ondansetron ODT 4 MG [Zofran Odt 4 mg] 4 mg PO Q6H PRN PRN #10 tablet PRN Reason: Vomiting
[2024-04-15 13:52] VITALS: TEMP 96.6
[2024-04-15 13:57] LABS: Absolute Neutrophil Ct (ANC) 10.87 x10^3/uL (1.78-5.38); BASOPHIL % 0.4 % (0.2-1.2); Basophil (Absolute #) 0.06 x10^3/uL (0.01-0.08); Eosinophil % 0.9 % (0.8-7.0); Eosinophil (Absolute #) 0.12 x10^3/uL (0.04-0.54); Hematocrit 49.4 % (40.1-51.0); Hemoglobin 15.8 g/dL (13.7-17.5); IMMATURE GRAN # 0.02 x10^3u/L (0.001-0.031); IMMATURE GRAN % 0.1 % (0.001-0.429); Lymphocyte (Absolute #) 1.84 x10^3/uL (1.32-3.57); Lymphocytes % 13.3 % (21.8-53.1); Mean Corpuscular Hemoglobin 29.1 pg (25.7-32.2); Mean Platelet Volume 10.1 fL (9.4-12.4); Monocyte (Absolute #) 0.88 x10^3/uL (0.30-0.82); Monocytes % 6.4 % (5.3-12.2); Neutrophil % 78.9 % (34.0-67.9); Platelet Count 220 x10^3/uL (163-337); Red Blood Count 5.43 x10^6/uL (4.63-6.08); Red Cell Distribution Width 13.6 % (11.6-14.4); White Blood Count 13.8 x10^3/uL (4.23-9.07)
[2024-04-15] MEDS ORDERED: Zofran 4 MG/2 ML VIAL ONE (14:08)
[2024-04-15] MEDS ORDERED: MORPHINE SULFATE 4 MG INJ ONE (14:09)
[2024-04-15] MEDS ORDERED: Sodium Chloride 0.9% 1000 ML 1,000 ML ONE (14:09)
[2024-04-15 14:19] LABS: ALBUMIN 4.3 g/dL (3.5-5.0); ANION GAP 15.8 MEQ/L (5-15); BILIRUBIN,TOTAL 0.5 mg/dL (0.2-1.3); Calcium 9.7 mg/dL (8.4-10.2); Creatinine 1 0.79 mg/dL (0.66-1.25); EST GLOMERULAR FILTRATION RATE 99.8 ML/MIN; Potassium 4.2 mmol/L (3.5-5.1); Total Protein 8.5 g/dL (6.3-8.2)
[2024-04-15] MEDS: Sodium Chloride 0.9% 1000 ML 1,000 ML IV SCH (14:21)
[2024-04-15] MEDS: Zofran 4 MG/2 ML VIAL IV ONE (14:22)
[2024-04-15] MEDS: MORPHINE SULFATE 4 MG INJ IV ONE (14:25)
--- NOTE | 2024-04-15 15:06 | XRAY ---
Indication: Pain. Vomiting. UTI. Multiple contiguous axial images obtained through the abdomen and pelvis without contrast. Comparison: October 13, 2023 Lung bases again demonstrates minimal dependent atelectasis and small left lower lobe calcified granuloma. No infiltrate or effusion. Heart remains borderline enlarged. Again abnormal fluid distended esophagus up to 3.5 cm diameter favoring GERD. Stomach is again markedly fluid distended with fluid leveling. Gastric outlet unremarkable. Small bowel loops again demonstrates mild uniform fluid distention up to 3.6 cm diameter with fluid leveling, ileus versus enteritis. Appendix not visualized. Normal colonic bowel gas. Grossly stable appearing large right renal cyst with minimal peripheral calcifications. Again cholecystomy clips. No free fluid/air. Remaining liver, pancreas, spleen, adrenal glands, kidneys, ureters, bladder, and aorta are unremarkable for noncontrast exam. Osseous structures intact again with mild degenerative changes throughout thoracolumbar spine, bilateral L5 spondylolysis with grade 1 listhesis, and small T11/L1 Schmorl nodes. New remote-appearing T8 superior endplate fracture with approximately 25% height loss. Stable left abdominal wall pain pump. Impression: 1. Again abnormal fluid distended stomach with fluid leveling and marked GERD. Rule out gastroparesis. Doubt obstruction as there is normal duodenal bowel gas. 2. Again uniformity fluid distended small bowel loops with fluid leveling, ileus versus enteritis. 3. Chronic findings including borderline cardiomegaly, left lower lobe calcified granuloma, large partially calcified right renal cyst, and chronic bony findings.
[2024-04-15 17:02] VITALS: BP 132/96; PULSE 82; RESP 24; O2SAT 95
== END 2024-04-15 17:23 | disposition home or self-care (01) ==
LOC: ED 13:22
DX: R11.2 Nausea with vomiting, unspecified (principal); R10.84 Generalized abdominal pain; K59.00 Constipation, unspecified; Z79.899 Other long term (current) drug therapy
CPT/HCPCS: 36000; 36415; 74176; 80053; 83690; 84484; 85025; 93005; 96374; 99284; J2270; J2405

== ENCOUNTER 2024-11-21 13:45 | Emergency (ER) | payer MEDICARE ==
--- NOTE | 2024-11-21 13:56 | ERPHSYRPT ---
- History of Present Illness Time Seen by Provider: 11/21/24 13:56 Source: patient, family Exam Limitations: clinical condition, other (Mildly mentally handicap) Physician History: This is an overweight 64-year-old white male patient who arrives to the emergency department by the paramedics with 2 concerns. The first issue is his complaint of shortness of breath and associated lower than anticipated oxygen saturation level on room air and chronic constipation. He has had no nausea vomiting or diarrhea symptoms. He denies chest pain. He does not ordinarily wear home oxygen. Patient does have a history of cerebral palsy, spastic quadriplegia, speech dysarthria, gastroesophageal reflux disease, hypertension, prostate issues and he is mildly mentally handicapped. I did obtain additional, independent history from the patient's primary care provider. Timing/Duration: today Severity of Dyspnea-Max: mild Severity of Dyspnea-Current: mild Possible Cause: no prior episodes Modifying Factors: Improves With: activity (Worsens), exertion (Worsens), oxygen (Improves), rest (Improves) Associated Symptoms: No cough, No chest pain/discomfort Allergies/Adverse Reactions: triamcinolone Allergy (Unknown, Verified 10/21/24 09:17) Home Medications: Tamsulosin HCl 0.4 mg [Flomax 0.4 MG] 0.4 mg PO DAILY 03/06/22 [History] Loratadine 10 mg [Claritin 10 mg] 10 mg PO HS 08/15/23 [History] Calcium Carbonate/Vitamin D3 [Calcium 600-Vit D3 400 Tablet] 1 tab PO BID 12/26/23 [History] Dicyclomine HCl 1 cap PO QID 12/26/23 [History] Escitalopram Oxalate [Lexapro] 1 tab PO HS 12/26/23 [History] Famotidine 20 mg [Pepcid 20 MG] 40 mg PO DAILY 12/26/23 [History] Lansoprazole 30 mg PO DAILY 03/10/24 [History] Acetaminophen 500 mg [Tylenol Extra Strength 500 mg] 1,000 mg PO Q6HPRN PRN 04/15/24 [History] Alendronate Sodium 70 mg [Fosamax 70 MG] 70 mg PO WEEKLY 04/15/24 [History] Bisacodyl 10 mg [Dulcolax 10 MG SUPP] 10 mg RC UD 04/15/24 [History] Docusate Sodium 100 mg PO BID 04/15/24 [History] Mupirocin [Bactroban OINTMENT] 1 applic TOP BID PRN 04/15/24 [History] Senna 8.6 mg [Senokot 8.6 mg] 8.6 mg PO DAILY PRN 04/15/24 [History] Hx Tetanus, Diphtheria Vaccination/Date Given: Yes Hx Influenza Vaccination/Date Given: (unknown) Hx Pneumococcal Vaccination/Date Given: (unknown) Travel Risk - Emerging Infectious Disease Are you exhibiting symptoms associated with any current EIDs: No Symptoms: Vomitting - Review of Systems Constitutional: No Symptoms Eyes: No Symptoms Ears, Nose, & Throat: No Symptoms Respiratory: Dyspnea, Dyspnea on Exertion (LIU) Cardiac: No Symptoms Abdominal/Gastrointestinal: No Symptoms Genitourinary Symptoms: No Symptoms Musculoskeletal: No Symptoms Skin: No Symptoms Neurological: No Symptoms Psychological: No Symptoms Endocrine: No Symptoms Hematologic/Lymphatic: No Symptoms Immunological/Allergic: No Symptoms All Other Systems: Reviewed and Negative - Past Medical History Pertinent Past Medical History: Yes Neurological History: Other ENT History: No Pertinent History Cardiac History: No Pertinent History Respiratory History: Other Endocrine Medical History: No Pertinent History Musculoskeletal History: Osteoarthritis GI Medical History: GERD, Gallbladder Disease, Ulcer History: No Pertinent History Psycho-Social History: No Pertinent History Male Reproductive Disorders: No Pertinent History Other Medical History: OSTEOARTHRITS. CP. cerebral palsy - Past Surgical History Past Surgical History: Yes Neuro Surgical History: No Pertinent History Cardiac: No Pertinent History Respiratory: No Pertinent History Gastrointestinal: Cholecystectomy Genitourinary: No Pertinent History Musculoskeletal: Orthopedic Surgery Male Surgical History: No Pertinent History Other Surgical History: Back, Neck, and ankle surgery. Colonoscopy, Baclofen pump in left abdomen area per district manager primary care sales at bedside. - Social History Smoking Status: Never smoker Drug Use: none - Social Determinants of Health Will the patient participate in the screening: Yes Do you worry about a steady place to live?: No In the past 12 months,have you had to go without utilities?: No Transportation Issues: No Has anyone in your support network made you feel unsafe?: No Have you or anyone in your house had to go w/o enough food: No - Nursing Vital Signs Nursing Vital Signs: Initial Vital Signs Temperature 96.6 F 11/21/24 13:45 Pulse Rate 80 11/21/24 13:45 Respiratory Rate 20 11/21/24 13:45 Blood Pressure 141/91 11/21/24 13:45 Pain Scale Pain Intensity 0 - Physical Exam General Appearance: no apparent distress, alert, obese Eye Exam: PERRL/EOMI, eyes nml inspection Ears, Nose, Throat Exam: hearing grossly normal, normal ENT inspection, normal pharynx Neck Exam: normal inspection, non-tender, supple, full range of motion Respiratory Exam: normal breath sounds, lungs clear, airway intact, No chest tenderness, No respiratory distress Cardiovascular/Chest Exam: normal heart sounds, regular rate/rhythm Abdominal/Gastrointestinal Exam: soft, normal bowel sounds, No tenderness Rectal Exam: not done Extremity Exam: non-tender, normal range of motion, normal inspection Neurologic Exam: alert, oriented x 3, cooperative, painter helper sign II-XII nml as tested, normal mood/affect, sensation nml Skin Exam: normal color, warm, dry Lymphatic Exam: No adenopathy SpO2 Interpretation: normal O2 Delivery: Room Air - Course Nursing assessment & vital signs reviewed: Yes Ordered Tests: Active Orders 24 hr Category Date Time Status EKG-ER Only STAT Care 11/21/24 13:56 Active IV Insertion STAT Care 11/21/24 13:56 Active Pulse Oximetry (ED) STAT Care 11/21/24 13:56 Active CHEST 1 VIEW (PORTABLE) Stat Exams 11/21/24 13:56 Completed KUB Stat Exams 11/21/24 14:27 Completed BLOOD CULTURE Stat Lab 11/21/24 14:22 Received CBC W DIFF Stat Lab 11/21/24 13:56 Completed CMP Stat Lab 11/21/24 14:15 Completed Lactic Acid Stat Lab 11/21/24 13:56 Completed MAGNESIUM Stat Lab 11/21/24 14:15 Completed NT PRO BNPII Stat Lab 11/21/24 14:15 Completed TROPONIN Q4H Lab 11/21/24 14:15 Completed TROPONIN Q4H Lab 11/21/24 18:00 Ordered TROPONIN Q4H Lab 11/21/24 22:00 Ordered Medication Summary Discontinued Medications Generic Name Dose Route Start Last Admin Trade Name Freq PRN Reason Stop Dose Admin Fentanyl Citrate 25 mcg 11/21/24 14:38 11/21/24 14:40 Fentanyl Citrate 100 Mcg/2 Ml* Vial IV 11/21/24 14:39 Not Given STAT ONE Lab/Rad Data: Laboratory Result Diagrams 11/21/24 13:56 11/21/24 14:15 Laboratory Results 11/21/24 11/21/24 11/21/24 Range/Units 14:15 14:15 14:15 WBC (4.23-9.07) x10^3/uL RBC (4.63-6.08) x10^6/uL Hgb (13.7-17.5) g/dL Hct (40.1-51.0) % MCV (79.0-92.2) fL MCH (25.7-32.2) pg MCHC (32.3-36.5) g/dL RDW (11.6-14.4) % Plt Count (163-337) x10^3/uL MPV (9.4-12.4) fL Gran % (34.0-67.9) % Immature Gran % (Auto) (0.001-0.429) % Nucleat RBC Rel Count (0.00-0.2) % Eos # (Auto) (0.04-0.54) x10^3/uL Immature Gran # (Auto) (0.001-0.031) x10^3u/L Absolute Lymphs (auto) (1.32-3.57) x10^3/uL Absolute Monos (auto) (0.30-0.82) x10^3/uL Absolute Nucleated RBC (0.00-0.012) x10^3u/L Lymphocytes % (21.8-53.1) % Monocytes % (5.3-12.2) % Eosinophils % (0.8-7.0) % Basophils % (0.2-1.2) % Absolute Granulocytes (1.78-5.38) x10^3/uL Basophils # (0.01-0.08) x10^3/uL Sodium 133 L (135-145) mmol/L Potassium 4.3 (3.5-5.1) mmol/L Chloride 95 L (98-107) mmol/L Carbon Dioxide 29 (22-30) mmol/L Anion Gap 13.1 (5-15) MEQ/L BUN 12 (9-20) mg/dL Creatinine 0.72 (0.66-1.25) mg/dL Estimated GFR 102.0 ML/MIN Glucose 109 H (74-106) mg/dL Lactic Acid (0.4-2.0) Calcium 8.7 (8.4-10.2) mg/dL Magnesium 2.3 (1.6-2.3) mg/dL Total Bilirubin 0.60 (0.2-1.3) mg/dL AST 26 (17-59) U/L ALT 26 (0-50) U/L Alkaline Phosphatase 88 (38-126) U/L Troponin I < 0.012 (0.000-0.033) ng/mL NT-Pro-B Natriuret Pep 41.2 (<300) pg/mL Serum Total Protein 7.6 (6.3-8.2) g/dL Albumin 3.8 (3.5-5.0) g/dL Influenza Type A Ag NEGATIVE (NEGATIVE) Influenza Type B Ag NEGATIVE (NEGATIVE) RSV (PCR) NEGATIVE (NEGATIVE) SARS-CoV-2 (PCR) NEGATIVE (NEGATIVE) 11/21/24 11/21/24 Range/Units 13:56 13:56 WBC 7.3 (4.23-9.07) x10^3/uL RBC 5.07 (4.63-6.08) x10^6/uL Hgb 14.3 (13.7-17.5) g/dL Hct 44.1 (40.1-51.0) % MCV 87.0 (79.0-92.2) fL MCH 28.2 (25.7-32.2) pg MCHC 32.4 (32.3-36.5) g/dL RDW 13.7 (11.6-14.4) % Plt Count 199 (163-337) x10^3/uL MPV 10.1 (9.4-12.4) fL Gran % 62.7 (34.0-67.9) % Immature Gran % (Auto) 0.3 (0.001-0.429) % Nucleat RBC Rel Count 0.0 (0.00-0.2) % Eos # (Auto) 0.29 (0.04-0.54) x10^3/uL Immature Gran # (Auto) 0.02 (0.001-0.031) x10^3u/L Absolute Lymphs (auto) 1.65 (1.32-3.57) x10^3/uL Absolute Monos (auto) 0.71 (0.30-0.82) x10^3/uL Absolute Nucleated RBC 0.00 (0.00-0.012) x10^3u/L Lymphocytes % 22.5 (21.8-53.1) % Monocytes % 9.7 (5.3-12.2) % Eosinophils % 4.0 (0.8-7.0) % Basophils % 0.8 (0.2-1.2) % Absolute Granulocytes 4.59 (1.78-5.38) x10^3/uL Basophils # 0.06 (0.01-0.08) x10^3/uL Sodium (135-145) mmol/L Potassium (3.5-5.1) mmol/L Chloride (98-107) mmol/L Carbon Dioxide (22-30) mmol/L Anion Gap (5-15) MEQ/L BUN (9-20) mg/dL Creatinine (0.66-1.25) mg/dL Estimated GFR ML/MIN Glucose (74-106) mg/dL Lactic Acid 0.9 (0.4-2.0) Calcium (8.4-10.2) mg/dL Magnesium (1.6-2.3) mg/dL Total Bilirubin (0.2-1.3) mg/dL AST (17-59) U/L ALT (0-50) U/L Alkaline Phosphatase (38-126) U/L Troponin I (0.000-0.033) ng/mL NT-Pro-B Natriuret Pep (<300) pg/mL Serum Total Protein (6.3-8.2) g/dL Albumin (3.5-5.0) g/dL Influenza Type A Ag (NEGATIVE) Influenza Type B Ag (NEGATIVE) RSV (PCR) (NEGATIVE) SARS-CoV-2 (PCR) (NEGATIVE) - Progress Progress: re-examined Air Movement: good Progress Note: 11/21/24 14:36 Medical decision making in the assignment of moderate complexity to this patient 's medical issue today is based on review of the patient past medical history, review the patient's medication list, review patient drug allergy list, history of present dose of clinical findings on examination. The workup in this patient includes placement of an intravenous line, placement of oxygen via nasal cannula, RT evaluation management, chest x-ray, twelve-lead EKG, BNP, troponin level, CBC, CMP, lactic acid level, viral swabs. Differential diagnosis includes but is not limited to upper respiratory infection, pneumonia, CHF, COPD, arrhythmia, myocardial infarction 11/21/24 16:32 I interpreted the patient's laboratory data results. Based on the laboratory data results, there are no acute, emergent medical issues. The chest x-ray final report was interpreted by the radiologist. The impression states no acute cardiopulmonary process. 11/21/24 16:33 The KUB final report was interpreted by the radiologist. There is mild diffuse fecal stasis throughout the colon but no evidence of bowel distention or obstruction 11/21/24 16:34 The patient has been off of oxygen most of the time here. His room air oxygen saturation level running 96 to 98%. He is in no distress. Blood Culture(s) Obtained: Yes Antibiotics given: No Counseled pt/family regarding: lab results, diagnosis, rad results Medical Desision Making - Independent Historian Additional History obtained from: Storage Battery Inspector And Tester - Diagnostic Testing Diagnostic test were ordered, analyzed, and reviewed by me: Yes Radiological Interpretation: Reviewed by me, Teleradiologist Report - Risk of complications Low Risk: Low risk of morbidity from additional dx testing or treatment - Departure Departure Disposition: Home Clinical Impression: Constipation, Shortness of breath Condition: Stable Critical Care Time: No Referrals: ROSE GOLD [Primary Care Provider] - Follow up/PCP as directed Additional Instructions: Drink plenty fluids. Take all your medications as prescribed. Call your primary care provider on 11/24/2024, to make arrangements for follow-up appointment for further evaluation management. May also use [id number] MiraLAX and/or milk of magnesia if there are no contraindications to help relieve constipation
--- NOTE | 2024-11-21 14:23 | XRAY ---
Indication: Short of breath. Comparison: October 29, 2024 Portable chest underinflated and now slightly rotated. No focal infiltrate, consolidation, or large effusion. Stable left base calcified granuloma and right hemidiaphragm elevation. Heart remains borderline enlarged. Bony thorax intact again with osteopenia, degenerative changes, and scoliosis. Impression: Nonacute underinflated chest with chronic features.
[2024-11-21 14:27] LABS: Absolute Neutrophil Ct (ANC) 4.59 x10^3/uL (1.78-5.38); BASOPHIL % 0.8 % (0.2-1.2); Basophil (Absolute #) 0.06 x10^3/uL (0.01-0.08); Eosinophil (Absolute #) 0.29 x10^3/uL (0.04-0.54); Hematocrit 44.1 % (40.1-51.0); Hemoglobin 14.3 g/dL (13.7-17.5); IMMATURE GRAN # 0.02 x10^3u/L (0.001-0.031); IMMATURE GRAN % 0.3 % (0.001-0.429); Lymphocyte (Absolute #) 1.65 x10^3/uL (1.32-3.57); Lymphocytes % 22.5 % (21.8-53.1); Mean Corpuscular Hemoglobin 28.2 pg (25.7-32.2); Mean Corpuscular Hgb Concent. 32.4 g/dL (32.3-36.5); Mean Platelet Volume 10.1 fL (9.4-12.4); Monocyte (Absolute #) 0.71 x10^3/uL (0.30-0.82); Monocytes % 9.7 % (5.3-12.2); Neutrophil % 62.7 % (34.0-67.9); Platelet Count 199 x10^3/uL (163-337); Red Blood Count 5.07 x10^6/uL (4.63-6.08); Red Cell Distribution Width 13.7 % (11.6-14.4); White Blood Count 7.3 x10^3/uL (4.23-9.07)
[2024-11-21 14:32] VITALS: TEMP 96.6
[2024-11-21] MEDS: SUBLIMAZE 100 MCG/2 ML IV ONE (14:40)
[2024-11-21 14:50] LABS: ALBUMIN 3.8 g/dL (3.5-5.0); ANION GAP 13.1 MEQ/L (5-15); BILIRUBIN,TOTAL 0.6 mg/dL (0.2-1.3); Calcium 8.7 mg/dL (8.4-10.2); Creatinine 1 0.72 mg/dL (0.66-1.25); MAGNESIUM 2.3 mg/dL (1.6-2.3); NT PRO BNPII 41.2 pg/mL (<300); Potassium 4.3 mmol/L (3.5-5.1); Total Protein 7.6 g/dL (6.3-8.2)
[2024-11-21 15:03] LABS: INFLUENZA A NEGATIVE (NEGATIVE); INFLUENZA B NEGATIVE (NEGATIVE); RESPIRATORY SYNCTIAL VIRUS NEGATIVE (NEGATIVE); SARS-CoV-2 Xpert Express NEGATIVE (NEGATIVE)
--- NOTE | 2024-11-21 15:13 | XRAY ---
Indication: Constipation. Comparison: February 10, 2024 KUB again demonstrates mild scattered colonic fecal debris including rectum, but less than before. No focal bowel dilatation or obstruction. Solid organs unremarkable. Osseous structures intact again with osteopenia, lower lumbar degenerative spondylosis, old left rib fractures, and incompletely visualized left epidural generator/lead.
[2024-11-21 17:27] VITALS: O2SAT 98
[2024-11-21 19:09] VITALS: BP 152/101; PULSE 70; RESP 18
== END 2024-11-21 19:10 | disposition home or self-care (01) ==
LOC: ED 13:45
DX: K59.00 Constipation, unspecified (principal); R06.02 Shortness of breath; I10 Essential (primary) hypertension; G80.0 Spastic quadriplegic cerebral palsy; Z79.899 Other long term (current) drug therapy
CPT/HCPCS: 0241U; 36415; 71045; 74018; 80053; 83605; 83735; 83880; 84484; 85025; 87040; 93005; 94760; 99285; 99283

== ENCOUNTER 2025-01-06 09:24 | Inpatient (IN) | payer MEDICARE ==
--- NOTE | 2025-01-06 10:04 | ERPHSYRPT ---
- History of Present Illness Time Seen by Provider: 01/06/25 09:40 Source: patient Exam Limitations: no limitations Patient Subjective Stated Complaint: patient began vomiting last nite at 11 PM, caregiver reports patietn vomiting up projectile and it smelled like fesis Triage Nursing Assessment: patient is awake and able to respond appropriately to questions, patient abdomen is firm and appears to be distended, bowel sounds are absent. lips are dusky purple in color and have black dried vomit around them. caregivers at the home report patient emesis smelled like fesces. patient has edema noted on arms and legs. was scgheduled for swallow study but it had to be rescheduled so caregivers are concerned he may be aspirating. Physician History: 64-year-old male history of MR presents to our ED via EMS for evaluation of vomiting and abdominal pain. Vomiting began last night at approximately 11 PM. No pulmonary complaints however upon arrival to our ED patient's O2 sat was 92%. Patient was placed on 4 L nasal cannula. Caregiver describes emesis is dark and smelled like feces possible GI bleed. Patient has been experiencing some abdominal discomfort. Abdomen reported as distended. Patient currently scheduled for an outpatient swallow study however this has not been completed at this point. Patient is a known aspiration risk. HPI limited secondary to patient's mental status. Patient's caregiver is at the bedside. They voiced no other complaints or concerns at this time. Portions of this note were created with voice recognition technology. There may be grammatical, spelling, punctuation or sound alike errors Timing/Duration: yesterday Severity: moderate Modifying Factors: Improves With: nothing Associated Symptoms: nausea, vomiting, abdominal pain, other Allergies/Adverse Reactions: triamcinolone Allergy (Unknown, Verified 01/06/25 09:56) Home Medications: Tamsulosin HCl 0.4 mg [Flomax 0.4 MG] 0.4 mg PO DAILY 03/06/22 [History] Loratadine 10 mg [Claritin 10 mg] 10 mg PO HS 08/15/23 [History] Calcium Carbonate/Vitamin D3 [Calcium 600-Vit D3 400 Tablet] 1 tab PO BID 12/26/23 [History] Dicyclomine HCl 1 cap PO QID 12/26/23 [History] Escitalopram Oxalate [Lexapro] 1 tab PO HS 12/26/23 [History] Famotidine 20 mg [Pepcid 20 MG] 40 mg PO DAILY 12/26/23 [History] Lansoprazole 30 mg PO DAILY 03/10/24 [History] Alendronate Sodium 70 mg [Fosamax 70 MG] 70 mg PO WEEKLY 04/15/24 [History] Senna 8.6 mg [Senokot 8.6 mg] 8.6 mg PO BID 04/15/24 [History] Methenamine Mandelate 500 mg PO BID 01/06/25 [History] Phentermine HCl 37.5 mg PO DAILY 01/06/25 [History] Hx Tetanus, Diphtheria Vaccination/Date Given: Yes Hx Influenza Vaccination/Date Given: (unknown) Hx Pneumococcal Vaccination/Date Given: (unknown) Travel Risk - International Travel Have you traveled outside of the country in past 3 weeks: No - Emerging Infectious Disease Are you exhibiting symptoms associated with any current EIDs: No Symptoms: Vomitting - Review of Systems Constitutional: No Symptoms, No Fever, No Chills Eyes: No Symptoms Ears, Nose, & Throat: No Symptoms Respiratory: No Symptoms, No Cough, No Dyspnea Cardiac: No Symptoms, No Chest Pain, No Edema, No Syncope Abdominal/Gastrointestinal: No Symptoms, No Abdominal Pain, No Nausea, No Vomiting, No Diarrhea Genitourinary Symptoms: No Symptoms, No Dysuria Musculoskeletal: No Symptoms, No Back Pain, No Neck Pain Skin: No Symptoms, No Rash Neurological: No Symptoms, No Dizziness, No Focal Weakness, No Sensory Changes Psychological: No Symptoms Endocrine: No Symptoms Hematologic/Lymphatic: No Symptoms Immunological/Allergic: No Symptoms All Other Systems: Reviewed and Negative - Past Medical History Pertinent Past Medical History: Yes Neurological History: Other ENT History: No Pertinent History Cardiac History: No Pertinent History Respiratory History: Other Endocrine Medical History: No Pertinent History Musculoskeletal History: Osteoarthritis GI Medical History: GERD, Gallbladder Disease, Ulcer History: No Pertinent History Psycho-Social History: No Pertinent History Male Reproductive Disorders: No Pertinent History Other Medical History: OSTEOARTHRITS. CP. cerebral palsy - Past Surgical History Past Surgical History: Yes Neuro Surgical History: No Pertinent History Cardiac: No Pertinent History Respiratory: No Pertinent History Gastrointestinal: Cholecystectomy Genitourinary: No Pertinent History Musculoskeletal: Orthopedic Surgery Male Surgical History: No Pertinent History Other Surgical History: Back, Neck, and ankle surgery. Colonoscopy, Baclofen pump in left abdomen area per day care home provider at bedside. - Social History Smoking Status: Never smoker Drug Use: none - Social Determinants of Health Will the patient participate in the screening: Yes Do you worry about a steady place to live?: No Do you have any problems with any of the following?: No known problems In the past 12 months,have you had to go without utilities?: No Transportation Issues: No Has anyone in your support network made you feel unsafe?: No Have you or anyone in your house had to go w/o enough food: No - Nursing Vital Signs Nursing Vital Signs: Initial Vital Signs Temperature 97 F 01/06/25 09:25 Pulse Rate 91 H 01/06/25 09:25 Respiratory Rate 16 01/06/25 09:25 Blood Pressure 157/116 01/06/25 09:25 O2 Sat by Pulse Oximetry 97 01/06/25 09:25 Pain Scale Pain Intensity 2 - Physical Exam General Appearance: no apparent distress, alert Eye Exam: PERRL/EOMI, other (Left eye conjunctivitis) Ears, Nose, Throat Exam: normal ENT inspection, moist mucous membranes Neck Exam: normal inspection, full range of motion Respiratory Exam: normal breath sounds, lungs clear, No respiratory distress Cardiovascular Exam: regular rate/rhythm, normal heart sounds, normal peripheral pulses Gastrointestinal/Abdomen Exam: soft, tenderness, other (Diminished bowel sounds), No mass Back Exam: normal inspection, normal range of motion, No CVA tenderness, No vertebral tenderness Extremity Exam: normal inspection, normal range of motion, pelvis stable Neurologic Exam: alert, oriented x 3, cooperative, normal mood/affect, sensation nml, No motor deficits Skin Exam: normal color, warm, dry, No rash Lymphatic Exam: No adenopathy SpO2 Interpretation: normal SpO2: 97 O2 Delivery: Room Air - Course Nursing assessment & vital signs reviewed: Yes EKG Interpreted by Me: RATE (101), Sinus Tach, Left [place] Deviation, NORMAL INTERVALS, NORMAL QRS - Radiology Exams Chest X-ray Interpretation: Teleradiologist Report - CT Exams Abdomen/Pelvis CT Interpretation: Tele-radiologist Report (Cardiomegaly, GERD, small bowel obstruction, right renal cyst) Ordered Tests: Active Orders 24 hr Category Date Time Status Bike Assembler STAT Care 01/06/25 10:02 Active EKG-ER Only STAT Care 01/06/25 10:02 Active IV Insertion STAT Care 01/06/25 10:02 Active Pulse Oximetry (ED) STAT Care 01/06/25 10:02 Active cath [Cath for Specimen-Straight] STAT Care 01/06/25 11:00 Active ABDOMEN AND PELVIS W/0 CONTRAS [CT] Stat Exams 01/06/25 10:03 Completed CHEST 1 VIEW (PORTABLE) Stat Exams 01/06/25 10:02 Completed CBC W DIFF Stat Lab 01/06/25 10:18 Completed CMP Stat Lab 01/06/25 10:18 Completed Lactic Acid Stat Lab 01/06/25 13:04 Completed TROPONIN Q4H Lab 01/06/25 10:18 Completed TROPONIN Q4H Lab 01/06/25 14:15 Ordered TROPONIN Q4H Lab 01/06/25 18:15 Ordered Transfer Order Routine Transfer 01/06/25 Ordered Medication Summary Generic Name Dose Route Start Last Admin Trade Name Freq PRN Reason Stop Dose Admin Sodium Chloride 1,000 mls @ 125 mls/hr 01/06/25 13:15 Sodium Chloride 0.9% 1000 Ml IV 02/05/25 13:14 .Q8H BOBO Discontinued Medications Generic Name Dose Route Start Last Admin Trade Name Freq PRN Reason Stop Dose Admin Erythromycin 1 gm 01/06/25 11:31 01/06/25 11:54 Erythromycin Base 1 Gm Tube Eye Ointment OP 01/06/25 11:32 1 gm STAT STA Administration Erythromycin Confirm 01/06/25 11:49 Erythromycin Base 1 Gm Tube Eye Ointment Administered 01/06/25 11:50 Dose 1 gm .ROUTE .STK-MED ONE Piperacillin Sod/Tazobactam 100 mls @ 200 mls/hr 01/06/25 13:04 Sod 3.375 gm/ Sodium Chloride IV 01/06/25 13:33 STAT ONE Sodium Chloride Confirm 01/06/25 13:40 Sodium Chloride 100ml Mini-Bag Plus Administered 01/06/25 13:41 Dose 100 mls @ ud IV .STK-MED ONE Piperacillin Sod/Tazobactam Sod Confirm 01/06/25 13:40 Piperacillin/Tazobactam Sodium 3.375 Gm Vial Administered 01/06/25 13:41 Dose 3.375 gm IV .STK-MED ONE Lab/Rad Data: Laboratory Result Diagrams 01/06/25 10:18 01/06/25 10:18 Laboratory Results 01/06/25 01/06/25 01/06/25 Range/Units 13:04 10:18 10:18 WBC (4.23-9.07) x10^3/uL RBC (4.63-6.08) x10^6/uL Hgb (13.7-17.5) g/dL Hct (40.1-51.0) % MCV (79.0-92.2) fL MCH (25.7-32.2) pg MCHC (32.3-36.5) g/dL RDW (11.6-14.4) % Plt Count (163-337) x10^3/uL MPV (9.4-12.4) fL Gran % (34.0-67.9) % Immature Gran % (Auto) (0.001-0.429) % Nucleat RBC Rel Count (0.00-0.2) % Eos # (Auto) (0.04-0.54) x10^3/uL Immature Gran # (Auto) (0.001-0.031) x10^3u/L Absolute Lymphs (auto) (1.32-3.57) x10^3/uL Absolute Monos (auto) (0.30-0.82) x10^3/uL Absolute Nucleated RBC (0.00-0.012) x10^3u/L Lymphocytes % (21.8-53.1) % Monocytes % (5.3-12.2) % Eosinophils % (0.8-7.0) % Basophils % (0.2-1.2) % Absolute Granulocytes (1.78-5.38) x10^3/uL Basophils # (0.01-0.08) x10^3/uL Sodium 137 (135-145) mmol/L Potassium 4.5 (3.5-5.1) mmol/L Chloride 97 L (98-107) mmol/L Carbon Dioxide 26 (22-30) mmol/L Anion Gap 18.5 H (5-15) MEQ/L BUN 16 (9-20) mg/dL Creatinine 0.61 L (0.66-1.25) mg/dL Estimated GFR 107.3 ML/MIN Glucose 123 H (74-106) mg/dL Lactic Acid 1.3 (0.4-2.0) Calcium 9.4 (8.4-10.2) mg/dL Total Bilirubin 0.60 (0.2-1.3) mg/dL AST 33 (17-59) U/L ALT 33 (0-50) U/L Alkaline Phosphatase 112 (38-126) U/L Troponin I < 0.012 (0.000-0.033) ng/mL Serum Total Protein 8.5 H (6.3-8.2) g/dL Albumin 4.5 (3.5-5.0) g/dL 01/06/25 Range/Units 10:18 WBC 15.2 H (4.23-9.07) x10^3/uL RBC 6.00 (4.63-6.08) x10^6/uL Hgb 17.1 (13.7-17.5) g/dL Hct 51.7 H (40.1-51.0) % MCV 86.2 (79.0-92.2) fL MCH 28.5 (25.7-32.2) pg MCHC 33.1 (32.3-36.5) g/dL RDW 13.4 (11.6-14.4) % Plt Count 218 (163-337) x10^3/uL MPV 10.0 (9.4-12.4) fL Gran % 87.7 H (34.0-67.9) % Immature Gran % (Auto) 0.3 (0.001-0.429) % Nucleat RBC Rel Count 0.0 (0.00-0.2) % Eos # (Auto) 0.02 L (0.04-0.54) x10^3/uL Immature Gran # (Auto) 0.04 H (0.001-0.031) x10^3u/L Absolute Lymphs (auto) 1.06 L (1.32-3.57) x10^3/uL Absolute Monos (auto) 0.71 (0.30-0.82) x10^3/uL Absolute Nucleated RBC 0.00 (0.00-0.012) x10^3u/L Lymphocytes % 7.0 L (21.8-53.1) % Monocytes % 4.7 L (5.3-12.2) % Eosinophils % 0.1 L (0.8-7.0) % Basophils % 0.2 (0.2-1.2) % Absolute Granulocytes 13.30 H (1.78-5.38) x10^3/uL Basophils # 0.03 (0.01-0.08) x10^3/uL Sodium (135-145) mmol/L Potassium (3.5-5.1) mmol/L Chloride (98-107) mmol/L Carbon Dioxide (22-30) mmol/L Anion Gap (5-15) MEQ/L BUN (9-20) mg/dL Creatinine (0.66-1.25) mg/dL Estimated GFR ML/MIN Glucose (74-106) mg/dL Lactic Acid (0.4-2.0) Calcium (8.4-10.2) mg/dL Total Bilirubin (0.2-1.3) mg/dL AST (17-59) U/L ALT (0-50) U/L Alkaline Phosphatase (38-126) U/L Troponin I (0.000-0.033) ng/mL Serum Total Protein (6.3-8.2) g/dL Albumin (3.5-5.0) g/dL - Progress Progress: improved Progress Note: 01/06/25 13:[address] Emmett Hugo at 1 PM. He will accept consultation. He advises NG tube, IV fluids and p.o. antibiotics. 01/06/25 13:[address] Polanco hospitalist who accepts admission to observation at 1:39 PM 64-year-old male presents to our ED for evaluation of nausea vomiting and abdominal pain. Physical exam reveals a tender slightly distended abdomen. CT abdomen pelvis reveals a small bowel obstruction. Patient also has a leukocytosis of 15,000. NG tube placed per Dr. Hugo's recommendation. IV fluids initiated. Patient NPO. Antibiotic administered as well. Case discussed with hospitalist who excepts admission to observation. Plan of care discussed with patient and his caregiver who agreed to admission at [facility] for further evaluation and treatment. Portions of this note were created with voice recognition technology. There may be grammatical, spelling, punctuation or sound alike errors Complexity of problem addressed is moderate acute complicated. No critical care time. Complexity of data reviewed and analyzed as extensive. Test ordered test reviewed results analyzed and correlated clinically with history and physical exam. Risk of complication and or risk of morbidity/mortality of patient management is high. Patient requires hospitalization for further evaluation and treatment. Vital stable. Time spent admit patient is approximately 20 minutes. Plan of care established for shared decision making. No social determinants of health present to impede follow-up. Portions of this note were created with voice recognition technology. There may be grammatical, spelling, punctuation or sound alike errors Counseled pt/family regarding: lab results, diagnosis, rad results - Departure Departure Disposition: Observation Clinical Impression: Nausea & vomiting, Abdominal pain, Hypoxia, Conjunctivitis, left eye, Small bowel obstruction, Renal cyst, right Condition: Stable Critical Care Time: No Referrals: ROSE GOLD [Primary Care Provider, [facility]] - Follow up/PCP as directed
[2025-01-06 10:22] LABS: BASOPHIL % 0.2 % (0.2-1.2); Basophil (Absolute #) 0.03 x10^3/uL (0.01-0.08); Eosinophil % 0.1 % (0.8-7.0); Eosinophil (Absolute #) 0.02 x10^3/uL (0.04-0.54); Hematocrit 51.7 % (40.1-51.0); Hemoglobin 17.1 g/dL (13.7-17.5); IMMATURE GRAN # 0.04 x10^3u/L (0.001-0.031); IMMATURE GRAN % 0.3 % (0.001-0.429); Lymphocyte (Absolute #) 1.06 x10^3/uL (1.32-3.57); Mean Cell Volume 86.2 fL (79.0-92.2); Mean Corpuscular Hemoglobin 28.5 pg (25.7-32.2); Mean Corpuscular Hgb Concent. 33.1 g/dL (32.3-36.5); Monocyte (Absolute #) 0.71 x10^3/uL (0.30-0.82); Monocytes % 4.7 % (5.3-12.2); Neutrophil % 87.7 % (34.0-67.9); Platelet Count 218 x10^3/uL (163-337); Red Cell Distribution Width 13.4 % (11.6-14.4); White Blood Count 15.2 x10^3/uL (4.23-9.07)
[2025-01-06 10:34] LABS: ALBUMIN 4.5 g/dL (3.5-5.0); ANION GAP 18.5 MEQ/L (5-15); BILIRUBIN,TOTAL 0.6 mg/dL (0.2-1.3); Calcium 9.4 mg/dL (8.4-10.2); Creatinine 1 0.61 mg/dL (0.66-1.25); EST GLOMERULAR FILTRATION RATE 107.3 ML/MIN; Potassium 4.5 mmol/L (3.5-5.1); Total Protein 8.5 g/dL (6.3-8.2)
--- NOTE | 2025-01-06 11:39 | XRAY ---
Indication: Pain. Multiple contiguous axial images obtained through abdomen and pelvis without contrast. Comparison: April 15, 2024 There is now diffuse respiration artifact limits exam. Again beam artifact from left abdominal wall pain pump. Lung bases grossly clear of infiltrate or effusion. Heart again borderline enlarged. Visualized distal esophagus again mildly fluid distended favoring GERD. Again abnormal fluid and air distended stomach with fluid leveling. Small bowel loops also again demonstrates abnormal fluid distention again up to 3.5 cm diameter with fluid leveling. Transition point left mid abdomen with more distal small bowel loops decompressed favoring small bowel obstruction. No free fluid/air. Grossly stable appearing large right renal cyst with minimal peripheral calcifications and cholecystectomy. Remaining liver, pancreas, spleen, adrenal glands, kidneys, ureters, bladder, and aorta are grossly unremarkable for noncontrast exam. Osseous structures intact again with mild degenerative changes throughout thoracolumbar spine, bilateral L5 spondylolysis with grade 1 listhesis, remote T8 superior endplate fracture, and small multilevel thoracolumbar Schmorl nodes. Impression: 1. Diffuse respiration artifact limits exam. 2. Abnormal air distended small and small bowel loops with transition point left mid abdomen favoring distal small bowel obstruction. 3. Again fluid distended distal esophagus favoring GERD. 4. Chronic findings including borderline cardiomegaly, large partially calcified right renal cyst, and chronic bony findings.
--- NOTE | 2025-01-06 11:41 | XRAY ---
Indication: Short of breath. Comparison: 2024 Portable chest again underinflated. Borderline cardiomegaly again obscures left lung base. Visualized lungs clear. Bony thorax intact again with osteopenia, degenerative changes, and levoscoliosis. Impression: Nonacute under inflated chest.
[2025-01-06] MEDS ORDERED: Erythromycin 1 GM ONE (11:49)
[2025-01-06] MEDS: Erythromycin 1 GM OP STA (11:54)
[2025-01-06] MEDS ORDERED: Sodium Chloride 100ML MINI-BAG PLUS 100 ML IV ONE (13:40)
[2025-01-06] MEDS ORDERED: PIPERACILLIN/TAZOBACTAM IV ONE (13:40)
[2025-01-06] MEDS ORDERED: Sodium Chloride 0.9% 1000 ML 1,000 ML ONE (13:41)
[2025-01-06] MEDS: Sodium Chloride 0.9% 1000 ML 1,000 ML IV SCH ×2 (13:44→17:32)
[2025-01-06] MEDS: PIPERACILLIN/TAZOBACTAM 3.375 GM in Sodium Chloride 100ML MINI-BAG PLUS 100 ML IV ONE (13:46)
--- NOTE | 2025-01-06 16:06 | PCM.HP ---
History of Present Illness - Chief Complaint Chief Complaint: Nausea and vomiting, small bowel obstruction Date: 01/06/25 History of Present Illness: is a 64 year old male with a history of intellectual disability presented to the Emergency Department via EMS for evaluation of vomiting and abdominal pain that began the previous evening around 11:00 PM. Although he denied pulmonary symptoms, his oxygen saturation on arrival was 92% on room air, prompting initiation of 4 liters of oxygen via nasal cannula. The patients caregiver reported that the emesis was dark in color and had a feculent odor, raising concern for a possible gastrointestinal bleed. He had been experiencing abdominal discomfort, and his abdomen appeared distended on examination. The patient is a known aspiration risk and is currently scheduled for an outpatient swallow study, which has not yet been completed. Due to his baseline cognitive impairment, history was limited. A CT scan of the abdomen and pelvis revealed a mild small bowel obstruction on the left, possible gastroesophageal reflux disease (GERD), and cardiomegaly. General Surgery was consulted, and a nasogastric (NG) tube was placed in the ED. Upon arrival to the inpatient unit, the NG tube was replaced due to concerns regarding placement, and a chest X-ray was ordered for confirmation. Intravenous fluids were continued for hydration. At this time, the patient denies any additional complaints. - Review of Systems Constitutional: No Fever, No Chills Eyes: No Symptoms Ears, Nose, & Throat: No Symptoms Respiratory: No Cough, No Short Of Breath Cardiac: No Chest Pain, No Edema, No Syncope Abdominal/Gastrointestinal: Abdominal Pain, Vomiting, No Nausea, No Diarrhea Genitourinary Symptoms: No Dysuria Musculoskeletal: No Back Pain, No Neck Pain Skin: No Rash Neurological: No Dizziness, No Focal Weakness, No Sensory Changes Psychological: No Symptoms Endocrine: No Symptoms Hematologic/Lymphatic: No Symptoms Immunological/Allergic: No Symptoms Medications & Allergies Home Medications: Home Medication List Tamsulosin HCl 0.4 mg [Flomax 0.4 MG] 0.4 mg PO DAILY 03/06/22 [History Confirmed 01/06/25] Loratadine 10 mg [Claritin 10 mg] 10 mg PO HS 08/15/23 [History Confirmed 01/06/25] Polyethylene Glycol 3350 17 gm [Miralax Powder 17GM PACKET] 17 gm PO DAILY #5 packet 10/18/23 [Rx Confirmed 01/06/25] Calcium Carbonate/Vitamin D3 [Calcium 600-Vit D3 400 Tablet] 1 tab PO BID 12/26/23 [History Confirmed 01/06/25] Dicyclomine HCl 1 cap PO QID 12/26/23 [History Confirmed 01/06/25] Escitalopram Oxalate [Lexapro] 1 tab PO HS 12/26/23 [History Confirmed 01/06/25] Famotidine 20 mg [Pepcid 20 MG] 40 mg PO DAILY 12/26/23 [History Confirmed 01/06/25] Lansoprazole 30 mg PO DAILY 03/10/24 [History Confirmed 01/06/25] Alendronate Sodium 70 mg [Fosamax 70 MG] 70 mg PO WEEKLY 04/15/24 [History Confirmed 01/06/25] Senna 8.6 mg [Senokot 8.6 mg] 8.6 mg PO BID 04/15/24 [History Confirmed 01/06/25] Methenamine Mandelate 500 mg PO BID 01/06/25 [History Confirmed 01/06/25] Phentermine HCl 37.5 mg PO DAILY 01/06/25 [History Confirmed 01/06/25] Allergies/Adverse Reactions: Allergies Allergy/AdvReac Type Severity Reaction Status Date / Time triamcinolone Allergy Unknown Verified 01/06/25 09:56 - Past Medical History Past Medical History: Yes Neurological History: Other ENT History: No Pertinent History Cardiac History: No Pertinent History Respiratory History: Other Endocrine Medical History: No Pertinent History Musculoskelatal History: Osteoarthritis GI Medical History: GERD, Gallbladder Disease, Ulcer History: No Pertinent History Pyscho-Social History: No Pertinent History Male Reproductive Disorders: No Pertinent History Comment: OSTEOARTHRITS. CP. cerebral palsy - Past Surgical History Past Surgical History: Yes Neuro Surgical History: No Pertinent History Cardiac History: No Pertinent History Respiratory Surgery: No Pertinent History GI Surgical History: Cholecystectomy Genitourinary Surgical Hx: No Pertinent History Musculskeletal Surgical Hx: Orthopedic Surgery Male Surgical History: No Pertinent History Other Surgical History: Back, Neck, and ankle surgery. 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 - Social History Smoking Status: Never smoker Exposure to second hand smoke: No Alcohol: None Drug Use: none - Social Determinants of Health Will the patient participate in the screening: Yes Do you worry about a steady place to live?: No Do you have any problems with any of the following?: No known problems In the past 12 months,have you had to go without utilities?: No Have you or anyone in your house had to go without enough: No Transportation Issues: No Has anyone in your support network made you feel unsafe?: No Does the patient want assistance with any of the above?: No - Physical Exam Vital Signs: Vital Signs - 24 hr Temp Pulse Resp BP BP Pulse Ox 01/06/25 14:45 97.9 F 94 H 20 125/82 93 L 01/06/25 14:37 93 L 01/06/25 14:00 90 20 137/95 96 01/06/25 13:47 97 01/06/25 13:31 90 23 124/102 96 01/06/25 13:00 96 H 16 169/91 95 01/06/25 12:31 88 18 160/85 93 L 01/06/25 12:00 94 H 14 150/101 93 L 01/06/25 11:31 95 H 21 135/92 92 L 01/06/25 11:04 95 H 20 170/115 93 L 01/06/25 11:00 100 H 20 142/107 97 01/06/25 10:25 95 H 18 142/107 96 01/06/25 10:02 97 01/06/25 10:00 142/107 01/06/25 09:31 90 22 157/116 97 01/06/25 09:30 95 H 18 01/06/25 09:29 91 L 01/06/25 09:25 97 F 91 H 16 157/116 97 General Appearance: no apparent distress, alert Neurologic Exam: alert, oriented x 3, cooperative, normal mood/affect, nml cerebellar function, nml station & gait, sensation nml, No motor deficits Eye Exam: PERRL/EOMI, eyes nml inspection Ears, Nose, Throat Exam: normal ENT inspection, TMs normal, pharynx normal, moist mucous membranes Neck Exam: normal inspection, non-tender, supple, full range of motion Respiratory Exam: normal breath sounds, lungs clear, No respiratory distress Cardiovascular Exam: regular rate/rhythm, normal heart sounds, normal peripheral pulses Gastrointestinal/Abdomen Exam: soft, normal bowel sounds (hypoactive x4), tenderness, No mass Back Exam: normal inspection, normal range of motion, No CVA tenderness, No vertebral tenderness Extremity Exam: normal inspection, normal range of motion, pelvis stable Skin Exam: normal color, warm, dry, No rash Lymphatic Exam: No adenopathy Results - Labs Lab/Micro Results: Lab Results-Last 24 Hours 01/06/25 01/06/25 01/06/25 Range/Units 10:18 10:18 10:18 WBC 15.2 H (4.23-9.07) x10^3/uL RBC 6.00 (4.63-6.08) x10^6/uL Hgb 17.1 (13.7-17.5) g/dL Hct 51.7 H (40.1-51.0) % MCV 86.2 (79.0-92.2) fL MCH 28.5 (25.7-32.2) pg MCHC 33.1 (32.3-36.5) g/dL RDW 13.4 (11.6-14.4) % Plt Count 218 (163-337) x10^3/uL MPV 10.0 (9.4-12.4) fL Gran % 87.7 H (34.0-67.9) % Immature Gran % (Auto) 0.3 (0.001-0.429) % Nucleat RBC Rel Count 0.0 (0.00-0.2) % Eos # (Auto) 0.02 L (0.04-0.54) x10^3/uL Immature Gran # (Auto) 0.04 H (0.001-0.031) x10^3u/L Absolute Lymphs (auto) 1.06 L (1.32-3.57) x10^3/uL Absolute Monos (auto) 0.71 (0.30-0.82) x10^3/uL Absolute Nucleated RBC 0.00 (0.00-0.012) x10^3u/L Lymphocytes % 7.0 L (21.8-53.1) % Monocytes % 4.7 L (5.3-12.2) % Eosinophils % 0.1 L (0.8-7.0) % Basophils % 0.2 (0.2-1.2) % Absolute Granulocytes 13.30 H (1.78-5.38) x10^3/uL Basophils # 0.03 (0.01-0.08) x10^3/uL Sodium 137 (135-145) mmol/L Potassium 4.5 (3.5-5.1) mmol/L Chloride 97 L (98-107) mmol/L Carbon Dioxide 26 (22-30) mmol/L Anion Gap 18.5 H (5-15) MEQ/L BUN 16 (9-20) mg/dL Creatinine 0.61 L (0.66-1.25) mg/dL Estimated GFR 107.3 ML/MIN Glucose 123 H (74-106) mg/dL Lactic Acid (0.4-2.0) Calcium 9.4 (8.4-10.2) mg/dL Total Bilirubin 0.60 (0.2-1.3) mg/dL AST 33 (17-59) U/L ALT 33 (0-50) U/L Alkaline Phosphatase 112 (38-126) U/L Troponin I < 0.012 (0.000-0.033) ng/mL Serum Total Protein 8.5 H (6.3-8.2) g/dL Albumin 4.5 (3.5-5.0) g/dL 01/06/25 01/06/25 Range/Units 13:04 14:10 WBC (4.23-9.07) x10^3/uL RBC (4.63-6.08) x10^6/uL Hgb (13.7-17.5) g/dL Hct (40.1-51.0) % MCV (79.0-92.2) fL MCH (25.7-32.2) pg MCHC (32.3-36.5) g/dL RDW (11.6-14.4) % Plt Count (163-337) x10^3/uL MPV (9.4-12.4) fL Gran % (34.0-67.9) % Immature Gran % (Auto) (0.001-0.429) % Nucleat RBC Rel Count (0.00-0.2) % Eos # (Auto) (0.04-0.54) x10^3/uL Immature Gran # (Auto) (0.001-0.031) x10^3u/L Absolute Lymphs (auto) (1.32-3.57) x10^3/uL Absolute Monos (auto) (0.30-0.82) x10^3/uL Absolute Nucleated RBC (0.00-0.012) x10^3u/L Lymphocytes % (21.8-53.1) % Monocytes % (5.3-12.2) % Eosinophils % (0.8-7.0) % Basophils % (0.2-1.2) % Absolute Granulocytes (1.78-5.38) x10^3/uL Basophils # (0.01-0.08) x10^3/uL Sodium (135-145) mmol/L Potassium (3.5-5.1) mmol/L Chloride (98-107) mmol/L Carbon Dioxide (22-30) mmol/L Anion Gap (5-15) MEQ/L BUN (9-20) mg/dL Creatinine (0.66-1.25) mg/dL Estimated GFR ML/MIN Glucose (74-106) mg/dL Lactic Acid 1.3 (0.4-2.0) Calcium (8.4-10.2) mg/dL Total Bilirubin (0.2-1.3) mg/dL AST (17-59) U/L ALT (0-50) U/L Alkaline Phosphatase (38-126) U/L Troponin I < 0.012 (0.000-0.033) ng/mL Serum Total Protein (6.3-8.2) g/dL Albumin (3.5-5.0) g/dL - Radiology Impressions Radiology Exams & Impressions: Radiology Procedures Category Date Time Status ABDOMEN AND PELVIS W/0 CONTRAS [CT] Stat Exams 01/06/25 10:03 Completed CHEST 1 VIEW (PORTABLE) Stat Exams 01/06/25 10:02 Completed CHEST 1 VIEW (PORTABLE) Stat Exams 01/06/25 16:04 Ordered Assessment/Plan (1) Small bowel obstruction Current Visit: Yes Status: Acute Assessment & Plan: - GS consulted- NG placed per recs - CXR for placement ordered. - CBC, CMP reviewed - IV narcotic pain med - IV antiemetic - Zosyn IV - WBC 15.2 - Protonix UV - Hold home meds as NPO - IVF Code(s): K56.609 - UNSP INTESTNL OBST, UNSP TO PARTIAL VERSUS COMPLETE OBST (2) Abdominal pain Current Visit: Yes Status: Acute Assessment & Plan: - CT abd pelvis reviewed - 2:2 SBO- see plan Code(s): R10.9 - UNSPECIFIED ABDOMINAL PAIN (3) Nausea and vomiting Current Visit: Yes Status: Acute Assessment & Plan: - Zofran IV PRN Code(s): R11.2 - NAUSEA WITH VOMITING, UNSPECIFIED (4) Mild dehydration Current Visit: No Status: Acute Assessment & Plan: - Anion gap 18.5 - IVF Code(s): E86.0 - DEHYDRATION (5) Cerebral palsy Current Visit: No Status: Chronic Qualifiers: Cerebral palsy type: spastic diplegic Qualified Code(s): G80.1 - Spastic diplegic cerebral palsy Assessment & Plan: - noted VTE: SCD PPI: protonix Next of KIN: Brother Chely Macias D/C plan: 1-2 days Code status: Full Code(s): G80.9 - CEREBRAL PALSY, UNSPECIFIED (6) GERD (gastroesophageal reflux disease) Current Visit: No Status: Chronic Code(s): K21.9 - GASTRO-ESOPHAGEAL REFLUX DISEASE WITHOUT ESOPHAGITIS
[2025-01-06] MEDS ORDERED: MORPHINE SULFATE 2 MG INJ IV PRN (16:16)
[2025-01-06] MEDS ORDERED: Zofran 4 MG/2 ML VIAL IV PRN (16:19)
--- NOTE | 2025-01-06 16:39 | XRAY ---
Indication: NG 2 placement. Comparison: Taken earlier in the day. Portable chest demonstrates new NG tube traversing chest. Distal tube is folded over with tip directed superiorly, approximately T6-T7 level. Recommend readjustment. Remaining chest unchanged again underinflated with borderline cardiomegaly and chunky left hilar calcified node.
--- NOTE | 2025-01-06 17:02 | PCM.NOTE ---
Explained to Ana RN, that NG is folded over per radiology results and needs adjusted with a repeat CXR. She explained Dr. Alva was there and would have him look at XR.
[2025-01-06] MEDS: PROTONIX 40 MG IV IV SCH (17:29)
[2025-01-06] MEDS: PIPERACILLIN/TAZOBACTAM 4.5 GM in Sodium Chloride 100ML MINI-BAG PLUS 100 ML IV SCH (21:50)
[2025-01-07 05:37] LABS: Hematocrit 48.2 % (40.1-51.0); Hemoglobin 15.1 g/dL (13.7-17.5); Mean Cell Volume 89.9 fL (79.0-92.2); Mean Corpuscular Hemoglobin 28.2 pg (25.7-32.2); Mean Corpuscular Hgb Concent. 31.3 g/dL (32.3-36.5); Mean Platelet Volume 10.2 fL (9.4-12.4); Platelet Count 197 x10^3/uL (163-337); Red Blood Count 5.36 x10^6/uL (4.63-6.08); White Blood Count 10.9 x10^3/uL (4.23-9.07)
[2025-01-07 05:54] LABS: ALBUMIN 3.7 g/dL (3.5-5.0); ANION GAP 12.9 MEQ/L (5-15); BILIRUBIN,TOTAL 0.8 mg/dL (0.2-1.3); Calcium 8.1 mg/dL (8.4-10.2); Creatinine 1 0.91 mg/dL (0.66-1.25); EST GLOMERULAR FILTRATION RATE 94.1 ML/MIN; Potassium 3.8 mmol/L (3.5-5.1); Total Protein 7.4 g/dL (6.3-8.2)
--- NOTE | 2025-01-07 08:33 | XRAY ---
Indication: NG tube placement. Comparison: Taken earlier in the day. Portable chest demonstrates NG tube readjustment now appearing straight with tip coiled in stomach. Lungs slightly better inflated and remains clear. Heart not enlarged. No new cardiopulmonary abnormalities.
--- NOTE | 2025-01-07 12:30 | PCM.NOTE ---
Date and Time: 01/07/25 1224 Subjective Assessment: 01/06/25 is a 64 year old male with a history of intellectual disability presented to the Emergency Department via EMS for evaluation of vomiting and abdominal pain that began the previous evening around 11:00 PM. Although he denied pulmonary symptoms, his oxygen saturation on arrival was 92% on room air, prompting initiation of 4 liters of oxygen via nasal cannula. The patients caregiver reported that the emesis was dark in color and had a feculent odor, raising concern for a possible gastrointestinal bleed. He had been experiencing abdominal discomfort, and his abdomen appeared distended on examination. The patient is a known aspiration risk and is currently scheduled for an outpatient swallow study, which has not yet been completed. Due to his baseline cognitive impairment, history was limited. A CT scan of the abdomen and pelvis revealed a mild small bowel obstruction on the left, possible gastroesophageal reflux disease (GERD), and cardiomegaly. General Surgery was consulted, and a nasogastric (NG) tube was placed in the ED. Upon arrival to the inpatient unit, the NG tube was replaced due to concerns regarding placement, and a chest X-ray was ordered for confirmation. Intravenous fluids were continued for hydration. At this time, the patient denies any additional complaints. 01/07/25 Pt resting in bed. He states he continues to have N/V and abd pain. NG in place. Small bowel follow through test to be completed today per surgery recommendation. Continue pain meds, antiemetic, antibiotics, and IVF. He denies CP or SOB. - Review of Systems Constitutional: No Fever, No Chills Eyes: No Symptoms Ears, Nose, & Throat: No Symptoms Respiratory: No Cough, No Short Of Breath Cardiac: No Chest Pain, No Edema, No Syncope Abdominal/Gastrointestinal: Abdominal Pain, Nausea, Vomiting, No Diarrhea Genitourinary Symptoms: No Dysuria Musculoskeletal: No Back Pain, No Neck Pain Skin: No Rash Neurological: No Dizziness, No Focal Weakness, No Sensory Changes Psychological: No Symptoms Endocrine: No Symptoms Hematologic/Lymphatic: No Symptoms Immunological/Allergic: No Symptoms Objective Exam General Appearance: no apparent distress, alert Neurologic Exam: alert, oriented x 3, cooperative, normal mood/affect, nml cerebellar function, sensation nml, No motor deficits Skin Exam: normal color, warm, dry Eye Exam: PERRL, EOMI, eyes nml inspection Ears, Nose, Throat Exam: normal ENT inspection, pharynx normal, moist mucous membranes Neck Exam: normal inspection, non-tender, supple, full range of motion Respiratory Exam: normal breath sounds, lungs clear, No respiratory distress Cardiovascular Exam: regular rate/rhythm, normal heart sounds Gastrointestinal/Abdomen Exam: soft, tenderness, distention, No mass Extremity Exam: normal inspection, normal range of motion Back Exam: normal inspection, normal range of motion, No CVA tenderness, No vertebral tenderness Male Genitalia Exam: deferred Rectal Exam: deferred Objective Data Vital Signs: Vital Signs - 24 hr Temp Pulse Resp BP BP Pulse Ox 01/07/25 11:19 98.3 F 79 22 124/66 96 01/07/25 08:00 98.5 F 66 20 111/63 97 01/07/25 07:17 96 01/07/25 04:00 98 F 74 18 115/67 95 01/07/25 00:00 97.8 F 86 16 122/67 95 01/06/25 20:48 94 L 01/06/25 19:42 98.8 F 87 18 128/79 91 L 01/06/25 14:45 97.9 F 94 H 20 125/82 93 L 01/06/25 14:37 93 L 01/06/25 14:00 90 20 137/95 96 01/06/25 13:47 97 01/06/25 13:31 90 23 124/102 96 01/06/25 13:00 96 H 16 169/91 95 01/06/25 12:31 88 18 160/85 93 L Pain Assessment - Last Documented Pain Intensity 2 Intake and Output: Intake & Output 01/05/25 01/06/25 01/07/25 01/08/25 11:59 11:59 11:59 11:59 Intake Total 0 Output Total 300 Balance -300 Weight 112.5 kg Lab Results: Lab Results-Last 24 Hours 01/06/25 01/06/25 01/06/25 Range/Units 13:04 14:10 17:25 WBC (4.23-9.07) x10^3/uL RBC (4.63-6.08) x10^6/uL Hgb (13.7-17.5) g/dL Hct (40.1-51.0) % MCV (79.0-92.2) fL MCH (25.7-32.2) pg MCHC (32.3-36.5) g/dL RDW (11.6-14.4) % Plt Count (163-337) x10^3/uL MPV (9.4-12.4) fL Sodium (135-145) mmol/L Potassium (3.5-5.1) mmol/L Chloride (98-107) mmol/L Carbon Dioxide (22-30) mmol/L Anion Gap (5-15) MEQ/L BUN (9-20) mg/dL Creatinine (0.66-1.25) mg/dL Estimated GFR ML/MIN Glucose (74-106) mg/dL Lactic Acid 1.3 (0.4-2.0) Calcium (8.4-10.2) mg/dL Total Bilirubin (0.2-1.3) mg/dL AST (17-59) U/L ALT (0-50) U/L Alkaline Phosphatase (38-126) U/L Troponin I < 0.012 < 0.012 (0.000-0.033) ng/mL Serum Total Protein (6.3-8.2) g/dL Albumin (3.5-5.0) g/dL 01/07/25 01/07/25 Range/Units 05:10 05:10 WBC 10.9 H (4.23-9.07) x10^3/uL RBC 5.36 (4.63-6.08) x10^6/uL Hgb 15.1 (13.7-17.5) g/dL Hct 48.2 (40.1-51.0) % MCV 89.9 (79.0-92.2) fL MCH 28.2 (25.7-32.2) pg MCHC 31.3 L (32.3-36.5) g/dL RDW 14.0 (11.6-14.4) % Plt Count 197 (163-337) x10^3/uL MPV 10.2 (9.4-12.4) fL Sodium 139 (135-145) mmol/L Potassium 3.8 (3.5-5.1) mmol/L Chloride 102 (98-107) mmol/L Carbon Dioxide 27 (22-30) mmol/L Anion Gap 12.9 (5-15) MEQ/L BUN 22 H (9-20) mg/dL Creatinine 0.91 (0.66-1.25) mg/dL Estimated GFR 94.1 ML/MIN Glucose 98 (74-106) mg/dL Lactic Acid (0.4-2.0) Calcium 8.1 L (8.4-10.2) mg/dL Total Bilirubin 0.80 (0.2-1.3) mg/dL AST 25 (17-59) U/L ALT 21 (0-50) U/L Alkaline Phosphatase 83 (38-126) U/L Troponin I (0.000-0.033) ng/mL Serum Total Protein 7.4 (6.3-8.2) g/dL Albumin 3.7 (3.5-5.0) g/dL Radiology Exams: Radiology Procedures Category Date Time Status ABDOMEN AND PELVIS W/0 CONTRAS [CT] Stat Exams 01/06/25 10:03 Completed CHEST 1 VIEW (PORTABLE) Stat Exams 01/06/25 10:02 Completed CHEST 1 VIEW (PORTABLE) Stat Exams 01/06/25 16:04 Completed CHEST 1 VIEW (PORTABLE) Stat Exams 01/06/25 17:12 Completed SMALL BOWEL FOLLOWING UGI Routine Exams 01/07/25 16:56 Ordered Medications: Medications Generic Name Dose Route Start Last Admin Trade Name Freq PRN Reason Stop Dose Admin Piperacillin Sod/Tazobactam 100 mls @ 200 mls/hr 01/06/25 22:00 01/07/25 05:16 Sod 4.5 gm/ Sodium Chloride IV 02/05/25 21:59 200 mls/hr Q8HT BOBO Administration Sodium Chloride 1,000 mls @ 125 mls/hr 01/06/25 16:30 01/07/25 07:56 Sodium Chloride 0.9% 1000 Ml IV 02/05/25 16:29 125 mls/hr .Q8H BOBO Administration Morphine Sulfate 2 mg 01/06/25 16:16 Morphine Sulfate 2 Mg/Ml Inj IV 01/11/25 16:15 Q4H PRN PRN SEVERE PAIN Ondansetron HCl 4 mg 01/06/25 16:19 Ondansetron Hcl 4 Mg/2 Ml Vial IV 02/05/25 16:18 Q6H PRN PRN NAUSEA/VOMITING Pantoprazole Sodium 40 mg 01/06/25 16:30 01/06/25 17:29 Pantoprazole 40 Mg Vial IV 02/05/25 16:29 40 mg Q24H BOBO Administration Discontinued Medications Generic Name Dose Route Start Last Admin Trade Name Vince PRN Reason Stop Dose Admin Erythromycin 1 gm 01/06/25 11:31 01/06/25 11:54 Erythromycin Base 1 Gm Tube Eye Ointment OP 01/06/25 11:32 1 gm STAT STA Administration Erythromycin Confirm 01/06/25 11:49 Erythromycin Base 1 Gm Tube Eye Ointment Administered 01/06/25 11:50 Dose 1 gm .ROUTE .STK-MED ONE Sodium Chloride 1,000 mls @ 125 mls/hr 01/06/25 13:15 01/06/25 13:44 Sodium Chloride 0.9% 1000 Ml IV 02/05/25 13:14 125 mls/hr .Q8H BOBO Administration Piperacillin Sod/Tazobactam 100 mls @ 200 mls/hr 01/06/25 13:04 01/06/25 13:46 Sod 3.375 gm/ Sodium Chloride IV 01/06/25 13:33 200 ml/hr STAT ONE 200 mls/hr Administration Sodium Chloride Confirm 01/06/25 13:40 Sodium Chloride 100ml Mini-Bag Plus Administered 01/06/25 13:41 Dose 100 mls @ ud IV .STK-MED ONE Sodium Chloride Confirm 01/06/25 13:41 Sodium Chloride 0.9% 1000 Ml Administered 01/06/25 13:42 Dose 1,000 mls @ ud .ROUTE .STK-MED ONE Piperacillin Sod/Tazobactam Sod Confirm 01/06/25 13:40 Piperacillin/Tazobactam Sodium 3.375 Gm Vial Administered 01/06/25 13:41 Dose 3.375 gm IV .STK-MED ONE Assessment/Plan (1) Small bowel obstruction Current Visit: Yes Status: Acute Code(s): K56.609 - UNSP INTESTNL OBST, UNSP TO PARTIAL VERSUS COMPLETE OBST (2) Abdominal pain Current Visit: Yes Status: Acute Code(s): R10.9 - UNSPECIFIED ABDOMINAL PAIN (3) Nausea and vomiting Current Visit: Yes Status: Acute Code(s): R11.2 - NAUSEA WITH VOMITING, UNSPECIFIED (4) Mild dehydration Current Visit: No Status: Acute Code(s): E86.0 - DEHYDRATION (5) Cerebral palsy Current Visit: No Status: Chronic Qualifiers: Cerebral palsy type: spastic diplegic Qualified Code(s): G80.1 - Spastic diplegic cerebral palsy Code(s): G80.9 - CEREBRAL PALSY, UNSPECIFIED (6) GERD (gastroesophageal reflux disease) Current Visit: No Status: Chronic Assessment & Plan: 1) Small bowel obstruction Current Visit: Yes Status: Acute Assessment & Plan: - GS consulted- NG placed per recs - CXR for placement ordered. - CBC, CMP reviewed - IV narcotic pain med - IV antiemetic - Zosyn IV - WBC 15.2 - Protonix UV - Hold home meds as NPO - IVF 01/07 - Small bowel follow through per surgery orders - CBC, CMP reviewed - WBC improved 10.9 Code(s): K56.609 - UNSP INTESTNL OBST, UNSP TO PARTIAL VERSUS COMPLETE OBST (2) Abdominal pain Current Visit: Yes Status: Acute Assessment & Plan: - CT abd pelvis reviewed - 2:2 SBO- see plan Code(s): R10.9 - UNSPECIFIED ABDOMINAL PAIN (3) Nausea and vomiting Current Visit: Yes Status: Acute Assessment & Plan: - Zofran IV PRN Code(s): R11.2 - NAUSEA WITH VOMITING, UNSPECIFIED (4) Mild dehydration Current Visit: No Status: Acute Assessment & Plan: - Anion gap 18.5 - IVF 01/07 - Resolved but NPO so continue IVF Code(s): E86.0 - DEHYDRATION (5) Cerebral palsy Current Visit: No Status: Chronic Qualifiers: Cerebral palsy type: spastic diplegic Qualified Code(s): G80.1 - Spastic diplegic cerebral palsy Assessment & Plan: - Noted Code(s): G80.9 - CEREBRAL PALSY, UNSPECIFIED (6) GERD (gastroesophageal reflux disease) Current Visit: No Status: Chronic Code(s): K21.9 - GASTRO-ESOPHAGEAL REFLUX DISEASE WITHOUT ESOPHAGITIS - Continue Protonix VTE: SCD PPI: protonix Next of KIN: Brother Chely Macias D/C plan: 1-2 days Code status: Full Code(s): K21.9 - GASTRO-ESOPHAGEAL REFLUX DISEASE WITHOUT ESOPHAGITIS
--- NOTE | 2025-01-07 13:02 | CONS ---
DATE OF CONSULTATION: 01/06/2025 HISTORY OF PRESENT ILLNESS: This is a 64-year-old male was in a nursing facility, presented with nausea, vomiting and abdominal distention with obstipation. He has a CAT scan showing a small bowel obstruction with a transition point mid abdomen. I did not see any prior surgical scars except on the left side. He looks like he had some sort of a pain pump present unfortunately, he is not a great historian so he cannot really tell me if he has had major abdominal surgery or not, but I did not see any other major scars. He did look distended. He tells me he is farting but I do not trust him. We were consulted to evaluate for small bowel obstruction. There was no obvious mass or lesion seen on the CAT scan either. PAST MEDICAL HISTORY: As described. Unclear. Review chart for further details but given he is a poor historian, I am not exactly sure what surgeries he has had. PAST SURGICAL HISTORY: As described. Unclear. Review chart for further details but given he is a poor historian, I am not exactly sure what surgeries he has had. LABS AND RADIOGRAPHIC STUDIES: Significant labs and radiographic findings include a CT scan showing a small bowel obstruction with some stool and gas in the colon but small amount. Dilated stomach. ASSESSMENT: Partial small bowel obstruction. PLAN: NG tube repositioned. Check abdominal x-ray to confirm its location. Once the location is confirmed, we can begin a small bowel follow-through with water soluble contrast. Continue n.p.o., NG to low intermittent suction, IV fluids. Monitor vitals, urine output closely. No surgery planned at this time but we will see what the result of the small bowel follow-through are.
--- NOTE | 2025-01-07 17:47 | XRAY ---
Indication: Small bowel obstruction. Comparison: None Preliminary portable private detective abdomen appears nonacute and nonobstructed. Incidental cholecystectomy, left abdomen pain pump, and NG tube tip coiled in stomach. Osseous structures intact with mild degenerative changes throughout spine. Approximately 720 cc diluted Gastrografin was injected through indwelling NG tube. Multiple portable bedside overhead radiographs obtained. First image demonstrates Gastrografin in stomach lumen with immediate gastric emptying. There is antegrade movement of Gastrografin through small bowel loops to the level of distal descending colon within 2 hours 15 minutes. No focal bowel distention, obstruction, flocculation, or inflammatory changes. Impression: Negative small bowel follow-through exam.
[2025-01-08] MEDS: Dextrose 5% -0.45 NaCl 1000 ML 1,000 ML IV SCH (03:07)
[2025-01-08 05:31] LABS: Hematocrit 44.8 % (40.1-51.0); Hemoglobin 13.7 g/dL (13.7-17.5); Mean Cell Volume 92.2 fL (79.0-92.2); Mean Corpuscular Hemoglobin 28.2 pg (25.7-32.2); Mean Corpuscular Hgb Concent. 30.6 g/dL (32.3-36.5); Mean Platelet Volume 10.5 fL (9.4-12.4); Platelet Count 210 x10^3/uL (163-337); Red Blood Count 4.86 x10^6/uL (4.63-6.08); Red Cell Distribution Width 14.2 % (11.6-14.4); White Blood Count 8.7 x10^3/uL (4.23-9.07)
[2025-01-08 06:45] LABS: ALBUMIN 3.4 g/dL (3.5-5.0); ANION GAP 14.3 MEQ/L (5-15); BILIRUBIN,TOTAL 0.7 mg/dL (0.2-1.3); Creatinine 1 0.82 mg/dL (0.66-1.25); EST GLOMERULAR FILTRATION RATE 98.1 ML/MIN; Potassium 3.5 mmol/L (3.5-5.1); Total Protein 6.9 g/dL (6.3-8.2)
[2025-01-08] MEDS ORDERED: D50W 50 ml Abboject IV PRN (07:42)
[2025-01-08] MEDS ORDERED: Glutose 15 GM ORAL GEL PO PRN (07:42)
--- NOTE | 2025-01-08 11:21 | PCM.NOTE ---
Date and Time: 01/08/25 1115 Subjective Assessment: 01/06/25 is a 64 year old male with a history of intellectual disability presented to the Emergency Department via EMS for evaluation of vomiting and abdominal pain that began the previous evening around 11:00 PM. Although he denied pulmonary symptoms, his oxygen saturation on arrival was 92% on room air, prompting initiation of 4 liters of oxygen via nasal cannula. The patients caregiver reported that the emesis was dark in color and had a feculent odor, raising concern for a possible gastrointestinal bleed. He had been experiencing abdominal discomfort, and his abdomen appeared distended on examination. The patient is a known aspiration risk and is currently scheduled for an outpatient swallow study, which has not yet been completed. Due to his baseline cognitive impairment, history was limited. A CT scan of the abdomen and pelvis revealed a mild small bowel obstruction on the left, possible gastroesophageal reflux disease (GERD), and cardiomegaly. General Surgery was consulted, and a nasogastric (NG) tube was placed in the ED. Upon arrival to the inpatient unit, the NG tube was replaced due to concerns regarding placement, and a chest X-ray was ordered for confirmation. Intravenous fluids were continued for hydration. At this time, the patient denies any additional complaints. 01/07/25 Pt resting in bed. He states he continues to have N/V and abd pain. NG in place. Small bowel follow through test to be completed today per surgery recommendation. Continue pain meds, antiemetic, antibiotics, and IVF. He denies CP or SOB. 01/08/25 Pt resting in bed. He states he feels better today and would like to eat. Imaging ordered by yesterday was negative. Per surgery orders today NG removed and clear liquid diet started. Pt to advance diet as tolerated. He has had several BM's overnight. Na+ 148 and IVF stopped. Continue Zosyn per GS orders. He denies CP, SOB, abd. pain, N/V/D. - Review of Systems Constitutional: No Fever, No Chills Eyes: No Symptoms Ears, Nose, & Throat: No Symptoms Respiratory: No Cough, No Short Of Breath Cardiac: No Chest Pain, No Edema, No Syncope Abdominal/Gastrointestinal: No Abdominal Pain, No Nausea, No Vomiting, No Diarrhea Genitourinary Symptoms: No Dysuria Musculoskeletal: No Back Pain, No Neck Pain Skin: No Rash Neurological: No Dizziness, No Focal Weakness, No Sensory Changes Psychological: No Symptoms Endocrine: No Symptoms Hematologic/Lymphatic: No Symptoms Immunological/Allergic: No Symptoms Objective Exam General Appearance: no apparent distress, alert Neurologic Exam: alert, oriented x 3, cooperative, normal mood/affect, nml cerebellar function, sensation nml, No motor deficits Skin Exam: normal color, warm, dry Wound Assessment: Skin/Wound Assessment Wound/Incision Assessment Start: 01/08/25 05:01 Text: Status: Active Freq: Q8H Protocol: Document 01/08/25 05:02 MP (Rec: 01/08/25 05:03 MP [id number]) Wound/Incision Assessment Right Buttock Wound Assessment Shift Assessment Wound Type shearing Wound Bed Greatest Portion Red (Granulation),Shiny Surrounding Tissue [place],Blanched/Dull Wound Photo Photo Taken No Eye Exam: PERRL, EOMI, eyes nml inspection Ears, Nose, Throat Exam: normal ENT inspection, pharynx normal, moist mucous membranes Neck Exam: normal inspection, non-tender, supple, full range of motion Respiratory Exam: normal breath sounds, lungs clear, No respiratory distress Cardiovascular Exam: regular rate/rhythm, normal heart sounds Gastrointestinal/Abdomen Exam: soft, No tenderness, No mass Extremity Exam: normal inspection, normal range of motion Back Exam: normal inspection, normal range of motion, No CVA tenderness, No vertebral tenderness Male Genitalia Exam: deferred Rectal Exam: deferred Objective Data Vital Signs: Vital Signs - 24 hr Temp Pulse Resp BP Pulse Ox 01/08/25 07:45 98.7 F 87 17 129/64 96 01/08/25 07:30 97 01/08/25 04:00 97.5 F 90 21 127/82 96 01/08/25 00:00 97.5 F 94 H 20 106/66 94 L 01/07/25 20:00 97.3 F 87 19 122/71 94 L 01/07/25 19:28 92 L 01/07/25 16:00 98.4 F 80 20 118/69 95 01/07/25 11:19 98.3 F 79 22 124/66 96 Pain Assessment - Last Documented Pain Intensity 2 Intake and Output: Intake & Output 01/05/25 01/06/25 01/07/25 01/08/25 11:59 11:59 11:59 11:59 Intake Total 0 4554 Output Total 300 500 Balance -300 4054 Weight 112.5 kg 112.5 kg 112.5 kg Lab Results: Lab Results-Last 24 Hours 01/07/25 01/08/25 01/08/25 Range/Units 22:23 05:10 05:10 WBC 8.7 (4.23-9.07) x10^3/uL RBC 4.86 (4.63-6.08) x10^6/uL Hgb 13.7 (13.7-17.5) g/dL Hct 44.8 (40.1-51.0) % MCV 92.2 (79.0-92.2) fL MCH 28.2 (25.7-32.2) pg MCHC 30.6 L (32.3-36.5) g/dL RDW 14.2 (11.6-14.4) % Plt Count 210 (163-337) x10^3/uL MPV 10.5 (9.4-12.4) fL Sodium 148 H D (135-145) mmol/L Potassium 3.5 (3.5-5.1) mmol/L Chloride 110 H (98-107) mmol/L Carbon Dioxide 27 (22-30) mmol/L Anion Gap 14.3 (5-15) MEQ/L BUN 22 H (9-20) mg/dL Creatinine 0.82 (0.66-1.25) mg/dL Estimated GFR 98.1 ML/MIN Glucose 103 (74-106) mg/dL POC Glucometer 75 (74 to 106) mg/dL Calcium 8.0 L (8.4-10.2) mg/dL Total Bilirubin 0.70 (0.2-1.3) mg/dL AST 23 (17-59) U/L ALT 18 (0-50) U/L Alkaline Phosphatase 70 (38-126) U/L Serum Total Protein 6.9 (6.3-8.2) g/dL Albumin 3.4 L (3.5-5.0) g/dL 01/08/25 Range/Units 07:36 WBC (4.23-9.07) x10^3/uL RBC (4.63-6.08) x10^6/uL Hgb (13.7-17.5) g/dL Hct (40.1-51.0) % MCV (79.0-92.2) fL MCH (25.7-32.2) pg MCHC (32.3-36.5) g/dL RDW (11.6-14.4) % Plt Count (163-337) x10^3/uL MPV (9.4-12.4) fL Sodium (135-145) mmol/L Potassium (3.5-5.1) mmol/L Chloride (98-107) mmol/L Carbon Dioxide (22-30) mmol/L Anion Gap (5-15) MEQ/L BUN (9-20) mg/dL Creatinine (0.66-1.25) mg/dL Estimated GFR ML/MIN Glucose (74-106) mg/dL POC Glucometer 92 (74 to 106) mg/dL Calcium (8.4-10.2) mg/dL Total Bilirubin (0.2-1.3) mg/dL AST (17-59) U/L ALT (0-50) U/L Alkaline Phosphatase (38-126) U/L Serum Total Protein (6.3-8.2) g/dL Albumin (3.5-5.0) g/dL Radiology Exams: Radiology Procedures Category Date Time Status CHEST 1 VIEW (PORTABLE) Stat Exams 01/06/25 16:04 Completed CHEST 1 VIEW (PORTABLE) Stat Exams 01/06/25 17:12 Completed SMALL BOWEL SERIES Routine Exams 01/07/25 16:56 Completed Medications: Medications Generic Name Dose Route Start Last Admin Trade Name Freq PRN Reason Stop Dose Admin Dextrose 25 ml 01/08/25 07:42 Dextrose 50%-Water 50 Ml Abboject IV 02/07/25 07:41 PRN PRN HYPOGLYCEMIA Glucose 15 gm 01/08/25 07:42 Dextrose 15 Gm Gel PO 02/07/25 07:41 PRN PRN HYPOGLYCEMIA Piperacillin Sod/Tazobactam 100 mls @ 200 mls/hr 01/06/25 22:00 01/08/25 05:53 Sod 4.5 gm/ Sodium Chloride IV 02/05/25 21:59 200 mls/hr Q8HT BOBO Administration Morphine Sulfate 2 mg 01/06/25 16:16 Morphine Sulfate 2 Mg/Ml Inj IV 01/11/25 16:15 Q4H PRN PRN SEVERE PAIN Ondansetron HCl 4 mg 01/06/25 16:19 Ondansetron Hcl 4 Mg/2 Ml Vial IV 02/05/25 16:18 Q6H PRN PRN NAUSEA/VOMITING Pantoprazole Sodium 40 mg 01/06/25 16:30 01/07/25 22:37 Pantoprazole 40 Mg Vial IV 02/05/25 16:29 40 mg Q24H BOBO Administration Discontinued Medications Generic Name Dose Route Start Last Admin Trade Name Freq PRN Reason Stop Dose Admin Erythromycin 1 gm 01/06/25 11:31 01/06/25 11:54 Erythromycin Base 1 Gm Tube Eye Ointment OP 01/06/25 11:32 1 gm STAT STA Administration Erythromycin Confirm 01/06/25 11:49 Erythromycin Base 1 Gm Tube Eye Ointment Administered 01/06/25 11:50 Dose 1 gm .ROUTE .STK-MED ONE Sodium Chloride 1,000 mls @ 125 mls/hr 01/06/25 13:15 01/06/25 13:44 Sodium Chloride 0.9% 1000 Ml IV 02/05/25 13:14 125 mls/hr .Q8H BOBO Administration Piperacillin Sod/Tazobactam 100 mls @ 200 mls/hr 01/06/25 13:04 01/06/25 13:46 Sod 3.375 gm/ Sodium Chloride IV 01/06/25 13:33 200 ml/hr STAT ONE 200 mls/hr Administration Sodium Chloride Confirm 01/06/25 13:40 Sodium Chloride 100ml Mini-Bag Plus Administered 01/06/25 13:41 Dose 100 mls @ ud IV .STK-MED ONE Sodium Chloride Confirm 01/06/25 13:41 Sodium Chloride 0.9% 1000 Ml Administered 01/06/25 13:42 Dose 1,000 mls @ ud .ROUTE .STK-MED ONE Sodium Chloride 1,000 mls @ 125 mls/hr 01/06/25 16:30 01/07/25 07:56 Sodium Chloride 0.9% 1000 Ml IV 02/05/25 16:29 125 mls/hr .Q8H BOBO Administration Dextrose/Sodium Chloride 1,000 mls @ 125 mls/hr 01/08/25 03:00 01/08/25 03:07 Dextrose 5% -0.45 Nacl 1000 Ml IV 02/07/25 02:59 125 mls/hr .Q8H BOBO Administration Piperacillin Sod/Tazobactam Sod Confirm 01/06/25 13:40 Piperacillin/Tazobactam Sodium 3.375 Gm Vial Administered 01/06/25 13:41 Dose 3.375 gm IV .STK-MED ONE Multi-Disciplinary Progress Notes: Multi-Disciplinary Progress Notes 01/08/25 10:45 Case Management Note by Diamond Gamble S/W KIERSTE, CAREGIVER AND NEICE VIA TELEPHONE FOR DC PLAN. PLAN IS FOR PATIENT TO RETURN HOME WITH [facility] SERVICES PREVOUS. Initialized on 01/08/25 10:45 - END OF NOTE 01/08/25 10:27 Case Management Note by Diamond Gamble ATTEMPTED TO DO DC PLANNING/CASE MANAGEMENT ASSESSMENT- NO FAMILY AT BEDSIDE. PATIENT MENTALLY DISABLED. ATTEMPTED TO CALL BROTHERNANCY AND NIECEROSARIO WITHOUT SUCCESS. SPOKE WITH RN AND INSTRUCTED THAT IF FAMILY CALLED OR VISITED TODAY TO LET C.M. KNOW.WHEN S/W PATIENT, HE DID SAY HE LIVES AT HOME WITH SOMEONE TO CARE FOR HIM ALL THE TIME. Initialized on 01/08/25 10:27 - END OF NOTE 01/07/25 11:30 (created 01/07/25 15:06) Case Management Note by Vinita Rojas ATTEMPTED TO DO DC PLANNONG/CASE MANAGEMENT ASSESSMENT- NO FAMILY AT BEDSIDE. PATIENT MENTALLY DISABLED. Initialized on 01/07/25 15:06 - END OF NOTE Assessment/Plan (1) Small bowel obstruction Current Visit: Yes Status: Acute Code(s): K56.609 - UNSP INTESTNL OBST, UNSP TO PARTIAL VERSUS COMPLETE OBST (2) Abdominal pain Current Visit: Yes Status: Acute Code(s): R10.9 - UNSPECIFIED ABDOMINAL PAIN (3) Nausea and vomiting Current Visit: Yes Status: Acute Code(s): R11.2 - NAUSEA WITH VOMITING, UNSPECIFIED (4) Mild dehydration Current Visit: No Status: Acute Code(s): E86.0 - DEHYDRATION (5) Cerebral palsy Current Visit: No Status: Chronic Qualifiers: Cerebral palsy type: spastic diplegic Qualified Code(s): G80.1 - Spastic diplegic cerebral palsy Code(s): G80.9 - CEREBRAL PALSY, UNSPECIFIED (6) GERD (gastroesophageal reflux disease) Current Visit: No Status: Chronic Assessment & Plan: 1) Small bowel obstruction Current Visit: Yes Status: Acute Assessment & Plan: - GS consulted- NG placed per recs - CXR for placement ordered. - CBC, CMP reviewed - IV narcotic pain med - IV antiemetic - Zosyn IV - WBC 15.2 - Protonix UV - Hold home meds as NPO - IVF 01/07 - Small bowel follow through per surgery orders - CBC, CMP reviewed - WBC improved 10.9 01/08 - WBC normal - CBC, CMP reviewed - Start clear liquid diet and advance as tolerated- per GS - NG removed per GS - SBFT negative yesterday for SBO Code(s): K56.609 - UNSP INTESTNL OBST, UNSP TO PARTIAL VERSUS COMPLETE OBST (2) Abdominal pain Current Visit: Yes Status: Acute Assessment & Plan: - CT abd pelvis reviewed - 2:2 SBO- see plan 01/08 - Resolved Code(s): R10.9 - UNSPECIFIED ABDOMINAL PAIN (3) Nausea and vomiting Current Visit: Yes Status: Acute Assessment & Plan: - Zofran IV PRN Code(s): R11.2 - NAUSEA WITH VOMITING, UNSPECIFIED (4) Mild dehydration Current Visit: No Status: Acute Assessment & Plan: - Anion gap 18.5 - IVF 01/07 - Resolved but NPO so continue IVF 01/08 - IVF stopped Code(s): E86.0 - DEHYDRATION (5) Cerebral palsy Current Visit: No Status: Chronic Qualifiers: Cerebral palsy type: spastic diplegic Qualified Code(s): G80.1 - Spastic diplegic cerebral palsy Assessment & Plan: - Noted Code(s): G80.9 - CEREBRAL PALSY, UNSPECIFIED (6) GERD (gastroesophageal reflux disease) Current Visit: No Status: Chronic Code(s): K21.9 - GASTRO-ESOPHAGEAL REFLUX DISEASE WITHOUT ESOPHAGITIS - Continue Protonix Code(s): K21.9 - GASTRO-ESOPHAGEAL REFLUX DISEASE WITHOUT ESOPHAGITIS Code(s): K21.9 - GASTRO-ESOPHAGEAL REFLUX DISEASE WITHOUT ESOPHAGITIS (7) Serum sodium elevated Current Visit: Yes Status: Acute Assessment & Plan: - Na+ 148- trend - IVF stopped VTE: SCD PPI: protonix Next of KIN: Brother Chely Macias D/C plan: tomorrow Code status: Full Code(s): E87.0 - HYPEROSMOLALITY AND HYPERNATREMIA
--- NOTE | 2025-01-08 12:36 | PCM.NOTE ---
Date and Time: 01/08/25 1235 Objective Exam Wound Assessment: Skin/Wound Assessment Wound/Incision Assessment Start: 01/08/25 05:01 Text: Status: Active Freq: Q8H Protocol: Document 01/08/25 05:02 MP (Rec: 01/08/25 05:03 MP [id number]) Wound/Incision Assessment Right Buttock Wound Assessment Shift Assessment Wound Type shearing Wound Bed Greatest Portion Red (Granulation),Shiny Surrounding Tissue [place],Blanched/Dull Wound Photo Photo Taken No Objective Data Vital Signs: Vital Signs - 24 hr Temp Pulse Resp BP Pulse Ox 01/08/25 11:50 98 F 85 20 134/76 91 L 01/08/25 07:45 98.7 F 87 19 129/64 96 01/08/25 07:30 97 01/08/25 04:00 97.5 F 90 21 127/82 96 01/08/25 00:00 97.5 F 94 H 20 106/66 94 L 01/07/25 20:00 97.3 F 87 19 122/71 94 L 01/07/25 19:28 92 L 01/07/25 16:00 98.4 F 80 20 118/69 95 Pain Assessment - Last Documented Pain Intensity 2 Intake and Output: Intake & Output 01/06/25 01/07/25 01/08/25 01/09/25 11:59 11:59 11:59 11:59 Intake Total 0 4554 Output Total 300 500 Balance -300 4054 Weight 112.5 kg 112.5 kg 112.5 kg Lab Results: Lab Results-Last 24 Hours 01/07/25 01/08/25 01/08/25 Range/Units 22:23 05:10 05:10 WBC 8.7 (4.23-9.07) x10^3/uL RBC 4.86 (4.63-6.08) x10^6/uL Hgb 13.7 (13.7-17.5) g/dL Hct 44.8 (40.1-51.0) % MCV 92.2 (79.0-92.2) fL MCH 28.2 (25.7-32.2) pg MCHC 30.6 L (32.3-36.5) g/dL RDW 14.2 (11.6-14.4) % Plt Count 210 (163-337) x10^3/uL MPV 10.5 (9.4-12.4) fL Sodium 148 H D (135-145) mmol/L Potassium 3.5 (3.5-5.1) mmol/L Chloride 110 H (98-107) mmol/L Carbon Dioxide 27 (22-30) mmol/L Anion Gap 14.3 (5-15) MEQ/L BUN 22 H (9-20) mg/dL Creatinine 0.82 (0.66-1.25) mg/dL Estimated GFR 98.1 ML/MIN Glucose 103 (74-106) mg/dL POC Glucometer 75 (74 to 106) mg/dL Calcium 8.0 L (8.4-10.2) mg/dL Total Bilirubin 0.70 (0.2-1.3) mg/dL AST 23 (17-59) U/L ALT 18 (0-50) U/L Alkaline Phosphatase 70 (38-126) U/L Serum Total Protein 6.9 (6.3-8.2) g/dL Albumin 3.4 L (3.5-5.0) g/dL 01/08/25 Range/Units 07:36 WBC (4.23-9.07) x10^3/uL RBC (4.63-6.08) x10^6/uL Hgb (13.7-17.5) g/dL Hct (40.1-51.0) % MCV (79.0-92.2) fL MCH (25.7-32.2) pg MCHC (32.3-36.5) g/dL RDW (11.6-14.4) % Plt Count (163-337) x10^3/uL MPV (9.4-12.4) fL Sodium (135-145) mmol/L Potassium (3.5-5.1) mmol/L Chloride (98-107) mmol/L Carbon Dioxide (22-30) mmol/L Anion Gap (5-15) MEQ/L BUN (9-20) mg/dL Creatinine (0.66-1.25) mg/dL Estimated GFR ML/MIN Glucose (74-106) mg/dL POC Glucometer 92 (74 to 106) mg/dL Calcium (8.4-10.2) mg/dL Total Bilirubin (0.2-1.3) mg/dL AST (17-59) U/L ALT (0-50) U/L Alkaline Phosphatase (38-126) U/L Serum Total Protein (6.3-8.2) g/dL Albumin (3.5-5.0) g/dL Radiology Exams: Radiology Procedures Category Date Time Status CHEST 1 VIEW (PORTABLE) Stat Exams 01/06/25 16:04 Completed CHEST 1 VIEW (PORTABLE) Stat Exams 01/06/25 17:12 Completed SMALL BOWEL SERIES Routine Exams 01/07/25 16:56 Completed Medications: Medications Generic Name Dose Route Start Last Admin Trade Name Freq PRN Reason Stop Dose Admin Dextrose 25 ml 01/08/25 07:42 Dextrose 50%-Water 50 Ml Abboject IV 02/07/25 07:41 PRN PRN HYPOGLYCEMIA Glucose 15 gm 01/08/25 07:42 Dextrose 15 Gm Gel PO 02/07/25 07:41 PRN PRN HYPOGLYCEMIA Piperacillin Sod/Tazobactam 100 mls @ 200 mls/hr 01/06/25 22:00 01/08/25 05:53 Sod 4.5 gm/ Sodium Chloride IV 02/05/25 21:59 200 mls/hr Q8HT BOBO Administration Morphine Sulfate 2 mg 01/06/25 16:16 Morphine Sulfate 2 Mg/Ml Inj IV 01/11/25 16:15 Q4H PRN PRN SEVERE PAIN Ondansetron HCl 4 mg 01/06/25 16:19 Ondansetron Hcl 4 Mg/2 Ml Vial IV 02/05/25 16:18 Q6H PRN PRN NAUSEA/VOMITING Pantoprazole Sodium 40 mg 01/06/25 16:30 01/07/25 22:37 Pantoprazole 40 Mg Vial IV 02/05/25 16:29 40 mg Q24H BOBO Administration Discontinued Medications Generic Name Dose Route Start Last Admin Trade Name Freq PRN Reason Stop Dose Admin Erythromycin 1 gm 01/06/25 11:31 01/06/25 11:54 Erythromycin Base 1 Gm Tube Eye Ointment OP 01/06/25 11:32 1 gm STAT STA Administration Erythromycin Confirm 01/06/25 11:49 Erythromycin Base 1 Gm Tube Eye Ointment Administered 01/06/25 11:50 Dose 1 gm .ROUTE .STK-MED ONE Sodium Chloride 1,000 mls @ 125 mls/hr 01/06/25 13:15 01/06/25 13:44 Sodium Chloride 0.9% 1000 Ml IV 02/05/25 13:14 125 mls/hr .Q8H BOBO Administration Piperacillin Sod/Tazobactam 100 mls @ 200 mls/hr 01/06/25 13:04 01/06/25 13:46 Sod 3.375 gm/ Sodium Chloride IV 01/06/25 13:33 200 ml/hr STAT ONE 200 mls/hr Administration Sodium Chloride Confirm 01/06/25 13:40 Sodium Chloride 100ml Mini-Bag Plus Administered 01/06/25 13:41 Dose 100 mls @ ud IV .STK-MED ONE Sodium Chloride Confirm 01/06/25 13:41 Sodium Chloride 0.9% 1000 Ml Administered 01/06/25 13:42 Dose 1,000 mls @ ud .ROUTE .STK-MED ONE Sodium Chloride 1,000 mls @ 125 mls/hr 01/06/25 16:30 01/07/25 07:56 Sodium Chloride 0.9% 1000 Ml IV 02/05/25 16:29 125 mls/hr .Q8H BOBO Administration Dextrose/Sodium Chloride 1,000 mls @ 125 mls/hr 01/08/25 03:00 01/08/25 03:07 Dextrose 5% -0.45 Nacl 1000 Ml IV 02/07/25 02:59 125 mls/hr .Q8H BOBO Administration Piperacillin Sod/Tazobactam Sod Confirm 01/06/25 13:40 Piperacillin/Tazobactam Sodium 3.375 Gm Vial Administered 01/06/25 13:41 Dose 3.375 gm IV .STK-MED ONE Multi-Disciplinary Progress Notes: Multi-Disciplinary Progress Notes 01/08/25 12:10 Case Management Note by Vinita Rojas S/W GIULIANO WITH [facility]- SHE WAS NOTIFIED PATIENT HERE INPT THEY WILL NEED NOTIFIED AT TIME OF DC AT [phone]. THEY WILL NEED FAXED THE DC SUMMARY, DC MED LIST AND DC INSTRUCTIONS TO [phone] Initialized on 01/08/25 12:10 - END OF NOTE 01/08/25 10:45 Case Management Note by Diamond Gamble S/W NGOZI, BRITTANY AND NEICE VIA TELEPHONE FOR DC PLAN. PLAN IS FOR PATIENT TO RETURN HOME WITH [facility] SERVICES PREVOUS. Initialized on 01/08/25 10:45 - END OF NOTE 01/08/25 10:27 Case Management Note by Diamond Gamble ATTEMPTED TO DO DC PLANNING/CASE MANAGEMENT ASSESSMENT- NO FAMILY AT BEDSIDE. PATIENT MENTALLY DISABLED. ATTEMPTED TO CALL BROTHER, NANCY AND NIECE, ROSARIO WITHOUT SUCCESS. SPOKE WITH RN AND INSTRUCTED THAT IF FAMILY CALLED OR VISITED TODAY TO LET C.M. KNOW.WHEN S/W PATIENT, HE DID SAY HE LIVES AT HOME WITH SOMEONE TO CARE FOR HIM ALL THE TIME. Initialized on 01/08/25 10:27 - END OF NOTE Assessment/Plan (1) Abdominal pain Current Visit: Yes Status: Acute Code(s): R10.9 - UNSPECIFIED ABDOMINAL PAIN (2) Small bowel obstruction Current Visit: Yes Status: Acute Assessment & Plan: S: no acute issues overnight. copious bowel movement. no abd pain. no n/v. radha liquids so far today. o nad nonlabroed repss nd, soft, nttp a/p: resolved ? ileus. totally negative normal SBFT having bms. tolerating PO. -soft diet ADAT. -f/u PRN signing off. Code(s): K56.609 - UNSP INTESTNL OBST, UNSP TO PARTIAL VERSUS COMPLETE OBST
[2025-01-09 05:52] LABS: Hematocrit 42.2 % (40.1-51.0); Hemoglobin 12.9 g/dL (13.7-17.5); Mean Cell Volume 90.2 fL (79.0-92.2); Mean Corpuscular Hemoglobin 27.6 pg (25.7-32.2); Mean Corpuscular Hgb Concent. 30.6 g/dL (32.3-36.5); Mean Platelet Volume 10.1 fL (9.4-12.4); Platelet Count 186 x10^3/uL (163-337); Red Blood Count 4.68 x10^6/uL (4.63-6.08); Red Cell Distribution Width 13.9 % (11.6-14.4); White Blood Count 8.7 x10^3/uL (4.23-9.07)
[2025-01-09 06:09] LABS: ALBUMIN 3.4 g/dL (3.5-5.0); ANION GAP 12.9 MEQ/L (5-15); BILIRUBIN,TOTAL 0.4 mg/dL (0.2-1.3); Calcium 7.9 mg/dL (8.4-10.2); Creatinine 1 0.8 mg/dL (0.66-1.25); EST GLOMERULAR FILTRATION RATE 98.8 ML/MIN; Potassium 3.1 mmol/L (3.5-5.1); Total Protein 6.7 g/dL (6.3-8.2)
[2025-01-09] MEDS ORDERED: Fosamax 70 MG PO PRN (07:45)
[2025-01-09 07:53] VITALS: RESP 20
[2025-01-09] MEDS: K-LYTE PO SCH (07:59)
[2025-01-09] MEDS: Flomax 0.4 MG PO SCH (09:30)
[2025-01-09] MEDS: BENTYL 20 MG PO SCH (09:30)
[2025-01-09] MEDS: SENOKOT 8.6 MG PO SCH (09:31)
[2025-01-09] MEDS: Protonix 40MG Tablet PO SCH (09:31)
[2025-01-09] MEDS: Pepcid 20 MG PO SCH (09:31)
[2025-01-09] MEDS: Miralax Powder 17GM PACKET PO SCH (09:33)
[2025-01-09] MEDS: Tums EX 750 MG PO SCH (09:33)
--- NOTE | 2025-01-09 09:36 | PCM.DS ---
Discharge Summary Date of Admission: 01/06/25 14:25 Date of Discharge: 01/09/25 Admitting Physician: SOCRATES RICHARDS MD Consults: Consults on Case 01/08/25 07:42 Notify Physician ROUTINE Primary Care Provider: ROSE GOLD Allergies Allergies triamcinolone Allergy (Unknown, Verified 01/06/25 09:56) Hospital Summary - Hospital Course Hospital Course: 01/06/25 is a 64 year old male with a history of intellectual disability presented to the Emergency Department via EMS for evaluation of vomiting and abdominal pain that began the previous evening around 11:00 PM. Although he denied pulmonary symptoms, his oxygen saturation on arrival was 92% on room air, prompting initiation of 4 liters of oxygen via nasal cannula. The patients caregiver reported that the emesis was dark in color and had a feculent odor, raising concern for a possible gastrointestinal bleed. He had been experiencing abdominal discomfort, and his abdomen appeared distended on examination. The patient is a known aspiration risk and is currently scheduled for an outpatient swallow study, which has not yet been completed. Due to his baseline cognitive impairment, history was limited. A CT scan of the abdomen and pelvis revealed a mild small bowel obstruction on the left, possible gastroesophageal reflux disease (GERD), and cardiomegaly. General Surgery was consulted, and a nasogastric (NG) tube was placed in the ED. Upon arrival to the inpatient unit, the NG tube was replaced due to concerns regarding placement, and a chest X-ray was ordered for confirmation. Intravenous fluids were continued for hydration. At this time, the patient denies any additional complaints. 01/07/25 Pt resting in bed. He states he continues to have N/V and abd pain. NG in place. Small bowel follow through test to be completed today per surgery recommendation. Continue pain meds, antiemetic, antibiotics, and IVF. He denies CP or SOB. 01/08/25 Pt resting in bed. He states he feels better today and would like to eat. Imaging ordered by yesterday was negative. Per surgery orders today NG removed and clear liquid diet started. Pt to advance diet as tolerated. He has had several BM's overnight. Na+ 148 and IVF stopped. Continue Zosyn per GS orders. He denies CP, SOB, abd. pain, N/V/D. 01/09/25 Pt resting in bed. He states he feels better today. He is eating and drinking well. He has had several BM's overnight. Surgery came to see pt last night and signed off of case. Pt is ok to d/c per surgery. K+ 3.1 and replaced. Will recheck this afternoon. If ok he can d/c home. He denies CP, SOB, abd. pain, N/V/D. - Vitals & Intake/Output Vital Signs: Vital Signs Temperature 98.2 F 01/09/25 07:52 Pulse Rate 73 01/09/25 07:52 Respiratory Rate 20 01/09/25 07:52 Blood Pressure 143/84 01/09/25 07:52 O2 Sat by Pulse Oximetry 91 L 01/09/25 07:52 Intake & Output: Intake & Output 01/06/25 01/07/25 01/08/25 01/09/25 11:59 11:59 11:59 11:59 Intake Total 0 4554 2255 Output Total 300 500 Balance -300 4054 2255 Weight 112.5 kg 112.5 kg 112.5 kg - Lab Result Diagrams: 01/09/25 05:04 01/09/25 05:04 Lab Results-Last 24 Hrs: Lab Results-Last 24 Hours 01/08/25 01/09/25 01/09/25 Range/Units 14:05 05:04 05:04 WBC 8.7 (4.23-9.07) x10^3/uL RBC 4.68 (4.63-6.08) x10^6/uL Hgb 12.9 L (13.7-17.5) g/dL Hct 42.2 (40.1-51.0) % MCV 90.2 (79.0-92.2) fL MCH 27.6 (25.7-32.2) pg MCHC 30.6 L (32.3-36.5) g/dL RDW 13.9 (11.6-14.4) % Plt Count 186 (163-337) x10^3/uL MPV 10.1 (9.4-12.4) fL Sodium 143 (135-145) mmol/L Potassium 3.1 L (3.5-5.1) mmol/L Chloride 106 (98-107) mmol/L Carbon Dioxide 27 (22-30) mmol/L Anion Gap 12.9 (5-15) MEQ/L BUN 14 (9-20) mg/dL Creatinine 0.80 (0.66-1.25) mg/dL Estimated GFR 98.8 ML/MIN Glucose 107 H (74-106) mg/dL POC Glucometer 87 (74 to 106) mg/dL Calcium 7.9 L (8.4-10.2) mg/dL Total Bilirubin 0.40 (0.2-1.3) mg/dL AST 24 (17-59) U/L ALT 15 (0-50) U/L Alkaline Phosphatase 67 (38-126) U/L Serum Total Protein 6.7 (6.3-8.2) g/dL Albumin 3.4 L (3.5-5.0) g/dL Micro Results-Entire Visit: Accuchecks Date 01/08/25 Time 14:11 - Radiology Exams Ordered Rad Exams-Entire Visit: Radiology Procedures Category Date Time Status SMALL BOWEL SERIES Routine Exams 01/07/25 16:56 Completed - Procedures and Test Procedures and Tests throughout Hospitalization: Therapy Orders & Screens 01/07/25 07:07 Oxygen Nasal Cannula 3 lpm Comment: Diagnosis: Nausea and vomiting, small bowel obstruction Discharge Exam General Appearance: no apparent distress, alert, obese Neurologic Exam: alert, oriented x 3, cooperative, normal mood/affect, nml cerebellar function, sensation nml, No motor deficits Eye Exam: PERRL, EOMI, eyes nml inspection Ears, Nose, Throat Exam: normal ENT inspection, pharynx normal, moist mucous membranes Neck Exam: normal inspection, non-tender, supple, full range of motion Respiratory Exam: normal breath sounds, lungs clear, No respiratory distress Cardiovascular Exam: regular rate/rhythm, normal heart sounds Gastrointestinal/Abdomen Exam: soft, No tenderness, No mass Male Genitalia Exam: deferred Rectal Exam: deferred Back Exam: normal inspection, normal range of motion, No CVA tenderness, No vertebral tenderness Extremity Exam: normal inspection, normal range of motion Skin Exam: normal color, warm, dry Wound Assessment: Skin/Wound Assessment Wound/Incision Assessment Start: 01/08/25 05:01 Text: Status: Active Freq: Q8H Protocol: Document 01/09/25 00:00 KD (Rec: 01/09/25 05:35 KD [id number]) Wound/Incision Assessment Right Buttock Wound Assessment Shift Assessment Wound Type Pressure Ulcer Wound Stage Stage II Drainage Amount Minimal Drainage Description Sanguineous General Appearance Open to air,Bleeding Wound Bed Greatest Portion Red (Granulation),Shiny Surrounding Tissue [place],Blanched/Dull Comment barrier cream applied prn Wound Photo Photo Taken No Final Diagnosis/Problem List - Final Discharge Diagnosis/Problem (1) Small bowel obstruction Current Visit: Yes Status: Acute Code(s): K56.609 - UNSP INTESTNL OBST, UNSP TO PARTIAL VERSUS COMPLETE OBST (2) Abdominal pain Current Visit: Yes Status: Acute Code(s): R10.9 - UNSPECIFIED ABDOMINAL PAIN (3) Nausea and vomiting Current Visit: Yes Status: Acute Code(s): R11.2 - NAUSEA WITH VOMITING, UNSPECIFIED (4) Mild dehydration Current Visit: No Status: Acute Code(s): E86.0 - DEHYDRATION (5) Cerebral palsy Current Visit: No Status: Chronic Code(s): G80.9 - CEREBRAL PALSY, UNSPECIFIED (6) GERD (gastroesophageal reflux disease) Current Visit: No Status: Chronic Code(s): K21.9 - GASTRO-ESOPHAGEAL REFLUX DISEASE WITHOUT ESOPHAGITIS (7) Serum sodium elevated Current Visit: Yes Status: Acute Assessment & Plan: 1) Small bowel obstruction Current Visit: Yes Status: Acute Assessment & Plan: - GS consulted- NG placed per recs - CXR for placement ordered. - CBC, CMP reviewed - IV narcotic pain med - IV antiemetic - Zosyn IV - WBC 15.2 - Protonix UV - Hold home meds as NPO - IVF 01/07 - Small bowel follow through per surgery orders - CBC, CMP reviewed - WBC improved 10.9 01/08 - WBC normal - CBC, CMP reviewed - Start clear liquid diet and advance as tolerated- per GS - NG removed per GS - SBFT negative yesterday for SBO 01/09 - Surgery signed off case- ok to d/c. - Regular diet- tolerating well - Reports no abd pain - WBC normal - CBC, CMP reviewed Code(s): K56.609 - UNSP INTESTNL OBST, UNSP TO PARTIAL VERSUS COMPLETE OBST (2) Abdominal pain Current Visit: Yes Status: Acute Assessment & Plan: - CT abd pelvis reviewed - 2:2 SBO- see plan 01/08 - Resolved Code(s): R10.9 - UNSPECIFIED ABDOMINAL PAIN (3) Nausea and vomiting Current Visit: Yes Status: Acute Assessment & Plan: - Zofran IV PRN 01/09 - resolved Code(s): R11.2 - NAUSEA WITH VOMITING, UNSPECIFIED (4) Mild dehydration Current Visit: No Status: Acute Assessment & Plan: - Anion gap 18.5 - IVF 01/07 - Resolved but NPO so continue IVF 01/08 - IVF stopped Code(s): E86.0 - DEHYDRATION (5) Cerebral palsy Current Visit: No Status: Chronic Qualifiers: Cerebral palsy type: spastic diplegic Qualified Code(s): G80.1 - Spastic diplegic cerebral palsy Assessment & Plan: - Noted Code(s): G80.9 - CEREBRAL PALSY, UNSPECIFIED (6) GERD (gastroesophageal reflux disease) Current Visit: No Status: Chronic Code(s): K21.9 - GASTRO-ESOPHAGEAL REFLUX DISEASE WITHOUT ESOPHAGITIS - Continue Protonix Code(s): K21.9 - GASTRO-ESOPHAGEAL REFLUX DISEASE WITHOUT ESOPHAGITIS (7) Serum sodium elevated Current Visit: Yes Status: Acute Assessment & Plan: - Na+ 148- trend - IVF stopped 01/09 - reoslved Code(s): E87.0 - HYPEROSMOLALITY AND HYPERNATREMIA (8) Hypokalemia Current Visit: Yes Status: Acute Assessment & Plan: - K+ 3.1- replaced - Recheck this afternoon and if ok can d/c Code(s): E87.6 - HYPOKALEMIA (9) Hypocalcemia Current Visit: Yes Status: Acute Assessment & Plan: - Corrected Ca+ 8.0 - Tums BID started Code(s): E83.51 - HYPOCALCEMIA - Discharge Discharge Date: 01/09/25 Disposition: HOME HEALTH SERVICE Condition: Stable Prescriptions: Continue Tamsulosin HCl 0.4 mg [Flomax 0.4 MG] 0.4 mg PO DAILY Loratadine 10 mg [Claritin 10 mg] 10 mg PO HS Polyethylene Glycol 3350 17 gm [Miralax Powder 17GM PACKET] 17 gm PO DAILY #5 packet Escitalopram Oxalate [Lexapro] 1 tab PO HS Dicyclomine HCl 1 cap PO QID Calcium Carbonate/Vitamin D3 [Calcium 600-Vit D3 400 Tablet] 1 tab PO BID Famotidine 20 mg [Pepcid 20 MG] 40 mg PO DAILY Lansoprazole 30 mg PO DAILY Alendronate Sodium 70 mg [Fosamax 70 MG] 70 mg PO WEEKLY Senna 8.6 mg [Senokot 8.6 mg] 8.6 mg PO BID Methenamine Mandelate 500 mg PO BID Phentermine HCl 37.5 mg PO DAILY Follow up with: ROSE GOLD [Primary Care Provider, [facility]] - 01/15/25 9:30 am
[2025-01-09] MEDS ORDERED: METHENAMINE MANDELATE 500 MG PO SCH (10:00)
[2025-01-09 12:18] VITALS: PULSE 91
[2025-01-09] MEDS ORDERED: PIPERACILLIN/TAZOBACTAM IV ONE (13:59)
[2025-01-09 14:42] LABS: MAGNESIUM 1.7 mg/dL (1.6-2.3); Potassium 3.4 mmol/L (3.5-5.1)
[2025-01-09] MEDS: K-LYTE PO ONE (14:54)
[2025-01-09 16:44] VITALS: BP 141/91; TEMP 97.6; O2SAT 92
[2025-01-09] MEDS ORDERED: CLARITIN 10 MG PO SCH (22:00)
[2025-01-09] MEDS ORDERED: Lexapro PO SCH (22:00)
== END 2025-01-09 19:20 | disposition home health service (06) | DRG 389 ==
LOC: ED 09:24 → MED SURG 14:25 → OBSVTOIN 14:25
PROVIDERS: ADMIT Internal Medicine; ATTEND Internal Medicine
DX: K56.609 Unspecified intestinal obstruction, unspecified as to partial versus complete obstruction (principal); E87.0 Hyperosmolality and hypernatremia; G80.1 Spastic diplegic cerebral palsy; L89.312 Pressure ulcer of right buttock, stage 2; R10.9 Unspecified abdominal pain; R11.2 Nausea with vomiting, unspecified; E86.0 Dehydration; K21.9 Gastro-esophageal reflux disease without esophagitis; D72.829 Elevated white blood cell count, unspecified; E87.6 Hypokalemia; E83.51 Hypocalcemia; Z79.899 Other long term (current) drug therapy
CPT/HCPCS: 36415; 71045; 74176; 74250; 80053; 82947; 83605; 83735; 84132; 84484; 85025; 85027; 93005; 93041; 94760; 96374; 99285; P9612; Q3014; J2543; A9270-GY

== ENCOUNTER 2025-06-02 17:21 | Emergency (ER) | payer MEDICARE ==
--- NOTE | 2025-06-02 17:26 | ERPHSYRPT ---
- History of Present Illness Time Seen by Provider: 06/02/25 17:26 Source: patient, EMS, other (Caregiver) Exam Limitations: clinical condition Physician History: This is an overweight 64-year-old white male patient who is a patient of Dr. Ramirez and arrives to the emergency department of the [facility]. The majority of the history comes from independent source. That is, the patient's primary caregiver at home he lives in. Today, the patient had a mild cough earlier in the day. He does have a history of aspiration pneumonias. However no one saw him vomit. As the day progressed he became more congested with the stronger louder cough. Patient had a low-grade fever 100.6 F. He has not had any diarrhea or vomiting episodes. He has no abdominal pain. He does not have chest pain. His primary issues are fever, cough, nasal congestion and rhinorrh ea. Patient was given Mucomyst at the retirement he lives in. Patient has multiple medical issues including cerebral palsy, spastic quadriplegia, speech dysarthria, gastroesophageal reflux disease, hypertension, prostate issues and is mildly handicapped. Timing/Duration: today Fever Severity: gone Fever Therapy PLANISHER: none Associated Symptoms: cough Allergies/Adverse Reactions: triamcinolone Allergy (Unknown, Verified 06/02/25 18:58) Home Medications: Tamsulosin HCl 0.4 mg [Flomax 0.4 MG] 0.4 mg PO DAILY 03/06/22 [History] Loratadine 10 mg [Claritin 10 mg] 10 mg PO HS 08/15/23 [History] Calcium Carbonate/Vitamin D3 [Calcium 600-Vit D3 400 Tablet] 1 tab PO BID 12/26/23 [History] Dicyclomine HCl 1 cap PO QID 12/26/23 [History] Escitalopram Oxalate [Lexapro] 1 tab PO HS 12/26/23 [History] Famotidine 20 mg [Pepcid 20 MG] 40 mg PO DAILY 12/26/23 [History] Lansoprazole 30 mg PO DAILY 03/10/24 [History] Alendronate Sodium 70 mg [Fosamax 70 MG] 70 mg PO WEEKLY 04/15/24 [History] Senna 8.6 mg [Senokot 8.6 mg] 8.6 mg PO BID 04/15/24 [History] Methenamine Mandelate 500 mg PO BID 01/06/25 [History] Phentermine HCl 37.5 mg PO DAILY 01/06/25 [History] Hx Tetanus, Diphtheria Vaccination/Date Given: Yes Hx Influenza Vaccination/Date Given: (unknown) Hx Pneumococcal Vaccination/Date Given: (unknown) Travel Risk - International Travel Have you traveled outside of the country in past 3 weeks: No - Emerging Infectious Disease Are you exhibiting symptoms associated with any current EIDs: No Symptoms: Vomitting - Review of Systems Constitutional: Fever Eyes: No Symptoms Ears, Nose, & Throat: Nose Congestion, Nose Discharge Respiratory: Cough Cardiac: No Symptoms Abdominal/Gastrointestinal: No Symptoms Genitourinary Symptoms: No Symptoms Musculoskeletal: No Symptoms Skin: No Symptoms Neurological: No Symptoms Psychological: No Symptoms Endocrine: No Symptoms Hematologic/Lymphatic: No Symptoms Immunological/Allergic: No Symptoms All Other Systems: Reviewed and Negative - Past Medical History Pertinent Past Medical History: Yes Neurological History: Other ENT History: No Pertinent History Cardiac History: No Pertinent History Respiratory History: Other Endocrine Medical History: No Pertinent History Musculoskeletal History: Osteoarthritis GI Medical History: GERD, Gallbladder Disease, Ulcer History: No Pertinent History Psycho-Social History: No Pertinent History Male Reproductive Disorders: No Pertinent History Other Medical History: CEREBRAL PALSY, OSTEOARTHRITS - Past Surgical History Neuro Surgical History: No Pertinent History Cardiac: No Pertinent History Respiratory: No Pertinent History Gastrointestinal: Cholecystectomy Genitourinary: No Pertinent History Musculoskeletal: Orthopedic Surgery Male Surgical History: No Pertinent History Other Surgical History: Back, Neck, and ankle surgery. Colonoscopy, Baclofen pump in left abdomen area per care administrative tech at bedside. - Social History Smoking Status: Never smoker Exposure to second hand smoke: No Drug Use: none - Social Determinants of Health Will the patient participate in the screening: Yes Do you worry about a steady place to live?: No In the past 12 months,have you had to go without utilities?: No Transportation Issues: No Has anyone in your support network made you feel unsafe?: No Have you or anyone in your house had to go w/o enough food: No - Nursing Vital Signs Nursing Vital Signs: Initial Vital Signs Pulse Rate 108 H 06/02/25 17:18 Respiratory Rate 19 06/02/25 17:18 Blood Pressure 163/96 06/02/25 17:18 Pain Scale Pain Intensity 0 - Physical Exam General Appearance: no apparent distress, alert, obese Eye Exam: PERRL/EOMI, eyes nml inspection ENT Exam: normal ENT inspection, TMs normal, pharynx normal Neck Exam: normal inspection, non-tender, supple, full range of motion Respiratory Exam: normal breath sounds, lungs clear, no respiratory distress, no accessory muscle use, No chest non-tender Cardiovascular/Chest Exam: normal heart sounds, regular rate/rhythm Gastrointestinal/Abdominal Exam: soft, non tender, no distention, no mass, no guarding, no ecchymosis, no organomegaly, no pulsatile mass Rectal Exam: not done Extremity Exam: non-tender, normal range of motion, normal capillary refill, no calf tenderness, no pedal edema, pelvis stable, No normal inspection Neurologic Exam: alert, cooperative, acreage reporter II-XII nml as tested, normal mood/affect Skin Exam: normal color, warm, dry Lymphatic: No adenopathy SpO2 Interpretation: normal O2 Delivery: Room Air - Course Nursing assessment & vital signs reviewed: Yes Ordered Tests: Active Orders 24 hr Category Date Time Status CHEST 1 VIEW (PORTABLE) Stat Exams 06/02/25 18:05 Taken Medication Summary Discontinued Medications Generic Name Dose Route Start Last Admin Trade Name Maksimq PRN Reason Stop Dose Admin Ceftriaxone Sodium 1,000 mg 06/02/25 19:02 Ceftriaxone Sodium 1000 Mg Inj Vial IM 06/02/25 19:03 STAT ONE Lab/Rad Data: Laboratory Results 06/02/25 06/02/25 Range/Units 18:10 18:10 Influenza Type A Ag NEGATIVE (NEGATIVE) Influenza Type B Ag NEGATIVE (NEGATIVE) RSV (PCR) NEGATIVE (NEGATIVE) SARS-CoV-2 (PCR) NEGATIVE (NEGATIVE) Group A Strep Antibody NOT DETECTED (NEGATIVE) - Progress Progress: unchanged Progress Note: 06/02/25 18:33 My medical decision making and the assignment of low to moderate complexity is based on review of the patient's past medical history, reviewed patient's medication list, reviewed patient drug allergy list, history present illness and physical findings on examination. The workup in this patient includes viral swabs, group A strep test and chest x-ray. Differential diagnosis includes was not limited to upper respiratory infection, pneumonia, viral illness, strep pharyngitis 06/02/25 19:00 I interpreted the preliminary chest x-ray report of this patient. When compared to similar study performed in December 2024, the patient has a poor inspiratory ef fort. However, there may be a early perihilar infiltrate present 06/02/25 19:09 I interpreted the patient's laboratory data results. Based on laboratory data results, there are no acute, emergent medical issues. Counseled pt/family regarding: lab results, diagnosis, rad results Medical Desision Making - Independent Historian Additional History obtained from: [employer] - Diagnostic Testing Diagnostic test were ordered, analyzed, and reviewed by me: Yes Radiological Interpretation: Interpreted by me - Risk of complications Low Risk: Low risk of morbidity from additional dx testing or treatment The pt has a mod risk of morbidity or mortality based on: Need for prescription drug management - Departure Departure Disposition: Home Clinical Impression: Cough, Infiltrate of lung present on chest x-ray Condition: Stable Critical Care Time: No Referrals: ROSE RAMIREZ [Primary Care Provider, [facility]] - Follow up/PCP as directed Additional Instructions: Drink plenty of fluids. Head of bed up when eating and drinking and sleeping. Give the antibiotics as prescribed. Call the patient's primary care provider tomorrow, 06/03/2025, to make arrangements for follow-up appointment to be seen in the next 3 to 5 days. If there are no contraindications, use Tylenol and ibuprofen for fever control. Prescriptions: Cefdinir 300 mg PO BID #14 cap
[2025-06-02 17:27] VITALS: TEMP 98.8; O2SAT 97
[2025-06-02 18:50] VITALS: BP 169/89; PULSE 91; RESP 28
[2025-06-02 19:04] LABS: INFLUENZA A NEGATIVE (NEGATIVE); INFLUENZA B NEGATIVE (NEGATIVE); RESPIRATORY SYNCTIAL VIRUS NEGATIVE (NEGATIVE); SARS-CoV-2 Xpert Express NEGATIVE (NEGATIVE)
[2025-06-02] MEDS ORDERED: XYLOCAINE 2% HCL 20 ML MDV ONE (19:16)
[2025-06-02] MEDS ORDERED: Rocephin 1000 MG INJ ONE (19:16)
[2025-06-02] MEDS: Rocephin 1000 MG INJ IM ONE (19:22)
--- NOTE | 2025-06-02 21:36 | XRAY ---
Indication: Fever and cough. Comparison: January 06, 2025 Portable chest now underinflated and rotated. Visualized lungs clear. Heart prominent presumed from underinflation. Bony thorax intact again with osteopenia, degenerative changes, and levoscoliosis. Impression: Grossly nonacute underinflated Limited chest.
== END 2025-06-02 19:33 | disposition home or self-care (01) ==
LOC: ED 17:21
DX: R05.1 Acute cough (principal); R91.8 Other nonspecific abnormal finding of lung field; R50.9 Fever, unspecified; I10 Essential (primary) hypertension; Z79.899 Other long term (current) drug therapy